=== PATIENT | male | born 1990 | race African-American/Black ===

== ENCOUNTER 2019-12-30 15:47 | Emergency (ER) | payer OTHER, SELFPAY ==
[2019-12-30 16:16] VITALS: BP 150/92; PULSE 98; RESP 19; TEMP 36.2; O2SAT 100
[2019-12-30 16:31] LABS: Basophils Percent Auto 0.2 % (0.2-1.2); Eosinophils Absolute Auto 0.1 K/mm3 (0-0.3); Eosinophils Percent Auto 0.8 % (0-4.4); Hematocrit 49.2 % (42.0-52.0); Immature Granulocyte Absolute 0.03 K/mm3 (0.00-0.031); Immature Granulocyte Percent A 0.3 % (0-0.5); Lymphocytes Percent Auto 13.3 % (18.3-44.2); Mean Corpuscular HGB Conc 32.5 g/dl (32-36); Mean Corpuscular Hemoglobin 30.5 pg (26-34); Mean Corpuscular Volume 93.7 fl (80-100); Mean Platelet Volume 8.7 fl (7.4-10.4); Monocytes Absolute Auto 0.4 K/mm3 (0.1-0.6); Monocytes Percent Auto 3.4 % (2.6-8.5); Neutrophils Absolute Auto 8.6 K/mm3 (1.3-6.7); Platelet Count Result 277 k/mm3 (150-375); Red Blood Count 5.25 M/mm3 (4.6-6.20); White Blood Count 10.5 K/mm3 (4.5-10.0)
[2019-12-30 16:42] LABS: Alanine Aminotransferase 71 U/L (4-50); Albumin Level 4.5 g/dL (3.5-5.1); Alkaline Phosphatase 68 U/L (38-126); Aspartate Amino Transferase 37 U/L (17-59); Bilirubin,Total 0.4 mg/dL (0.2-1.3); Blood Urea Nitrogen 14 mg/dL (9-20); Calcium 9.4 mg/dL (8.4-10.2); Carbon Dioxide 29 mmol/L (22-30); Chloride 102 mmol/L (98-107); Estimated Glomerular Filt Rate > 60; Glucose 117 mg/dL (75-110); Lipase 124 U/L (23-300); Potassium 3.9 mmol/L (3.4-5.0); Sodium 141 mmol/L (137-145)
[2019-12-30 17:51] VITALS: BP 122/76; PULSE 88; RESP 19; TEMP 36.4; O2SAT 100
[2019-12-30 18:14] VITALS: BP 135/92; PULSE 87
[2019-12-30 18:15] VITALS: BP 119/86; BP 137/92; PULSE 85; PULSE 92
--- NOTE | 2019-12-30 18:55 | ED.GENADULT ---
HPI - General Adult General Chief complaint: Nausea/Vomiting/Diarrhea <Ian Kwon PA-C - Last Filed: 12/30/19 20:40> Stated complaint: vomiting <Ian Kwon PA-C - Last Filed: 12/30/19 20:40> Time Seen by Provider: 12/30/19 18:19 <Ian Kwon PA-C - Last Filed: 12/30/19 20:40> Source: patient and family <ESTER Goodwin Last Filed: 12/30/19 20:40> Mode of arrival: ambulatory <Ian Kwon PA-C - Last Filed: 12/30/19 20:40> Limitations: clinical condition <ESTER Goodwin Last Filed: 12/30/19 20:40> History of Present Illness HPI narrative: Patient is a 29-year-old male who presents to emergency department for evaluation of nausea and vomiting noting that he shot up meth today and had resultant nausea and vomiting which she has had before requiring nausea medication has not taken anything for his symptoms patient denies any other illness or complaints and on arrival denies any pain and notes just nausea <Ian Kwon PA-C - Last Filed: 12/30/19 20:40> Related Data Allergies/adverse reactions: Allergies Allergy/AdvReac Type Severity Reaction Status Date / Time No Known Allergies Allergy Unknown Verified 12/03/19 16:01 <Ian Kwon PA-C - Last Filed: 12/30/19 20:40> Review of Systems Review of Systems: All systems reviewed & are unremarkable except as noted in HPI and below <Ian Kwon PA-C - Last Filed: 12/30/19 20:40> [facility] Surgical History Surgical History: Surgical History (Updated 12/30/19 @ 18:57 by Ian Kwon PA-C) History of orthopedic surgery <ESTER Goodwin Last Filed: 12/30/19 20:40> Social History Social History: Social History Smoking status: Current some day smoker Alcohol intake: current Substance use: current Substance use type: marijuana and methamphetamine Last use: 12/03/19 Gender identity (if verbalized by the patient): Male <ESTER Goodwin Last Filed: 12/30/19 20:40> Exam Narrative: Exam Narrative: GENERAL: Well-appearing, well-nourished, and in no acute distress. HEAD: Normocephalic, atraumatic. EYES: PERRLA and EOMI. ENT: Nares clear, no rhinorrhea or epistaxis. Mucous membranes moist. Oropharynx without tonsillar hypertrophy exudate or other lesions. CHEST: Clear to auscultation. No respiratory distress. No wheezes rales or rhonchi HEART: Regular rate and rhythm. No murmur heard. Normal peripheral pulses. ABDOMEN: Soft, nontender, nondistended EXTREMITIES: Normal range of motion. No edema. SKIN: Warm, dry, no rash. NEURO: No focal deficits. Alert and oriented x3. PSYCH: Normal mood and affect. <ESTER Goodwin Last Filed: 12/30/19 20:40> Course Course Emergency Course: Patient in the room in no distress aware of case findings treatment plan and diagnosis <ESTER Goodwin Last Filed: 12/30/19 20:40> Vital Signs Vital signs: Vital Signs Temperature 36.2 C L 12/30/19 16:16 Pulse Rate 98 12/30/19 16:16 Respiratory Rate 19 12/30/19 16:16 Blood Pressure 150/92 H 12/30/19 16:16 Pulse Oximetry 100 12/30/19 16:16 Temperature 36.4 C L 12/30/19 17:51 Pulse Rate 92 12/30/19 18:15 Respiratory Rate 19 12/30/19 17:51 Blood Pressure 137/92 H 12/30/19 18:15 Pulse Oximetry 100 12/30/19 17:51 <ESTER Goodwin Last Filed: 12/30/19 20:40> Vital Signs Temperature 36.2 C L 12/30/19 16:16 Pulse Rate 98 12/30/19 16:16 Respiratory Rate 19 12/30/19 16:16 Blood Pressure 150/92 H 12/30/19 16:16 Pulse Oximetry 100 12/30/19 16:16 Temperature 36.4 C L 12/30/19 17:51 Pulse Rate 92 12/30/19 18:15 Respiratory Rate 19 12/30/19 17:51 Blood Pressure 137/92 H 12/30/19 18:15 Pulse Oximetry 100 12/30/19 17:51 <Malathi Savage MD - Last Filed: 12/31/19 00:22> Medical Decision Uzair
[2019-12-30] MEDS: LACTATED RINGERS 1,000 ML 999 ML IV CONT (19:32)
[2019-12-30] MEDS: ONDANSETRON INJ 4 MG/2 ML VIAL IV PUSH (19:33)
[2019-12-30] MEDS: FAMOTIDINE 20 MG/2 ML VIAL IV PUSH (19:33)
== END 2019-12-30 21:14 | disposition home or self-care (01) ==
PROVIDERS: Emergency Provider Emergency Medicine
DX: R11.2 Nausea with vomiting, unspecified (principal); F17.200 Nicotine dependence, unspecified, uncomplicated; F15.90 Other stimulant use, unspecified, uncomplicated
CPT/HCPCS: 36415; 80053; 83690; 85025; 96361; 96374; 96375; 99284; J0131; J2405; J7120

== ENCOUNTER 2020-05-08 15:37 | Emergency (ER) | payer OTHER, SELFPAY ==
--- NOTE | ~2020-05-08 | CT_ITS ---
EXAMINATION: CT abdomen pelvis w con DATE: 05/08/2020 17:28 INDICATION: Abdominal pain and vomiting TECHNIQUE: Computed tomography (CT) of the abdomen and pelvis was performed with 100 cc Omnipaque 350 intravenous contrast. Automated exposure control and iterative reconstruction technique were employe d. Exam dose: 681.96 mGy-cm total exam DLP. COMPARISON: 06/29/2018 CT abdomen pelvis FINDINGS: There is dependent right lower lobe infiltrate and/atelectasis. There is minimal dependent left lower lobe atelectasis. Normal heart size. No pericardial or pleural effusion. The liver, gallbladder, spleen, pancreas and the bile and pancreatic ducts are unremarkable. No adrenal mass lesion. No renal mass lesion. No urinary tract calculus or hydroureteronephrosis. The urinary bladder is unre markable. Prostate gland is unremarkable. Normal appendix. There are numerous fluid containing small bowel segments with air-fluid levels, but no abnormal dilatation of the small or large bowel or evacuation of the distal bowel to suggest obstr uction. No bowel wall thickening, pneumatosis or intraperitoneal free air. Findings may be consistent with enteritis. Normal caliber of the abdominal aorta. No intraperitoneal or retroperitoneal or pelvic mass lesion or adenopathy or ascites. Included skeletal structures are unremarkable. IMPRESSION: Nondilated fluid containing small bowel segments with air-fluid levels, suggesting enter itis Normal appendix Reviewed, dictated and finalized at [facility]. Reviewed, dictated and finalized at [facility]. IMPRESSION: Nondilated fluid containing small bowel segments with air-fluid le vels, suggesting enteritis Normal appendix
[2020-05-08 15:43] VITALS: PULSE 97; RESP 14; TEMP 36.8; O2SAT 100
--- NOTE | 2020-05-08 15:47 | ECG_ITS ---
Measurements Intervals [place] Rate: 97 P: 67 NE: 159 QRS: 0 QRSD: 98 T: 56 QT: 335 QTc: 426 Interpretive Statements SINUS RHYTHM POSSIBLE LEFT ATRIAL ENLARGEMENT INCOMPLETE RIGHT BUNDLE BRANCH BLOCK BASELINE WANDER- V3 BORDERLINE ECG Electronically Signed On 05-08-2020 16:11:29 CDT by Doc Claudio D.O.
[2020-05-08 15:59] LABS: Basophils Percent Auto 0.2 % (0.2-1.2); Eosinophils Percent Auto 0.5 % (0-4.4); Hematocrit 47.7 % (42.0-52.0); Immature Granulocyte Absolute 0.01 K/mm3 (0.00-0.031); Immature Granulocyte Percent A 0.2 % (0-0.5); Lymphocytes Percent Auto 7.6 % (18.3-44.2); Mean Corpuscular HGB Conc 33.5 g/dl (32-36); Mean Corpuscular Hemoglobin 30.9 pg (26-34); Mean Corpuscular Volume 92.1 fl (80-100); Mean Platelet Volume 8.8 fl (7.4-10.4); Monocytes Absolute Auto 0.5 K/mm3 (0.1-0.6); Monocytes Percent Auto 7.9 % (2.6-8.5); Neutrophils Absolute Auto 5.5 K/mm3 (1.3-6.7); Neutrophils Percent Auto 83.6 % (45.5-73.1); Platelet Count Result 170 k/mm3 (150-375); Red Blood Count 5.18 M/mm3 (4.6-6.20); Red Cell Distribution Width 12.7 % (11.5-14.5); White Blood Count 6.6 K/mm3 (4.5-10.0)
[2020-05-08 16:11] LABS: Alanine Aminotransferase 57 U/L (4-50); Albumin Level 4.5 g/dL (3.5-5.1); Alkaline Phosphatase 65 U/L (38-126); Aspartate Amino Transferase 41 U/L (17-59); Bilirubin,Total 0.7 mg/dL (0.2-1.3); Blood Urea Nitrogen 12 mg/dL (9-20); Carbon Dioxide 29 mmol/L (22-30); Chloride 101 mmol/L (98-107); Estimated Glomerular Filt Rate > 60; Glucose 106 mg/dL (75-110); Potassium 4.2 mmol/L (3.4-5.0); Sodium 136 mmol/L (137-145)
[2020-05-08 16:16] LABS: Add Urine Microscopic? YES; Appearance Urine Clear (Clear); Bilirubin Urine Negative (Negative); Blood Urine Negative (Negative); Color Urine Yellow (Yellow); Glucose Urine UA Negative (Negative); Ketones Urine Negative (Negative); Leukocyte Esterase Ur Trace LEU/UL (Negative); Mucus Urine Rare /lpf; Nitrate Urine Negative (Negative); Protein Urine 1+ mg/dL (Negative); Specific Grav Ur 1.028 (1.001-1.035); Urobilinogen Urine Negative mg/dL (<2.0)
[2020-05-08 16:45] VITALS: BP 126/74; PULSE 100; RESP 20; O2SAT 99
--- NOTE | 2020-05-08 16:52 | ED.GENADULT ---
HPI - General Adult General Chief complaint: Unspecified Stated complaint: HORRIBLE ACID REFLUX Time Seen by Provider: 05/08/20 16:48 History of Present Illness HPI narrative: Patient presents with possible overdose of methamphetamines and fentanyl. He is very vague about his history and tends to just not answer questions. He keeps his eyes shut and whispers. He does say he has lower abdominal pain, and still feels nausea. He says the pain is 5 out of 10. He said he needs something for his stomach acid. He said he started throwing up today. Onset (ago): hour(s) Location: abdomen Radiation: non-radiation Severity: moderate Severity scale (1-10): 5 Relieving factors: none Exacerbating factors: none Associated symptoms: denies other symptoms Related Data Allergies Allergy/AdvReac Type Severity Reaction Status Date / Time No Known Allergies Allergy Unknown Verified 12/03/19 16:01 Review of Systems Review of Systems: Narrative: Review of systems is limited by the patient's acute illness, and his reluctance to answer questions. [facility] Surgical History Surgical History History of orthopedic surgery Social History Social History Smoking status: Current some day smoker Alcohol intake: current Substance use: current Substance use type: marijuana and methamphetamine Last use: 12/03/19 Gender identity (if verbalized by the patient): Male Exam Narrative: Exam Narrative: GENERAL: Well-appearing, well-nourished, and in no acute distress. Smells of vomit. HEAD: Normocephalic, atraumatic. EYES: PERRLA and EOMI. ENT: Nares clear, no rhinorrhea or epistaxis. Mucous membranes dry. NECK: Supple. CHEST: Clear to auscultation. No respiratory distress. HEART: Regular rate and rhythm. No murmur heard. Normal peripheral pulses. ABDOMEN: Soft, nontender, nondistended, normal active bowel sounds. EXTREMITIES: Normal range of motion. No edema. SKIN: Warm, dry, no rash. NEURO: No focal deficits. PSYCH: Keeps his eyes closed. Const: General: ill appearing Course Reevaluation(s) Reevaluation #1: Went in to tell the patient about the results of his CAT scan. He had had fecal incontinent accident. He says that he is homeless. He said he just cannot stand the thought of vomiting again. I offered him prescriptions for his reflux and for vomiting. He requests he be on paper so he can go to any pharmacy. I told him we have a homeless [facility] resource sheet. Date: 05/08/20 Time: 18:29 Vital Signs Vital signs: Vital Signs Temperature 98.2 F 05/08/20 15:43 Pulse Rate 97 05/08/20 15:43 Respiratory Rate 14 05/08/20 15:43 Pulse Oximetry 100 05/08/20 15:43 Temperature 98.2 F 05/08/20 15:43 Pulse Rate 100 05/08/20 16:45 Respiratory Rate 20 05/08/20 16:45 Blood Pressure 126/74 05/08/20 16:45 Pulse Oximetry 99 05/08/20 16:45 Medical Decision Making Medical Records Medical records reviewed: Yes I reviewed the patient's medical records. Vital Signs Vital Signs: Vital Signs Temperature 98.2 F 05/08/20 15:43 Pulse Rate 97 05/08/20 15:43 Respiratory Rate 14 05/08/20 15:43 Pulse Oximetry 100 05/08/20 15:43 Temperature 98.2 F 05/08/20 15:43 Pulse Rate 100 05/08/20 16:45 Respiratory Rate 20 05/08/20 16:45 Blood Pressure 126/74 05/08/20 16:45 Pulse Oximetry 99 05/08/20 16:45 Lab Data Lab results reviewed: Yes I reviewed the patient's lab results. Result diagrams: 05/08/20 15:53 05/08/20 15:53 Labs: Lab Results 05/08/20 05/08/20 05/08/20 Range/Units 15:53 15:53 15:53 WBC 6.6 (4.5-10.0) K/mm3 RBC 5.18 (4.6-6.20) M/mm3 Hgb 16.0 (14.0-18.0) g/dL Hct 47.7 (42.0-52.0) % MCV 92.1 (80-100) fl MCH 30.9 (26-34) pg MCHC 33.5 (32-36) g/dl RDW 12.7 (11.5-14.5) % Plt Count 170 (150-375)
[2020-05-08] MEDS: ONDANSETRON INJ 4 MG/2 ML VIAL IV PUSH (16:59)
[2020-05-08] MEDS: SODIUM CHLORIDE 0.9% IV 1,000 ML 999 ML IV CONT (16:59)
[2020-05-08] MEDS: FAMOTIDINE 20 MG/2 ML VIAL IV PUSH (16:59)
[2020-05-08 17:16] LABS: Barbiturate Screen Urine Negative (Negative); Benzodiazepines Screen Urine Negative (Negative)
[2020-05-08 17:18] LABS: Cannabinoid Screen Urine Negative (Negative); Cocaine Screen Urine Negative (Negative); Methadone Screen Urine Negative (Negative); Opiate Screen Urine Negative (Negative); Phencyclidine Screen Urine Negative (Negative)
[2020-05-08 17:28] LABS: Troponin I < 0.012 ng/mL (0.000-0.034)
[2020-05-08 17:52] LABS: Amphetamine Screen Urine Positive (Negative)
[2020-05-08] MEDS: ONDANSETRON INJ 4 MG/2 ML VIAL (18:37)
[2020-05-08 18:42] VITALS: BP 118/80; PULSE 80; RESP 20; TEMP 36.7; O2SAT 99
== END 2020-05-08 18:43 | disposition home or self-care (01) ==
PROVIDERS: Emergency Provider Emergency Medicine
DX: K52.9 Noninfective gastroenteritis and colitis, unspecified (principal); K21.9 Gastro-esophageal reflux disease without esophagitis; Z59.0 Homelessness; F17.200 Nicotine dependence, unspecified, uncomplicated
CPT/HCPCS: 36415; 74177; 80053; 80307; 81001; 84484; 85025; 93005; 96361; 96374; 96375; 96376; 99284; J2405; J7030; Q9967

== ENCOUNTER 2020-08-12 07:09 | Emergency (ER) | payer OTHER, SELFPAY ==
[2020-08-12] VITALS (7 sets, daily range): BP systolic 126–166; BP diastolic 80–106; PULSE 87–102; RESP 20; TEMP 36.9; O2SAT 98–100
--- NOTE | ~2020-08-12 | CT_ITS ---
EXAMINATION: CT soft tissue neck w con DATE: 08/12/2020 08:36 INDICATION: Sore throat and swelling TECHNIQUE: Computed tomography (CT) of the neck was performed with 75 mL Omnipaque-350 intravenous co ntrast. The dose-length product was 681.12 mGy-cm. Automated exposure control and iterative reconstru ction technique were employed. COMPARISON: CT dated 08/11/2019 FINDINGS: There is a left peritonsillar abscess measuring 3.2 x 3 cm with thick wall and central low- attenuation. This causes mass effect with rightward deviation of the oral pharynx. No significant vas cular abnormality is identified. There are mildly prominent cervical lymph nodes at multiple levels, most likely reactive. No intracranial abnormality is identified. IMPRESSION: 1. Left peritonsillar abscess with mass effect on the oropharynx which is deviated to the right. [facility] mmend ENT consultation. Reviewed, dictated and finalized at [facility]. IMPRESSION: 1. Left peritonsillar abscess with mass effect on the oropharynx which is devia marci to the right. Recommend ENT consultation.
--- NOTE | 2020-08-12 07:36 | ED.GENADULT ---
HPI - General Adult General Chief complaint: Nausea/Vomiting/Diarrhea Stated complaint: sore throat, n/v Time Seen by Provider: 08/12/20 07:20 Source: patient Mode of arrival: ambulatory Limitations: no limitations History of Present Illness HPI narrative: Pt c/o a sorethroat and difficulty swallowing accompanied by nausea x 3-4 days. Denies cp, sob, cough, nasal congestion, runny nose, abd pain, or fever. Related Data Home Medications Medication Instructions Recorded Confirmed No Home Medications 08/12/20 08/12/20 Allergies Allergy/AdvReac Type Severity Reaction Status Date / Time No Known Allergies Allergy Unknown Verified 08/12/20 07:24 Review of Systems Review of Systems: All systems reviewed & are unremarkable except as noted in HPI and below Constitutional: Constitutional: Denies body ache(s), Denies chills, Denies excessive sweating, Denies fatigue, Denies fever(s), Denies headache(s), Denies lethargy, Denies malaise, Denies weakness and Denies weight loss Eyes: Eyes: Denies blurry vision, Denies change in vision and Denies loss of vision ENT: Denies dizziness, Denies ear discharge, Denies headache(s), Denies lip swelling, Denies epistaxis, Denies nasal congestion, Denies neck pain and Denies tongue swelling Cardiovascular: Cardiovascular: Denies chest pain, Denies chest pain at rest, Denies chest pain with activity, Denies diaphoresis, Denies rapid heart rate, Denies edema, Denies irregular heart rhythm, Denies lightheadedness, Denies palpitations, Denies dyspnea and Denies dyspnea on exertion Respiratory: Respiratory: Denies chest congestion, Denies cough, Denies hemoptysis, Denies dyspnea and Denies dyspnea on exertion Gastrointestinal: Gastrointestinal: Denies abdominal pain, Denies melena, Denies hematochezia, Denies diarrhea and Denies hematemesis Musculoskeletal: Musculoskeletal: Denies abnormal gait, Denies deformity, Denies joint swelling, Denies limited range of motion, Denies neck pain and Denies numbness Neurologic: Denies Abnormal speech present, Denies abnormal gait, Denies confusion, Denies dizziness, Denies headache(s), Denies focal weakness, Denies loss of vision, Denies numbness, Denies Other visual disturbances, Denies Sensory deficit (Neuro) and Denies weakness Psychiatric: Psychiatric: Denies confusion, Denies depression, Denies auditory hallucinations, Denies homicidal ideation and Denies suicidal ideation Endocrine: Endocrine: Denies cold intolerance, Denies excessive sweating, Denies fatigue, Denies heat intolerance and Denies palpitations Hematologic/Lymphatic: Hematologic/Lymphatic: Denies easy bleeding and Denies easy bruising Allergic/Immunologic: Allergic/Immunologic: Denies lip swelling, Denies throat swelling and Denies tongue swelling [facility] Social History Social History Smoking status: Current some day smoker Alcohol intake: current Substance use: current Substance use type: marijuana and methamphetamine Last use: 12/03/19 Gender identity (if verbalized by the patient): Male Exam Const: General: cooperative, healthy appearing, comfortable, no acute distress, well developed, alert and awake; No confusion Orientation/consciousness: oriented to person, oriented to place, oriented to time, patient oriented x3 and No confusion Limitations: no limitations HENMT: Head: normocephalic and atraumatic Ears: hearing grossly normal bilaterally, TM normal on the right and TM normal on the left General nose exam: Normal external nose present, Normal nares present and No nasal discharge present Face and sinus: normal facial exam Mouth: Yes Normal oral and palatal mucosa present, Yes lip normal and Yes tongue normal Other: Erythematous swollen tonsillar area left greater than the right Uvual erythematous and swollen deviating to right Eyes: General: appearance normal, both eyes and all related structures Pupils: Equal, round
[2020-08-12 07:53] LABS: Basophils Percent Auto 0.3 % (0.2-1.2); Hematocrit 44.4 % (42.0-52.0); Hemoglobin 14.9 g/dL (14.0-18.0); Immature Granulocyte Absolute 0.01 K/mm3 (0.00-0.031); Immature Granulocyte Percent A 0.3 % (0-0.5); Lymphocytes Absolute Auto 1.05 K/mm3 (0.9-3.2); Lymphocytes Percent Auto 32.9 % (18.3-44.2); Mean Corpuscular HGB Conc 33.6 g/dl (32-36); Mean Corpuscular Hemoglobin 30.5 pg (26-34); Mean Corpuscular Volume 90.8 fl (80-100); Mean Platelet Volume 8.3 fl (7.4-10.4); Monocytes Absolute Auto 0.1 K/mm3 (0.1-0.6); Monocytes Percent Auto 1.6 % (2.6-8.5); Neutrophils Absolute Auto 2.1 K/mm3 (1.3-6.7); Neutrophils Percent Auto 64.9 % (45.5-73.1); Platelet Count Result 269 k/mm3 (150-375); Red Blood Count 4.89 M/mm3 (4.6-6.20); Red Cell Distribution Width 12.1 % (11.5-14.5); White Blood Count 3.2 K/mm3 (4.5-10.0)
[2020-08-12] MEDS: SODIUM CHLORIDE 0.9% IV 1,000 ML 999 ML IV CONT (07:57)
[2020-08-12] MEDS: ONDANSETRON INJ 4 MG/2 ML VIAL IV PUSH ×2 (07:59→13:09)
[2020-08-12 08:06] LABS: Alanine Aminotransferase 41 U/L (4-50); Albumin Level 4.2 g/dL (3.5-5.1); Alkaline Phosphatase 76 U/L (38-126); Anion Gap 7 mmol/L (8-16); Aspartate Amino Transferase 31 U/L (17-59); Bilirubin,Total 0.3 mg/dL (0.2-1.3); Blood Urea Nitrogen 16 mg/dL (9-20); Calcium 9.6 mg/dL (8.4-10.2); Carbon Dioxide 28 mmol/L (22-30); Chloride 101 mmol/L (98-107); Estimated Glomerular Filt Rate > 60; Glucose 121 mg/dL (75-110); Potassium 3.7 mmol/L (3.4-5.0); Sodium 136 mmol/L (137-145)
--- NOTE | 2020-08-12 12:39 | PC.NURSE ---
REPORT CALLED TO HAILEY RIDER AT [facility]
[2020-08-12] MEDS: CLINDAMYCIN 900 MG/NS 50 ML 900 MG/50 ML PIGGYBACK 50 MG IVPB (12:48)
--- NOTE | 2020-08-12 12:53 | PC.NURSE ---
PT C/O NAUSEA. DR FRAGOSO NOTIFIED. VRBO ZOFRAN 4 MG IVP X1. WILL CONTINUE TO MONITOR
== END 2020-08-12 14:45 | disposition short-term general hospital (02) ==
PROVIDERS: Emergency Provider Emergency Medicine
DX: J36 Peritonsillar abscess (principal); F17.200 Nicotine dependence, unspecified, uncomplicated
CPT/HCPCS: 36415; 70491; 80053; 85025; 87081; 87147; 87880; 96361; 96365; 96375; 96376; 99285; J1100; J2405; J7030; Q9967

== ENCOUNTER 2021-12-12 06:23 | Emergency (ER) | payer OTHER, SELFPAY ==
[2021-12-12 06:36] VITALS: BP 125/93; PULSE 91; RESP 18; TEMP 36.9; O2SAT 100
[2021-12-12 07:03] LABS: Basophils Percent Auto 0.3 % (0.2-1.2); Eosinophils Percent Auto 0.4 % (0-4.4); Hematocrit 48.8 % (42.0-52.0); Hemoglobin 15.9 g/dL (14.0-18.0); Immature Granulocyte Absolute 0.04 K/mm3 (0.00-0.031); Immature Granulocyte Percent A 0.4 % (0-0.5); Lymphocytes Absolute Auto 1.83 K/mm3 (0.9-3.2); Lymphocytes Percent Auto 16.5 % (18.3-44.2); Mean Corpuscular HGB Conc 32.6 g/dl (32-36); Mean Corpuscular Hemoglobin 30.7 pg (26-34); Mean Corpuscular Volume 94.2 fl (80-100); Mean Platelet Volume 8.8 fl (7.4-10.4); Monocytes Absolute Auto 0.4 K/mm3 (0.1-0.6); Neutrophils Absolute Auto 8.7 K/mm3 (1.3-6.7); Neutrophils Percent Auto 78.4 % (45.5-73.1); Platelet Count Result 263 k/mm3 (150-375); Red Blood Count 5.18 M/mm3 (4.6-6.20); White Blood Count 11.1 K/mm3 (4.5-10.0)
--- NOTE | 2021-12-12 07:34 | ED.ABDPAIN ---
HPI - Abdominal Pain General Chief Complaint: Abdominal Pain Stated Complaint: altered mental status Time Seen by Provider: 12/12/21 07:31 Source: patient Mode of arrival: other Limitations: clinical condition History of Present Illness HPI narrative: 31-year-old male He was apparently he was dropped off by acquaintances due to decreased responsiveness There have been prior ED visits with similar circumstances where he did use meth and fentanyl and had nausea and vomiting and fecal incontinence Indeed when he wakes up the patient says that his acid reflux is bothering him and he has had diarrhea He also says he does not use fentanyl anymore just meth, although he is not really presenting as such Additionally he has a dressing on his right upper arm undergone some skin breakdown Related Data Allergies Allergy/AdvReac Type Severity Reaction Status Date / Time No Known Allergies Allergy Unknown Verified 08/12/20 07:24 Review of Systems Review of Systems: ROS unobtainable: Yes unobtainable due to mental status Gastrointestinal: Gastrointestinal: Reports diarrhea, Reports nausea and Reports vomiting PMFSH Surgical History Surgical History History of orthopedic surgery Social History Social History Smoking status: Current some day smoker Alcohol intake: current Substance use: current Substance use type: marijuana and methamphetamine Last use: 12/03/19 Gender identity (if verbalized by the patient): Male Exam Const: General: cooperative, healthy appearing and no acute distress; No alert Orientation/consciousness: patient oriented x3 HENMT: Head: normal to inspection, normocephalic and atraumatic Ears: external ears normal General nose exam: no epistaxis Eyes: Conjunctivae: conjunctivae normal EOM: EOMs intact bilaterally Neck: Neck: normal visual inspection, supple and no JVD Resp: Effort & Inspection: normal respiratory effort and not labored Auscultation: clear to auscultation bilaterally, no rales, no rhonchi, no wheezes and other (BS =) Cardio: Rate: regular rate Rhythm: regular rhythm Heart sounds: no murmurs GI: GI Palp: Yes Soft to palpation, No Tenderness to palpation present (GI) and No Guarding due to palpation present (GI) Skin: General skin exam: no rashes or lesions noted Other: Looks like some possibly superficially infected street tattoos on his right upper arm Neuro: General: moves all extremities and no focal motor deficits Other: Moves grossly equally x4 Extrem: General: no pedal edema Psych: Appearance: disheveled Course Vital Signs Vital signs: Vital Signs Temperature 36.9 C 12/12/21 06:36 Pulse Rate 91 12/12/21 06:36 Respiratory Rate 18 12/12/21 06:36 Blood Pressure 125/93 H 12/12/21 06:36 Pulse Oximetry 100 12/12/21 06:36 Temperature 36.9 C 12/12/21 06:36 Pulse Rate 91 12/12/21 06:36 Respiratory Rate 18 12/12/21 06:36 Blood Pressure 125/93 H 12/12/21 06:36 Pulse Oximetry 12/12/21 06:36 MDM - Abdominal Pain Lab Data Result diagrams: 12/12/21 06:55 12/12/21 07:20 Labs: Lab Results 12/12/21 12/12/21 12/12/21 Range/Units 06:55 07:20 08:32 WBC 11.1 H (4.5-10.0) K/mm3 RBC 5.18 (4.6-6.20) M/mm3 Hgb 15.9 (14.0-18.0) g/dL Hct 48.8 (42.0-52.0) % MCV 94.2 (80-100) fl MCH 30.7 (26-34) pg MCHC 32.6 (32-36) g/dl RDW 13.0 (11.5-14.5) % Plt Count 263 (150-375) k/mm3 MPV 8.8 (7.4-10.4) fl Immature Gran % (Auto) 0.4 (0-0.5) % Neut % (Auto) 78.4 H (45.5-73.1) % Lymph % (Auto) 16.5 L (18.3-44.2) % Callahan % (Auto) 4.0 (2.6-8.5) % Eos % (Auto) 0.4 (0-4.4) % Baso % (Auto) 0.3 (0.2-1.2) % Lymph # (Auto) 1.83 (0.9-3.2) K/mm3 Callahan # (Auto) 0.4 (0.1-0.6) K/mm3 Eos # (Auto) 0.0 (0-0.3) K/mm3 Baso # (Au
[2021-12-12 07:38] LABS: Alanine Aminotransferase 74 U/L (4-50); Albumin Level 4.6 g/dL (3.5-5.1); Alkaline Phosphatase 68 U/L (38-126); Anion Gap 12 mmol/L (8-16); Aspartate Amino Transferase 38 U/L (17-59); Bilirubin,Total 0.3 mg/dL (0.2-1.3); Blood Urea Nitrogen 17 mg/dL (9-20); Calcium 9.6 mg/dL (8.4-10.2); Carbon Dioxide 26 mmol/L (22-30); Chloride 99 mmol/L (98-107); Estimated CRCL calculation 111 ml/min; Estimated Glomerular Filt Rate > 60; Glucose 118 mg/dL (65-110); Lipase 76 U/L (23-300); Potassium 4.5 mmol/L (3.4-5.0); Sodium 137 mmol/L (137-145)
[2021-12-12] MEDS: ONDANSETRON INJ 4 MG/2 ML VIAL IV PUSH (07:55)
[2021-12-12] MEDS: PANTOPRAZOLE SODIUM IV 40 MG VIAL IV PUSH (07:55)
[2021-12-12] MEDS: BACITRACIN OINTMENT 15 GM TUBE 1 APPLIC TOPICAL (07:55)
[2021-12-12] MEDS: NALOXONE HCL 0.4 MG/ML VIAL IV PUSH (07:55)
[2021-12-12 09:00] LABS: Add Urine Microscopic? NO; Appearance Urine Clear (Clear); Bilirubin Urine Negative (Negative); Blood Urine Negative (Negative); Color Urine Yellow (Yellow); Glucose Urine UA Negative (Negative); Ketones Urine Negative (Negative); Leukocyte Esterase Ur Negative LEU/UL (Negative); Nitrate Urine Negative (Negative); Protein Urine Negative (Negative); Specific Grav Ur 1.024 (1.001-1.035); Urobilinogen Urine Negative mg/dL (<2.0)
[2021-12-12 09:31] VITALS: BP 138/79
== END 2021-12-12 09:33 | disposition home or self-care (01) ==
PROVIDERS: Emergency Medicine; Emergency Provider Emergency Medicine
DX: K21.9 Gastro-esophageal reflux disease without esophagitis (principal); R11.2 Nausea with vomiting, unspecified; F17.200 Nicotine dependence, unspecified, uncomplicated
CPT/HCPCS: 36415; 80053; 81003; 83690; 85025; 96374; 96375; 99284; A9270; C9113; J2310; J2405

== ENCOUNTER 2023-10-29 11:46 | Emergency (ER) | payer OTHER, SELFPAY ==
[2023-10-29 11:47] VITALS: BP 143/100; PULSE 94; RESP 16; TEMP 36.6; O2SAT 97
[2023-10-29 12:47] LABS: Amphetamine Screen Urine Negative (Negative); Barbiturate Screen Urine Negative (Negative); Benzodiazepines Screen Urine Negative (Negative); Cannabinoid Screen Urine Positive (Negative); Cocaine Screen Urine Negative (Negative); Methadone Screen Urine Negative (Negative); Opiate Screen Urine Negative (Negative); Phencyclidine Screen Urine Negative (Negative)
--- NOTE | 2023-10-29 13:01 | ED.GENADULT ---
HPI - General Adult General Chief complaint: Unspecified Stated complaint: wanting to make sure not slipped anything Time Seen by Provider: 10/29/23 11:59 History of Present Illness HPI narrative: Patient is a 33-year-old male presenting for drug screening. Patient states that he was hanging out with a friend of a friend last night and he started to feel weird. States that he was having hot flashes. States that he used to use meth and fentanyl and it felt somewhat similar to that. states that he he is trying to set up surgery to have a hernia repaired and he does not want to have this canceled due to drug use. He denies any complaints today. Related Data Allergies Allergy/AdvReac Type Severity Reaction Status Date / Time No Known Allergies Allergy Unknown Verified 08/12/20 07:24 Review of Systems Review of Systems: All systems reviewed & are unremarkable except as noted in HPI and below PMFSH Surgical History Surgical History History of orthopedic surgery Social History Social History Smoking status: Current some day smoker Alcohol intake: current Substance use: current Substance use type: former substance user and marijuana Last use: 12/03/19 Gender identity (if verbalized by the patient): Male Exam Narrative: GENERAL: Well-appearing, In no acute distress, pleasant and cooperative HEAD: Normocephalic, atraumatic. EYES: PERRLA and EOMI. ENT: Mucous membranes moist. NECK: Supple. CHEST: No respiratory distress. HEART: Regular rate and rhythm EXTREMITIES: Normal range of motion. SKIN: Warm, dry, no rash. NEURO: No focal deficits. Alert and oriented x3. PSYCH: Normal mood and affect. Course Vital Signs Vital signs: Vital Signs Temperature 97.8 F 10/29/23 11:47 Pulse Rate 94 10/29/23 11:47 Respiratory Rate 16 10/29/23 11:47 Blood Pressure 143/100 H 10/29/23 11:47 Pulse Oximetry 97 10/29/23 11:47 Oxygen Delivery Room Air 10/29/23 11:47 Temperature 97.8 F 10/29/23 11:47 Pulse Rate 94 10/29/23 11:47 Respiratory Rate 16 10/29/23 11:47 Blood Pressure 143/100 H 10/29/23 11:47 Pulse Oximetry 97 10/29/23 11:47 Oxygen Delivery Room Air 10/29/23 11:47 Medical Decision Making MDM Narrative Medical decision making narrative: 33-year-old male presenting for drug screening. Vitals stable. Exam is unremarkable. Urine drug screen is positive for cannabinoids. Reassured the patient that there is no evidence of opiates or amphetamines. Advised PCP follow-up and to avoid illicit substances. Appropriate return precautions given. Discharged in stable condition. Differential Diagnosis Differential Diagnosis: Substance use, exam for medical evaluation Medical Records Medical records reviewed: Yes I reviewed the external patient's medical records. Vital Signs Vital Signs: Vital Signs Temperature 97.8 F 10/29/23 11:47 Pulse Rate 94 10/29/23 11:47 Respiratory Rate 16 10/29/23 11:47 Blood Pressure 143/100 H 10/29/23 11:47 Pulse Oximetry 97 10/29/23 11:47 Oxygen Delivery Room Air 10/29/23 11:47 Temperature 97.8 F 10/29/23 11:47 Pulse Rate 94 10/29/23 11:47 Respiratory Rate 16 10/29/23 11:47 Blood Pressure 143/100 H 10/29/23 11:47 Pulse Oximetry 97 10/29/23 11:47 Oxygen Delivery Room Air 10/29/23 11:47 Lab Data Lab results reviewed: Yes I reviewed the patient's lab results. Labs: Lab Results 10/29/23 Range/Units 12:21 Urine Opiates Screen Negative (Negative) Urine Methadone Screen Negative (Negative) Ur Barbiturates Screen Negative (Negative) Ur Phencyclidine Scrn Negative (Negative) Ur Amphetamine Screen Negative (Negative) U Benzodiazepines Scrn Negative (Negative) Urine Cocaine Screen Negative (Negative) U Cannabinoids Screen Positive A (N
== END 2023-10-29 13:11 | disposition home or self-care (01) ==
PROVIDERS: Emergency Provider Emergency Medicine
DX: Z03.6 Encounter for observation for suspected toxic effect from ingested substance ruled out (principal); F12.90 Cannabis use, unspecified, uncomplicated; F17.200 Nicotine dependence, unspecified, uncomplicated
CPT/HCPCS: 80307; 99283

== ENCOUNTER 2023-12-25 12:31 | Emergency (ER) | payer OTHER, SELFPAY ==
[2023-12-25 12:33] VITALS: PULSE 92; RESP 16; TEMP 36.5; O2SAT 100
== END 2023-12-25 15:29 | disposition left against medical advice (07) ==
DX: R19.00 Intra-abdominal and pelvic swelling, mass and lump, unspecified site (principal)
CPT/HCPCS: 99199

== ENCOUNTER 2023-12-26 12:44 | Emergency (ER) | payer OTHER, SELFPAY ==
[2023-12-26 13:05] VITALS: BP 165/113; PULSE 90; RESP 18; TEMP 36.8; O2SAT 97
--- NOTE | 2023-12-26 15:36 | PC.NURSE ---
pt comes out of room states, i don't have time to wait all day. i've got things to do. I have to leave pt walked out of department prior to seeing physician.
== END 2023-12-26 17:12 | disposition left against medical advice (07) ==
LOC: ANHED 17:03
DX: R10.30 Lower abdominal pain, unspecified (principal)
CPT/HCPCS: 99199

== ENCOUNTER 2024-01-11 14:47 | Emergency (ER) | payer OTHER, SELFPAY ==
--- NOTE | ~2024-01-11 | CT_ITS ---
EXAMINATION: CT abdomen pelvis w con DATE: 01/11/2024 16:39 INDICATION: inguinal hernia repair, right groin pain TECHNIQUE: Computed tomography (CT) of the abdomen and pelvis was performed with 100 mL Omnipaque-350 intravenous contrast. Automated exposure control and iterative reconstruction technique were employe d. The dose-length product was 1226.38 mGy-cm. COMPARISON: 05/08/2020. FINDINGS: Lower thorax: Unremarkable Liver: Normal. Biliary/Gallbladder: Gallbladder is normal. No bile duct dilation. Pancreas: No mass or duct dilation. Spleen: Normal. Adrenals:No mass. Kidneys: No suspicious mass, obstructing stone, or hydronephrosis. GI tract: No small or large bowel dilation. Normal appendix. Mesentery/Peritoneum: No ascites, mass, or free air. Retroperitoneum: No mass. Pelvis: Pelvic organs are within normal limits. Soft Tissues: Ovoid 5.2 x 7.1 cm thin-walled fluid density collection in the distal aspect of the rig ht inguinal canal, with mild rim enhancement, no significant surrounding stranding. Bones: No acute osseous finding. IMPRESSION: 5.2 x 7.1 cm fluid density right inguinal canal mass, likely hematoma or seroma. Abscess considered l ess likely but infection is not excluded. An edematous or ischemic/necrotic and retracted testicle co uld appear similarly, confirm normal scrotal position of the right testicle. Reviewed, dictated and finalized at location [facility] MANAGER IMPRESSION: 5.2 x 7.1 cm fluid density right inguinal canal mass, likely hematoma or seroma . Abscess considered less likely but infection is not excluded. An edematous or ischemic/necrotic and retracted testicle could appear similarly, confirm megha l scrotal position of the right testicle.
[2024-01-11 14:52] VITALS: BP 150/99; PULSE 74; RESP 16; TEMP 36.5; O2SAT 99
[2024-01-11 15:34] VITALS: BP 152/104; PULSE 82; RESP 15; TEMP 36.8; O2SAT 97
[2024-01-11 15:41] LABS: Amphetamine Screen Urine Negative (Negative); Barbiturate Screen Urine Negative (Negative); Benzodiazepines Screen Urine Negative (Negative); Cannabinoid Screen Urine Positive (Negative); Cocaine Screen Urine Negative (Negative); Methadone Screen Urine Negative (Negative); Opiate Screen Urine Negative (Negative); Phencyclidine Screen Urine Negative (Negative)
--- NOTE | 2024-01-11 16:10 | ED.GENADULT ---
HPI - General Adult General Chief complaint: Unspecified Stated complaint: requesting a drug screen Time Seen by Provider: 01/11/24 15:29 Source: patient Mode of arrival: ambulatory Limitations: no limitations History of Present Illness HPI narrative: This is a 33 year old male that presents to the ER for multiple complaints. Reports he would like a urine drug screen. Also reports he recently underwent inguinal hernia repair and has had some discomfort and bulging in the area. His surgery was in [place] with Dr. Jesus about 2 months ago. He has noticed swelling in the area the last couple of weeks. Denies fever, vomiting or dysuria. Related Data Allergies Allergy/AdvReac Type Severity Reaction Status Date / Time No Known Allergies Allergy Unknown Verified 01/11/24 15:33 Review of Systems Review of Systems: CONSTITUTIONAL: Denies fever GASTROINTESTINAL: Reports abdominal pain. Denies nausea, vomiting GENITOURINARY: Denies dysuria or hematuria. All systems reviewed & are unremarkable except as noted in HPI and below PMFSH Past Medical History Medical History (Updated 01/11/24 @ 18:24 by Brooklyn Lopez PA-C) No active medical problems Surgical History Surgical History History of orthopedic surgery Social History Social History Smoking status: Current some day smoker Alcohol intake: current Substance use: current Substance use type: former substance user and marijuana Last use: 12/03/19 Gender identity (if verbalized by the patient): Male Exam Narrative: GENERAL: Well-appearing, well-nourished, and in no acute distress. HEAD: Normocephalic, atraumatic. EYES: EOMI. CHEST: Clear to auscultation. No respiratory distress. No wheezes rales or rhonchi HEART: Regular rate and rhythm. No murmur heard. Normal peripheral pulses. ABDOMEN: Soft, nondistended, normal active bowel sounds. Right inguinal area with an area of bulging, mild tenderness to palpation without erythema or warmth EXTREMITIES: Normal range of motion. No edema. SKIN: Warm, dry, no rash. NEURO: No focal deficits. Alert and oriented x3. PSYCH: Normal mood and affect MALE GENITAL: Normal testicles and scrotum Course Course Emergency Course: Patient updated on his workup and agrees with plan of care Consultations Consultation #1: We spoke with his doctor's exchange and there is no one internal combustion engine assembler for him today or any way to get ahold of him Date: 01/11/24 Vital Signs Vital signs: Vital Signs Temperature 97.7 F 01/11/24 14:52 Pulse Rate 74 01/11/24 14:52 Respiratory Rate 16 01/11/24 14:52 Blood Pressure 150/99 H 01/11/24 14:52 Pulse Oximetry 99 01/11/24 14:52 Temperature 98.2 F 01/11/24 15:34 Pulse Rate 82 01/11/24 15:34 Respiratory Rate 15 01/11/24 15:34 Blood Pressure 152/104 H 01/11/24 15:34 Pulse Oximetry 97 01/11/24 15:34 Oxygen Delivery Room Air 01/11/24 15:34 Medical Decision Making MDM Narrative Medical decision making narrative: Patient presents to the emergency department requesting a urine drug screen. Also reporting pain and swelling in the area of his recent inguinal hernia repair. He is afebrile and nontoxic appearing. His vitals are stable. CBC without leukocytosis. Lactic acid is not elevated. Urine without evidence of infection. CT abdomen and pelvis shows a fluid collection in the right inguinal canal, likely seroma versus hematoma. We spoke with his doctor's exchange and there is no one internal combustion engine assembler for him today or any way to get ahold of him. Patient was updated on his workup. He was instructed to get a hold of his surgeon 1st thing in the morning for further management of his likely seroma. He was given warnings to return to the ER Vital Signs Vital Signs: Vital Signs Temperature 97.7 F 01/11/24 14:52 Pulse Rate 74 01/11/24 14:52 Respir
[2024-01-11 16:35] LABS: Estimated CRCL calculation 114 ml/min; Estimated Glomerular Filt Rate > 60
[2024-01-11 16:41] LABS: Appearance Urine Clear (Clear); Bilirubin Urine Negative (Negative); Blood Urine Negative (Negative); Color Urine Yellow (Yellow); Glucose Urine UA Negative (Negative); Ketones Urine Negative (Negative); Leukocyte Esterase Ur Negative LEU/UL (Negative); Nitrate Urine Negative (Negative); Protein Urine Negative (Negative); Specific Grav Ur 1.021 (1.001-1.035); pH Urine 5.5 (5.0-9.0)
[2024-01-11 16:43] LABS: Eosinophils Absolute Auto 0.2 K/mm3 (0-0.3); Eosinophils Percent Auto 4.5 % (0-4.4); Hematocrit 46.1 % (42.0-52.0); Hemoglobin 15.3 g/dL (14.0-18.0); Immature Granulocyte Absolute 0.01 K/mm3 (0.00-0.031); Immature Granulocyte Percent A 0.2 % (0-0.5); Lymphocytes Absolute Auto 1.76 K/mm3 (0.9-3.2); Lymphocytes Percent Auto 43.6 % (18.3-44.2); Mean Corpuscular HGB Conc 33.2 g/dl (32-36); Mean Corpuscular Hemoglobin 30.3 pg (26-34); Mean Corpuscular Volume 91.3 fl (80-100); Mean Platelet Volume 9.4 fl (7.4-10.4); Monocytes Absolute Auto 0.7 K/mm3 (0.1-0.6); Monocytes Percent Auto 17.6 % (2.6-8.5); Neutrophils Absolute Auto 1.3 K/mm3 (1.3-6.7); Neutrophils Percent Auto 33.1 % (45.5-73.1); Platelet Count Result 262 k/mm3 (150-375); Red Blood Count 5.05 M/mm3 (4.6-6.20); Red Cell Distribution Width 13.2 % (11.5-14.5)
[2024-01-11 16:45] LABS: Add Urine Microscopic? NO
[2024-01-11 16:56] LABS: Lactic Acid Reflex 1.4 mmol/L (0.7-2.0)
[2024-01-11 16:58] LABS: Alanine Aminotransferase 111 U/L (6-50); Albumin Level 4.3 g/dL (3.5-5.1); Alkaline Phosphatase 56 U/L (38-126); Anion Gap 8 mmol/L (8-16); Aspartate Amino Transferase 94 U/L (17-59); Bilirubin,Total 0.8 mg/dL (0.2-1.3); Blood Urea Nitrogen 18 mg/dL (9-20); Calcium 9.5 mg/dL (8.4-10.2); Carbon Dioxide 26 mmol/L (22-30); Chloride 104 mmol/L (98-107); Estimated CRCL calculation 149 ml/min; Estimated Glomerular Filt Rate > 60; Glucose 88 mg/dL (65-110); Potassium 3.9 mmol/L (3.4-5.0); Sodium 138 mmol/L (137-145)
--- NOTE | 2024-01-11 18:15 | PC.NURSE ---
Report given to Rosio RIDER, all questions answered
== END 2024-01-11 18:46 | disposition home or self-care (01) ==
PROVIDERS: Emergency Medicine; Emergency Provider Physician Assistant
DX: Z04.89 Encounter for examination and observation for other specified reasons (principal); L76.34 Postprocedural seroma of skin and subcutaneous tissue following other procedure; F17.200 Nicotine dependence, unspecified, uncomplicated
CPT/HCPCS: 74177; 80053; 80307; 81003; 83605; 85025; 99284; Q9967

== ENCOUNTER 2024-03-08 08:52 | Emergency (ER) | payer OTHER, SELFPAY ==
[2024-03-08 08:56] VITALS: BP 132/87; PULSE 91; RESP 18; TEMP 36.5; O2SAT 98
--- NOTE | 2024-03-08 09:58 | ED.GENADULT ---
HPI - General Adult General Chief complaint: Dental/Oral Stated complaint: pt reports infected tooth Time Seen by Provider: 03/08/24 09:07 History of Present Illness HPI narrative: Deepak Pfeiffer is a 33 y/o male who presents today with complaints of having left lower toothache and left upper dental infection that feels that he is getting worse. He states he has been to the dentist and they referred him to an oral surgeon that won't take his insurance. He states that he feels that the infection is getting worse in his tooth. He also reports of having some tender spots in his armpit that started a few days ago. Denies any fever/chills. He is eating and drinking well. Related Data Allergies Allergy/AdvReac Type Severity Reaction Status Date / Time No Known Allergies Allergy Unknown Verified 03/08/24 08:53 Review of Systems Review of Systems: All systems reviewed & are unremarkable except as noted in HPI and below PMFSH Past Medical History Medical History No active medical problems Surgical History Surgical History History of orthopedic surgery Social History Social History Smoking status: Current some day smoker Alcohol intake: current Substance use: current Substance use type: former substance user and marijuana Last use: 12/03/19 Gender identity (if verbalized by the patient): Male Exam Narrative: GENERAL: Well-appearing, well-nourished, and in no acute distress. HEAD: Normocephalic, atraumatic. EYES: PERRLA and EOMI. ENT: Nares clear, no rhinorrhea or epistaxis. Mucous membranes moist. Oropharynx without tonsillar hypertrophy exudate or other lesions. Bilateral TMs pearly giordano nonbulging NECK: Supple. No adenopathy or masses. No carotid bruits or JVD CHEST: Clear to auscultation. No respiratory distress. No wheezes rales or rhonchi HEART: Regular rate and rhythm. No murmur heard. Normal peripheral pulses. ABDOMEN: Soft, nontender, nondistended, normal active bowel sounds. EXTREMITIES: Normal range of motion. No edema. SKIN: Warm, dry, no rash. NEURO: No focal deficits. Alert and oriented x3. PSYCH: Normal mood and affect. Course Vital Signs Vital signs: Vital Signs Temperature 36.5 C 03/08/24 08:56 Pulse Rate 91 03/08/24 08:56 Respiratory Rate 18 03/08/24 08:56 Blood Pressure 132/87 03/08/24 08:56 Pulse Oximetry 98 03/08/24 08:56 Oxygen Delivery Room Air 03/08/24 08:56 Temperature 36.5 C 03/08/24 08:56 Pulse Rate 91 03/08/24 08:56 Respiratory Rate 18 03/08/24 08:56 Blood Pressure 132/87 03/08/24 08:56 Pulse Oximetry 98 03/08/24 08:56 Oxygen Delivery Room Air 03/08/24 08:56 Medical Decision Making MDM Narrative Medical decision making narrative: 33 y/o male presents with reports of worsening dental pain/ infection over the past few days along with some painful bumps in his armpit Dental decay to the left lower back tooth / no palpable abscess/ wound noted on exam No systemic symptoms Area under arm appears to be folliculitis Will start pt on Clindamycin here and continue at home, will provide with Mupirocin topical to under his armpit. Will also treat his pain while here Plan discussed with pt and all questions answered. Medical Records Medical records reviewed: Yes I reviewed the external patient's medical records. Vital Signs Vital Signs: Vital Signs Temperature 36.5 C 03/08/24 08:56 Pulse Rate 91 03/08/24 08:56 Respiratory Rate 18 03/08/24 08:56 Blood Pressure 132/87 03/08/24 08:56 Pulse Oximetry 98 03/08/24 08:56 Oxygen Delivery Room Air 03/08/24 08:56 Temperature 36.5 C 03/08/24 08:56 Pulse Rate 91 03/08/24 08:56 Respiratory Rate 18 03/08/24 08:56 Blood Pressure 132/87 03/08/24 08:56 Pulse Oximetry 98
[2024-03-08] MEDS: LIDOCAINE HCL 2% VISC SOLN 15 ML UDC PO (10:00)
[2024-03-08] MEDS: HYDROcodone/acetaminophen (*CRX) 5-325 MG TABLET 1 TAB PO (10:00)
[2024-03-08] MEDS: KETOROLAC 30 MG/ML VIAL (*BKC) IM (10:00)
[2024-03-08] MEDS: CLINDAMYCIN HCL 150 MG CAP 450 MG PO (10:00)
== END 2024-03-08 10:22 | disposition home or self-care (01) ==
PROVIDERS: Emergency Provider Nurse Practitioner Family
DX: K02.9 Dental caries, unspecified (principal); L73.9 Follicular disorder, unspecified; F17.200 Nicotine dependence, unspecified, uncomplicated
CPT/HCPCS: 96372; 99283; A9270; J1885

== ENCOUNTER 2024-03-09 22:56 | Emergency (ER) | payer OTHER, SELFPAY ==
[2024-03-09 22:57] VITALS: BP 187/69; PULSE 85; RESP 19; TEMP 36.4; O2SAT 100
[2024-03-10 01:17] VITALS: BP 153/109; PULSE 71; RESP 17; O2SAT 98
--- NOTE | 2024-03-10 03:49 | ED.DENTAL ---
HPI - Dental/Oral General Chief complaint: Dental/Oral Stated complaint: dental pain Time Seen by Provider: 03/10/24 03:30 History of Present Illness HPI Narrative: Patient is a 33-year-old male who presents to the emergency department this evening complaining of dental pain. Patient states that his left upper and lower wisdom teeth have been bothering him for about a month and did see a dentist who told him that he does not perform the procedures he needs an EC needs to see a specialist. Patient called his insurance and was provided with a list of a specialist, however, he tried 3 different ones in a multiple him that they do not do what he does. Patient states that he has been taking Excedrin as needed for the pain with some minimal relief, however, the pain is now preventing him from being able to sleep. No facial swelling noted, patient denies any fevers at home. No additional symptoms or concerns at this time. Related Data Allergies Allergy/AdvReac Type Severity Reaction Status Date / Time No Known Allergies Allergy Unknown Verified 03/10/24 01:20 Review of Systems Review of Systems: All systems are reviewed and are negative unless stated otherwise in the HPI. [facility] Past Medical History Medical History No active medical problems Surgical History Surgical History History of orthopedic surgery Social History Social History Smoking status: Current some day smoker Alcohol intake: current Substance use: current Substance use type: former substance user and marijuana Last use: 12/03/19 Gender identity (if verbalized by the patient): Male Exam Narrative: General: Alert, awake, afebrile, in no acute distress. HEENT: PERRL, no rhinorrhea, no post nasal drip, dental caries, left upper and lower wisdom teeth are both broken with caries, no dental abscess noted. Neck: Trachea midline, no JVD, no lymphadenopathy. Cardiovascular: Regular rate and rhythm, no murmurs, rubs or gallops, no peripheral edema. Respiratory: Clear to auscultation bilaterally, no tachypnea, no wheezing, no rhonchi, no rubs, no respiratory distress. Abdomen: Soft, nontender, nondistended, no rebound, no guarding, no peritoneal signs. Musculoskeletal: No joint swelling or deformity, normal muscle tone. Skin: No rashes or petechia, no signs of infection. Psychiatric: Alert and oriented, normal behavior and judgment for situation. Neurological: Alert and oriented to person, place, and time. Follows all commands. No focal deficits, speech is clear and fluent. Course Vital Signs Vital signs: Vital Signs Temperature 97.6 F 03/09/24 22:57 Pulse Rate 85 03/09/24 22:57 Respiratory Rate 19 03/09/24 22:57 Blood Pressure 187/69 H 03/09/24 22:57 Pulse Oximetry 100 03/09/24 22:57 Oxygen Delivery Room Air 03/09/24 22:57 Temperature 97.6 F 03/09/24 22:57 Pulse Rate 71 03/10/24 01:17 Respiratory Rate 17 03/10/24 01:17 Blood Pressure 153/109 H 03/10/24 01:17 Pulse Oximetry 98 03/10/24 01:17 Oxygen Delivery Room Air 03/09/24 22:57 MDM - Dental/Oral MDM Narrative Medical decision making narrative: The patient was evaluated by myself in the emergency department. History is obtained from patient who is an independent historian and physical exam was performed. External medical records were reviewed at this time. Patient was administered an oral [place] 5-325 mg for pain. Differential diagnosis considerations include dental caries versus dental abscess. Comorbidities impacting this visit include none. I have evaluated and discussed social determinants of health with the patient that could potentially impact subsequent diagnosis and treatment plans. On repeat assessment of the patient, reevaluation revealed that the patient is doi
[2024-03-10] MEDS: HYDROcodone/acetaminophen (*CRX) 5-325 MG TABLET 1 TAB PO (03:56)
== END 2024-03-10 04:00 | disposition home or self-care (01) ==
PROVIDERS: Emergency Provider Emergency Medicine
DX: K02.9 Dental caries, unspecified (principal); F17.210 Nicotine dependence, cigarettes, uncomplicated
CPT/HCPCS: 99283; A9270

== ENCOUNTER 2024-10-22 12:59 | Inpatient (IN) | payer OTHER, SELFPAY ==
[2024-10-22] VITALS (15 sets, daily range): BP systolic 149–206; BP diastolic 112–146; PULSE 63–89; RESP 14–20; TEMP 36.4–36.8; O2SAT 98–100; BMI 28.9; BMI 29.8
--- NOTE | ~2024-10-22 | CT_ITS ---
CTA chest abdomen pelvis Ordering provider: Leonor Figueroa MD History: . hypertensive, chest pain, r/o dissection; . Comparison: None. Technique: CT angiogram chest, abdomen and pelvis was performed following timed intravenous injection of contrast. Thin slice axial images and reformatted coronal images were obtained. Three dimensional reformatted images of the chest were also obtained using a [employer] workstation. Radiation reduction t echnique utilized.The dose-length product was 1084.47 mGy-cm. 100 mL Omnipaque 350 was given IV. FINDINGS: CHEST: --THORACIC AORTA: normal. No aneurysm, dissection or mediastinal hematoma. --GREAT VESSELS: Normal as visualized. --PULMONARY ARTERIES: No pulmonary embolus. --VISUALIZED THORACIC INLET: Normal. --MEDIASTINUM: Coronary arteries: Normal. Heart/other: The heart is not enlarged. Lymph nodes: No mediastinal or hilar adenopathy. --LUNGS: No pulmonary nodules or masses. No infiltrates or effusions. No pneumothorax. --MUSCULOSKELETAL: Superficial soft tissues: The superficial soft tissues are normal. Bones: Normal spine. ABDOMEN/PELVIS: --MUSCULOSKELETAL: Bones: Normal spine. Superficial soft tissues: The superficial soft tissues are normal. --UPPER ABDOMINAL ORGANS: Liver: Normal. Gallbladder: Normal. Spleen: Normal. Stomach/duodenum: Normal. Pancreas: Normal. Adrenals: Normal. Kidneys: Normal. --PELVIC ORGANS: The bladder is slightly thickened. Evaluation for cystitis advised. No bladder stone s. --BOWEL AND MESENTERY: Colon: Normal. Normal appendix. Small Bowel: Normal. No obstruction. Peritoneum/mesentery: No free air or free fluid. No mesenteric lymphadenopathy. --RETROPERITONEUM: No retroperitoneal lymphadenopathy. --ARTERIES: ABDOMINAL AORTA normal No aneurysm or dissection. RENAL ARTERIES: Normal. CELIAC AXIS: Normal. SMA: Normal. ROLO: Normal. ILIAC AND VISUALIZED FEMORAL ARTERIES: Normal. MESENTERIC ARTERIES: Normal. IMPRESSION: CHEST: 1. No acute cardiopulmonary pathology. 2. No evidence of dissection or aneurysm. ABDOMEN/PELVIS: 1. No acute cardiopulmonary pathology. 2. No evidence of dissection seen. Reviewed, dictated and finalized at location A. TENDER
--- NOTE | ~2024-10-22 | NM_ITS ---
EXAMINATION: NM jose stress w perfusion DATE: 10/25/2024 12:57 INDICATION: Chest pain TECHNIQUE: Rest images were obtained following intravenous administration of 8.9 mCi Tc99m tetrofosmi n (Myoview). The patient was infused intravenously with Lexiscan (Regadenoson). Then, 28.0 mCi Tc99m tetrofosmin (Myoview) was administered intravenously, and stress images were obtained initially in th e supine position with additional repeat post stress images obtained in the prone position. Data was reconstructed into short axis and horizontal and vertical long axis SPECT images. Gated SPECT images were also obtained. COMPARISON: None. FINDINGS: There is no definite perfusion abnormality on the post stress images obtained in the prone position to suggest ischemia or infarction. There is normal left ventricular chamber size. There is mild global hypokinesis resulting in mildly decreased left ventricular ejection fraction which measur es 37%. IMPRESSION: 1. Normal myocardial perfusion at rest and during stress. 2. Mild global hypokinesis with mildly decreased left ventricular ejection fraction measuring 37%. Reviewed, dictated and finalized at location A. ON POLISHER IMPRESSION: 1. Normal myocardial perfusion at rest and during stress. 2. Mild global hypokinesis with mildly decreased left ventricular ejection frac tion measuring 37%.
--- NOTE | ~2024-10-22 | XR_ITS ---
EXAMINATION: XR chest 2V 10/22/2024 13:33 INDICATION: Chest pain and shortness of breath PROCEDURE: 2 view chest COMPARISON: No prior studies for comparison. FINDINGS: The lungs are clear. The cardiomediastinal silhouette is within normal limits. There are no pleural effusions. There is no pneumothorax suspected. IMPRESSION: 1: NO ACUTE CARDIOPULMONARY DISEASE. Reviewed, dictated and finalized at location B. ER CLOTH MAKER
--- NOTE | 2024-10-22 13:01 | ECG_ITS ---
Test Date: 2024-10-22 13:09:03 Measurements Intervals [place] Rate: 72 P: 68 [place]: 208 QRS: -51 QRSD: 101 T: 39 QT: 422 QTc: 462 Interpretive Statements SINUS RHYTHM WITH OCCASIONAL SUPRAVENTRICULAR PREMATURE COMPLEXES POSSIBLE LEFT ATRIAL ENLARGEMENT [-0.1mV P WAVE IN V1/V2] POSSIBLE RIGHT VENTRICULAR CONDUCTION DELAY [RSR (QR) IN V1/V2] LEFT ANTERIOR FASCICULAR BLOCK [QRS AXIS <= -45, QR IN I, RS IN II] NONSPECIFIC ST & T-WAVE ABNORMALITY No previous ECG available for comparison Electronically Signed On 10-23-2024 14:18:46 ASH CONVEYOR OPERATOR by Delmar Wallace M.D.
[2024-10-22 13:32] LABS: Basophils Percent Auto 0.4 % (0.2-1.2); Eosinophils Absolute Auto 0.3 K/mm3 (0-0.3); Eosinophils Percent Auto 5.3 % (0-4.4); Hemoglobin 16.2 g/dL (14.0-18.0); Immature Granulocyte Absolute 0.01 K/mm3 (0.00-0.031); Immature Granulocyte Percent A 0.2 % (0-0.5); Lymphocytes Percent Auto 44.5 % (18.3-44.2); Mean Corpuscular HGB Conc 35.2 g/dl (32-36); Mean Corpuscular Hemoglobin 31.3 pg (26-34); Monocytes Absolute Auto 0.6 K/mm3 (0.1-0.6); Monocytes Percent Auto 12.5 % (2.6-8.5); Neutrophils Absolute Auto 1.8 K/mm3 (1.3-6.7); Neutrophils Percent Auto 37.1 % (45.5-73.1); Platelet Count Result 234 k/mm3 (150-375); Red Blood Count 5.17 M/mm3 (4.6-6.20); Red Cell Distribution Width 13.2 % (11.5-14.5); White Blood Count 4.7 K/mm3 (4.5-10.0)
[2024-10-22 13:42] LABS: Alanine Aminotransferase 45 U/L (6-50); Albumin Level 4.2 g/dL (3.5-5.1); Alkaline Phosphatase 60 U/L (38-126); Anion Gap 4 mmol/L (4-12); Aspartate Amino Transferase 34 U/L (17-59); Bilirubin,Total 0.9 mg/dL (0.2-1.3); Blood Urea Nitrogen 13 mg/dL (9-20); Calcium 9.1 mg/dL (8.4-10.2); Carbon Dioxide 29 mmol/L (22-30); Chloride 103 mmol/L (98-107); Estimated CRCL calculation 99 ml/min; Estimated Glomerular Filt Rate > 60; Glucose 106 mg/dL (65-110); Lipase 106 U/L (23-300); Sodium 136 mmol/L (137-145)
[2024-10-22 13:44] LABS: Prothrombin Time 13.3 Seconds (11.1-14.7)
[2024-10-22 13:45] LABS: Partial Thromboplastin Time 28.9 Seconds (22.3-36.8)
[2024-10-22 13:55] LABS: Troponin I 0.459 ng/mL (0.000-0.034)
--- NOTE | 2024-10-22 15:17 | ED.CHESTPAIN ---
HPI - Chest Pain General Chief Complaint: Chest Pain Stated Complaint: cp Time Seen by Provider: 10/22/24 14:00 Source: patient, EMS and RN notes reviewed Mode of arrival: EMS Limitations: no limitations History of Present Illness HPI narrative: Patient presents with midsternal chest pain starting at approximately 12:30 p.m.. This pain has since resolved. He also has some posterior neck pain he describes as a soreness he believes he has a crick in his neck but otherwise denies any chest pain that radiates into his neck or jaw and describes any pain radiating towards his back. He does not have a primary care physician. The pain is 2/10 in severity. The episode was associated with shortness of breath any states that he became sweaty during it although He was in his grandmother's house that time the pain began but does not reside there usually and notes it was warmer than usual in the house. No cardiac history. Patient does use methamphetamine although he is trying this. The your detoxing. He is switched to using marijuana in bed although he states that he last used methamphetamine on 10/19/2024 and has not used any marijuana today. He does note that his blood pressure has been elevated previously but he does not know if he was supposed to be on medication for this. Regardless, he is not on medications currently for this. In terms of other risk factors for cardiac history, he denies any prior CA/TIA/CVA, no history of hyperlipidemia. He does smoke approximately once monthly and 1 has started vaping recently any believe it is nicotine containing. No personal history of diabetes mellitus. His father did possibly have a myocardial infarction before the age of 65 although he is not certain. Related Data Home Medications Medication Instructions Recorded Confirmed No Home Medications 10/22/24 10/22/24 Allergies Allergy/AdvReac Type Severity Reaction Status Date / Time No Known Allergies Allergy Unknown Verified 10/22/24 13:10 PMFSH Past Medical History Medical History No active medical problems Surgical History Surgical History History of orthopedic surgery Family History Family History Father Acute myocardial infarction Social History Social History Smoking status: Current some day smoker Tobacco type: e-cigarettes/vaping Additional smoking assessment comments: Smokes cigarette(s) monthly. Vapes. Alcohol intake: never Substance use: current Substance use type: marijuana and methamphetamine Last use: Last use methamphetamine 10/19/24 Do You Feel Safe in your Home?: Yes Lack of Transportation: YES Lack of Food: Sometimes True Current Housing: I Have Housing Concerned About Future Housing: YES Difficulty Paying Gas/Electric Bills: No Difficulty Paying for Meds: No Currently Unemployed: YES Education: Decline to Answer Difficulty w/ Childcare or Family Care: No Gender identity (if verbalized by the patient): Male Spiritual care concerns: No Exam Narrative: GENERAL: Well-appearing, well-nourished, and in no acute distress. HEAD: Normocephalic, atraumatic. EYES: Non injected, non icteric ENT: Nares clear, no rhinorrhea or epistaxis. NECK: Supple. CHEST: Speaking in full sentences. No respiratory distress. Lungs clear to auscultation bilaterally without wheezes, crackles, or appreciable consolidation. HEART: Regular rate and rhythm. ABDOMEN: Soft, nondistended. EXTREMITIES: Normal range of motion. No lower extremity edema. SKIN: Warm, dry, no rash. NEURO: No focal deficits. Alert and oriented x3. PSYCH: Normal mood and affect. Course Vital Signs Vital signs: Vital Signs Temperature 97.5 F L 10/22/24 13:03 Pulse Rate 75 10/22/24 13:03 Respiratory Rate 19 10/22/24 13:03 Blood Pressure 169/120 H 10/22/24 13:03 Pulse Oximetry 100 10/22/24 13:03 Oxygen Delivery Room Air 10/22/24 13:03 Temperature 98.2 F 10/23/24 03:55 Pulse Rate 73 10/23/24 04:00 Respiratory Rate 16 10/23/24 03:55 Blood Pressure 182/108 H 10/23/24 03:55 Pulse Oximetry 100 10/23/24 03:55 Oxygen Delivery Room Air 10/23/24 04:00 MDM - Chest Pain MDM Narrative Medical decision making narrative: Patient presents with episode of chest pain that began at 12:30 p.m.. It has since resolved. He is attempting to detox from meth his last use of this was 10/19/2024 and he has switched to using marijuana although he denies using this today. In the emergency department he is afebrile with vital signs notable for hypertension. Patient received aspirin from EMS. HEART SCORE History 2 highly suspicious 1 moderately suspicious 0 slightly suspicious History score [address] depression/elevation not due to LBBB, LVH, or digoxin [address] depression but LBBB, LVH, nonspecific repolarization changes 0 normal ECG score 1 Age 2 >/= 65 1 45-64 0 <45 Age score 0 Risk factors (HTN, hypercholesterolemia, DM, obesity with BMI >30, current smoker or cessation </=3mo), positive fam hx with parent or sibling with CVD before age 65, atherosclerotic disease (prior CA, PCI/CABG, CVA/TIA, or peripheral arterial disease) 2 >/= 3 risk factors or history of atherosclerotic dz 1 - 1-2 risk factors 0 no known risk factors Risk factor score 2 (HTN, smoker, possible fam hx) Initial Troponin 2 >3 times normal limit 1 1-3 times normal limit 0 less than or equal to normal limit Troponin score 2 (13.5 x upper limit of normal) Total HEART Score 6. Second troponin continues to be elevated and is actually up trending. He remains without chest pain. CT without evidence of dissection or other acute process. Heparin initiated and discussed patient with on-call non consumer electronic retail specialist Dr Nogueira who concurs with admission and they will continue to follow. Patient discussed with on-call hospitalist Dr Poe who accepts admission to the IMU. UDS with positive cannabinoids and amphetamines. Differential Diagnosis Differential diagnosis: Likely stable angina, unstable angina pectoris, atypical chest pain, st elevation myocardial infarction, chest pain, biliary colic and other ( drug-induced coronary vasospasms; ACS; aortic dissection, hypertensive emergency) Lab Data Attestation: I reviewed the patient's lab results. 10/23/24 06:13 10/22/24 13:26 Labs: Lab Results 10/22/24 10/22/24 10/22/24 Range/Units 13:26 16:11 16:28 WBC 4.7 (4.5-10.0) K/mm3 RBC 5.17 (4.6-6.20) M/mm3 Hgb 16.2 (14.0-18.0) g/dL Hct 46.0 (42.0-52.0) % MCV 89.0 (80-100) fl MCH 31.3 (26-34) pg MCHC 35.2 (32-36) g/dl RDW 13.2 (11.5-14.5) % Plt Count 234 (150-375) k/mm3 MPV 9.0 (7.4-10.4) fl Immature Gran % (Auto) 0.2 (0-0.5) % Neut % (Auto) 37.1 L (45.5-73.1) % Lymph % (Auto) 44.5 H (18.3-44.2) % [place] % (Auto) 12.5 H (2.6-8.5) % Eos % (Auto) 5.3 H (0-4.4) % Baso % (Auto) 0.4 (0.2-1.2) % Lymph # (Auto) 2.10 (0.9-3.2) K/mm3 [place] # (Auto) 0.6 (0.1-0.6) K/mm3 Eos # (Auto) 0.3 (0-0.3) K/mm3 Baso # (Auto) 0.0 (0.0-0.1) K/mm3 Abs Immat Gran (auto) 0.01 (0.00-0.031) K/mm3 Absolute Neuts (auto) 1.8 (1.3-6.7) K/mm3 Absolute Nucleated RBC 0.000 (0.0-0.012) K/mm3 Nucleated RBC % 0.0 (0.0-0.2) % PT 13.3 (11.1-14.7) Seconds INR 1.0 APTT 28.9 (22.3-36.8) Seconds Sodium 136 L (137-145) mmol/L Potassium 4.0 (3.4-5.0) mmol/L Chloride 103 (98-107) mmol/L Carbon Dioxide 29 (22-30) mmol/L Anion Gap 4 (4-12) mmol/L BUN 13 D (9-20) mg/dL Creatinine 1.20 (0.7-1.3) mg/dL Estim Creat Clear Calc 99 ml/min Estimated GFR > 60 (59 - ) Glucose 106 (65-110) mg/dL Calcium 9.1 (8.4-10.2) mg/dL Magnesium 2.2 (1.6-2.3) mg/dL Total Bilirubin 0.9 (0.2-1.3) mg/dL AST 34 (17-59) U/L ALT 45 (6-50) U/L Alkaline Phosphatase 60 (38-126) U/L Troponin I 0.459 H* 0.542 H* (0.000-0.034) ng/mL Total Protein 7.0 (6.3-8.2) g/dL Albumin 4.2 (3.5-5.1) g/dL Lipase 106 (23-300) U/L Urine Opiates Screen Negative (Negative) Urine Methadone Screen Negative (Negative) Ur Barbiturates Screen Negative (Negative) Ur Phencyclidine Scrn Negative (Negative) Ur Amphetamine Screen Positive A (Negative) U Benzodiazepines Scrn Negative (Negative) Urine Cocaine Screen Negative (Negative) U Cannabinoids Screen Positive A (Negative) Imaging Data Radiologist's impression: Impressions Chest X-Ray 10/22/24 13:34 IMPRESSION: 1: NO ACUTE CARDIOPULMONARY DISEASE. Chest/Abdomen/Pelvis CTA 10/22/24 16:01 IMPRESSION: CHEST: 1. No acute cardiopulmonary pathology. 2. No evidence of dissection or aneurysm. ABDOMEN/PELVIS: 1. No acute cardiopulmonary pathology. 2. No evidence of dissection seen. ECG Data EKG #1: Attestation: I personally reviewed and interpreted this ECG as follows: ECG completion date: 10/22/24 ECG completion time: 13:09 Interpretation: Normal sinus rhythm at a rate of 72 beats per minute. LA interval is prolonged at 208 milliseconds consistent with a first-degree AV block. QRS 101. QT/QTC 422/446. Patient appears to have a right ventricular conduction delay given RSR complex in V1 V2 and V3. Left axis deviation with Leads II, III and aVF negative and leads I and aVL positive. T-wave inversions in 3 and AVF as well as in V3. EKG #2: Attestation: I personally reviewed and interpreted this ECG as follows: ECG completion date: 10/22/24 ECG completion time: 16:07 Interpretation: Normal sinus rhythm at a rate of 84 beats per minute. LA 197. QRS 97. QT/QTC 383/424. Patient has RS are morphology of the QRS complexes bus right ventricular conduction delay possible. T-wave inversions in 3 and AVF. Questionable in lead 2. T-wave inversion in V2 and V3 as well. Discharge Plan Discharge Clinical Impression: Non-ST elevation CA (NSTEMI), Amphetamine abuse in remission, Marijuana use Patient Disposition: Still a Patient Condition: Serious
--- NOTE | 2024-10-22 16:03 | ECG_ITS ---
Test Date: 2024-10-22 20:26:10 Measurements Intervals [place] Rate: 82 P: 71 ID: [id number] QRS: -39 QRSD: 97 T: -42 QT: 381 QTc: 447 Interpretive Statements SINUS RHYTHM MARKED LEFT AXIS DEVIATION [QRS AXIS < -30] NONSPECIFIC T-WAVE ABNORMALITY Compared to ECG 10/22/2024 13:09:03 Left-axis deviation now present Left anterior fascicular block no longer present T-wave abnormality still present Electronically Signed On 10-23-2024 14:29:21 POLYGRAPH EXAMINER by Delmar Wallace M.D.
[2024-10-22] MEDS: ACETAMINOPHEN 500 MG TABLET 1000 MG PO (16:18)
[2024-10-22 16:24] LABS: Magnesium 2.2 mg/dL (1.6-2.3)
[2024-10-22 16:39] LABS: Troponin I 0.542 ng/mL (0.000-0.034)
[2024-10-22 16:55] LABS: Amphetamine Screen Urine Positive (Negative); Barbiturate Screen Urine Negative (Negative); Benzodiazepines Screen Urine Negative (Negative); Cannabinoid Screen Urine Positive (Negative); Cocaine Screen Urine Negative (Negative); Methadone Screen Urine Negative (Negative); Opiate Screen Urine Negative (Negative); Phencyclidine Screen Urine Negative (Negative)
[2024-10-22 17:21] LABS: Prothrombin Time 13.8 Seconds (11.1-14.7)
[2024-10-22 17:22] LABS: Partial Thromboplastin Time 29.9 Seconds (22.3-36.8)
[2024-10-22] MEDS: HEPARIN SOD/D5W 100 UNITS/ML 25,000 UNITS/250 ML BAG 10 UNITS IV CONT (17:24)
--- NOTE | 2024-10-22 17:35 | P.HP_ITS ---
H&P: HPI History of Present Illness Date/Time: 10/22/24 17:35 Chief Complaint: Chest pain Narrative: Patient 34-year-old male who came to the hospital complaining of midsternal chest pain. Patient did meth about 3 days ago and was treated a doctor from the abdomen today she started having some midsternal chest pain with shortness of breath. No nausea no vomiting. Patient defines the chest pain as midsternal nonradiating fat crushing like sensation no upper respiratory infections. Patient in the emergency room had positive troponin but normal EKG being admitted for a rule out [place] Review of Systems Review of Systems: No fevers chills nausea vomiting. No double vision no blurry vision. No difficulty hearing or sinus complaints. No chest pain shortness of breath fever palpitation dizziness ankle swelling. No coughing wheezing chills. No nausea constipation diarrhea abdominal pain reflux. No urgency frequency of urination. No hematuria. No skin rash eczema. No anxiety depression difficulty sleeping. No bleeding gums enlarged glands. No muscle ache back pain joint stiffness. No loss of strength numbness headache tremor or loss of memory. PMFSH Past Medical History Medical History No active medical problems Surgical History Surgical History History of orthopedic surgery Social History Social History Smoking status: Current some day smoker Alcohol intake: current Substance use: current Substance use type: former substance user and marijuana Last use: 12/03/19 Gender identity (if verbalized by the patient): Male Meds Home Medications and Allergies Home Medications Medication Instructions Recorded Confirmed Type ondansetron 4 mg disintegrating 4 mg PO Q6H PRN nausea and 12/12/21 Rx tablet vomiting #10 tabs pantoprazole 40 mg tablet,delayed 40 mg PO HS 4 weeks #28 tabs 12/12/21 Rx release (Protonix) clindamycin HCl 150 mg capsule 450 mg PO TID #126 caps 03/08/24 Rx mupirocin 2 % topical ointment 1 applic topical TID #50 grams 03/08/24 Rx naproxen 500 mg tablet 500 mg PO BID PRN pain #28 tabs 03/08/24 Rx hydrocodone 5 mg-acetaminophen 325 1 tablet PO Q8H PRN pain #7 tabs 03/10/24 Rx mg tablet penicillin V potassium 500 mg 500 mg PO Q6H 7 days #28 tabs 03/10/24 Rx tablet Allergies Allergy/AdvReac Type Severity Reaction Status Date / Time No Known Allergies Allergy Unknown Verified 10/22/24 13:10 Vital Signs Vital Signs - 24 hr 10/22/24 13:03 10/22/24 13:48 10/22/24 14:09 Temperature 36.4 C L 36.6 C Pulse Rate 75 63 68 Respiratory Rate 19 14 16 Blood Pressure 169/120 H 206/141 H 197/146 H Pulse Oximetry 100 100 Oxygen Delivery Room Air 10/22/24 15:50 10/22/24 16:01 10/22/24 16:02 Temperature 36.6 C 36.6 C 36.6 C Pulse Rate 80 82 81 Respiratory Rate 14 16 18 Blood Pressure 171/132 H 158/119 H 158/119 H Pulse Oximetry 99 99 98 Oxygen Delivery 10/22/24 17:08 Temperature 36.5 C Pulse Rate 86 Respiratory Rate 20 Blood Pressure 156/112 H Pulse Oximetry 100 Oxygen Delivery Exam Narrative: GENERAL: Well appearing, no acute distress. HEAD: Normocephalic, atraumatic. NECK: Supple. No adenopathy, no masses. RESPIRATORY: respirations nonlabored. , no rales, wheezing. CARDIOVASCULAR: Regular rate and rhythm without murmurs, . Peripheral pulses 2+ and equal bilater ally. ABDOMINAL: Soft, nontender, nondistended, no hepatosplenomegaly. Normoactive BS. MUSCULOSKELETAL: no Epigastric and no hypochondrial tenderness SKIN: Warm, dry, NEURO: A&O X3. Moves all extremities H&P: Results Labs Labs: Short CBC 10/22/24 Range/Units 13:26 WBC 4.7 (4.5-10.0) K/mm3 Hgb 16.2 (14.0-18.0) g/dL Hct 46.0 (42.0-52.0) % Plt Count 234 (150-375) k/mm3 [facility] 10/22/24 13:26 Sodium 136 L Potassium 4.0 Chloride 103 Carbon Dioxide 29 BUN 13 D Creatinine 1.20 Glucose 106 Calcium 9.1 Cardiac Enzymes 10/22/24 10/22/24 Range/Units 13:26 16:11 Troponin I 0.459 H* 0.542 H* (0.000-0.034) ng/mL Liver Function 10/22/24 Range/Units 13:26 Total Bilirubin 0.9 (0.2-1.3) mg/dL AST 34 (17-59) U/L ALT 45 (6-50) U/L Alkaline Phosphatase 60 (38-126) U/L Albumin 4.2 (3.5-5.1) g/dL Assessment and Plan Assessment and plan (1) Non-ST elevation [place] (NSTEMI): Code(s): I21.4 - Non-ST elevation (NSTEMI) myocardial infarction Status: Acute (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(s): 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 - Other stimulant abuse, in remission Status: Acute (3) Marijuana use: Code(s): F12.90 - Cannabis use, unspecified, uncomplicated Status: Acute (4) Nausea and vomiting: Code(s): R11.2 - Nausea with vomiting, unspecified Status: Acute Plan non STEMI Positive troponins due to demand ischemia patient's symptoms are typical chest pain with worse on exertion, concerning for ACS -elevated troponins , will continue trending troponins -continue telemetry, EKG showed may be early repolarization -prn Nitroglycerin, oxygen, morphine, aspirin -checking lipid panel and hemoglobin A1c -counseled on smoking cessation and drug use Cardiology consulted -IV fluids: Continue maintainence normal saline for now 2 D Echo : As advised by Cardiology DVT prophylaxis. Heparin IV GI prophylaxis. Protonix All records reviewed Discussed plan of care with the nursing staff and with the patient in detail. Answered all questions and concerns from the patient. All labs have been reviewed. Code status updated dictation may have been done utilizing a voice recognition system. Attempts have been made to correct errors. However, there may be uncorrected grammatical, spelling, and recognition errors present. Hospitalist MIPS Advance Care Plan I have confirmed that the patient's Advanced Care Plan is present, code status is documented, or surrogate decision maker is listed in patient medical record.: Yes Medication Reconciliation I have utilized all available resources to obtain, update and review the patients current medications (includes all prescriptions, OTC, herbals, cannabis, and nutritional supplements).: Yes
--- NOTE | 2024-10-22 17:37 | PC.NURSE ---
This RN received report from MANAGER [employer]EL
--- NOTE | 2024-10-22 17:58 | ADMGEN ---
This patient, Deepak Pfeiffer III, was admitted to IMU room 211 @ 1758 -. Patient/family oriented to hospital policies and general routines including ID bracelet, bed and alarms, visiting hours, pain management, procedures, bathroom and other care routines, personal items, smoking policy, room service/diet, and visiting hours. Information on how to activate the Rapid Response Team has been discussed. Patient/Family are encouraged to report perceived risks to care and to ask questions if they do not understand what they are told or what they should do.
[2024-10-22] MEDS: METOPROLOL TARTRATE 50 MG TAB PO (21:59)
[2024-10-22] MEDS: METOPROLOL TARTRATE INJ 5 MG/5 ML VIAL IV PUSH (23:27)
[2024-10-22 23:46] LABS: Partial Thromboplastin Time 37.9 Seconds (22.3-36.8)
[2024-10-23] VITALS (24 sets, daily range): BP systolic 139–182; BP diastolic 102–130; PULSE 68–78; RESP 16–20; TEMP 36.4–36.8; O2SAT 95–100
--- NOTE | 2024-10-23 | ECHO_ITS ---
Patient Info Name: Deepak Pfeiffer Age: 34 years : 1990 Gender: Male Ht: 78 in Wt: 258 lbs BSA: 2.56 m2 HR: 70 bpm BP: 120 / 72 mmHg Technical Quality: Good Exam Date: 10/23/2024 3:15 PM Exam Location: Echo Lab Patient Status: Inpatient Admit Date: 10/23/2024 Staff Ordering Physician: Edvin Lacy MD Sap Pp Consultant: Lakshmi Carter RDCS Attending Provider: Will Poe MD Exam Type: CA echo doppler color flow Study Info Complete two-dimensional, color flow and Doppler transthoracic echocardiogram is performed. Summary 1. Complete two-dimensional, color flow and Doppler transthoracic echocardiogram is performed. 2. Left ventricle is severely reduced systolic function. 3. Right ventricle is mildly dilated with reduced systolic function. 4. Right-sided filling pressure overload. 5. No significant valvular disease. Left Ventricle The left ventricle is normal in size with severely reduced. There is concentric left ventricular remodeling. Left ventricular ejection fraction is visually estimated to be 20-25%. Right Ventricle The right ventricle is mildly dilated with reduced systolic function. Left Atria The left atrium is mildly dilated. Right Atria The right atrium dilated. Atrial Septum The atrial septum is visually intact with bowing of the septum suggestive of right atrial pressure overload. Aortic Valve The aortic valve is trileaflet and opens well. There is no aortic regurgitation. Pulmonic Valve The pulmonic valve is normal. There is trace pulmonic valve regurgitation. Mitral Valve The mitral valve is thin and pliable. There is mild mitral regurgitation. Tricuspid Valve The tricuspid valve is normal. There is trace tricuspid regurgitation. Pericardium/Pleural Pericardium is normal in appearance with no evidence for significant pericardial effusion. Inferior Vena Cava Dilated inferior vena cava with >50% collapse upon inspiration consistent with significantly elevated right atrial pressure, 15 mmHg. Aorta The aortic root at the level of the sinus of Valsalva is dilated measuring 4.1 cm in diameter. Left Ventricular Outflow Tract Name Value Normal LVOT 2D LVOT Diameter 2.8 cm LVOT Doppler LVOT Peak Gradient 2 mmHg Pulmonic Valve Name Value Normal PV Doppler PV Peak Gradient 1 mmHg Mitral Valve Name Value Normal MV Doppler MV Decel Giles 421 cm/s2 MV PHT 27 ms MV Area (PHT) 8.2 cm2 4.0-5.0 MV Diastolic Function MV E Peak Velocity 39 cm/s MV A Peak Velocity 74 cm/s MV E/A 0.5 MV Decel Time 92 ms MV Annular TDI MV E/e' (Septal) 12.6 <=8.0 MV E/e' (Lateral) 9.1 <=8.0 MV E/e' (Average) 10.8 Tricuspid Valve Name Value Normal TV Regurgitation Doppler TR Peak Velocity 335 cm/s TR Peak Gradient 45 mmHg Estimated PAP/RSVP RA Pressure 15 mmHg <=5 PA Systolic Pressure 60 mmHg <36 RV Systolic Pressure 60 mmHg <36 Aorta Name Value Normal Ascending Aorta Ao Root Diameter (2D) 4.0 cm Ao Root Diam Index (2D) 1.6 cm/m2 Aortic Valve Name Value Normal AV Doppler AV Peak Velocity 81 cm/s AV Peak Gradient 3 mmHg AV Area (Cont Eq Gene) 4.6 cm2 AV Regurgitation 2D LVOT Area 5.9 cm2 Ventricles Name Value Normal LV Dimensions 2D/MM IVS Diastolic Thickness (2D) 1.3 cm 0.6-1.0 LVID Diastole (2D) 5.1 cm 4.2-5.8 LVIW Diastolic Thickness (2D) 1.3 cm 0.6-1.0 LVOT Diameter 2.8 cm LV Mass (2D Cubed) 256.00 g 88.00-224.00 LV Mass Index (2D Cubed) 100 g/m2 49-115 Relative Wall Thickness (2D) 0.50 LV Fractional Shortening/Ejection Fraction 2D/MM LV Diastolic Volume (4C MOD) 184 ml LV EF (4C MOD) 29 % LV Diastolic Volume (2C MOD) 197 ml LV EF (2C MOD) 22 % LV Diastolic Volume (BP MOD) 192 ml 62-150 LV Diastolic Volume Index (BP MOD) 75 ml/m2 34-74 LV Systolic Volume (BP MOD) 147 ml 21-61 LV Systolic Volume Index (BP MOD) 58 ml/m2 11-31 LV EF (BP MOD) 23 % 52-72 LV Diastolic Length (4C) 9.1 cm LV Systolic Length (4C) 8.7 cm LV Stroke Volume (4C MOD) 53 ml Atria Name Value Normal LA Dimensions LA Dimension (2D) 4.4 cm 3.0-4.1 LA Dimen Index (2D) 1.7 cm/m2 LA Volume (4C A-L) 93 ml LA Volume (BP A-L) 80 ml RA Dimensions RA Area (4C) 29.3 cm2 <=18.0 Report Signatures
[2024-10-23] MEDS: HEPARIN SODIUM 5,000 UNITS/ML VIAL 4000 UNITS IV PUSH ×2 (00:27→07:19)
[2024-10-23] MEDS: METOPROLOL TARTRATE INJ 5 MG/5 ML VIAL IV PUSH ×2 (03:49→16:31)
[2024-10-23] MEDS: ALPRAZolam (*CRX) 0.5 MG TABLET PO (05:52)
[2024-10-23 06:23] LABS: Basophils Percent Auto 0.5 % (0.2-1.2); Eosinophils Absolute Auto 0.2 K/mm3 (0-0.3); Eosinophils Percent Auto 5.7 % (0-4.4); Hematocrit 45.1 % (42.0-52.0); Hemoglobin 15.5 g/dL (14.0-18.0); Immature Granulocyte Absolute 0.01 K/mm3 (0.00-0.031); Immature Granulocyte Percent A 0.2 % (0-0.5); Lymphocytes Percent Auto 42.2 % (18.3-44.2); Mean Corpuscular HGB Conc 34.4 g/dl (32-36); Mean Corpuscular Hemoglobin 30.8 pg (26-34); Mean Corpuscular Volume 89.7 fl (80-100); Mean Platelet Volume 9.2 fl (7.4-10.4); Monocytes Absolute Auto 0.5 K/mm3 (0.1-0.6); Monocytes Percent Auto 12.7 % (2.6-8.5); Neutrophils Absolute Auto 1.6 K/mm3 (1.3-6.7); Neutrophils Percent Auto 38.7 % (45.5-73.1); Platelet Count Result 236 k/mm3 (150-375); Red Blood Count 5.03 M/mm3 (4.6-6.20); Red Cell Distribution Width 13.4 % (11.5-14.5)
[2024-10-23 06:32] LABS: Partial Thromboplastin Time 67.6 Seconds (22.3-36.8)
[2024-10-23] MEDS: METOPROLOL TARTRATE 50 MG TAB PO ×2 (09:08→20:07)
[2024-10-23] MEDS: LOSARTAN POTASSIUM 25 MG TABLET PO (09:09)
[2024-10-23] MEDS: ASPIRIN 81 MG CHEWABLE TABLET PO (09:10)
[2024-10-23] MEDS: HEPARIN SOD/D5W 100 UNITS/ML 25,000 UNITS/250 ML BAG 16 UNITS IV CONT (12:48)
--- NOTE | 2024-10-23 12:57 | P.CONCA_ITS ---
Assessment and Plan Assessment and plan (1) Non-ST elevation [place] (NSTEMI): Code(s): I21.4 - Non-ST elevation (NSTEMI) myocardial infarction Status: Acute Plan Hypertensive emergency Acute chest pain likely related to uncontrolled hypertension Elevated troponin likely demand ischemia type 2 in the setting of uncontrolled hypertension History of drug abuse Plan Continue heparin for 48 hours Added Blood pressure control using beta derrek, calcium channel derrek, RHONDA- inhibitor and diuretic Counseled to stop smoking and avoid drug abuse Will need a stress test and echocardiogram before discharge History of Present Illness History of Present Illness Consult date/time: 10/23/24 12:57 Reason For Visit: STEMI Narrative: 34-year-old male patient presents to the hospital with acute episode of chest pain. Chest pain yesterday yesterday at 1 time when the patient was in agreement. Chest pain was midsternal 3/10 pressure-like. It lasted for few hours. There was no radiation for the chest pain and there was no nausea vomiting or sweating. On arrival the patient was noted to have severe hypertension with systolic blood pressure above 200 and diastolic pressure above 140. Patient has history of drug abuse last time used was methamphetamine 4 days ago. Review of Systems Review of Systems: All systems reviewed & are unremarkable except as noted in HPI and below PMFSH Past Medical History Medical History No active medical problems Surgical History Surgical History History of orthopedic surgery Family History Family History Father Acute myocardial infarction Social History Social History Smoking status: Current some day smoker Tobacco type: e-cigarettes/vaping Additional smoking assessment comments: Smokes cigarette(s) monthly. Vapes. Alcohol intake: never Substance use: current Substance use type: marijuana and methamphetamine Last use: Last use methamphetamine 10/19/24 Do You Feel Safe in your Home?: Yes Lack of Transportation: YES Lack of Food: Sometimes True Current Housing: I Have Housing Concerned About Future Housing: YES Difficulty Paying Gas/Electric Bills: No Difficulty Paying for Meds: No Currently Unemployed: YES Education: Decline to Answer Difficulty w/ Childcare or Family Care: No Gender identity (if verbalized by the patient): Male Spiritual care concerns: No Meds Home Medications and Allergies Home Medications Medication Instructions Recorded Confirmed Type No Home Medications 10/22/24 10/22/24 History Allergies Allergy/AdvReac Type Severity Reaction Status Date / Time No Known Allergies Allergy Unknown Verified 10/22/24 13:10 Vital Signs Vital Signs - 24 hr 10/22/24 13:03 10/22/24 13:48 10/22/24 14:09 Temperature 36.4 C L 36.6 C Pulse Rate 75 63 68 Respiratory Rate 19 14 16 Blood Pressure 169/120 H 206/141 H 197/146 H Pulse Oximetry 100 100 Oxygen Delivery Room Air Oxygen Flow Rate 10/22/24 15:50 10/22/24 16:01 10/22/24 16:02 Temperature 36.6 C 36.6 C 36.6 C Pulse Rate 80 82 81 Respiratory Rate 14 16 18 Blood Pressure 171/132 H 158/119 H 158/119 H Pulse Oximetry 99 99 98 Oxygen Delivery Oxygen Flow Rate 10/22/24 17:08 10/22/24 17:15 10/22/24 18:28 Temperature 36.5 C 36.6 C Pulse Rate 86 80 Respiratory Rate 20 17 Blood Pressure 156/112 H 158/116 H Pulse Oximetry 100 98 Oxygen Delivery Room Air Oxygen Flow Rate 10/22/24 18:13 10/22/24 20:00 10/22/24 21:57 Temperature 36.4 C L 36.8 C Pulse Rate 83 77 82 Respiratory Rate 20 20 Blood Pressure 149/118 H 163/114 H 161/121 H Pulse Oximetry 100 98 Oxygen Delivery Oxygen Flow Rate 10/22/24 21:59 10/22/24 20:00 10/22/24 22:00 Temperature Pulse Rate 82 89 82 Respiratory Rate Blood Pressure Pulse Oximetry Oxygen Delivery Oxygen Flow Rate 10/22/24 23:19 10/22/24 23:27 10/23/24 00:00 Temperature 36.7 C Pulse Rate 77 83 73 Respiratory Rate 18 Blood Pressure 172/119 H Pulse Oximetry 98 Oxygen Delivery Oxygen Flow Rate 10/23/24 00:30 10/23/24 02:00 10/23/24 03:49 Temperature Pulse Rate 68 74 Respiratory Rate Blood Pressure 155/123 H Pulse Oximetry Oxygen Delivery Oxygen Flow Rate 10/23/24 03:55 10/23/24 04:00 10/23/24 04:00 Temperature 36.8 C Pulse Rate 76 73 Respiratory Rate 16 Blood Pressure 182/108 H Pulse Oximetry 100 Oxygen Delivery Room Air Oxygen Flow Rate 10/23/24 06:00 10/23/24 05:00 10/23/24 08:20 Temperature 36.6 C Pulse Rate 70 71 Respiratory Rate 20 Blood Pressure 158/114 H 159/123 H Pulse Oximetry 98 Oxygen Delivery Oxygen Flow Rate 10/23/24 08:20 10/23/24 09:08 10/23/24 08:00 Temperature Pulse Rate 71 72 Respiratory Rate Blood Pressure 160/130 H Pulse Oximetry Oxygen Delivery Oxygen Flow Rate 10/23/24 10:00 10/23/24 11:07 10/23/24 11:43 Temperature 36.6 C Pulse Rate 69 74 Respiratory Rate 16 Blood Pressure 159/113 H Pulse Oximetry 100 95 Oxygen Delivery Nasal Cannula Oxygen Flow Rate 1 Exam Const: General: comfortable and no acute distress Other: Able to lie flat HENMT: Face/Nose/Sinus: Normal nares present and no epistaxis Mouth: Yes moist mucous membranes Eyes: Sclera: sclerae normal Pupils: Equal, round and reactive pupils present Neck: Neck: supple and no JVD Carotids: no bruits Resp: Auscultation: clear to auscultation bilaterally and lung sounds not diminished Other: No chest wall tenderness Cardio: Rate: regular rate Rhythm: regular rhythm Heart sounds: no gallops, no murmurs and no rubs GI: GI Palp: Yes Soft to palpation and No Tenderness to palpation present (GI) Auscultation: normal bowel sounds Skin: General skin exam: normal color, rashes and/or lesions noted and no erythema Other: Warm Neuro: Cranial nerves: Yes Equal, round and reactive pupils present Speech: normal speech Other: No obvious focal deficit or facial asymmetry Extrem: General: no edema Other: Normal capillary refills Intact distal pulses. Results Labs and Meds 10/23/24 06:13 10/22/24 13:26 Lab results: Cardiac Enzymes 10/22/24 10/22/24 10/22/24 Range/Units 13:26 16:11 20:16 AST 34 (17-59) U/L Troponin I 0.459 H* 0.542 H* 1.920 H* D (0.000-0.034) ng/mL Coagulation 10/22/24 10/22/24 10/22/24 Range/Units 13:26 17:05 23:23 PT 13.3 13.8 (11.1-14.7) Seconds APTT 28.9 29.9 37.9 H (22.3-36.8) Seconds 10/23/24 Range/Units 06:13 PT (11.1-14.7) Seconds APTT 67.6 H (22.3-36.8) Seconds CBC 10/22/24 10/23/24 Range/Units 13:26 06:13 WBC 4.7 4.0 L (4.5-10.0) K/mm3 RBC 5.17 5.03 (4.6-6.20) M/mm3 Hgb 16.2 15.5 (14.0-18.0) g/dL Hct 46.0 45.1 (42.0-52.0) % Plt Count 234 236 (150-375) k/mm3 Lymph # (Auto) 2.10 1.70 (0.9-3.2) K/mm3 [place] # (Auto) 0.6 0.5 (0.1-0.6) K/mm3 Eos # (Auto) 0.3 0.2 (0-0.3) K/mm3 Baso # (Auto) 0.0 0.0 (0.0-0.1) K/mm3 Comprehensive Metabolic Panel 10/22/24 Range/Units 13:26 Sodium 136 L (137-145) mmol/L Potassium 4.0 (3.4-5.0) mmol/L Chloride 103 (98-107) mmol/L Carbon Dioxide 29 (22-30) mmol/L BUN 13 D (9-20) mg/dL Creatinine 1.20 (0.7-1.3) mg/dL Glucose 106 (65-110) mg/dL Calcium 9.1 (8.4-10.2) mg/dL AST 34 (17-59) U/L ALT 45 (6-50) U/L Alkaline Phosphatase 60 (38-126) U/L Total Protein 7.0 (6.3-8.2) g/dL Albumin 4.2 (3.5-5.1) g/dL Intake and Output 10/22/24 10/23/24 10/23/24 23:59 07:59 15:59 Intake Total 716.8 323.2 Output Total 2480 Balance -1763.2 323.2 Intake: IV 166.8 83.2 Heparin Sod/D5w 100 Units/ml 25 166.8 83.2 ,000 units In 250 ml @ 1,400 UNITS/HR 14 mls/hr IV CONT . [id number] [facility] Rx#:[id number] Oral 550 240 Output: Urine 2480 Patient Weight 10/23/24 23:59 Weight 117.2 kg
[2024-10-23 13:50] LABS: Partial Thromboplastin Time 100.3 Seconds (22.3-36.8)
[2024-10-23 14:24] LABS: HIV 1/2 Ab P24 Ag Result Negative (Negative)
--- NOTE | 2024-10-23 15:20 | P.PNIM_ITS ---
Progress Note: A&P Assessment and Plan (1) Non-ST elevation LA (NSTEMI): Code(s): I21.4 - Non-ST elevation (NSTEMI) myocardial infarction Status: Acute Assessment and Plan: Patient presents with chest pain and found to have elevated Troponin to 1.92. EKG showing normal sinus with PACs, LAE, LAFB, nonspecific ST and T wave changes. Repeat EKG showing LAE and T wave changes but LAFB resolved. CXR was clear. CTA Ch/A/P showing normal coronary arteries, normal heart size and clear lungs. No acute process. BP was up to 206/141 on admission. Patient given ASA, metoprolol and started on Heparin drip. Oral antiHtN medications started. Chest pain could be related to stress from the argument, related to elevated BP or both. Cardiology consulted. Plan to monitor over the weekend with stress test on ay Check Echo (2) Hypertension: Code(s): I10 - Essential (primary) hypertension Status: Acute Assessment and Plan: As above. Patient's BP has been elevated frequently in the past. No coarct noted. Related to drug use? Check UA. Check TSH and cortisol level. 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 He was educated about the benefits of abstaining from drug use. Have Ativan available as needed for agitation. He was okay with HIV testing which was negative. He is HepC positive but has yet to be treated Plan Leukopenia - HIV negative. Check B12 level. Hepatits C - known to be positive and has yet to be treated. Encouraged him to establish with provider to have this treated. DVT prophylaxis. Heparin IV Code status - full Subjective Date/time seen: 10/23/24 15:20 Interval history: 34yo male with drug use here for chest pain. Patient with chest 'pressure' after arguing with his grandmother. Lasted about 1hour. Pain improved after treatment by EMS. He has been told in the past that his BP has been elevated but has not sought treatment. He last used IV amphetamines about 2-3 days ago. No alcohol. Hx of untreated HepC. Exam Narrative: AF 98.0 159/113 74 16 95% ra Gen - NARD Chest - CTA bilaterally, nml RR CV - RRR S1/S2 no murmurs. Tele showing no significant dysrhythmias. Abd - Soft, NT/ND, Positive BS Ext - No pedal edema Neuro - Alert and oriented. Nonfocal exam. Psych - Nml mood and affect Skin - Warm and dry Objective Data Vital Signs Vital Signs: Vital Signs - 24 hr 10/22/24 15:50 10/22/24 16:01 10/22/24 16:02 Temperature 97.8 F 97.9 F 97.9 F Pulse Rate 80 82 81 Respiratory Rate 14 16 18 Blood Pressure 171/132 H 158/119 H 158/119 H Pulse Oximetry 99 99 98 Oxygen Delivery Oxygen Flow Rate 10/22/24 17:08 10/22/24 17:15 10/22/24 18:28 Temperature 97.7 F 97.8 F Pulse Rate 86 80 Respiratory Rate 20 17 Blood Pressure 156/112 H 158/116 H Pulse Oximetry 100 98 Oxygen Delivery Room Air Oxygen Flow Rate 10/22/24 18:13 10/22/24 20:00 10/22/24 21:57 Temperature 97.5 F L 98.2 F Pulse Rate 83 77 82 Respiratory Rate 20 20 Blood Pressure 149/118 H 163/114 H 161/121 H Pulse Oximetry 100 98 Oxygen Delivery Oxygen Flow Rate 10/22/24 21:59 10/22/24 20:00 10/22/24 22:00 Temperature Pulse Rate 82 89 82 Respiratory Rate Blood Pressure Pulse Oximetry Oxygen Delivery Oxygen Flow Rate 10/22/24 23:19 10/22/24 23:27 10/23/24 00:00 Temperature 98.1 F Pulse Rate 77 83 73 Respiratory Rate 18 Blood Pressure 172/119 H Pulse Oximetry 98 Oxygen Delivery Oxygen Flow Rate 10/23/24 00:30 10/23/24 02:00 10/23/24 03:49 Temperature Pulse Rate 68 74 Respiratory Rate Blood Pressure 155/123 H Pulse Oximetry Oxygen Delivery Oxygen Flow Rate 10/23/24 03:55 10/23/24 04:00 10/23/24 04:00 Temperature 98.2 F Pulse Rate 76 73 Respiratory Rate 16 Blood Pressure 182/108 H Pulse Oximetry 100 Oxygen Delivery Room Air Oxygen Flow Rate 10/23/24 06:00 10/23/24 05:00 10/23/24 08:20 Temperature 97.9 F Pulse Rate 70 71 Respiratory Rate 20 Blood Pressure 158/114 H 159/123 H Pulse Oximetry 98 Oxygen Delivery Oxygen Flow Rate 10/23/24 08:20 10/23/24 09:08 10/23/24 08:00 Temperature Pulse Rate 71 72 Respiratory Rate Blood Pressure 160/130 H Pulse Oximetry Oxygen Delivery Oxygen Flow Rate 10/23/24 10:00 10/23/24 11:07 10/23/24 11:43 Temperature 98 F Pulse Rate 69 74 Respiratory Rate 16 Blood Pressure 159/113 H Pulse Oximetry 100 95 Oxygen Delivery Nasal Cannula Oxygen Flow Rate 1 10/23/24 12:00 Temperature Pulse Rate 74 Respiratory Rate Blood Pressure Pulse Oximetry Oxygen Delivery Oxygen Flow Rate Intake/Output Intake/Output: Intake & Output 10/20/24 10/21/24 10/22/24 10/23/24 23:59 23:59 23:59 23:59 Intake Total 1040.0 Output Total 2480 Balance -1440.0 Meds/Results Medications: Active Medications Generic Name Dose Route Start Last Admin Trade Name Freq PRN Reason Stop Dose Admin Acetaminophen 650 mg 10/22/24 17:00 Acetaminophen 325 Mg Tablet PO Q4H PRN Mild Pain (1-3) or Fever Amlodipine Besylate 5 mg 10/24/24 09:00 Amlodipine Besylate 5 Mg Tablet PO DAILY [facility] Aspirin 81 mg 10/23/24 08:40 10/23/24 09:10 Aspirin 81 Mg Chewable Tablet PO 81 mg DAILY@0800 [facility] Administration Heparin Sodium (Porcine) 4,000 units 10/22/24 16:52 10/23/24 00:27 Heparin Sodium 5,000 Units/Ml Vial IV PUSH 4,000 units PRN PRN Administration aPTT less than 55 seconds Heparin Sodium (Porcine) 4,000 units 10/22/24 16:52 10/23/24 07:19 Heparin Sodium 5,000 Units/Ml Vial IV PUSH 4,000 units PRN PRN Administration aPTT 55 - 70 seconds Heparin Sodium/Dextrose 25,000 units in 250 mls @ 16 mls/hr 10/22/24 16:55 10/23/24 12:48 Heparin Sodium/D5w 100 Units/Ml IV CONT 1,600 units/hr .[id number] [facility] 16 mls/hr Administration Protocol 1,600 UNITS/HR Losartan Potassium 50 mg 10/24/24 09:00 Losartan Potassium 50 Mg Tablet PO DAILY [facility] Metoprolol Tartrate 5 mg 10/22/24 21:42 10/23/24 03:49 Metoprolol Tartrate Inj 5 Mg/5 Ml Vial IV PUSH 5 mg Q4HR PRN Administration Blood Pressure - High Metoprolol Tartrate 50 mg 10/23/24 09:00 10/23/24 09:08 Metoprolol Tartrate 50 Mg Tab PO 50 mg Q12HR [facility]ONNA Administration Morphine Sulfate 2 mg 10/22/24 17:33 Morphine Sulfate (*Crx) 2 Mg/Ml Inj IV PUSH Q4H PRN Pain Rated 7-10 Nitroglycerin 0.4 mg 10/22/24 17:00 Nitroglycerin Sl 0.4 Mg Tablet SUBLINGUAL Q5MIN PRN Chest Pain Ondansetron HCl 4 mg 10/22/24 17:00 Ondansetron Inj 4 Mg/2 Ml Vial IV PUSH Q4H PRN Nausea Perflutren Lipid Microsphere 0 ml 10/23/24 11:23 Perflutren Lipid Microspheres 1.5 Ml Vial Diluted To 10 Ml Total Volume IV PUSH 10/26/24 11:23 ONCE PRN adequate visualization Protocol Radiology Results: ITS Impressions Chest X-Ray 10/22/24 13:34 IMPRESSION: 1: NO ACUTE CARDIOPULMONARY DISEASE. Chest/Abdomen/Pelvis CTA 10/22/24 16:01 IMPRESSION: CHEST: 1. No acute cardiopulmonary pathology. 2. No evidence of dissection or aneurysm. ABDOMEN/PELVIS: 1. No acute cardiopulmonary pathology. 2. No evidence of dissection seen. Labs Labs: Laboratory Results - last 24 hr 10/22/24 10/22/24 10/22/24 16:11 16:28 17:05 WBC RBC Hgb Hct MCV MCH MCHC RDW Plt Count MPV Immature Gran % (Auto) Neut % (Auto) Lymph % (Auto) [place] % (Auto) Eos % (Auto) Baso % (Auto) Lymph # (Auto) [place] # (Auto) Eos # (Auto) Baso # (Auto) Abs Immat Gran (auto) Absolute Neuts (auto) Absolute Nucleated RBC Nucleated RBC % PT 13.8 INR 1.0 APTT 29.9 Magnesium 2.2 Troponin I 0.542 H* Urine Opiates Screen Negative Urine Methadone Screen Negative Ur Barbiturates Screen Negative Ur Phencyclidine Scrn Negative Ur Amphetamine Screen Positive A U Benzodiazepines Scrn Negative Urine Cocaine Screen Negative U Cannabinoids Screen Positive A HIV 1&2 Ab/P24 Ag 4thGn 10/22/24 10/22/24 10/23/24 20:16 23:23 06:11 WBC RBC Hgb Hct MCV MCH MCHC RDW Plt Count MPV Immature Gran % (Auto) Neut % (Auto) Lymph % (Auto) [place] % (Auto) Eos % (Auto) Baso % (Auto) Lymph # (Auto) [place] # (Auto) Eos # (Auto) Baso # (Auto) Abs Immat Gran (auto) Absolute Neuts (auto) Absolute Nucleated RBC Nucleated RBC % PT INR APTT 37.9 H Magnesium Troponin I 1.920 H* D Urine Opiates Screen Urine Methadone Screen Ur Barbiturates Screen Ur Phencyclidine Scrn Ur Amphetamine Screen U Benzodiazepines Scrn Urine Cocaine Screen U Cannabinoids Screen HIV 1&2 Ab/P24 Ag 4thGn Negative 10/23/24 10/23/24 06:13 13:29 WBC 4.0 L RBC 5.03 Hgb 15.5 Hct 45.1 MCV 89.7 MCH 30.8 MCHC 34.4 RDW 13.4 Plt Count 236 MPV 9.2 Immature Gran % (Auto) 0.2 Neut % (Auto) 38.7 L Lymph % (Auto) 42.2 [place] % (Auto) 12.7 H Eos % (Auto) 5.7 H Baso % (Auto) 0.5 Lymph # (Auto) 1.70 [place] # (Auto) 0.5 Eos # (Auto) 0.2 Baso # (Auto) 0.0 Abs Immat Gran (auto) 0.01 Absolute Neuts (auto) 1.6 Absolute Nucleated RBC 0.000 Nucleated RBC % 0.0 PT INR APTT 67.6 H 100.3 H Magnesium Troponin I Urine Opiates Screen Urine Methadone Screen Ur Barbiturates Screen Ur Phencyclidine Scrn Ur Amphetamine Screen U Benzodiazepines Scrn Urine Cocaine Screen U Cannabinoids Screen HIV 1&2 Ab/P24 Ag 4thGn
[2024-10-23] MEDS: LORazepam INJ (*CRX) 2 MG/ML VIAL 0.5 MG IV PUSH (16:30)
[2024-10-23 18:03] LABS: Add Urine Microscopic? YES; Appearance Urine Clear (Clear); Bacteria Urine None Seen /hpf; Bilirubin Urine Negative (Negative); Blood Urine Negative (Negative); Color Urine Yellow (Yellow); Glucose Urine UA Negative (Negative); Ketones Urine Negative (Negative); Leukocyte Esterase Ur Negative LEU/UL (Negative); Nitrate Urine Negative (Negative); Non Pathogenic Casts 0-2; Protein Urine Trace mg/dL (Negative); RBC Urine 0-2 /hpf (0-2); Specific Grav Ur 1.014 (1.001-1.035); Squamous Epithelial Cell Urine None Seen /hpf (Few); WBC Urine 0-5 /hpf (0-3)
[2024-10-23 19:49] LABS: Partial Thromboplastin Time 75.2 Seconds (22.3-36.8)
[2024-10-23] MEDS: ACETAMINOPHEN 325 MG TABLET 650 MG PO (23:30)
[2024-10-24] VITALS (20 sets, daily range): BP systolic 132–168; BP diastolic 89–129; PULSE 69–79; RESP 18–78; TEMP 36.4–37.1; O2SAT 92–100
[2024-10-24] MEDS: LORazepam INJ (*CRX) 2 MG/ML VIAL 0.5 MG IV PUSH ×2 (00:05→15:38)
[2024-10-24] MEDS: HEPARIN SOD/D5W 100 UNITS/ML 25,000 UNITS/250 ML BAG 16 UNITS IV CONT (03:37)
[2024-10-24 05:14] LABS: Basophils Percent Auto 0.8 % (0.2-1.2); Eosinophils Absolute Auto 0.3 K/mm3 (0-0.3); Eosinophils Percent Auto 6.8 % (0-4.4); Hematocrit 46.2 % (42.0-52.0); Immature Granulocyte Absolute 0.01 K/mm3 (0.00-0.031); Immature Granulocyte Percent A 0.3 % (0-0.5); Lymphocytes Absolute Auto 1.89 K/mm3 (0.9-3.2); Lymphocytes Percent Auto 51.6 % (18.3-44.2); Mean Corpuscular HGB Conc 34.6 g/dl (32-36); Mean Corpuscular Hemoglobin 31.1 pg (26-34); Mean Corpuscular Volume 89.7 fl (80-100); Mean Platelet Volume 9.2 fl (7.4-10.4); Monocytes Absolute Auto 0.4 K/mm3 (0.1-0.6); Neutrophils Percent Auto 28.5 % (45.5-73.1); Platelet Count Result 224 k/mm3 (150-375); Red Blood Count 5.15 M/mm3 (4.6-6.20); Red Cell Distribution Width 13.7 % (11.5-14.5); White Blood Count 3.7 K/mm3 (4.5-10.0)
[2024-10-24 05:26] LABS: Alanine Aminotransferase 45 U/L (6-50); Albumin Level 3.7 g/dL (3.5-5.1); Alkaline Phosphatase 55 U/L (38-126); Anion Gap 5 mmol/L (4-12); Aspartate Amino Transferase 38 U/L (17-59); Bilirubin,Total 0.7 mg/dL (0.2-1.3); Blood Urea Nitrogen 12 mg/dL (9-20); Calcium 8.8 mg/dL (8.4-10.2); Carbon Dioxide 24 mmol/L (22-30); Chloride 106 mmol/L (98-107); Estimated CRCL calculation 108 ml/min; Estimated Glomerular Filt Rate > 60; Glucose 109 mg/dL (65-110); Magnesium 2.2 mg/dL (1.6-2.3); Phosphorus 3.9 mg/dL (2.5-4.5); Sodium 135 mmol/L (137-145)
[2024-10-24 05:33] LABS: Partial Thromboplastin Time 67.5 Seconds (22.3-36.8)
[2024-10-24] MEDS: HEPARIN SODIUM 5,000 UNITS/ML VIAL 4000 UNITS IV PUSH (05:46)
[2024-10-24] MEDS: ASPIRIN 81 MG CHEWABLE TABLET PO (08:39)
[2024-10-24] MEDS: amLODIPine BESYLATE 5 MG TABLET PO ×2 (08:39→19:47)
[2024-10-24] MEDS: LOSARTAN POTASSIUM 50 MG TABLET PO (08:39)
[2024-10-24] MEDS: METOPROLOL TARTRATE 50 MG TAB PO ×2 (08:39→19:47)
[2024-10-24 11:34] LABS: Folic Acid 12.7 ng/mL (2.76->20)
--- NOTE | 2024-10-24 11:35 | PM.IMPN ---
Progress Note: A&P Assessment and Plan (1) Non-ST elevation [place] (NSTEMI): Code(s): I21.4 - Non-ST elevation (NSTEMI) myocardial infarction Status: Acute Assessment and Plan: Patient presents with chest pain and found to have elevated Troponin to 1.92. EKG showing normal sinus with PACs, LAE, LAFB, nonspecific ST and T wave changes. Repeat EKG showing LAE and T wave changes but LAFB resolved. CXR was clear. CTA Ch/A/P showing normal coronary arteries, normal heart size and clear lungs. No acute process. BP was up to 206/141 on admission. Patient given ASA, metoprolol and started on Heparin drip. Oral antiHtN medications started. Chest pain could be related to stress from the argument, related to elevated BP or both. Cardiology consulted. Plan to monitor over the weekend with stress test tomorrow Echo pending. (2) Hypertension: Code(s): I10 - Essential (primary) hypertension Status: Acute Assessment and Plan: As above. Patient's BP has been elevated frequently in the past. No coarct noted. Related to drug use? UA clear. TSH and cortisol levels normal. 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 He was okay with HIV testing which was negative. He is HepC positive but has yet to be treated Ativan available as needed for agitation. He was educated about the benefits of abstaining from drug use. Plan Leukopenia - HIV negative. B12 level normal. Hepatitis C - known to be positive and has yet to be treated. Encouraged him to establish with provider to have this treated. DVT prophylaxis. Heparin IV Code status - full Subjective Date/time seen: 10/24/24 11:35 Interval history: 34yo male with drug use here for chest pain. Slept okay. No CP or SOB. No n/v. Exam Narrative: AF 97.8 157/116 72 19 98% ra Gen - NARD Chest - right base carckles o/w clear CV - RRR S1/S2 no murmurs. Tele showing rare PVCs Abd - Soft, NT/ND, Positive BS Ext - No pedal edema Psych - Nml mood and affect Skin - Warm and dry Objective Data Vital Signs Vital Signs: Vital Signs - 24 hr 10/23/24 11:43 10/23/24 12:00 10/23/24 16:31 Temperature 98 F Pulse Rate 74 74 68 Respiratory Rate 16 Blood Pressure 159/113 H Pulse Oximetry 95 Oxygen Delivery 10/23/24 14:00 10/23/24 16:00 10/23/24 16:30 Temperature 98 F Pulse Rate 74 73 74 Respiratory Rate 18 Blood Pressure 166/124 H Pulse Oximetry 98 Oxygen Delivery 10/23/24 18:51 10/23/24 20:07 10/23/24 20:00 Temperature 97.6 F Pulse Rate 77 78 Respiratory Rate 18 Blood Pressure 161/114 H Pulse Oximetry 96 Oxygen Delivery Room Air 10/23/24 21:00 10/23/24 20:00 10/23/24 22:00 Temperature Pulse Rate 75 74 Respiratory Rate Blood Pressure 139/102 H Pulse Oximetry Oxygen Delivery 10/24/24 00:00 10/24/24 00:00 10/24/24 00:00 Temperature 97.8 F Pulse Rate 73 72 Respiratory Rate 19 Blood Pressure 159/96 H Pulse Oximetry 100 Oxygen Delivery Room Air 10/24/24 02:00 10/24/24 03:48 10/24/24 04:00 Temperature Pulse Rate 73 72 Respiratory Rate Blood Pressure Pulse Oximetry Oxygen Delivery Room Air 10/24/24 05:51 10/24/24 06:00 10/24/24 08:00 Temperature 97.5 F L 97.8 F Pulse Rate 70 70 76 Respiratory Rate 19 78 H Blood Pressure 132/89 157/116 H Pulse Oximetry 100 98 Oxygen Delivery 10/24/24 08:00 10/24/24 09:56 Temperature Pulse Rate 75 72 Respiratory Rate Blood Pressure Pulse Oximetry Oxygen Delivery Intake/Output Intake/Output: Intake & Output 10/21/24 10/22/24 10/23/24 10/24/24 23:59 23:59 23:59 23:59 Intake Total 1946.5 1085.1 Output Total 3405 1000 Balance -1458.5 85.1 Meds/Results Medications: Active Medications Generic Name Dose Route Start Last Admin Trade Name Freq PRN Reason Stop Dose Admin Acetaminophen 650 mg 10/23/24 15:45 10/23/24 23:30 Acetaminophen 325 Mg Tablet PO 650 mg Q6H PRN Administration Mild Pain (1-3) or Fever Hydrocodone Bitart/Acetaminophen 1 tab 10/23/24 15:45 Hydrocodone/Acetaminophen (*Crx) 5-325 Mg Tablet PO Q6H PRN Pain Rated 4-6 Amlodipine Besylate 5 mg 10/24/24 09:00 10/24/24 08:39 Amlodipine Besylate 5 Mg Tablet PO 5 mg DAILY [facility] Administration Aspirin 81 mg 10/23/24 08:40 10/24/24 08:39 Aspirin 81 Mg Chewable Tablet PO 81 mg DAILY@0800 [facility] Administration Heparin Sodium (Porcine) 4,000 units 10/22/24 16:52 10/24/24 05:46 Heparin Sodium 5,000 Units/Ml Vial IV PUSH 4,000 units PRN PRN Administration aPTT less than 55 seconds Heparin Sodium (Porcine) 4,000 units 10/22/24 16:52 10/23/24 07:19 Heparin Sodium 5,000 Units/Ml Vial IV PUSH 4,000 units PRN PRN Administration aPTT 55 - 70 seconds Heparin Sodium/Dextrose 25,000 units in 250 mls @ 18 mls/hr 10/22/24 16:55 10/24/24 08:00 Heparin Sodium/D5w 100 Units/Ml IV CONT 1,800 units/hr .[id number] [facility] 18 mls/hr Titration Protocol 1,800 UNITS/HR Lorazepam 0.5 mg 10/23/24 15:45 10/24/24 00:05 Lorazepam Inj (*Crx) 2 Mg/Ml Vial IV PUSH 0.5 mg Q6H PRN Administration Anxiety Losartan Potassium 50 mg 10/24/24 09:00 10/24/24 08:39 Losartan Potassium 50 Mg Tablet PO 50 mg DAILY [facility] Administration Metoprolol Tartrate 5 mg 10/22/24 21:42 10/23/24 16:31 Metoprolol Tartrate Inj 5 Mg/5 Ml Vial IV PUSH 5 mg Q4HR PRN Administration Blood Pressure - High Metoprolol Tartrate 50 mg 10/23/24 09:00 10/24/24 08:39 Metoprolol Tartrate 50 Mg Tab PO 50 mg Q12HR [facility] Administration Morphine Sulfate 2 mg 10/22/24 17:33 Morphine Sulfate (*Crx) 2 Mg/Ml Inj IV PUSH Q4H PRN Pain Rated 7-10 Nitroglycerin 0.4 mg 10/22/24 17:00 Nitroglycerin Sl 0.4 Mg Tablet SUBLINGUAL Q5MIN PRN Chest Pain Ondansetron HCl 4 mg 10/22/24 17:00 Ondansetron Inj 4 Mg/2 Ml Vial IV PUSH Q4H PRN Nausea Perflutren Lipid Microsphere 0 ml 10/23/24 11:23 Perflutren Lipid Microspheres 1.5 Ml Vial Diluted To 10 Ml Total Volume IV PUSH 10/26/24 11:23 ONCE PRN adequate visualization Protocol Radiology Results: ITS Impressions Chest X-Ray 10/22/24 13:34 IMPRESSION: 1: NO ACUTE CARDIOPULMONARY DISEASE. Chest/Abdomen/Pelvis CTA 10/22/24 16:01 IMPRESSION: CHEST: 1. No acute cardiopulmonary pathology. 2. No evidence of dissection or aneurysm. ABDOMEN/PELVIS: 1. No acute cardiopulmonary pathology. 2. No evidence of dissection seen. Labs Labs: Laboratory Results - last 24 hr 10/23/24 10/23/24 10/23/24 06:11 13:29 17:52 WBC RBC Hgb Hct MCV MCH MCHC RDW Plt Count MPV Immature Gran % (Auto) Neut % (Auto) Lymph % (Auto) [place] % (Auto) Eos % (Auto) Baso % (Auto) Lymph # (Auto) [place] # (Auto) Eos # (Auto) Baso # (Auto) Abs Immat Gran (auto) Absolute Neuts (auto) Absolute Nucleated RBC Nucleated RBC % APTT 100.3 H Sodium Potassium Chloride Carbon Dioxide Anion Gap BUN Creatinine Estim Creat Clear Calc Estimated GFR Glucose Calcium Phosphorus Magnesium Total Bilirubin AST ALT Alkaline Phosphatase Total Protein Albumin Vitamin B12 Folate TSH (Reflex) Random Cortisol Urine Color Yellow Urine Appearance Clear Urine pH 7.0 Ur Specific [place] 1.014 Urine Protein Trace Urine Glucose (UA) Negative Urine Ketones Negative Ur Blood (Man) Negative Urine Nitrate Negative Urine Bilirubin Negative Urine Urobilinogen 1.0 Leukocyte Esterase Rfl Negative Urine RBC 0-2 Urine WBC 0-5 Ur Squamous Epith Cells None seen Urine Bacteria None seen Urine Casts 0-2 HIV 1&2 Ab/P24 Ag 4thGn Negative 10/23/24 10/24/24 19:30 05:09 WBC 3.7 L RBC 5.15 Hgb 16.0 Hct 46.2 MCV 89.7 MCH 31.1 MCHC 34.6 RDW 13.7 Plt Count 224 MPV 9.2 Immature Gran % (Auto) 0.3 Neut % (Auto) 28.5 L Lymph % (Auto) 51.6 H [place] % (Auto) 12.0 H Eos % (Auto) 6.8 H Baso % (Auto) 0.8 Lymph # (Auto) 1.89 [place] # (Auto) 0.4 Eos # (Auto) 0.3 Baso # (Auto) 0.0 Abs Immat Gran (auto) 0.01 Absolute Neuts (auto) 1.0 L Absolute Nucleated RBC 0.000 Nucleated RBC % 0.0 APTT 75.2 H 67.5 H Sodium 135 L Potassium 4.0 Chloride 106 Carbon Dioxide 24 Anion Gap 5 BUN 12 Creatinine 1.10 Estim Creat Clear Calc 108 Estimated GFR > 60 Glucose 109 Calcium 8.8 Phosphorus 3.9 Magnesium 2.2 Total Bilirubin 0.7 AST 38 ALT 45 Alkaline Phosphatase 55 Total Protein 7.0 Albumin 3.7 Vitamin B12 479.0 Folate 12.7 TSH (Reflex) 3.300 Random Cortisol 11.20 Urine Color Urine Appearance Urine pH Ur Specific [place] Urine Protein Urine Glucose (UA) Urine Ketones Ur Blood (Man) Urine Nitrate Urine Bilirubin Urine Urobilinogen Leukocyte Esterase Rfl Urine RBC Urine WBC Ur Squamous Epith Cells Urine Bacteria Urine Casts HIV 1&2 Ab/P24 Ag 4thGn
[2024-10-24 12:29] LABS: Partial Thromboplastin Time 92.3 Seconds (22.3-36.8)
--- NOTE | 2024-10-24 13:41 | PM.PNCARD ---
Progress Note: A&P Assessment and Plan (1) Non-ST elevation MT (NSTEMI): Code(s): I21.4 - Non-ST elevation (NSTEMI) myocardial infarction Status: Acute Plan Hypertensive emergency Acute chest pain likely related to uncontrolled hypertension Elevated troponin likely demand ischemia type 2 in the setting of uncontrolled hypertension History of drug abuse Plan Continue heparin for 48 hours Blood pressure control is beta derrek, calcium channel derrek, RHONDA-inhibitor and diuretic Counseled to stop smoking and avoid drug abuse Stress test and echocardiogram before discharge Subjective Date/time seen: 10/24/24 13:41 Interval history: No acute events Telemetry sinus rhythm Review of Systems Review of Systems: All systems reviewed & are unremarkable except as noted in HPI and below Exam Const: General: comfortable and no acute distress Other: Able to lie flat HENMT: Face/Nose/Sinus: Normal nares present and no epistaxis Mouth: Yes moist mucous membranes Eyes: Sclera: sclerae normal Pupils: Equal, round and reactive pupils present Neck: Neck: supple and no JVD Carotids: no bruits Resp: Auscultation: clear to auscultation bilaterally and lung sounds not diminished Other: No chest wall tenderness Cardio: Rate: regular rate Rhythm: regular rhythm Heart sounds: no gallops, no murmurs and no rubs GI: GI Palp: Yes Soft to palpation and No Tenderness to palpation present (GI) Auscultation: normal bowel sounds Skin: General skin exam: normal color, rashes and/or lesions noted and no erythema Other: Warm Neuro: Cranial nerves: Yes Equal, round and reactive pupils present Speech: normal speech Other: No obvious focal deficit or facial asymmetry Extrem: General: no edema Other: Normal capillary refills Intact distal pulses. Objective Data Vital Signs Vital Signs: Vital Signs - 24 hr 10/23/24 16:31 10/23/24 14:00 10/23/24 16:00 Temperature 36.6 C Pulse Rate 68 74 73 Respiratory Rate 18 Blood Pressure 166/124 H Pulse Oximetry 98 Oxygen Delivery 10/23/24 16:30 10/23/24 18:51 10/23/24 20:07 Temperature 36.4 C Pulse Rate 74 77 78 Respiratory Rate 18 Blood Pressure 161/114 H Pulse Oximetry 96 Oxygen Delivery 10/23/24 20:00 10/23/24 21:00 10/23/24 20:00 Temperature Pulse Rate 75 Respiratory Rate Blood Pressure 139/102 H Pulse Oximetry Oxygen Delivery Room Air 10/23/24 22:00 10/24/24 00:00 10/24/24 00:00 Temperature Pulse Rate 74 73 Respiratory Rate Blood Pressure Pulse Oximetry Oxygen Delivery Room Air 10/24/24 00:00 10/24/24 02:00 10/24/24 03:48 Temperature 36.6 C Pulse Rate 72 73 Respiratory Rate 19 Blood Pressure 159/96 H Pulse Oximetry 100 Oxygen Delivery Room Air 10/24/24 04:00 10/24/24 05:51 10/24/24 06:00 Temperature 36.4 C L Pulse Rate 72 70 70 Respiratory Rate 19 Blood Pressure 132/89 Pulse Oximetry 100 Oxygen Delivery 10/24/24 08:00 10/24/24 08:00 10/24/24 09:56 Temperature 36.6 C Pulse Rate 76 75 72 Respiratory Rate 78 H Blood Pressure 157/116 H Pulse Oximetry 98 Oxygen Delivery 10/24/24 12:00 Temperature 36.6 C Pulse Rate 72 Respiratory Rate 18 Blood Pressure 168/118 H Pulse Oximetry 100 Oxygen Delivery Intake/Output Intake/Output: Intake & Output 10/21/24 10/22/24 10/23/24 10/24/24 23:59 23:59 23:59 23:59 Intake Total 1946.5 1175.1 Output Total 3405 1950 Balance -1458.5 -774.9 Meds/Results Medications: Active Medications Generic Name Dose Route Start Last Admin Trade Name Freq PRN Reason Stop Dose Admin Acetaminophen 650 mg 10/23/24 15:45 10/23/24 23:30 Acetaminophen 325 Mg Tablet PO 650 mg Q6H PRN Administration Mild Pain (1-3) or Fever Hydrocodone Bitart/Acetaminophen 1 tab 10/23/24 15:45 Hydrocodone/Acetaminophen (*Crx) 5-325 Mg Tablet PO Q6H PRN Pain Rated 4-6 Amlodipine Besylate 5 mg 10/24/24 09:00 10/24/24 08:39 Amlodipine Besylate 5 Mg Tablet PO 5 mg DAILY DEONNA Administration Aspirin 81 mg 10/23/24 08:40 10/24/24 08:39 Aspirin 81 Mg Chewable Tablet PO 81 mg DAILY@0800 [facility] Administration Heparin Sodium (Porcine) 4,000 units 10/22/24 16:52 10/24/24 05:46 Heparin Sodium 5,000 Units/Ml Vial IV PUSH 4,000 units PRN PRN Administration aPTT less than 55 seconds Heparin Sodium (Porcine) 4,000 units 10/22/24 16:52 10/23/24 07:19 Heparin Sodium 5,000 Units/Ml Vial IV PUSH 4,000 units PRN PRN Administration aPTT 55 - 70 seconds Heparin Sodium/Dextrose 25,000 units in 250 mls @ 18 mls/hr 10/22/24 16:55 10/24/24 13:00 Heparin Sodium/D5w 100 Units/Ml IV CONT 1,800 units/hr .[id number] DEONNA 18 mls/hr Titration Protocol 1,800 UNITS/HR Lorazepam 0.5 mg 10/23/24 15:45 10/24/24 00:05 Lorazepam Inj (*Crx) 2 Mg/Ml Vial IV PUSH 0.5 mg Q6H PRN Administration Anxiety Losartan Potassium 50 mg 10/24/24 09:00 10/24/24 08:39 Losartan Potassium 50 Mg Tablet PO 50 mg DAILY DEONNA Administration Metoprolol Tartrate 5 mg 10/22/24 21:42 10/23/24 16:31 Metoprolol Tartrate Inj 5 Mg/5 Ml Vial IV PUSH 5 mg Q4HR PRN Administration Blood Pressure - High Metoprolol Tartrate 50 mg 10/23/24 09:00 10/24/24 08:39 Metoprolol Tartrate 50 Mg Tab PO 50 mg Q12HR DEONNA Administration Morphine Sulfate 2 mg 10/22/24 17:33 Morphine Sulfate (*Crx) 2 Mg/Ml Inj IV PUSH Q4H PRN Pain Rated 7-10 Nitroglycerin 0.4 mg 10/22/24 17:00 Nitroglycerin Sl 0.4 Mg Tablet SUBLINGUAL Q5MIN PRN Chest Pain Ondansetron HCl 4 mg 10/22/24 17:00 Ondansetron Inj 4 Mg/2 Ml Vial IV PUSH Q4H PRN Nausea Perflutren Lipid Microsphere 0 ml 10/23/24 11:23 Perflutren Lipid Microspheres 1.5 Ml Vial Diluted To 10 Ml Total Volume IV PUSH 10/26/24 11:23 ONCE PRN adequate visualization Protocol Radiology Results: ITS Impressions Chest X-Ray 10/22/24 13:34 IMPRESSION: 1: NO ACUTE CARDIOPULMONARY DISEASE. Chest/Abdomen/Pelvis CTA 10/22/24 16:01 IMPRESSION: CHEST: 1. No acute cardiopulmonary pathology. 2. No evidence of dissection or aneurysm. ABDOMEN/PELVIS: 1. No acute cardiopulmonary pathology. 2. No evidence of dissection seen. Labs Labs: Laboratory Results - last 24 hr 10/23/24 10/23/24 10/23/24 06:11 13:29 17:52 WBC RBC Hgb Hct MCV MCH MCHC RDW Plt Count MPV Immature Gran % (Auto) Neut % (Auto) Lymph % (Auto) [place] % (Auto) Eos % (Auto) Baso % (Auto) Lymph # (Auto) [place] # (Auto) Eos # (Auto) Baso # (Auto) Abs Immat Gran (auto) Absolute Neuts (auto) Absolute Nucleated RBC Nucleated RBC % APTT 100.3 H Sodium Potassium Chloride Carbon Dioxide Anion Gap BUN Creatinine Estim Creat Clear Calc Estimated GFR Glucose Calcium Phosphorus Magnesium Total Bilirubin AST ALT Alkaline Phosphatase Total Protein Albumin Vitamin B12 Folate TSH (Reflex) Random Cortisol Urine Color Yellow Urine Appearance Clear Urine pH 7.0 Ur Specific [place] 1.014 Urine Protein Trace Urine Glucose (UA) Negative Urine Ketones Negative Ur Blood (Man) Negative Urine Nitrate Negative Urine Bilirubin Negative Urine Urobilinogen 1.0 Leukocyte Esterase Rfl Negative Urine RBC 0-2 Urine WBC 0-5 Ur Squamous Epith Cells None seen Urine Bacteria None seen Urine Casts 0-2 HIV 1&2 Ab/P24 Ag 4thGn Negative 10/23/24 10/24/24 10/24/24 19:30 05:09 11:55 WBC 3.7 L RBC 5.15 Hgb 16.0 Hct 46.2 MCV 89.7 MCH 31.1 MCHC 34.6 RDW 13.7 Plt Count 224 MPV 9.2 Immature Gran % (Auto) 0.3 Neut % (Auto) 28.5 L Lymph % (Auto) 51.6 H [place] % (Auto) 12.0 H Eos % (Auto) 6.8 H Baso % (Auto) 0.8 Lymph # (Auto) 1.89 [place] # (Auto) 0.4 Eos # (Auto) 0.3 Baso # (Auto) 0.0 Abs Immat Gran (auto) 0.01 Absolute Neuts (auto) 1.0 L Absolute Nucleated RBC 0.000 Nucleated RBC % 0.0 APTT 75.2 H 67.5 H 92.3 H Sodium 135 L Potassium 4.0 Chloride 106 Carbon Dioxide 24 Anion Gap 5 BUN 12 Creatinine 1.10 Estim Creat Clear Calc 108 Estimated GFR > 60 Glucose 109 Calcium 8.8 Phosphorus 3.9 Magnesium 2.2 Total Bilirubin 0.7 AST 38 ALT 45 Alkaline Phosphatase 55 Total Protein 7.0 Albumin 3.7 Vitamin B12 479.0 Folate 12.7 TSH (Reflex) 3.300 Random Cortisol 11.20 Urine Color Urine Appearance Urine pH Ur Specific [place] Urine Protein Urine Glucose (UA) Urine Ketones Ur Blood (Man) Urine Nitrate Urine Bilirubin Urine Urobilinogen Leukocyte Esterase Rfl Urine RBC Urine WBC Ur Squamous Epith Cells Urine Bacteria Urine Casts HIV 1&2 Ab/P24 Ag 4thGn
[2024-10-24] MEDS: METOPROLOL TARTRATE INJ 5 MG/5 ML VIAL IV PUSH ×2 (14:15→23:22)
[2024-10-24] MEDS: ACETAMINOPHEN 325 MG TABLET 650 MG PO (15:40)
[2024-10-24] MEDS: HEPARIN SOD/D5W 100 UNITS/ML 25,000 UNITS/250 ML BAG 18 UNITS IV CONT (16:26)
[2024-10-24 19:34] LABS: Partial Thromboplastin Time 83.5 Seconds (22.3-36.8)
[2024-10-25] VITALS (20 sets, daily range): BP systolic 141–161; BP diastolic 96–116; PULSE 63–79; RESP 18–20; TEMP 36.4–36.7; O2SAT 95–100
--- NOTE | 2024-10-25 | EST_ITS ---
Patient Info Name: Deepak Pfeiffer Age: 34 years : 1990 Gender: Male Ht: 78 in Wt: 257 lbs BSA: 2.55 m2 HR: 67 bpm BP: 162 / 114 mmHg Exam Date: 10/25/2024 11:45 AM Exam Location: Echo Lab Patient Status: Inpatient Admit Date: 10/23/2024 Staff Ordering Physician: Minoo Quinn Attending Provider: Will Poe MD Exercise Technologist: Driss [employer] Nurse: Minoo Quinn APN Exam Type: CA stress jose w NM Study Info A regadenoson stress test was performed. Summary 1. Equivocal ST T wave changes in this lexiscan protocol. Protocol: Lexiscan Stress ECG Details Stage: REST Duration (min): 1 min : 59 sec HR (bpm): 67 SBP (mmHg): 162 DBP (mmHg): 114 Stage: REST Duration (min): 8 min : 44 sec HR (bpm): 66 SBP (mmHg): 162 DBP (mmHg): 114 Stage: STAGE 1 Duration (min): 0 min : 59 sec HR (bpm): 64 SBP (mmHg): 162 DBP (mmHg): 114 Stage: RECOVERY Duration (min): 1 min : 0 sec HR (bpm): 74 SBP (mmHg): 162 DBP (mmHg): 119 Stage: RECOVERY Duration (min): 2 min : 0 sec HR (bpm): 74 SBP (mmHg): 162 DBP (mmHg): 119 Stage: RECOVERY Duration (min): 3 min : 0 sec HR (bpm): 74 SBP (mmHg): 160 DBP (mmHg): 116 Stage: RECOVERY Duration (min): 4 min : 0 sec HR (bpm): 73 SBP (mmHg): 160 DBP (mmHg): 116 Stage: RECOVERY Duration (min): 5 min : 0 sec HR (bpm): 73 SBP (mmHg): 160 DBP (mmHg): 115 Stage: RECOVERY Duration (min): 5 min : 8 sec HR (bpm): 72 SBP (mmHg): 160 DBP (mmHg): 115 Rest HR: 66 bpm Peak HR: 75 bpm Rest Sys BP: 162 mmHg Peak Sys BP: 162 mmHg Max Pred HR: 185 bpm % Max Pred HR: 41 % Target HR: 157 bpm Max RPP: 12,150 bpm*mmHg Total Time: 1 min : 0 sec Rest Soto BP: 114 mmHg Peak Soto BP: 119 mmHg Total Dose: 0.4 mg Resting ECG Sinus rhythm with a ventricular rate of 66 beats per minute. Incomplete right bundle-branch block. No ischemic ST T wave changes. Stress ECG No ischemic ST T wave changes during Lexiscan; however there were T-wave inversions in leads II, III, aVF 1 minute into recovery that resolved 5 minutes into recovery. Arrhythmias No arrhythmias. Report Signatures
[2024-10-25] MEDS: LORazepam INJ (*CRX) 2 MG/ML VIAL 0.5 MG IV PUSH (04:16)
[2024-10-25 04:45] LABS: Basophils Percent Auto 0.8 % (0.2-1.2); Eosinophils Absolute Auto 0.3 K/mm3 (0-0.3); Eosinophils Percent Auto 7.5 % (0-4.4); Hematocrit 52.1 % (42.0-52.0); Hemoglobin 17.7 g/dL (14.0-18.0); Immature Granulocyte Absolute 0.01 K/mm3 (0.00-0.031); Immature Granulocyte Percent A 0.3 % (0-0.5); Lymphocytes Absolute Auto 1.84 K/mm3 (0.9-3.2); Mean Corpuscular Hemoglobin 30.4 pg (26-34); Mean Corpuscular Volume 89.5 fl (80-100); Mean Platelet Volume 9.3 fl (7.4-10.4); Monocytes Absolute Auto 0.5 K/mm3 (0.1-0.6); Monocytes Percent Auto 12.7 % (2.6-8.5); Neutrophils Percent Auto 27.7 % (45.5-73.1); Platelet Count Result 245 k/mm3 (150-375); Red Blood Count 5.82 M/mm3 (4.6-6.20); Red Cell Distribution Width 13.5 % (11.5-14.5); White Blood Count 3.6 K/mm3 (4.5-10.0)
[2024-10-25 04:58] LABS: Partial Thromboplastin Time 80.5 Seconds (22.3-36.8)
[2024-10-25 05:04] LABS: Anion Gap 6 mmol/L (4-12); Blood Urea Nitrogen 10 mg/dL (9-20); CRP < 0.5 mg/dL (<1.0); Calcium 9.4 mg/dL (8.4-10.2); Carbon Dioxide 26 mmol/L (22-30); Chloride 104 mmol/L (98-107); Estimated CRCL calculation 108 ml/min; Estimated Glomerular Filt Rate > 60; Glucose 108 mg/dL (65-110); Sodium 136 mmol/L (137-145)
[2024-10-25] MEDS: HEPARIN SOD/D5W 100 UNITS/ML 25,000 UNITS/250 ML BAG 18 UNITS IV CONT (06:10)
[2024-10-25 09:05] LABS: Erythrocyte Sedimentation Rate 3 mm/hr (0-20)
[2024-10-25] MEDS: LOSARTAN POTASSIUM 50 MG TABLET PO (09:25)
[2024-10-25] MEDS: ASPIRIN 81 MG CHEWABLE TABLET PO (09:25)
[2024-10-25] MEDS: METOPROLOL TARTRATE 50 MG TAB PO ×2 (09:25→21:25)
[2024-10-25] MEDS: amLODIPine BESYLATE 10 MG TABLET PO (09:25)
--- NOTE | 2024-10-25 10:13 | PM.PNCARD ---
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 daily Hypertension -continue amlodipine 10 mg p.o. daily and losartan 50 mg p.o. daily with goal systolic blood pressure less than 120mmHg Methamphetamine abuse -counseled on cessation Can be discharged perspective stress test returns normal Subjective Date/time seen: 10/25/24 10:13 Interval history: Denies any chest pain or shortness of breath today. Review of Systems Cardiovascular: Cardiovascular: Reports as per HPI Respiratory: Respiratory: Reports as per HPI Exam Const: General: comfortable HENMT: Mouth: Yes moist mucous membranes Eyes: EOM: EOMs intact bilaterally Neck: Neck: no JVD Resp: Effort & Inspection: normal respiratory effort Auscultation: clear to auscultation bilaterally Cardio: Rate: regular rate Rhythm: regular rhythm GI: GI Palp: Yes Soft to palpation Neuro: Speech: normal speech Extrem: General: no edema Psych: Affect: normal affect Objective Data Vital Signs Vital Signs: Vital Signs - 24 hr 10/24/24 12:00 10/24/24 12:00 10/24/24 14:14 Temperature 36.6 C Pulse Rate 72 69 Respiratory Rate 18 Blood Pressure 168/118 H 165/122 H Pulse Oximetry 100 Oxygen Delivery 10/24/24 14:15 10/24/24 15:32 10/24/24 16:00 Temperature 37.1 C Pulse Rate 73 72 Respiratory Rate 18 Blood Pressure 158/110 H 161/129 H Pulse Oximetry 100 Oxygen Delivery 10/24/24 14:00 10/24/24 16:00 10/24/24 18:00 Temperature Pulse Rate 73 72 76 Respiratory Rate Blood Pressure Pulse Oximetry Oxygen Delivery 10/24/24 19:47 10/24/24 19:46 10/24/24 20:00 Temperature 37.1 C Pulse Rate 73 73 Respiratory Rate 18 Blood Pressure 165/120 H Pulse Oximetry 96 Oxygen Delivery Room Air 10/24/24 20:00 10/24/24 21:56 10/24/24 23:03 Temperature Pulse Rate 79 72 Respiratory Rate Blood Pressure Pulse Oximetry Oxygen Delivery Room Air 10/24/24 23:22 10/24/24 23:48 10/25/24 00:00 Temperature 36.5 C Pulse Rate 71 70 70 Respiratory Rate 18 Blood Pressure 164/112 H Pulse Oximetry 92 Oxygen Delivery 10/25/24 01:11 10/25/24 02:00 10/25/24 03:53 Temperature 36.4 C Pulse Rate 70 66 Respiratory Rate 18 Blood Pressure 141/98 H 152/97 H Pulse Oximetry 95 Oxygen Delivery 10/25/24 04:00 10/25/24 04:00 10/25/24 06:00 Temperature Pulse Rate 63 69 Respiratory Rate Blood Pressure Pulse Oximetry Oxygen Delivery Room Air 10/25/24 08:06 Temperature 36.7 C Pulse Rate 68 Respiratory Rate 18 Blood Pressure 155/116 H Pulse Oximetry 96 Oxygen Delivery Intake/Output Intake/Output: Intake & Output 10/22/24 10/23/24 10/24/24 10/25/24 23:59 23:59 23:59 23:59 Intake Total 1946.5 1783.9 241.2 Output Total 3405 4300 1100 Balance -1458.5 -2516.1 -858.8 Meds/Results Medications: Active Medications Generic Name Dose Route Start Last Admin Trade Name Freq PRN Reason Stop Dose Admin Acetaminophen 650 mg 10/23/24 15:45 10/24/24 15:40 Acetaminophen 325 Mg Tablet PO 650 mg Q6H PRN Administration Mild Pain (1-3) or Fever Hydrocodone Bitart/Acetaminophen 1 tab 10/23/24 15:45 Hydrocodone/Acetaminophen (*Crx) 5-325 Mg Tablet PO Q6H PRN Pain Rated 4-6 Amlodipine Besylate 10 mg 10/25/24 09:00 10/25/24 09:25 Amlodipine Besylate 10 Mg Tablet PO 10 mg DAILY DEONNA Administration Aspirin 81 mg 10/23/24 08:40 10/25/24 09:25 Aspirin 81 Mg Chewable Tablet PO 81 mg DAILY@0800 DEONNA Administration Heparin Sodium (Porcine) 4,000 units 10/22/24 16:52 10/24/24 05:46 Heparin Sodium 5,000 Units/Ml Vial IV PUSH 4,000 units PRN PRN Administration aPTT less than 55 seconds Heparin Sodium (Porcine) 4,000 units 10/22/24 16:52 10/23/24 07:19 Heparin Sodium 5,000 Units/Ml Vial IV PUSH 4,000 units PRN PRN Administration aPTT 55 - 70 seconds Heparin Sodium/Dextrose 25,000 units in 250 mls @ 18 mls/hr 10/22/24 16:55 10/25/24 09:00 Heparin Sodium/D5w 100 Units/Ml IV CONT 1,800 units/hr .[id number] [facility] 18 mls/hr Titration Protocol 1,800 UNITS/HR Lorazepam 0.5 mg 10/23/24 15:45 10/25/24 04:16 Lorazepam Inj (*Crx) 2 Mg/Ml Vial IV PUSH 0.5 mg Q6H PRN Administration Anxiety Losartan Potassium 50 mg 10/24/24 09:00 10/25/24 09:25 Losartan Potassium 50 Mg Tablet PO 50 mg DAILY [facility] Administration Metoprolol Tartrate 5 mg 10/22/24 21:42 10/24/24 23:22 Metoprolol Tartrate Inj 5 Mg/5 Ml Vial IV PUSH 5 mg Q4HR PRN Administration Blood Pressure - High Metoprolol Tartrate 50 mg 10/23/24 09:00 10/25/24 09:25 Metoprolol Tartrate 50 Mg Tab PO 50 mg Q12HR DEONNA Administration Morphine Sulfate 2 mg 10/22/24 17:33 Morphine Sulfate (*Crx) 2 Mg/Ml Inj IV PUSH Q4H PRN Pain Rated 7-10 Nitroglycerin 0.4 mg 10/22/24 17:00 Nitroglycerin Sl 0.4 Mg Tablet SUBLINGUAL Q5MIN PRN Chest Pain Ondansetron HCl 4 mg 10/22/24 17:00 Ondansetron Inj 4 Mg/2 Ml Vial IV PUSH Q4H PRN Nausea Perflutren Lipid Microsphere 0 ml 10/23/24 11:23 Perflutren Lipid Microspheres 1.5 Ml Vial Diluted To 10 Ml Total Volume IV PUSH 10/26/24 11:23 ONCE PRN adequate visualization Protocol Perflutren Lipid Microsphere 0 ml 10/24/24 13:42 Perflutren Lipid Microspheres 1.5 Ml Vial Diluted To 10 Ml Total Volume IV PUSH 10/27/24 13:42 ONCE PRN adequate visualization Protocol Radiology Results: ITS Impressions Chest X-Ray 10/22/24 13:34 IMPRESSION: 1: NO ACUTE CARDIOPULMONARY DISEASE. Chest/Abdomen/Pelvis CTA 10/22/24 16:01 IMPRESSION: CHEST: 1. No acute cardiopulmonary pathology. 2. No evidence of dissection or aneurysm. ABDOMEN/PELVIS: 1. No acute cardiopulmonary pathology. 2. No evidence of dissection seen. Labs Labs: Laboratory Results - last 24 hr 10/24/24 10/24/24 10/24/24 05:09 11:55 19:11 WBC RBC Hgb Hct MCV MCH MCHC RDW Plt Count MPV Immature Gran % (Auto) Neut % (Auto) Lymph % (Auto) [place] % (Auto) Eos % (Auto) Baso % (Auto) Lymph # (Auto) [place] # (Auto) Eos # (Auto) Baso # (Auto) Abs Immat Gran (auto) Absolute Neuts (auto) Absolute Nucleated RBC Nucleated RBC % ESR APTT 92.3 H 83.5 H Sodium Potassium Chloride Carbon Dioxide Anion Gap BUN Creatinine Estim Creat Clear Calc Estimated GFR Glucose Calcium C-Reactive Protein Vitamin B12 479.0 Folate 12.7 Rheumatoid Factor 10/25/24 04:29 WBC 3.6 L RBC 5.82 Hgb 17.7 Hct 52.1 H MCV 89.5 MCH 30.4 MCHC 34.0 RDW 13.5 Plt Count 245 MPV 9.3 Immature Gran % (Auto) 0.3 Neut % (Auto) 27.7 L Lymph % (Auto) 51.0 H [place] % (Auto) 12.7 H Eos % (Auto) 7.5 H Baso % (Auto) 0.8 Lymph # (Auto) 1.84 [place] # (Auto) 0.5 Eos # (Auto) 0.3 Baso # (Auto) 0.0 Abs Immat Gran (auto) 0.01 Absolute Neuts (auto) 1.0 L Absolute Nucleated RBC 0.000 Nucleated RBC % 0.0 ESR 3 APTT 80.5 H Sodium 136 L Potassium 4.0 Chloride 104 Carbon Dioxide 26 Anion Gap 6 BUN 10 Creatinine 1.10 Estim Creat Clear Calc 108 Estimated GFR > 60 Glucose 108 Calcium 9.4 C-Reactive Protein < 0.5 Vitamin B12 Folate Rheumatoid Factor 30.0
--- NOTE | 2024-10-25 16:08 | PM.IMPN ---
Progress Note: A&P Assessment and Plan (1) Non-ST elevation MO (NSTEMI): Code(s): I21.4 - Non-ST elevation (NSTEMI) myocardial infarction Status: Acute Assessment and Plan: Patient presents with chest pain and found to have elevated Troponin to 1.92. EKG showing normal sinus with PACs, LAE, LAFB, nonspecific ST and T wave changes. Repeat EKG showing LAE and T wave changes but LAFB resolved. CXR was clear. CTA Ch/A/P showing normal coronary arteries, normal heart size and clear lungs. No acute process. BP was up to 206/141 on admission. Patient given ASA, metoprolol and started on Heparin drip. Oral antiHtN medications started. Chest pain could be related to stress from the argument, related to elevated BP or both. Lexiscan stress test showing equivocal ST-T wave changes. Nuclear images pending. Cardiology consulted and apprecaite their input. Echo as mentioned below. (2) Cardiomyopathy: Code(s): I42.9 - Cardiomyopathy, unspecified Status: Acute Assessment and Plan: Echo available showing normal LV size with severely reduced fxn with EF 20-25% and concentric LV remolding. The RV is mildly dilated with reduced systolic fxn. Bi-atrial enlargement. Evidence of RAP overload (15mmHg). Aortic root is dilated. Mild valvular disease. CMP related to severe and prolonged HTN? Consider ischemia; still waiting on stress test imaging. Consider stress induced CMP but felt less likely. Continue metoprolol. Entresto started. Lasix IV started. Change to Toprol XL. Add Spironolactone and empagliflozin. Add hydralazine/imdur and try to stop Norvasc if BP allows Care coordination to assist in helping with medications and probably with Lifevest (3) Hypertension: Code(s): I10 - Essential (primary) hypertension Status: Acute Assessment and Plan: As above. Patient's BP has been elevated frequently in the past. No coarct noted. Related to drug use? UA clear. TSH and cortisol levels normal. Medical management as above. 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 HIV testing was negative. He is HepC positive but has yet to be treated Ativan available as needed for agitation. He was educated about the benefits of abstaining from drug use. Plan Leukopenia - HIV negative. B12 level normal. CRP/ESR negative. RF 30. LEONELA pending. Hepatitis C - known to be positive and has yet to be treated. Encouraged him to establish with provider to have this treated. DVT prophylaxis - lovenox Code status - full Subjective Date/time seen: 10/25/24 16:08 Interval history: 34yo male with drug use here for chest pain. No CP or SOB. Feels well. No n/v. Exam Narrative: AF 97.7 161/108 77 18 98% ra Gen - NARD Chest - CTA bilaterally, nml RR CV - RRR S1/S2 no murmurs. Tele showing rare PVCs Abd - Soft, NT/ND, Positive BS Ext - No pedal edema Psych - Nml mood and affect Skin - Warm and dry Objective Data Vital Signs Vital Signs: Vital Signs - 24 hr 10/24/24 18:00 10/24/24 19:47 10/24/24 19:46 Temperature 98.7 F Pulse Rate 76 73 73 Respiratory Rate 18 Blood Pressure 165/120 H Pulse Oximetry 96 Oxygen Delivery 10/24/24 20:00 10/24/24 20:00 10/24/24 21:56 Temperature Pulse Rate 79 72 Respiratory Rate Blood Pressure Pulse Oximetry Oxygen Delivery Room Air 10/24/24 23:03 10/24/24 23:22 10/24/24 23:48 Temperature 97.7 F Pulse Rate 71 70 Respiratory Rate 18 Blood Pressure 164/112 H Pulse Oximetry 92 Oxygen Delivery Room Air 10/25/24 00:00 10/25/24 01:11 10/25/24 02:00 Temperature Pulse Rate 70 70 Respiratory Rate Blood Pressure 141/98 H Pulse Oximetry Oxygen Delivery 10/25/24 03:53 10/25/24 04:00 10/25/24 04:00 Temperature 97.6 F Pulse Rate 66 63 Respiratory Rate 18 Blood Pressure 152/97 H Pulse Oximetry 95 Oxygen Delivery Room Air 10/25/24 06:00 10/25/24 08:06 10/25/24 13:18 Temperature 98.0 F 97.6 F Pulse Rate 69 68 69 Respiratory Rate 18 20 Blood Pressure 155/116 H 154/113 H Pulse Oximetry 96 100 Oxygen Delivery 10/25/24 08:00 10/25/24 10:00 10/25/24 12:00 Temperature Pulse Rate 75 70 74 Respiratory Rate Blood Pressure Pulse Oximetry Oxygen Delivery 10/25/24 14:00 10/25/24 16:00 Temperature 97.7 F Pulse Rate 71 74 Respiratory Rate 18 Blood Pressure 161/108 H Pulse Oximetry 98 Oxygen Delivery Intake/Output Intake/Output: Intake & Output 10/22/24 10/23/24 10/24/24 10/25/24 23:59 23:59 23:59 23:59 Intake Total 1946.5 1783.9 241.2 Output Total 3405 4300 1800 Balance -1458.5 -2516.1 -1558.8 Meds/Results Medications: Active Medications Generic Name Dose Route Start Last Admin Trade Name Freq PRN Reason Stop Dose Admin Acetaminophen 650 mg 10/23/24 15:45 10/24/24 15:40 Acetaminophen 325 Mg Tablet PO 650 mg Q6H PRN Administration Mild Pain (1-3) or Fever Hydrocodone Bitart/Acetaminophen 1 tab 10/23/24 15:45 Hydrocodone/Acetaminophen (*Crx) 5-325 Mg Tablet PO Q6H PRN Pain Rated 4-6 Amlodipine Besylate 10 mg 10/25/24 09:00 10/25/24 09:25 Amlodipine Besylate 10 Mg Tablet PO 10 mg DAILY DEONNA Administration Aspirin 81 mg 10/23/24 08:40 10/25/24 09:25 Aspirin 81 Mg Chewable Tablet PO 81 mg DAILY@0800 DEONNA Administration Furosemide 40 mg 10/26/24 09:00 Furosemide Inj 40 Mg/4 Ml Vial IV PUSH 10/27/24 11:00 DAILY DEONNA Lorazepam 0.5 mg 10/23/24 15:45 10/25/24 04:16 Lorazepam Inj (*Crx) 2 Mg/Ml Vial IV PUSH 0.5 mg Q6H PRN Administration Anxiety Metoprolol Tartrate 5 mg 10/22/24 21:42 10/24/24 23:22 Metoprolol Tartrate Inj 5 Mg/5 Ml Vial IV PUSH 5 mg Q4HR PRN Administration Blood Pressure - High Metoprolol Tartrate 50 mg 10/23/24 09:00 10/25/24 09:25 Metoprolol Tartrate 50 Mg Tab PO 50 mg Q12HR DEONNA Administration Morphine Sulfate 2 mg 10/22/24 17:33 Morphine Sulfate (*Crx) 2 Mg/Ml Inj IV PUSH Q4H PRN Pain Rated 7-10 Nitroglycerin 0.4 mg 10/22/24 17:00 Nitroglycerin Sl 0.4 Mg Tablet SUBLINGUAL Q5MIN PRN Chest Pain Ondansetron HCl 4 mg 10/22/24 17:00 Ondansetron Inj 4 Mg/2 Ml Vial IV PUSH Q4H PRN Nausea Perflutren Lipid Microsphere 0 ml 10/23/24 11:23 Perflutren Lipid Microspheres 1.5 Ml Vial Diluted To 10 Ml Total Volume IV PUSH 10/26/24 11:23 ONCE PRN adequate visualization Protocol Perflutren Lipid Microsphere 0 ml 10/24/24 13:42 Perflutren Lipid Microspheres 1.5 Ml Vial Diluted To 10 Ml Total Volume IV PUSH 10/27/24 13:42 ONCE PRN adequate visualization Protocol Sacubitril/Valsartan 1 tablet 10/25/24 21:00 Sacubitril/Valsartan 49-51 Mg Tablet PO Q12HR DEONNA Radiology Results: ITS Impressions Chest X-Ray 10/22/24 13:34 IMPRESSION: 1: NO ACUTE CARDIOPULMONARY DISEASE. Chest/Abdomen/Pelvis CTA 10/22/24 16:01 IMPRESSION: CHEST: 1. No acute cardiopulmonary pathology. 2. No evidence of dissection or aneurysm. ABDOMEN/PELVIS: 1. No acute cardiopulmonary pathology. 2. No evidence of dissection seen. Labs Labs: Laboratory Results - last 24 hr 10/24/24 10/25/24 19:11 04:29 WBC 3.6 L RBC 5.82 Hgb 17.7 Hct 52.1 H MCV 89.5 MCH 30.4 MCHC 34.0 RDW 13.5 Plt Count 245 MPV 9.3 Immature Gran % (Auto) 0.3 Neut % (Auto) 27.7 L Lymph % (Auto) 51.0 H [place] % (Auto) 12.7 H Eos % (Auto) 7.5 H Baso % (Auto) 0.8 Lymph # (Auto) 1.84 [place] # (Auto) 0.5 Eos # (Auto) 0.3 Baso # (Auto) 0.0 Abs Immat Gran (auto) 0.01 Absolute Neuts (auto) 1.0 L Absolute Nucleated RBC 0.000 Nucleated RBC % 0.0 ESR 3 APTT 83.5 H 80.5 H Sodium 136 L Potassium 4.0 Chloride 104 Carbon Dioxide 26 Anion Gap 6 BUN 10 Creatinine 1.10 Estim Creat Clear Calc 108 Estimated GFR > 60 Glucose 108 Calcium 9.4 C-Reactive Protein < 0.5 Rheumatoid Factor 30.0
[2024-10-25] MEDS: ACETAMINOPHEN 325 MG TABLET 650 MG PO (18:50)
[2024-10-25] MEDS: hydrALAZINE HCL 25 MG TABLET PO (20:12)
[2024-10-25] MEDS: SACUBITRIL/VALSARTAN 49-51 MG TABLET 1 TABLET PO (21:25)
[2024-10-26] VITALS (8 sets, daily range): BP systolic 142–150; BP diastolic 88–92; PULSE 61–82; RESP 12–18; TEMP 36.4–36.6; O2SAT 96–100
[2024-10-26] MEDS: HYDROcodone/acetaminophen (*CRX) 5-325 MG TABLET 1 TAB PO (02:30)
[2024-10-26 07:56] LABS: Anion Gap 9 mmol/L (4-12); Blood Urea Nitrogen 11 mg/dL (9-20); Calcium 9.2 mg/dL (8.4-10.2); Carbon Dioxide 21 mmol/L (22-30); Chloride 104 mmol/L (98-107); Estimated CRCL calculation 130 ml/min; Estimated Glomerular Filt Rate > 60; Glucose 130 mg/dL (65-110); Potassium 4.2 mmol/L (3.4-5.0); Sodium 134 mmol/L (137-145)
[2024-10-26 08:51] LABS: Partial Thromboplastin Time 29.9 Seconds (22.3-36.8)
[2024-10-26] MEDS: ENOXAPARIN 40 MG/0.4 ML SYRINGE SUB-Q (09:14)
[2024-10-26] MEDS: SPIRONOLACTONE 25 MG TABLET PO (09:14)
[2024-10-26] MEDS: SACUBITRIL/VALSARTAN 49-51 MG TABLET 1 TABLET PO (09:14)
[2024-10-26] MEDS: FUROSEMIDE INJ 40 MG/4 ML VIAL IV PUSH (09:14)
[2024-10-26] MEDS: EMPAGLIFLOZIN 10 MG TABLET PO (09:14)
[2024-10-26] MEDS: METOPROLOL SUCCINATE EXT REL 100 MG TABCR PO (09:15)
[2024-10-26] MEDS: ISOSORBIDE MONONITRATE 15 MG TAB.ER.24H PO (09:15)
[2024-10-26] MEDS: ASPIRIN 81 MG CHEWABLE TABLET PO (09:15)
--- NOTE | 2024-10-26 09:58 | PC.NURSE ---
Addendum entered by Jazmin Mayo RN 10/26/24 10:27: This RN did in fact leave the room at this time. Patient did refuse to allow me to do a physical assessment at this time. This RN went down the matthews and let the charge nurse know what was going on. The patient was reassigned to another nurse. At this time, the patient came walking down the matthews complaining to the charge nurse and other nurses about the IV medication that was given (Lasix). No issues were identified at this time, patient allowed the medication to be given and there were no issues when the medication was given. Original Note: This RN went into the room to assess and pass patient medication. This RN reviewed all medications with and explained to patient what medication was new for him this morning. The patient asked How many pills am I taking ? This RN, counted the number of medications, including IV medications and medications given by injections. Patient verbalized understanding and asked what are the medications used for ? This RN reviewed the medications with patient and stated their use. Patient asked Will I go home on all of those medications ? This RN explained to the patient the medications I believe he will go home on, however until discharge orders are put in, I can't be 100% certain. The patient asked What are the medications I am taking used for ? This RN reviewed again each medication with patient and the use of the medication. The patient verbalized understanding. This RN, opened all of the medications and placed them in the medication cup at this time, and handed them to the patient. The patient then stated Can you tell me what the medications in the cup are used for ? This RN explained to the patient that they were the medications that we had previously discussed. The patient became upset and stated I want you tell me what each of these pills are . This RN explained that once I take them out of the package they look similar and that I can't tell him which pill is exactly which, but that is why I review the medications with patient's before I open the packages, so that I can identify questions, comments or concerns, in the event the medication would be refused I can return it to the pharmacy. The patient maintained that In the future I want to be shown the pill, and told what the medication is used for before you put it in the cup, because that is how I learn . This RN verbalized understanding, and reiterated that no other medications other than the ones we had discussed were placed in the cup. This RN stated that moving forward we can show you the medication as requested. The patient stated I don't know why you have an attitude, its not my problem that you came to work in a bad mood . This RN stated, sir, I don't have an attitude. I reviewed all of your medications prior to opening each of them and you did verbalize understanding related to the medications, I then reviewed them another time when you asked. I will make sure that your request to be shown the medications prior to them being opened in the future. The patient took the oral medications at this time, and this RN still had a IV medication to give to the patient. This RN asked Can I give you this medication in your IV ? It is the Lasix that we previously discussed ? The patient again asked what the medication is used for and this RN explained the medication use. The patient agreed that I could give the medication. While infusing the medication the patient stated I don't want have to see you again, I don't want you as my nurse . This RN stated That is not a problem at all I will let my charge nurse know . The patient used his call light at this time, and told the medical secretary receptionist that I don't want that nurse back in my room she is unprofessional . This RN did infact leave the
--- NOTE | 2024-10-26 12:08 | PM.PNCARD ---
Progress Note: A&P Assessment and Plan (1) Heart failure with reduced ejection fraction: Code(s): I50.20 - Unspecified systolic (congestive) heart failure Status: Acute Assessment and Plan: New diagnosis of HFrEF. Echocardiogram this admission shows LVEF 20-25%. Suspect cardiomyopathy is due to uncontrolled hypertension, methamphetamine use. Results of nuclear stress test are pending. I am going to stop his IV Lasix as he appears euvolemic. Does not need maintenance dose of Lasix. Continue Entresto 49/51mg BID. Continue Jardiance 10mg once daily. Continue Spironolactone 25mg once daily. Continue Toprol 100mg daily. Started on Hydralazine + Imdur. Will switch the Imdur to Isordil. If nuclear stress test without significant abnormality, he can be discharged home. Will arrange close outpatient follow up with us. (2) Elevated troponin: Code(s): R79.89 - Other specified abnormal findings of blood chemistry Status: Acute Assessment and Plan: Likely demand ischemia type 2 in the setting of uncontrolled hypertension, methamphetamine use, reduced LVEF. (3) Hypertension: Code(s): I10 - Essential (primary) hypertension Status: Acute Assessment and Plan: Blood pressures in the 200s systolics upon presentation. Improved now. Continue Entresto, Spironolactone, Toprol. Will do Hydralazine + Isordil for further blood pressure control. 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 Encourage abstinence. Plan Recommendations and plan discussed with Hospitalist. Subjective Date/time seen: 10/26/24 12:08 Interval history: Reason for visit: CHF HPI: 34-year-old male patient presents to the hospital with acute episode of chest pain. Chest pain yesterday yesterday at 1 time when the patient was in agreement. Chest pain was midsternal 3/10 pressure-like. It lasted for few hours. There was no radiation for the chest pain and there was no nausea vomiting or sweating. On arrival the patient was noted to have severe hypertension with systolic blood pressure above 200 and diastolic pressure above 140. Patient has history of drug abuse last time used was methamphetamine 4 days ago. Date of service 10/24: No acute events. Telemetry sinus rhythm. Date of service 10/25: Denies any chest pain or shortness of breath today. Date of service 10/26: Feeling well today. Tele without any arrhythmias. Review of Systems Review of Systems: All systems reviewed & are unremarkable except as noted in HPI and below (HPI) Exam Const: General: comfortable and no acute distress HENMT: Mouth: Yes moist mucous membranes Eyes: General: appearance normal, both eyes and all related structures Sclera: sclerae normal Resp: Effort & Inspection: normal respiratory effort Cardio: Rate: regular rate Rhythm: regular rhythm Skin: General skin exam: normal color Neuro: Speech: normal speech Psych: Mental Status: mental status grossly normal Affect: normal affect Objective Data Vital Signs Vital Signs: Vital Signs - 24 hr 10/25/24 13:18 10/25/24 14:00 10/25/24 16:00 Temperature 36.4 C 36.5 C Pulse Rate 69 71 74 Respiratory Rate 20 18 Blood Pressure 154/113 H 161/108 H Pulse Oximetry 100 98 Oxygen Delivery 10/25/24 16:00 10/25/24 16:00 10/25/24 18:00 Temperature Pulse Rate 74 77 Respiratory Rate Blood Pressure Pulse Oximetry Oxygen Delivery Room Air 10/25/24 20:00 10/25/24 20:00 10/25/24 20:48 Temperature 36.6 C Pulse Rate 74 75 Respiratory Rate 18 Blood Pressure 155/104 H Pulse Oximetry 97 Oxygen Delivery Room Air 10/25/24 21:24 10/25/24 21:25 10/25/24 22:00 Temperature Pulse Rate 79 79 72 Respiratory Rate Blood Pressure 156/96 H Pulse Oximetry Oxygen Delivery 10/25/24 23:32 10/26/24 00:00 10/26/24 00:00 Temperature 36.6 C Pulse Rate 74 71 Respiratory Rate 18 Blood Pressure 156/112 H Pulse Oximetry 100 Oxygen Delivery Room Air 10/26/24 02:00 10/26/24 08:05 10/26/24 09:15 Temperature 36.6 C Pulse Rate 61 69 78 Respiratory Rate 18 Blood Pressure 142/88 H Pulse Oximetry 100 Oxygen Delivery 10/26/24 10:00 10/26/24 11:56 Temperature 36.4 C L Pulse Rate 80 82 Respiratory Rate 12 Blood Pressure 150/92 H Pulse Oximetry 96 Oxygen Delivery Intake/Output Intake/Output: Intake & Output 10/23/24 10/24/24 10/25/24 10/26/24 23:59 23:59 23:59 23:59 Intake Total 1946.5 1783.9 781.2 480 Output Total 3405 4300 3100 825 Balance -1458.5 -2516.1 -2318.8 -345 Meds/Results Medications: Active Medications Generic Name Dose Route Start Last Admin Trade Name Freq PRN Reason Stop Dose Admin Acetaminophen 650 mg 10/23/24 15:45 10/25/24 18:50 Acetaminophen 325 Mg Tablet PO 650 mg Q6H PRN Administration Mild Pain (1-3) or Fever Hydrocodone Bitart/Acetaminophen 1 tab 10/23/24 15:45 10/26/24 02:30 Hydrocodone/Acetaminophen (*Crx) 5-325 Mg Tablet PO 1 tab Q6H PRN Administration Pain Rated 4-6 Aspirin 81 mg 10/23/24 08:40 10/26/24 09:15 Aspirin 81 Mg Chewable Tablet PO 81 mg DAILY@0800 DEONNA Administration Empagliflozin 10 mg 10/26/24 09:00 10/26/24 09:14 Empagliflozin 10 Mg Tablet PO 10 mg DAILY DEONNA Administration Enoxaparin Sodium 40 mg 10/26/24 09:00 10/26/24 09:14 Enoxaparin 40 Mg/0.4 Ml Syringe SUB-Q 40 mg DAILY DEONNA Administration Hydralazine HCl 25 mg 10/25/24 19:25 10/26/24 09:57 Hydralazine Hcl 25 Mg Tablet PO Not Given Q8HR DEONNA Isosorbide Dinitrate 20 mg 10/26/24 14:00 Isosorbide Dinitrate 20 Mg Tablet PO Q8H DEONNA Lorazepam 0.5 mg 10/23/24 15:45 10/25/24 04:16 Lorazepam Inj (*Crx) 2 Mg/Ml Vial IV PUSH 0.5 mg Q6H PRN Administration Anxiety Metoprolol Succinate 100 mg 10/26/24 09:00 10/26/24 09:15 Metoprolol Succinate Ext Rel 100 Mg Tabcr PO 100 mg QAM DEONNA Administration Metoprolol Tartrate 5 mg 10/22/24 21:42 10/24/24 23:22 Metoprolol Tartrate Inj 5 Mg/5 Ml Vial IV PUSH 5 mg Q4HR PRN Administration Blood Pressure - High Nitroglycerin 0.4 mg 10/22/24 17:00 Nitroglycerin Sl 0.4 Mg Tablet SUBLINGUAL Q5MIN PRN Chest Pain Ondansetron HCl 4 mg 10/22/24 17:00 Ondansetron Inj 4 Mg/2 Ml Vial IV PUSH Q4H PRN Nausea Perflutren Lipid Microsphere 0 ml 10/24/24 13:42 Perflutren Lipid Microspheres 1.5 Ml Vial Diluted To 10 Ml Total Volume IV PUSH 10/27/24 13:42 ONCE PRN adequate visualization Protocol Sacubitril/Valsartan 1 tablet 10/25/24 21:00 10/26/24 09:14 Sacubitril/Valsartan 49-51 Mg Tablet PO 1 tablet Q12HR DEONNA Administration Spironolactone 25 mg 10/26/24 09:00 10/26/24 09:14 Spironolactone 25 Mg Tablet PO 25 mg QAM DEONNA Administration Radiology Results: ITS Impressions Chest X-Ray 10/22/24 13:34 IMPRESSION: 1: NO ACUTE CARDIOPULMONARY DISEASE. Chest/Abdomen/Pelvis CTA 10/22/24 16:01 IMPRESSION: CHEST: 1. No acute cardiopulmonary pathology. 2. No evidence of dissection or aneurysm. ABDOMEN/PELVIS: 1. No acute cardiopulmonary pathology. 2. No evidence of dissection seen. Labs Labs: Laboratory Results - last 24 hr 10/26/24 05:00 APTT 29.9 Sodium 134 L Potassium 4.2 Chloride 104 Carbon Dioxide 21 L Anion Gap 9 BUN 11 Creatinine 0.90 Estim Creat Clear Calc 130 Estimated GFR > 60 Glucose 130 H Calcium 9.2
[2024-10-26] MEDS: hydrALAZINE HCL 25 MG TABLET PO (13:36)
[2024-10-26] MEDS: ACETAMINOPHEN/ASPIRIN/CAFFEINE 250-250-65 MG TABLET 1 TABLET PO (14:07)
--- NOTE | 2024-10-26 14:36 | PM.DS ---
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 Please see H&P for detials. Hospital Course: Patient presented with chest pain and found to have elevated Troponin to 1.92. EKG showing normal sinus with PACs, LAE, LAFB, nonspecific ST and T wave changes. Repeat EKG showing LAE and T wave changes but LAFB resolved. CXR was clear. CTA Ch/A/P showing normal coronary arteries, normal heart size and clear lungs. No acute process. BP was up to 206/141 on admission. Patient given ASA, metoprolol and started on Heparin drip. Oral antiHtN medications started. Chest pain related to stress from the argument, elevated BP, drug use or multifactorial. Lexiscan stress test showing equivocal ST-T wave changes. Nuclear images showing normal myocardial perfusion at rest and during stress with EF 37%. Cardiology consulted and appreciate their input. Echo showing normal LV size with severely reduced fxn with EF 20-25% and concentric LV remolding. The RV is mildly dilated with reduced systolic fxn. Bi-atrial enlargement. Evidence of RAP overload (15mmHg). Aortic root is dilated. Mild valvular disease. Not felt that he needed a LifeVest. Treated with Toprol XL, Entresto, Spironolactone and empagliflozin. Added hydralazine/isordil for CMP and HTN. Care coordination consulted to assist in helping with medications. Patient's BP has been elevated frequently in the past. Related to drug use? UA clear. TSH and cortisol levels normal. BP became better controlled. Patient has hx of drug use. HIV testing was negative. He is HepC positive but has yet to be treated. Ativan was available as needed for agitation. He was educated about the benefits of abstaining from drug use. Leukopenia noted. HIV negative. B12 level normal. CRP/ESR negative. RF 30. LEONELA pending. Patient is known to be Hepatitis C positive and has yet to be treated. Encouraged him to establish with provider to have this treated. Patient overall did well and was able to be discharged home on 10/26/24. Status at Discharge Cognitive/behavioral status at discharge: stable Time Spent with Patient Time attestation: Total time spent providing and/or coordinating discharge services: 35 minutes Time spent: Greater than 30 minutes Exam Narrative: AF 97.5 150/92 70 12 96% ra Gen - NARD Chest - CTA bilaterally, nml RR CV - RRR S1/S2 no murmurs. Tele showing rare PVCs Abd - Soft, NT/ND, Positive BS Ext - No pedal edema Psych - Nml mood and affect Skin - Warm and dry DS: Data Data Completed and Pending Labs on day of discharge: Labs from last 24 hours 10/26/24 05:00 APTT 29.9 Sodium 134 L Potassium 4.2 Chloride 104 Carbon Dioxide 21 L Anion Gap 9 BUN 11 Creatinine 0.90 Estim Creat Clear Calc 130 Estimated GFR > 60 Glucose 130 H Calcium 9.2 Discharge Plan Discharge Attending physician on discharge: Edvin Lacy Consulting providers: Delmar Wallace Discharging Clinician: Edvin Lacy Anticipated Discharge Date/Time: 10/26/24 14:46 Patient Disposition: Home, Self-Care Activity: as tolerated Diet: heart healthy Discharge Instructions: Check blood pressure 1 to 2 times a day. Record and bring into your doctor for review. Call your doctor if your blood pressure is greater than 180/110. Check daily morning weights after voiding. Call your doctor if you gain more than 3 lb in 2 days or 5 lb in 1 week. Contact your doctor or call 911 and come to the Emergency Room if you have chest pain, lightheadedness with standing or other worrisome symptoms. Avoid NSAIDs (ibuprofen, naproxen, Aleve). Tylenol is safe to take. Follow-up with your primary care provider in 1-2 weeks. Please call for appointment. Follow-up with Dock Attendant in 2-3 weeks. Please call for an appointment. Thank you for using [facility] for your health care needs. Patient Instructions: Antibiotic Form Patient Language: Gabonese Stand Alone Forms: General Discharge Information Follow-up/Referrals: Greg Newby MD [Physician] - Call for Appointment Discharge Medications: New spironolactone 25 mg Tablet 25 mg PO QAM Qty: 30 1RF hydralazine 25 mg Tablet 25 mg PO Q8HR Qty: 90 1RF isosorbide dinitrate 20 mg Tablet 20 mg PO Q8H Qty: 30 1RF Entresto 49-51 mg Tablet 1 tablet PO Q12HR Qty: 30 1RF Jardiance 10 mg Tablet 10 mg PO DAILY Qty: 30 1RF metoprolol succinate [Toprol XL] 100 mg Tablet Extended Release 24 Hr 100 mg PO QAM Qty: 30 1RF Continued No Home Medications Date of admission: 10/23/24 14:10 Primary Care Provider: UNKNOWN,DOCTOR Admitting Provider: Will Poe Attending physician on admission: Will Poe Condition: Stable Hospitalist MIPS Heart Failure (Exclusion) Patient has history of Heart Transplant or Left Ventricular Assistive Device?: No IF YES, STOP HERE Heart Failure (Qualifier) Patient has current or prior documentation of LVEF less than or equal to 40%, or mod/servere depressed LVSF?: Yes IF NO, STOP HERE If Yes, Heart Failure (Qualifier) Patient was prescribed or already taking an Angiotensin-Converting Enzyme (RHONDA) Inhibitor, or Antiotensin Receptor [place]y (ARB): Yes Patient was prescribed or already taking bisoprolol, carvedilol, or sustained release metoprolol succinate: Yes
--- NOTE | 2024-10-28 09:15 | PC.NURSE ---
LEONELA is negative. Dr. Bambi jones.
== END 2024-10-26 15:45 | disposition home or self-care (01) | DRG 194 ==
LOC: ANHED 14:21 → ANHIMU 18:10
PROVIDERS: Internal Medicine; Internal Medicine Interventional Cardiology; Physician Assistant; Admitting Provider Internal Medicine; Emergency Provider Student in an Organized Health Care Education/Training Program; Visit Provider Internal Medicine
DX: I11.0 Hypertensive heart disease with heart failure (principal); I21.A1 Myocardial infarction type 2; I50.21 Acute systolic (congestive) heart failure; I43 Cardiomyopathy in diseases classified elsewhere; F15.11 Other stimulant abuse, in remission; F12.90 Cannabis use, unspecified, uncomplicated; I16.1 Hypertensive emergency; B19.20 Unspecified viral hepatitis C without hepatic coma; F17.290 Nicotine dependence, other tobacco product, uncomplicated; D72.819 Decreased white blood cell count, unspecified
CPT/HCPCS: 36415; 71046; 71275; 74174; 78452; 80048; 80053; 80307; 81001; 82533; 82607; 82746; 83690; 83735; 84100; 84443; 84484; 85025; 85610; 85652; 85730; 86038; 86039; 86140; 86430; 86703; 93005; 93017; 93306; 96365; 99285; A9270; A9502; G0378; G0432; J1644; J1650; J1940; J2060; J2785; Q9967

== ENCOUNTER 2024-10-29 11:27 | Emergency (ER) | payer OTHER, SELFPAY ==
[2024-10-29 12:08] VITALS: BP 137/69; PULSE 85; RESP 18; TEMP 36.1; O2SAT 100
--- OUTSIDE RECORDS SUMMARY | 2024-10-29 12:41 | XMS_ITS | Continuity of Care Document ---
Author Organization [facility] Address [address] [address] [place] [address] Phone Care Team Providers Care Cork Insulation Setter Name Role Phone Robert Wilson MD Unavailable Unavailable Allergies, Adverse Reactions, Alerts Substance Reaction Status Criticality No Known Allergies Active No Inform ation Medications Medication Instructions Dosage Effective Dates (start - stop) Status Comments ibuprofen 800 mg tablet take 1 tablet (800MG) by oral route every 6 - 8 hours with food 800 MG - Active Flexeril 10 mg tablet take 1 tablet (10MG) by oral route 2 times every day 10 MG - Active avoid driving or operate machines Ultram 50 mg tablet take 1 tablet (50MG) by oral route every 6 hours as needed - Active PRN for pain, avoid driving or operate machines trazodone 50 mg tablet take 1 tablet (50MG) by oral route every bedtime after meals 50 MG - Active Procedures Procedure Date PREV VISIT, NEW, AGE 18-39 Advance Directives Directive Yes / No Effective Date File Name No Information Encounters Encounter Description Practice Location Reason(s) For Visit Diagnoses Date Provider Providers Copied on Encounter PREV VISIT, NEW, AGE 18-39 [facility], [address], [address], tel:[phone] [facility] PHysical (chief complaint) Dietary surveillance and counselingRoutine Medical ExamRoutine Medical Exam [address] Steve Jones. [address], [place], [address]. tel:[phone] Family History Family Member Type Diagnosis Age At Onset Mother Problem (finding) Unknown Disease Father Problem (finding) Diabetes mellitus Father Problem (finding) Coronary artery disease Payers Payer name Insurance type Covered alliance party ID Sussy gabriel(s) No Information Social History Type Description Quantity Date Captured Comments Alcohol Use Details No Caffeine Use Details Unknown Tobacco Use Status No Information Smoking Status Current every day smoker Smoking Tobacco Use Details Cigarette: No Details Available Cigarette: 0 Packs per day Sex Male Vital Signs Date / Time: Height Weight BMI Pulse Rate Blood Pressure Temperature Respiratory Rate Body Surface Area Head Circumference BMI percentile Pulse Ox Inhaled Ox 11:27 AM 77.00 in 233.00 lbs 27.6 3 kg/m eter (2) 93 /min 130/82 mm[Hg] 99.0 F 16 /min Chief Complaint And Reason For Visit From encounter dated '01/20/2014 11:01'. PHysical (chief complaint) Plan Of Treatment Date Type Action Status Goal Tobacco cessation counseling completed Referral Ordered: Physical Therapy ordered Referral Referred To: Physical Therapy Ordered: Referral: Physical Therapy. ordered Referral Ordered: LUMBAR XRAY AP AND LAT ONLY ordered History Of Present Illness Encounter Date Complaint History Of Prese nt Illness No Information Instructions Date Instruction Additional Infor niurkaion Dietary counseling Related to Di etary surveillance counseling Decrease caloric intake Related to Dietary surveillance counseling Assessments Type Assessment Date No Information Mental Status Date Cognitive Assessment Orientation - [place] ed to time, place, person, situation.
--- OUTSIDE RECORDS SUMMARY | 2024-10-29 12:41 | XMS_ITS | CONTINUITY OF CARE DOCUMENT ---
Author Name doreen logan Address Unknown Organization [facility] Address [address] [place] [address] [address] [place] [address] Phone [phone] Care Team Providers Care Data Support Analyst Name Role Phone Woo CHAVEZ, Iglesia Unavailable [phone] Iglesia Berkowitz MD Unavailable [phone] INSURANCE PROVIDERS Payer name Policy type / Coverage type [place] red democrat [place] [id number] MEDICAID (2) Medicaid [id number]
--- OUTSIDE RECORDS SUMMARY | 2024-11-02 00:26 | XMS_ITS | CONTINUITY OF CARE DOCUMENT ---
Author Name doreen logan Address Unknown Organization [facility] Address [address] [place] [address] [address] [place] [address] Phone [phone] Care Team Providers Care Service Clerk Name Role Phone Woo CHAVEZ, Iglesia Unavailable [phone] Iglesia Berkowitz MD Unavailable [phone] INSURANCE PROVIDERS Payer name Policy type / Coverage type [place] red libertarian ID [id number] MEDICAID (2) Medicaid [id number]
--- OUTSIDE RECORDS SUMMARY | 2024-11-02 00:26 | XMS_ITS | Encounter Summary ---
Author Organization [facility] Address [address] [place] [address]. [place], [place] [id number] [place] [address] Care Team Providers Care Last Remodeler Repairer Name Role Phone None, Provider Primary Care Provider Unavaila ble Encounter Details Date Type Department Care Team (Latest Contact Info) Description 08/05/2020 Travel Social History Tobacco Use Types Packs/Day Years Used Date Smoking Tobacco: Every Day Cigarettes Smokeless Tobacco: Never Alcohol Use Standard Drinks/Week Comments Never 0 (1 standard drink = 0.6 oz pur e alcohol) AUDIT-C Answer Date Recorded Q1: How often do you have a drink containing alc ohol? Never 08/05/2020 Average Number of Drinks Not on file 020 Frequency of Binge Drinking Not on file 07/18 Sex and Gender Information Value Date Recorded Sex Assigned at Not on file Legal Sex Male 10:42 AM CDT Gender Identity Not on file Sexual Orientation Not on file COVID-19 Exposure Response Date Recorded In the last month, have you been in contact with someone who was confirmed or suspected to have Coronavirus / COVID-19? No / Unsure 08/05/2020 10:43 AM CDT documented as of this encounter Plan of Treatment Not on file documented as of this encounter Visit Diagnoses Not on filedocumented in this encounter Care Teams Last Remodeler Repairer Relationship Specialty Start Date End Date None, Provider, PCP - General 08/05/20 documented as of this encounter
--- OUTSIDE RECORDS SUMMARY | 2024-11-02 00:26 | XMS_ITS | Continuity of Care Document ---
Author Organization [facility] Address [address] [place] [address] [place] [address] Phone Care Team Providers Care Take Out Waiter/Waitress Name Role Phone Robert Wilson MD Unavailable Unavailable Allergies, Adverse Reactions, Alerts Substance Reaction Status Criticality No Known Allergies Active No Inform ation Medications Medication Instructions Dosage Effective Dates (start - stop) Status Comments trazodone 50 mg tablet take 1 tablet (50MG) by oral route every bedtime after meals 50 MG - Active Ultram 50 mg tablet take 1 tablet (50MG) by oral route every 6 hours as needed - Active PRN for pain, avoid driving or operate machines Flexeril 10 mg tablet take 1 tablet (10MG) by oral route 2 times every day 10 MG - Active avoid driving or operate machines ibuprofen 800 mg tablet take 1 tablet (800MG) by oral route every 6 - 8 hours with food 800 MG - Active Procedures Procedure Date PREV VISIT, NEW, AGE 18-39 Advance Directives Directive Yes / No Effective Date File Name No Information Encounters Encounter Description Practice Location Reason(s) For Visit Diagnoses Date Provider Providers Copied on Encounter PREV VISIT, NEW, AGE 18-39 [facility], [place], [address] [place], [address], tel:[phone] [facility], [place] PHysical (chief complaint) Dietary surveillance and counselingRoutine Medical ExamRoutine Medical Exam [address] Steve Jones. [address], [place], [address]. tel:[phone] Family History Family Member Type Diagnosis Age At Onset Mother Problem (finding) Unknown Disease Father Problem (finding) Diabetes mellitus Father Problem (finding) Coronary artery disease Payers Payer name Insurance type Covered democrat ID Sussy gabriel(s) No Information Social History [...] Mental Status Date Cognitive Assessment Orientation - [place] ed to time, place, person, situation.
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
--- OUTSIDE RECORDS SUMMARY | 2024-11-02 00:26 | XMS_ITS | Encounter Summary ---
Author Organization [facility] Address [address] [place] [address]. [place], [place] [id number] [place] [id number] Care Team Providers Care Economic Analysis Director Name Role Phone None, Provider MD Primary Care Provider Unavaila ble Reason for Visit * Reason Comments Sore Throat Encounter Details Date Type Department Care Team (Late st Contact Info) Description 08/05/2020 10:53 AM CDT - 08/05/2020 11:44 AM CDT Emergency [facility] [place] [address] Khalif Whitley NP Sore Throat Discharge Disposition: Home or Self Care (Routine Discharge) Social History Tobacco Use Types Packs/Day Years [...] AM CDT documented as of this encounter Last Filed Vital Signs Vital Sign Reading Time Taken Comments Blood Pressure 175/91 08/05/2020 10:46 AM CDT Pulse 100 08/05/2020 10:46 AM CDT Temperature 36.3 ??C (97.3 ??F) 08/05/2020 10:46 AM C DT Respiratory Rate 20 08/05/2020 10:46 AM CDT Oxygen Saturation 100% 08/05/2020 10:46 AM CDT Inhaled Oxygen Concentration - - Weight 113.4 kg (250 lb) 08/05/2020 10:46 AM CDT Height 198.1 cm (6' 6 ) 08/05/2020 10:46 AM CDT Body Mass Index 28.89 08/05/2020 10:46 AM CDT documented in this encounter Discharge Instructions * Discharge Instructions* Khalif Whitley NP - 08/05/2020 11:37 AM CDT Your blood pressure was high today. Follow up with a primary care physician. * Attachments The following attachments cannot be sent through Care Everywhere. * Sore Throat Discharge Instructions, Adult ([place]) * High Blood Pressure Discharge Instructions ([place]) documented in this encounter Medications at Time of Discharge INESSA Elliott, 4 MG tablet Take as directed on package. 1 each 08/05/2020 amoxicillin 875 MG tablet Take 1 tablet (875 mg total) by mouth 2 (two) times daily for 10 days. 20 tablet 08/05/2020 08/15/2020 ibuprofen 800 MG tablet Take 1 tablet (800 mg total) by mouth every 8 (eight) hours as needed. 30 tablet 08/05/2020 08/15/2020 documented as of this encounter ED Notes * Khalif Whitley NP - 08/05/2020 11:07 AM CDT ED NOTE Chief Complaint Chief Complaint Patient presents with ??? Sore Throat History of Present Illness 30 yo M presents with c/o sore throat, throat swelling for 2 days. When swallowing has L ear pain. No fever/chills. Hx of strep. Pt c/o pain when talking but is able to talk. Swallowing oral secretions without difficulty. All systems reviewed and negative except as noted above. Medical History ALLERGIES: No Known Allergies MEDICATIONS: Prior to Admission medications Medication Sig Start Date End Date Taking? Authorizing Provider amoxicillin 875 MG tablet Take 1 tablet (875 mg total) by mouth 2 (two) times daily for 10 days. 08/05/20 08/15/20 Yes Khalif Whitley NP ibuprofen 800 MG tablet Take 1 tablet (800 mg total) by mouth every 8 (eight) hours as needed. 08/05/20 08/15/20 Yes Khalif Whitley NP methylPREDNISolone, INESSA, 4 MG tablet Take as directed on package. 08/05/20 Yes Khalif Whitley NP PAST MEDICAL HISTORY: Past Medical History: Diagnosis Date ??? Strep throat PAST SURGICAL HISTORY: History reviewed. No pertinent surgical history. FAMILY HISTORY: No family history on file. SOCIAL HISTORY: Social History Tobacco Use ??? Smoking status: Current Every Day Smoker Packs/day: 0.25 Types: Cigarettes ??? Smokeless tobacco: Never Used Substance Use Topics ??? Alcohol use: Never Frequency: Never ??? Drug use: Not Currently Review of Systems Review of Systems Constitutional: Negative. HENT: Positive for ear pain and sore throat. Respiratory: Negative. Cardiovascular: Negative. Gastrointestinal: Negative. Genitourinary: Negative. Musculoskeletal: Negative. Skin: Negative. Neurological: Negative. All other systems reviewed and are negative. Physical Exam Filed Vitals: 08/05/20 1046 BP: (!) 175/91 Pulse: 100 Resp: 20 Temp: 97.3 ??F (36.3 ??C) SpO2: 100% Weight: 113.4 kg (250 lb) Height: 6' 6 (1.981 m) Physical Exam Constitutional: He is oriented to person, place, and time. He appears well- developed and well-nourished. He is active. Non-toxic appearance. He does not have a sickly appearance. He does not appear ill. No distress. HENT: Head: Normocephalic. Right Ear: Tympanic membrane, external ear and ear canal normal. Left Ear: Tympanic membrane, external ear and ear canal normal. Nose: Nose normal. No mucosal edema or rhinorrhea. Mouth/Throat: Uvula is midline. Posterior oropharyngeal edema and posterior oropharyngeal erythema present. Tonsils are 1+ on the right. Tonsils are 1+ on the left. Tonsillar exudate. Eyes: Conjunctivae are normal. Neck: Normal range of motion. Cardiovascular: Normal rate, regular rhythm and normal heart sounds. Pulmonary/Chest: Effort normal and breath sounds normal. Musculoskeletal: Normal range of motion. Lymphadenopathy: He has cervical adenopathy. Neurological: He is alert and oriented to person, place, and time. Skin: Skin is warm and dry. Psychiatric: He has a normal mood and affect. His behavior is normal. Judgment and thought content normal. Nursing note and vitals reviewed. Diagnostic Studies / Procedures ELECTROCARDIOGRAMS: No results found for this visit on 08/05/20. LABORATORY STUDIES: Results for orders placed or performed during the hospital encounter of 08/05/20 RAPID STREP A Result Value Ref Range Specimen Type THROAT RAPID STREP TEST NEGATIVE NEGATIVE IMAGING STUDIES No orders to display ED Course / Medical Decision Making MDM Number of Diagnoses or Management Options Acute tonsillitis: Elevated blood pressure reading: Diagnosis management comments: Treating pt with abx today due to symptoms and exam findings for strep throat. Amount and/or Complexity of Data Reviewed Clinical lab tests: ordered and reviewed Medications ibuprofen (MOTRIN) tablet 600 mg (600 mg Oral Given 08/05/20 1111) Clinical Impression Acute tonsillitis (Primary) Elevated blood pressure reading Current Discharge Medication List START taking these medications Details amoxicillin 875 MG tablet Take 1 tablet (875 mg total) by mouth 2 (two) times daily for 10 days. Qty: 20 tablet, Refills: 0 Class: Print ibuprofen 800 MG tablet Take 1 tablet (800 mg total) by mouth every 8 (eight) hours as needed. Qty: 30 tablet, Refills: 0 Class: Print methylPREDNISolone, INESSA, 4 MG tablet Take as directed on package. Qty: 1 each, Refills: 0 Class: Print Disposition: Discharge Follow-Up: Mk Callejas MD [address] [place] [phone] establish a primary care physician if you do not already have one; recheck blood pressure in 1 week KHALIF WHITLEY NP 08/05/2020 Khalif Whitley NP 08/05/20 1138 Cosigned by Moisés Che MD at 08/05/2020 1:01 PM CDT * Kika Hsu RN - 08/05/2020 10:49 AM CDT Pt reports sore throat/left neck tenderness x 2 days. Very painful to swallow and difficulty to talk. Still has tonsils, hx of strep throat. documented in this encounter Plan of Treatment Not on file documented as of this encounter Procedures Procedure Name Priority Date/Time Associated Diagnosis Comments RAPID STREP A STAT 08/05/2020 11:13 AM CDT documented in this encounter Results * RAPID STREP A (08/05/2020 11:13 AM CDT) SPECIMEN TYPE THROAT 08/05/2020 11:11 AM CDT [facility] RAPID STREP TEST NEGATIVE NEGATIVE 08/05/2020 11:31 AM CDT [facility] STRUCTURE OF ANTERIOR PORTION OF NECK / Unknown 08/05/2020 11:13 AM CDT us Khalif Whitley NP MICROBIOLOGY - GENERAL ORD ERABLES Final Result [facility] [address] [place] [address], [place] [phone] documented in this encounter Visit Diagnoses Diagnosis Acute tonsillitis- Primary Elevated blood pressure reading Elevated blood pressure reading without diagnosis of hypertension documented in this encounter Administered Medications Inactive Administered Medications - up to 3 most recent administrations Medication Order MAR Action Action Date Dose Rate Site ibuprofen (MOTRIN) tablet 600 mg 600 mg, Oral, Once, 1 dose, On 08/05/20 at 1115 Given 08/05/2020 11:11 AM CDT 600 mg documented in this encounter Active and Recently Administered Medications Times are shown in CDT. Scheduled Medication Order 08/03/2020 08/04/2020 08/05/2020 ibuprofen (MOTRIN) tablet 600 mg (COMPLETED) 600 mg, Oral, Once, 1 dose, On 08/05/20 at 1115 1111 (Given - Provid er: Kika Hsu RN) documented in this encounter Care Teams Economic Analysis Director Relationship Specialty Start Date End Date None, Provider, PCP - General 08/05/20 documented as of this encounter
--- OUTSIDE RECORDS SUMMARY | 2024-11-02 00:26 | XMS_ITS | Encounter Summary ---
Author Organization [facility] Address [facility] [place] [address] Care Team Providers Care Customer Acquisition Specialist Name Role Phone Unavailable Primary Care Provider Unavailabl e Reason for Visit * Reason Comments Sore Throat pt transferred from [facility] for evaluation of geovanni-tonsillar abscess. Encounter Details Date Type Department Care Team (Late st Contact Info) Description 08/12/2020 3:23 PM CDT - 08/12/2020 8:39 PM CDT Emergency [facility] EM[facility] [address] [place] [phone] Ratna Gresham MD [address] [facility] [place] [phone] Brooklyn Jernigan MD [address] [place] [address] Acute pharyngitis, unspecified etiology Discharge Disposition: Home or Self Care Social History Tobacco Use Types Packs/Day Years Used Date Smoking Tobacco: Never Assessed Sex and Gender Information Value Date Recorded Sex Assigned at Not on file Gender Identity Not on file Sexual Orientation Not on file documented as of this encounter Last Filed Vital Signs Vital Sign Reading Time Taken Comments Blood Pressure 142/81 08/12/2020 7:00 PM CDT Pulse 87 08/12/2020 4:00 PM CDT Temperature 37 ??C (98.6 ??F) 08/12/2020 3:24 PM CDT Respiratory Rate 17 08/12/2020 4:00 PM CDT Oxygen Saturation 100% 08/12/2020 7:00 PM CDT Inhaled Oxygen Concentration - - Weight 104.3 kg (230 lb) 08/12/2020 3:24 PM CDT Height 198.1 cm (6' 6 ) 08/12/2020 3:24 PM CDT Body Mass Index 26.58 08/12/2020 3:24 PM CDT documented in this encounter Discharge Instructions * Discharge Instructions* Tanvir Shaw MD - 08/12/2020 6:26 PM CDT Follow up with ENT as needed. Take the antibiotics for the full 10 days, twice a day, and take tylenol or ibuprofen as needed for pain * Attachments The following attachments cannot be sent through Care Everywhere. * Pharyngitis (AfterCare(R) Instructions(ER/ED)) (Croatian) documented in this encounter Medications at Time of Discharge Medication Sig Dispensed Refills Start Date End Date ondansetron (ZOFRAN) 4 MG tablet Take 1 tablet by mouth every 6 hours as needed for Nausea/Vomiting 10 tablet 08/12/2020 amoxicillin-clavulanate (AUGMENTIN) 875-125 MG tablet Take 1 tablet by mouth 2 times daily with morning and evening meal for 10 days 20 tablet 08/12/2020 08/22/2020 documented as of this encounter Consult Notes * Amadou Miles MD - 08/12/2020 4:56 PM CDT Otolaryngology Consult Patient name: Deepak Pfeiffer Date of : 1990 Today's Date: 08/12/2020 Reason for Consult: concern for peritonsillar abscess Consult requested by: Dr. Gresham, team ED Chief Complaint Patient presents with ??? Sore Throat pt transferred from [facility] for evaluation of geovanni-tonsillar abscess. HISTORY OF PRESENT ILLNESS: Deepak Pfeiffer is a 30 year old male H s/f meth use who presents as transfer from OSH due to concern for [employer]. Patient has had throat pain for the last one week. Was seen in outside ED on 08/05/20 forsore throat and placed on Augmentin. Patient reports that he took 2 pills before he lost the bottle. Now has had worsening of his throat pain especially over the last 2-3 days along with nausea, vomiting and diarrhea this beginning this morning. He notes worsening voice changes and difficulty/pain with swallowing. No shortness of breath, fevers. He feels that his symptoms are improving after receiving IV antibiotics today. Of note, patient mentioned to ED physician that he can have n/v/d with withdrawal from meth use. Last use was 2 days ago. Denies recurrent strep infections or sore throats. No prior ENT history. ALLERGIES: No Known Allergies IMMUNIZATIONS: There is no immunization history on file for this patient. MEDICATIONS FOR CURRENT ENCOUNTER: No current facility-administered medications on file prior to encounter. No current outpatient medications on file prior to encounter. SCHEDULED MEDICATIONS: clindamycin (CLEOCIN) 900 mg in 50 mL D5W IVPB, Intravenous, q8h ?? lactated ringers IV bolus, Intravenous, Now ?? CONTINUOUS MEDICATIONS: ?? PRN MEDICATIONS: SURGICAL HISTORY: No past surgical history on file. MEDICAL HISTORY: No past medical history on file. FAMILY HISTORY: family history is not on file. SOCIAL HISTORY: Pediatric History Patient Parents ??? Not on file Other Topics Concern ??? Not on file Social History Narrative ??? Not on file REVIEW OF SYSTEMS: 11 point review of systems performed which was negative except for above in HPI. EXAMINATION: Blood pressure (!) 136/106, pulse 87, temperature 98.6 ??F (37 ??C), temperature source Oral, resp.rate 17, height 6' 6 (1.981 m), weight 230 lb (104.3 kg), SpO2 97 %. General Appearance: NAD but appears mildly uncomfortable holding stomach Eyes: normal conjunctiva and lids; no discharge, erythema or swelling Respiratory: Unlabored breathing on room air, no stridor Cardiovascular: Warm and well perfused, Regular rate and rhythm Skin: no rashes or abnormal pigmentation EARS, NOSE, MOUTH AND THROAT EXAM: External inspection of ears & nose: Normal landmarks, atraumatic Otoscopy: TMs intact bilaterally with normal landmarks Nasal mucosa, septum & turbinates: Moist mucosa, septum at midline, no nasal polyps, masses or lesions Lips, teeth and gums: Good oral hygiene, no lesions, abscesses, or masses noted Oropharynx: left tonsil 3+ and erythematous with some exudate, minimal fullness of the left soft palate, elongated midline uvula, right tonsil 1+ without exudate, MMM Examination of neck: soft, nontender, no palpable cervical LAD Examination of thyroid (e.g. Enlargement, tenderness, masses): Normal size, no tenderness appreciated Neurological and Cranial Nerves: CN V and VII intact bilaterally, II-XII grossly normal Head and face inspection: Atraumatic, no lesions or lacerations noted Voice: soft DATA REVIEW / OTHER INFORMATION: 08/12/20 OSH WBC: 3.2 IMAGING: OSH CT neck personally reviewed - left tonsil enlarged, hypodensity within the left tonsil vs in the peritonsillar space without clear rim enhancement--intratonsillar infection vs phlegmon vs early peritonsillar abscess ASSESSMENT 30 year oldmale with left tonsillar infection vs peritonsillar phlegmon vs early peritonsillar abscess. Stable airway. Symptoms improving with antibiotics today. No fevers or leukocytosis. N/V/D likely due to substance use. PLAN - discussed options with patient including drainage attempt or antibiotic treatment - patient does not want I&D at this time, no ENT intervention at this time - okay for discharge from ENT perspective - plan for Augmentin BID for 10 days - patient instructed to return seek care for increasing fevers, pain, dyspnea, dysphagia, voice changes - management of abdominal complaints per ED - patient may follow up with ENT as needed, clinic phone number [phone] Amadou Miles MD Otolaryngology - Head & Neck Surgery 08/12/2020 6:38 PM documented in this encounter ED Notes * Tyesha Cortez RN - 08/12/2020 8:39 PM CDT Called pt to provide results. HIV Ag/Ab screen negative. Left message requesting patient return call. Tyesha Cortez, HONGN, RN Lead Nurse Navigator Emergency Department [address] [address] * Geri Calderon RN - 08/12/2020 7:39 PM CDT pt tolerating po * Geri Calderon RN - 08/12/2020 7:12 PM CDT medication requested from pharmacy, pharmacy states med was sent at 1654, med not found. requested again. * Tanvir Shaw MD - 08/12/2020 4:00 PM CDT [facility] EMERGENCY DEPARTMENT Chief Complaint: throat pain History of Present Illness: Deepak Pfeiffer is a 30 year old male presenting to ED as transfer from OSH for L peritonsillar abscess, with complaint of throat pain x 5-6d, now with N/V/D starting this AM (emesis x4, diarrhea x5). Took no meds. No sick contacts. +voice change and trouble swalloing but no trouble breathing. Denies dental issues. Last did meth 2 days ago and has had trouble with diarrhea after drug use in the past, but the throat is new. At OSH, pt had L [employer] on CT soft tissue neck w/, given decadron and clindamycin and transferred. History provided by: patient, OSH records Review of Symptoms: Review of Systems Constitutional: Negative for chills and fever. HENT: Positive for ear pain, sore throat, trouble swallowing and voice change. Respiratory: Negative for cough and shortness of breath. Cardiovascular: Negative for chest pain. Gastrointestinal: Positive for abdominal pain, diarrhea, nausea and vomiting. Skin: Negative for rash. Neurological: Negative for headaches. Allergies: No Known Allergies Past Medical History: denies No past medical history on file. Past Surgical History: knees No past surgical history on file. Home Medications: No current facility-administered medications on file prior to encounter. No current outpatient medications on file prior to encounter. Family History: No family history on file. Social History: Tobacco: occasional Alcohol: denies Marijuana: denies Other drugs: meth, last 2 days ago Social History Tobacco Use ??? Smoking status: Not on file Substance Use Topics ??? Alcohol use: Not on file Physical Exam: BP 142/81 Pulse 87 Temp 98.6 ??F (37 ??C) (Oral) Resp 17 Ht 1.981 m (6' 6 ) Wt 104.3 kg (230 lb) SpO2 100% BMI 26.58 kg/m2 Physical Exam Constitutional: Appearance: He is ill-appearing. HENT: Right Ear: Tympanic membrane and ear canal normal. Left Ear: Tympanic membrane and ear canal normal. Mouth/Throat: Mouth: Mucous membranes are dry. Pharynx: Pharyngeal swelling and posterior oropharyngeal erythema present. Tonsils: No tonsillar exudate. 2+ on the left. Comments: Left tonsillar swelling into soft palate. Erythema, guarded voice Eyes: Extraocular Movements: Right eye: Normal extraocular motion. Left eye: Normal extraocular motion. Neck: Musculoskeletal: Neck supple. Comments: Visible swelling left neck/submandibular Cardiovascular: Rate and Rhythm: Normal rate and regular rhythm. Pulmonary: Effort: Pulmonary effort is normal. Breath sounds: Normal breath sounds. No wheezing. Abdominal: Palpations: Abdomen is soft. Tenderness: There is abdominal tenderness. Comments: Mild generalized ttp Lymphadenopathy: Cervical: No cervical adenopathy. Skin: General: Skin is warm. Neurological: General: No focal deficit present. Mental Status: He is alert. Psychiatric: Mood and Affect: Mood normal. Imaging: No orders to display Labs: Labs Reviewed CBC W AUTO DIFFERENTIAL - Abnormal; Notable for the following components: Result Value WBC 13.3 (*) MPV 8.6 (*) Neutrophils % 86.0 (*) Lymphocytes % 3.6 (*) Neutrophils Absolute 11.4 (*) Lymphocyte Absolute 0.5 (*) Monocytes Absolute 1.31 (*) All other components within normal limits COMPREHENSIVE METABOLIC PANEL - Abnormal; Notable for the following components: Albumin/Globulin Ratio 0.8 (*) All other components within normal limits HIV-1 HIV-2 ANTIGEN/ANTIBODY MEDICAL DECISION MAKING AND ED COURSE: Clinical Diagnosis: throat pain, vomiting and diarrhea DDX: [employer], retropharyngeal abscess, pharyngitis, drug withdrawal, viral illness Plan: IV, Labs, IVF, pain control, clindamycin, ENT consult Interval Course: -pt seen and examined -d/w ENT and reviewed OSH imaging -per ENT, no drainge [employer]. Will treat with augmentin bid x 10d and f/u if worsening -continued abd pain and nause. Will treat with compazine and PO fluids. Also discussed HIV testing in setting of IV drug use and low WBC of about 3 at OSH. Pt agrees. I have reviewed the following: -labs -radiology -medical tests -old records I have discussed with my attending, ENT ED FINAL DIAGNOSIS: 1. Acute pharyngitis, unspecified etiology DISPOSITION: [facility] Tanvir Pérezbashirdariela, Emergency Medicine, PGY2 * Ratna Gresham MD - 08/12/2020 3:57 PM CDT ED Resident Attestation I have personally seen, examined and been fully involved in the management of this patient with theresident. I confirm history, exam, assessment and plan Discussed with the resident. In addition I note: Interval History: Deepak Pfeiffer is a 30 year old male presenting to the ED c/o a sore throat that onset 5 days ago. Pt transferred from OSH for evaluation of L peritonsillar abscess by ENT. He states his sore throat has been worsening since onset. He also notes associated nausea, vomiting (4 episodes), diarrhea (5 episodes), and generalized abdominal pain that onset this morning. Pt states he has had similar n/v/dafter using illicit drugs, and endorses using methamphetamine 2 days ago. Pt denies any recent sickcontact. Pt states he was evaluated for this sore throat previously and was prescribed abx, took 2 abx and stopped because he felt better, but the pain returned and worsened 2 days later. Pt was given Clindamycin at OSH prior to transfer. No other complaints or modifying factors at this time. No past medical history on file. No past surgical history on file. Social History Socioeconomic History ??? Marital status: Spouse name: Not on file ??? Number of children: Not on file ??? Years of education: Not on file ??? Highest education level: Not on file Occupational History ??? Not on file Social Needs ??? Financial resource strain: Not on file ??? Food insecurity Worry: Not on file Inability: Not on file ??? Transportation needs Medical: Not on file Non-medical: Not on file Tobacco Use ??? Smoking status: Not on file Substance and Sexual Activity ??? Alcohol use: Not on file ??? Drug use: Not on file ??? Sexual activity: Not on file Lifestyle ??? Physical activity Days per week: Not on file Minutes per session: Not on file ??? Stress: Not on file Relationships ??? Social connections Talks on phone: Not on file Gets together: Not on file Attends nondenominational service: Not on file Active member of club or organization: Not on file Attends meetings of clubs or organizations: Not on file Relationship status: Not on file ??? Intimate partner violence Fear of current or ex partner: Not on file Emotionally abused: Not on file Physically abused: Not on file Forced sexual activity: Not on file Other Topics Concern ??? Not on file Social History Narrative ??? Not on file Review of Systems: (+) positive All systems negative except as marked. Constitutional: Negative for fever HENT: + sore throat Eyes: Negative for visual changes Respiratory: Negative for SOB, cough Cardiovascular: Negative for chest pain, palpitations Gastrointestinal: + abdominal pain, + n/v/d Genitourinary: Negative for difficulty urinating, hematuria, dysuria Musculoskeletal: Negative for neck pain, back pain, myalgia Skin: Negative for rash, itching Neurological: Negative for ALLEN, dizziness, weakness, numbness, tingling Psychiatric: Negative for SI, hallucinations, anxiety Vitals: 08/12/20 1524 08/12/20 1600 BP: 134/96 (!) 136/106 Pulse: 86 87 Resp: 16 17 Temp: 98.6 ??F (37 ??C) SpO2: 94% 97% Weight: 104.3 kg (230 lb) Height: 1.981 m (6' 6 ) Exam: Constitutional: well developed, well nourished, no acute distress HENT: normocephalic, atraumatic, moist oral mucosa, conjunctiva normal, voice slightly hoarse, no drooling, no trismus. Posterior pharynx: erythema, exudate visualized, some fullness but no bulging of palate, no uvula deviation. Lymphadenopathy and TTP. Eyes: PERRL, EOMi Neck: supple, normal ROM Cardiovascular: regular rate and rhythm, Respiratory: clear to auscultation bilaterally, no wheezes, no respiratory distress Abdomen: soft, non-tender, non-distended Musculoskeletal: no edema or deformities Skin: warm, dry, no lesions Neurological: awake, alert&Ox4, moving all extremities, no focal motor/sensation deficits. Psychiatric: mood and affect normal Medical Decision Makin. 30 year old male presents with a sore throat and possible [employer]. Plan: ENT consulted. Results: Labs Reviewed CBC W AUTO DIFFERENTIAL - Abnormal; Notable for the following components: Result Value WBC 13.3 (*) MPV 8.6 (*) Neutrophils % 86.0 (*) Lymphocytes % 3.6 (*) Neutrophils Absolute 11.4 (*) Lymphocyte Absolute 0.5 (*) Monocytes Absolute 1.31 (*) All other components within normal limits COMPREHENSIVE METABOLIC PANEL - Abnormal; Notable for the following components: Albumin/Globulin Ratio 0.8 (*) All other components within normal limits HIV-1 HIV-2 ANTIGEN/ANTIBODY No orders to display ED course: The patient's Oxygen Saturation Monitor was interpreted by me. The reading was 97%. The patient wason room air at the time of the reading. This is interpreted as normal. 6:15 PM: Per ENT, they do not recommend intervention at this time. They are comfortable with discharging the pt home with Augmentin BID for 10 days. They state the pt can follow up with ENT in clinicas needed. 6:41 PM: I have reviewed his diagnostic findings and he has had an opportunity to ask me any questions he has about care, diagnosis and discharge plan. Patient is comfortable with the discharge plan.He will follow up as directed and will return to the ER if his condition worsens or he develops other urgent concerns. Consult Yes Procedure done at this time No Ultrasound done at this time No CRITICAL CARE IN THE ED No Orders and Medicine administered during this encounter: Orders Placed This Encounter ??? CBC W AUTO DIFFERENTIAL ??? COMPREHENSIVE METABOLIC PANEL ??? HIV-1 HIV-2 ANTIGEN/ANTIBODY ??? lactated ringers IV bolus ??? clindamycin (CLEOCIN) 900 mg in 50 mL D5W IVPB ??? amoxicillin-clavulanate (AUGMENTIN) 875-125 MG tablet ??? prochlorperazine (COMPAZINE) injection 10 mg Medications lactated ringers IV bolus (has no administration in time range) clindamycin (CLEOCIN) 900 mg in 50 mL D5W IVPB (has no administration in time range) prochlorperazine (COMPAZINE) injection 10 mg (has no administration in time range) Clinical Impression: 1. Acute pharyngitis, unspecified etiology Disposition: Discharged Follow-up: Follow-up Information Schedule an appointment as soon as possible for a visit with [facility] Otolaryngology. Specialty: ENT-Otolaryngology Why: As needed [phone] Contact information: [address] [facility], [facility] [address] [facility] EMERGENCY DEPART[facility]. Specialty: Emergency Room Why: As needed, If symptoms worsen Contact information: [address] [facility] [phone] Please see resident note for further details By signing my name below, I, Miroslava Fernández, attest that this documentation has been prepared under the direction and in the presence of Dr. Gresham. Signed: Jannette Mcduffie. I, Dr. Gresham, personally performed the services described in this documentation. All medical recordentries made by the scribe were at my direction and in my presence. I have reviewed the chart and agree that the record reflects my personal performance and is accurate and complete. Electronically signed: Dr. Gresham Date: 08/13/20 Time: 9:12 PM * Geri Calderon RN - 08/12/2020 3:24 PM CDT pt transferred from [facility] for evaluation of geovanni-tonsillar abscess. * Yolanda Dawn RN - 08/12/2020 3:23 PM CDT Bed: [facility] Expected date: Expected time: Means of arrival: Comments: Cristopher Transfer - Peritonsillar abscess documented in this encounter Plan of Treatment Not on file documented as of this encounter Procedures Procedure Name Priority Date/Time Associated Diagnosis Comments HIV-1 HIV-2 ANTIGEN/ANTIBODY STAT 08/12/2020 8:15 PM CDT CBC W AUTO DIFFERENTIAL STAT 08/12/2020 6:17 PM CDT COMPREHENSIVE METABOLIC PANEL STAT 08/12/2020 6:17 PM CDT documented in this encounter Results * HIV-1 HIV-2 ANTIGEN/ANTIBODY (08/12/2020 8:15 PM CDT) [facility] HIV Antigen/Antibod y 1 & 2 Non-reacti ve Non-react jerri 08/12/2020 10:05 PM CDT [facility] Comment:Neither HIV-1 p24 An tigen nor HIV-1/HIV-2 Antibodies are detected. Blood BLOOD SPECIMEN / Unknown Venipuncture / Unknown 08/12/2020 8:15 PM CDT 08/12/2020 6:14 PM CDT Tanvir Shaw MD LAB - HEMATOLOGY O RDERABLES [facility] [address] [place] [phone], [facility] [phone] * (ABNORMAL) COMPREHENSIVE METABOLIC PANEL (08/12/2020 6:17 PM CDT) [facility] BUN 14 7 - 26 mg/dL 08/12/2020 6:54 PM CDT [facility] Creatinine 0.8 0.6 - 1.2 mg/dL 08/12/2020 6:54 PM CDT [facility] Sodium 139 136 - 145 mmol/L 08/12/2020 6:54 PM CDT [facility] Potassium 4.2 3.5 - 4.5 mmol/L 08/12/2020 6:54 PM CDT [facility] Chloride 103 98 - 107 mmol/L 08/12/2020 6:54 PM CDT [facility] CO2 26 22 - 29 mmol/L 08/12/2020 6:54 PM [facility] Glucose 106 70 - 115 mg/dL 08/12/2020 6:54 PM [facility] Calcium 9.4 8.4 - 10.2 mg/dL 08/12/2020 6:54 PM [facility] Protein Total 7.6 6.0 - 8.3 g/dL 08/12/2020 6:54 PM [facility] Albumin 3.4 3.4 - 5.0 g/dL 08/12/2020 6:54 PM [facility] Bilirubin Total 0.7 0.2 - 1.2 mg/dL 08/12/2020 6:54 PM [facility] Alkaline Phosphatase 61 40 - 150 Units/L 08/12/2020 6:54 PM [facility] ALT 31 0 - 55 Units/L 08/12/2020 6:54 PM [facility] AST 23 5 - 34 Units/L 08/12/2020 6:54 PM [facility] Anion Gap 14 8 - 18 08/12/2020 6:54 PM [facility] BUN/Creatinine Ratio 18 7 - 23 08/12/2020 6:54 PM [facility] Osmolality Calculated 289 270 - 300 mOsm/kg 08/12/2020 6:54 PM [facility] Albumin/Globulin Ratio 0.8(L) 1.1 - 2.3 08/12/2020 6:54 PM [facility] eGFR >60 >60 mL/min/1.7 3 m2 08/12/2020 6:54 PM [facility] Blood BLOOD SPECIMEN / Unknown Venipuncture / Unknown 08/12/2020 6:17 PM CDT 08/12/2020 6:14 PM CDT Tanvir Shaw MD LAB - CHEMISTRY OR DERABLES [facility] [address] [place] [phone], [facility] [phone] * (ABNORMAL) CBC W AUTO DIFFERENTIAL (08/12/2020 6:17 PM CDT) WBC 13.3(H) 3.5 - 10.5 10? 3 /uL 08/12/2020 6:36 PM [facility] RBC 4.66 4.30 - 5.70 10? 6 /uL 08/12/2020 6:36 PM [facility] Hemoglobin 14.3 13.5 - 17.5 g/dL 08/12/2020 6:36 PM [facility] Hematocrit 42.5 39.0 - 50.0 % 08/12/2020 6:36 PM [facility] MCV 91.2 81.0 - 97.0 fL 08/12/2020 6:36 PM [facility] MCH 30.7 28.0 - 34.0 pg 08/12/2020 6:36 PM [facility] MCHC 33.6 32.0 - 36.0 g/dL 08/12/2020 6:36 PM [facility] Platelet Count 280 150 - 400 10? 3 /uL 08/12/2020 6:36 PM [facility] RDW-SD 41.2 36.0 - 50.0 fL 08/12/2020 6:36 PM [facility] RDW-CV 12.3 11.2 - 14.8 % 08/12/2020 6:36 PM [facility] MPV 8.6(L) 9.3 - 12.8 fL 08/12/2020 6:36 PM [facility] nRBC Absolute 0.00 0 10? 3 /uL 08/12/2020 6:36 PM [facility] nRBC Auto 0.0 0 /100 WBC 08/12/2020 6:36 PM [facility] Neutrophils % 86.0(H) 35.0 - 70.0 % 08/12/2020 6:36 PM [facility] Lymphocytes % 3.6(L) 19.7 - 55.1 % 08/12/2020 6:36 PM [facility] Monocytes % 9.9 3.0 - 15.0 % 08/12/2020 6:36 PM [facility] Eosinophils % 0.0 0.0 - 6.0 % 08/12/2020 6:36 PM [facility] Basophil % 0.2 0.0 - 1.5 % 08/12/2020 6:36 PM CDT [facility] Neutrophils Absolute 11.4(H) 1.6 - 7.0 10? 3 /uL 08/12/2020 6:36 PM CDT [facility] Lymphocyte Absolute 0.5(L) 0.8 - 2.9 10? 3 /uL 08/12/2020 6:36 PM CDT [facility] Monocytes Absolute 1.31(H) 0.14 - 0.66 10? 3 /uL 08/12/2020 6:36 PM CDT [facility] Eosinophils Absolute 0.00 0.00 - 0.45 10? 3 /uL 08/12/2020 6:36 PM T [facility] Basophils Absolute 0.02 0.00 - 0.06 10? 3 /uL 08/12/2020 6:36 PM T [facility] Immature Granulocytes % 0.3 0.0 - 1.0 % 08/12/2020 6:36 PM T [facility] Blood BLOOD SPECIMEN / Unknown Venipuncture / Unknown 08/12/2020 6:17 PM CDT 08/12/2020 6:14 PM CDT Tanvir Shaw MD LAB - HEMATOLOGY O RDERABLES Performing Organization Address City/State/[facility] Co de Phone Number [facility] [address] [place] [phone], [facility] [phone] documented in this encounter Visit Diagnoses Diagnosis Acute pharyngitis, unspecified etiology documented in this encounter Administered Medications Inactive Administered Medications - up to 3 most recent administrations Medication Order MAR Action Action Date Dose Rate Site clindamycin (CLEOCIN) 900 mg in 50 mL D5W IVPB 900 mg, at 100 mL/hr, Intravenous, EVERY 8 HOURS, First dose on 08/12/20 at 1730, Until Discontinued, Indication for anti-infective therapy: Suspected infection, Site of anti-infective therapy: Upper Respiratory $ Bolus New Bag 08/12/2020 7:34 PM CDT 900 mg 100 mL/hr lactated ringers IV bolus 1,000 mL, at 1,935.48 mL/hr, Administer over 31 Minutes, NOW, 1 dose, On 08/12/20 at 1700 $ Bolus New Bag 08/12/2020 7:34 PM CDT 1,000 mL 1935.48 mL/hr prochlorperazine (COMPAZINE) injection 10 mg 10 mg, Intravenous, EVERY 6 HOURS PRN, Nausea/Vomiting, Starting on 08/12/20 at 1839, Until 08/12/20 at 2138, Max intravenous rate = 5 mg/min documented in this encounter Active and Recently Administered Medications Times are shown in CDT. Scheduled Medication Order 08/10/2020 08/11/2020 08/12/2020 clindamycin (CLEOCIN) 900 mg in 50 mL D5W IVPB 900 mg, at 100 mL/hr, Intravenous, EVERY 8 HOURS, First dose on 08/12/20 at 1730, Until Discontinued, Indication for anti-infective therapy: Suspected infection, Site of anti-infective therapy: Upper Respiratory 1933 ($ Bolus [place] ely - Provider: Geri Calderon RN) lactated ringers IV bolus (COMPLETED) 1,000 mL, at 1,935.48 mL/hr, Administer over 31 Minutes, NOW, 1 dose, On 08/12/20 at 1700 1933 ($ Bolus [place] ely - Provider: Geri Calderon, TERESO) PRN Medication Order 08/10/2020 08/11/2020 08/12/2020 prochlorperazine (COMPAZINE) injection 10 mg 10 mg, Intravenous, EVERY 6 HOURS PRN, Nausea/Vomiting, Starting on 08/12/20 at 1839, Until 08/12/20 at 2138, Max intravenous rate = 5 mg/min documented in this encounter
--- OUTSIDE RECORDS SUMMARY | 2024-11-02 00:26 | XMS_ITS | Encounter Summary ---
Author Organization [facility] Address [address] [facility] [place] [address] Care Team Providers Care Oil Gauger Name Role Phone Unavailable Primary Care Provider Unavailabl e Reason for Visit * Reason Comments POSSIBLE HERNIA Pt BIBEMS to ED with c/o inguinal hernia. Pt states the hernia has been present for 2 months. Pt states it may have happened while constipated and straining to have a bowel movement. Pt says the pain is so intense that it is difficult to walk. Pt arrives A&Ox4, hypertensive, other VSS. Encounter Details Date Type Department Care Team (Late st Contact Info) Description 08/06/2023 9:15 AM CDT - 08/06/2023 11:38 AM CDT Emergency [facility] [address] [place] [address] Luis Angel Paez MD [address] [place] [address] Non-recurrent unilateral inguinal hernia without obstruction or gangrene; Essential hypertension Discharge Disposition: Home or Self Care Social [...] Sign Reading Time Taken Comments Blood Pressure 181/88 08/06/2023 5:39 AM CDT Pulse 87 08/06/2023 5:33 AM CDT Temperature 36.8 ??C (98.2 ??F) 08/06/2023 5:33 AM CD T Respiratory Rate 20 08/06/2023 5:33 AM CDT Oxygen Saturation 97% 08/06/2023 5:33 AM CDT Inhaled Oxygen Concentration - - Weight 108.9 kg (240 lb) 08/06/2023 5:33 AM CDT Height 198.1 cm (6' 6 ) 08/06/2023 5:33 AM CDT Body Mass Index 27.73 08/06/2023 5:33 AM CDT documented in this encounter Discharge Instructions * Discharge Instructions* Luis Angel Paez MD - 08/06/2023 9:17 AM CDT Follow up in clinic. N referral for Primary Care and Surgery. documented in this encounter Medications at Time of Discharge Medication Sig Dispensed Refills Start Date End Date ondansetron (ZOFRAN) 4 MG tablet Take 1 tablet by mouth every 6 hours as needed for Nausea/Vomiting 10 tablet 08/12/2020 documented as of this encounter Consult Notes * Clovis Belcher - 08/06/2023 9:54 AM CDTAssociated Order(s): IP CONSULT TO N COORDINATOR Patient referred for PCP assistance, this coordinator will attempt to contact the patient and obtain a follow-up appointment. This coordinator will update the patient and the chart as applicable documented in this encounter ED Notes * Gatito Jules RN - 08/06/2023 9:50 AM CDT Called x1. No answer * Luis Angel Paez MD - 08/06/2023 9:21 AM CDT ED Attending Note Patient seen as a team with CRISTINA Koenig who has also contributed to this note. History: Deepak Pfeiffer is a 33 year old male is presenting to the ED BIBEMS c/o right inguinal hernia. He states that his hernia has been present for the past 2 months. He believes that his hernia may have been caused secondary to constipation and straining while trying to produce a bowel movement. He mentions that his pain is so intense that he sometimes cannot walk. He does not have a primary care physician. Patient denies a fever, chills, shortness of breath, and chest pain. Patient has no other complaints or modifying factors. Patient information was obtained primarily from the patient History/Exam limitations: none Interpretor services: no No past medical history on file. Past Surgical History: Procedure Laterality Date ??? KNEE ARTHROPLASTY Social History Socioeconomic History ??? Marital status: Spouse name: Not on file ??? Number of children: Not on file ??? Years of education: Not on file ??? Highest education level: Not on file Occupational History ??? Not on file Tobacco Use ??? Smoking status: Former Types: Cigarettes ??? Smokeless tobacco: Never Vaping Use ??? Vaping Use: Never used Substance and Sexual Activity ??? Alcohol use: Yes Comment: occ ??? Drug use: Yes Types: Methamphetamines Comment: hours ago ??? Sexual activity: Not on file Other Topics Concern ??? Not on file Social History Narrative ??? Not on file Social Determinants of Health Financial Resource Strain: Not on file Food Insecurity: Not on file Transportation Needs: Not on file Stress: Not on file Housing Stability: Not on file Review of Systems: Review of Systems Constitutional: Negative for chills, fever and malaise/fatigue. HENT: Negative for congestion, ear pain and sore throat. Eyes: Negative for blurred vision, pain and discharge. Respiratory: Negative for cough, shortness of breath and wheezing. Cardiovascular: Negative for chest pain and palpitations. Gastrointestinal: Negative for abdominal pain, diarrhea, nausea and vomiting. Genitourinary: Negative for dysuria, frequency and hematuria. Musculoskeletal: Negative for back pain, myalgias and neck pain. Skin: Negative for itching and rash. Neurological: Negative for dizziness, tingling, weakness and headaches. Psychiatric/Behavioral: Negative for depression and suicidal ideas. Patient Vitals for the past 6 hrs: Temp Pulse Resp BP BP Method 08/06/23 0539 -- -- -- (!) 181/88 -- 08/06/23 0533 98.2 ??F (36.8 ??C) 87 20 (!) 171/101 Automatic Exam: Physical Exam Vitals and nursing note reviewed. Constitutional: General: He is not in acute distress. HENT: Head: Normocephalic and atraumatic. Mouth/Throat: Lips: [place]. Mouth: Mucous membranes are moist. Eyes: Extraocular Movements: Extraocular movements intact. Conjunctiva/sclera: Conjunctivae normal. Pupils: Pupils are equal, round, and reactive to light. Cardiovascular: Rate and Rhythm: Normal rate and regular rhythm. Pulses: Radial pulses are 2+ on the right side and 2+ on the left side. Dorsalis pedis pulses are 2+ on the right side and 2+ on the left side. Heart sounds: No murmur heard. No friction rub. No gallop. Pulmonary: Effort: Pulmonary effort is normal. No respiratory distress. Breath sounds: Normal breath sounds. No wheezing. Abdominal: General: Abdomen is flat. Bowel sounds are normal. There is no distension. Palpations: Abdomen is soft. Tenderness: There is no abdominal tenderness. Hernia: A hernia is present. Hernia is present in the right inguinal area. Comments: Right inguinal hernia is soft and easily reducible. No surrounding erythema or skin changes Musculoskeletal: General: No deformity. Normal range of motion. Cervical back: Normal range of motion and neck supple. Skin: General: Skin is warm and dry. Findings: No bruising. Neurological: Mental Status: He is alert and oriented to person, place, and time. Comments: YOON spontaneously and equally. Psychiatric: Mood and Affect: Mood normal. Behavior: Behavior normal. Medical Decision Makin. 33 year old male with above history brought for evaluation of right inguinal hernia. His exam isreassuring. I have no concern for strangulation or incarceration at this time so no imaging is indicated. Will provide a referral to General surgery for further management. Will treat symptomatically. See below for further orders/plan Data Review: Amount and/or Complexity of Data Reviewed: Patient information was obtained primarily from the patient Social determinants of health: Yes - There are social determinants of health thought to limit diagnosis and treatment efficacy: limited health literacy. Amount and/or Complexity of Data Reviewed: - medical complexity: medical complexity, Triage notes and available nursing notes reviewed and Clinical lab tests: ordered and reviewed - Monitoring: The patient's [employer]ing Rhythm was interpreted by me. The qm nurse showed NSR. This is interpreted as normal. The patient's Oxygen Saturation Monitor was interpreted by me. The reading was 100%. The patient was on room air at the time of the reading. This is interpreted as normal. All Labs/Imaging/ECG, other diagnostics independently interpreted by me. - ECG: None obtained - LABS: Labs Reviewed CBC W AUTO DIFFERENTIAL - Abnormal; Notable for the following components: Result Value MPV 8.9 (*) Neutrophils % 34.1 (*) Lymphocytes % 43.8 (*) Monocytes % 16.1 (*) Neutrophils Absolute 1.31 (*) All other components within normal limits COMPREHENSIVE METABOLIC PANEL - Abnormal; Notable for the following components: ALT 63 (*) AST 43 (*) Anion Gap 5 (*) eGFR by CKD-EPI 85 (*) All other components within normal limits URINALYSIS NO MICROSCOPIC NO CULTURE - IMAGING: No orders to display No results found. - MEDS: Medications 0.9% NaCl injection 3 mL (has no administration in time range) ketorolac (Toradol) injection 15 mg (15 mg Intravenous $ Given 08/06/23 0806) ED COURSE: All Labs/Imaging/ECG, other diagnostics independently interpreted by me. 9:20 AM Reassured the patient that his inguinal hernia is soft and easily reducible. No surroundingerythema or skin changes. No indication for labs or imaging at this time as there were no concern for obstruction, incarceration, or strangulated hernia. Will provide an [facility] referral for primary careand surgery for further management. Given return precautions. Instructed patient to follow up with his PCP once established. Patient is comfortable with the discharge plan. Plan for discharge. 9:21 AM: I have reviewed his diagnostic findings and he has had an opportunity to ask me any questions he has about care, diagnosis, and discharge plan. Patient is comfortable with the discharge plan. he will follow up as directed and will return to the ER if his condition worsens or if he developsother urgent concerns. Consult No Procedure done at this time No Ultrasound done at this time No Medications given in ED: Yes - see MAR Conclusion and Disposition: Acute problems: Inguinal hernia Exacerbations of chronic problems: None Systemic issues: None Consultations in the ED: None Medication changes: None Follow up: PCP, General surgery Orders Placed This Encounter ??? URINALYSIS NO MICROSCOPIC NO CULTURE ??? CBC W AUTO DIFFERENTIAL ??? COMPREHENSIVE METABOLIC PANEL ??? IP CONSULT TO [facility] COORDINATOR ??? 0.9% NaCl injection 3 mL ??? ketorolac (Toradol) injection 15 mg Medications 0.9% NaCl injection 3 mL (has no administration in time range) ketorolac (Toradol) injection 15 mg (15 mg Intravenous $ Given 08/06/23 0806) Clinical Impression: 1. Non-recurrent unilateral inguinal hernia without obstruction or gangrene 2. Essential hypertension Disposition: Discharge By signing my name below, I, Karen Horton, attest that this documentation has been prepared under the direction and in the presence of Dr. Paez. Signed: Jannette Zamora. I, Dr. Paez, personally performed the services described in this documentation. All medical record entries made by the scribe were at my direction and in my presence. I have reviewed the chart and agree that the record reflects my personal performance and is accurate and complete. * Mark Issa RN - 08/06/2023 6:27 AM CDT Pt BIBEMS to ED with c/o inguinal hernia. Pt states the hernia has been present for 2 months. Pt states it may have happened while constipated and straining to have a bowel movement. Pt says the painis so intense that it is difficult to walk. Pt arrives A&Ox4, hypertensive, other VSS. documented in this encounter Miscellaneous Notes * Clinical References AVS - Luis Angel Paez MD - 08/06/2023 9:16 AM CDT Images from the original note were not included. [id number] Hernia (Adult) A hernia can happen when there is a weakness or defect in the wall of the abdomen or groin. Intestines or nearby tissues may move from their usual location and push through the weakness in the wall. This can cause a bulge (hernia) you may see or feel. Causes and risk factors A hernia may be present at . Or it may be caused by the wear and tear of daily living. Certainthings can make a hernia more likely. These can include: ?? Heavy lifting ?? Straining, whether from lifting, movement, or constipation ?? Chronic cough ?? Injury to the abdominal wall ?? Excess weight ? Past surgery ?? Older age ?? Family history of hernia Symptoms Symptoms of a hernia may come on suddenly. Or they may appear slowly over time. Some common symptoms include: ?? Bulge in the groin area, around the navel, or in the scrotum. The bulge may get bigger when you stand and go away when you lie down. ?? Pain or pressure around the bulge ?? Pain during activities such as lifting, coughing, or sneezing ?? A feeling of weakness or pressure in the groin ?? Pain or swelling in the scrotum Types of hernias There are different types of hernia. The type you have depends on where it is: ?? Inguinal. This type is in the groin or scrotum. It's more common in men. But women can also get this hernia. ?? Femoral. This type is in the groin, upper thigh, or labia. It's more common in women. ?? Ventral. This type is in the abdominal wall. ?? Umbilical. This type occurs around the bellybutton (navel). ?? Incisional. This type occurs at the site of a past surgery. The condition of the hernia can help determine how quickly it needs to be treated. ?? Reducible. It goes back in by itself, or it can be pushed back in. ?? Irreducible. It can?t be pushed back in. ?? Incarcerated or strangulated. The intestine is trapped (incarcerated). If this happens, you won?t be able to push the bulge back in. If the incarcerated hernia isn?t treated, it may become strangulated. This means the area loses blood supply and the tissue may . This requires emergency surgery. You need treatment right away. In most cases, a hernia will not heal on its own. You may need surgery to repair the defect in the abdominal wall or groin. You?ll be told more about surgery, if needed. If your symptoms are not severe, treatment may sometimes be delayed. In such cases, you will need regular follow-up visits with the provider. You?ll be asked to keep track of your symptoms and to watch for signs of more serious problems. You may also be given guidelines similar to the home care instructions below. Home care To help keep a hernia from getting worse, you may be advised to: ?? Not do any heavy lifting or straining as directed. ?? Take steps to prevent constipation. This includes eating more fiber and drinking more water. This may help reduce straining that can occur when having a bowel movement. Reducing straining may helpkeep your symptoms from getting worse. ?? Stay at a healthy weight or lose extra weight. This can help reduce strain on abdominal muscles and tissues. ?? Stop smoking. This can help prevent coughing that may also strain abdominal muscles and tissues. Follow-up care Follow up with your healthcare provider, or as directed. If you had imaging tests, they will be reviewed a doctor. You will be told the results and any new findings that may affect your care. When to seek medical advice Call your healthcare provider right away if any of these occur: ?? Hernia hardens, swells, or grows larger ?? Hernia can no longer be pushed back in ?? Pain moves to the lower right abdomen (just below the waistline), or spreads to the back ?? You have new symptoms Call 911 Call 911 if any of these occur: ?? Severe pain, redness, or tenderness in the area near the hernia ?? Pain gets worse quickly and doesn?t get better ?? Inability to have a bowel movement or pass gas ?? Fever of 100.4??F (38??C) or higher, or as directed by your healthcare provider Last Reviewed Date: 2021 ?? [id number] [employer]. All rights reserved. This information is not intended as a substitute for professional medical care. Always follow your healthcare professional's instructions. * Clinical References AVS - Luis Angel Paez MD - 08/06/2023 9:16 AM CDT Images from the original note were not included. [id number] What Is a Hernia? A hernia is when an organ or tissue pushes through a weak spot in the belly (abdominal) wall. This weak spot may be there at . Or it may be caused by abdominal strain over time. If not treated, a hernia can get worse with time and physical stress. When a bulge forms When there is a weak spot in the abdominal wall, an organ or tissue can push outward. This often causes a bulge that you can see under your skin. The bulge may get bigger when you stand up. It may goaway when you lie down. You may also feel some pressure or mild pain when lifting, coughing, urinating, or moving. Types of hernias The type of hernia you have depends on where it is. Most hernias form in the groin at or near the internal ring. This is the entrance to a canal between the abdomen and groin. Hernias can also occur in the abdomen, thigh, or genitals. ?? Incisional hernia. This occurs at the site of a previous surgical cut (incision). ?? Umbilical hernia. This occurs at the bellybutton (navel). ?? Indirect inguinal hernia. This occurs in the groin at the internal ring. ?? Direct inguinal hernia. This occurs in the groin near the internal ring. ?? Femoral hernia. This occurs just below the groin. ?? Epigastric hernia. This occurs in the upper abdomen at the midline. Other types of hernias can occur. But they are rare. Diagnosis In most cases, your healthcare provider can diagnose a hernia with a physical exam. In some cases, it might not be clear why you have swelling in the belly wall. You may need an imaging test such as an ultrasound or CT scan. This can help with the diagnosis. Surgery In children, an umbilical hernia can often heal on its own. In adults, a hernia will not heal on its own. Surgery is needed to repair the weak spot in the belly wall. If not treated, a hernia can getlarger. It can cause serious health problems. Some hernias can be watched and repaired if they growbigger or start to cause symptoms. Most hernias are fixed with laparoscopic surgery. This type of surgery is done through several verysmall cuts. Some types of hernias may need surgery where a larger cut is made in the belly. In somecases, you can go home the same day as your surgery. When to call your provider Call or see your healthcare provider right away if the swelling around your hernia becomes larger, firmer, or more painful. These may be signs that your intestines are stuck in the belly wall and their blood supply is in trouble. This is an emergency. The hernia must be repaired right away to prevent severe problems. Last Reviewed Date: 2022 ?? [id number] [employer]. All rights reserved. This information is not intended as a substitute for professional medical care. Always follow your healthcare professional's instructions. documented in this encounter Plan of Treatment Not on file documented as of this encounter Procedures Procedure Name Priority Date/Time Associated Diagnosis Comments CBC W AUTO DIFFERENTIAL STAT 08/06/2023 8:25 AM CDT COMPREHENSIVE METABOLIC PANEL STAT 08/06/2023 8:25 AM CDT documented in this encounter Results * (ABNORMAL) COMPREHENSIVE METABOLIC PANEL (08/06/2023 8:25 AM CDT) BUN 12 7 - 26 mg/dL 08/06/2023 8:56 AM CDT [facility] Creatinine 1.16 0.71 - 1.16 mg/dL 08/06/2023 8:56 AM CDT [facility] Sodium 137 136 - 145 mmol/L 08/06/2023 8:56 AM CDT [facility] Potassium 4.2 3.5 - 4.5 mmol/L 08/06/2023 8:56 AM CDT [facility] Chloride 103 98 - 107 mmol/L 08/06/2023 8:56 AM CDT [facility] CO2 29 22 - 29 mmol/L 08/06/2023 8:56 AM [facility] Glucose 98 70 - 115 mg/dL 08/06/2023 8:56 AM [facility] Calcium 9.6 8.4 - 10.2 mg/dL 08/06/2023 8:56 AM [facility] Protein Total 7.8 6.0 - 8.3 g/dL 08/06/2023 8:56 AM [facility] Albumin 4.1 3.4 - 5.0 g/dL 08/06/2023 8:56 AM [facility] Bilirubin Total 1.2 0.2 - 1.2 mg/dL 08/06/2023 8:56 AM [facility] Alkaline Phosphatase 55 40 - 150 U/L 08/06/2023 8:56 AM [facility] ALT 63(H) 5 - 55 U/L 08/06/2023 8:56 AM [facility] AST 43(H) 5 - 34 U/L 08/06/2023 8:56 AM [facility] Anion Gap 5(L) 6 - 16 08/06/2023 8:56 AM [facility] BUN/Creatinine Ratio 10 7 - 23 08/06/2023 8:56 AM [facility] Osmolality Calculated 284 270 - 300 mOsm/kg 08/06/2023 8:56 AM [facility] Albumin/Globulin Ratio 1.1 1.1 - 2.3 08/06/2023 8:56 AM [facility] eGFR by CKD-EPI 85(L) >=90 mL/min/1.7 3 m2 08/06/2023 8:56 AM [facility] Blood BLOOD SPECIMEN / Unknown Venipuncture / Unknown 08/06/2023 8:25 AM [facility] 08/06/2023 8:29 AM [facility] Luis Angel Paez MD LAB - CHEMISTRY RAJIV SOL[facility] Organization Address City/State/ZIP Co de Phone Number [facility] [address] [place] [address], [facility] [phone] * (ABNORMAL) CBC W AUTO DIFFERENTIAL (08/06/2023 8:25 AM [facility]) WBC 3.8 3.5 - 10.5 10? 3 /uL 08/06/2023 8:40 AM [facility] RBC 4.89 4.30 - 5.70 10? 6 /uL 08/06/2023 8:40 AM [facility] Hemoglobin 15.0 12.0 - 17.6 g/dL 08/06/2023 8:40 AM [facility] Hematocrit 44.5 35.2 - 51.7 % 08/06/2023 8:40 AM [facility] MCV 91.0 80.7 - 98.3 fL 08/06/2023 8:40 AM [facility] MCH 30.7 26.7 - 34.0 pg 08/06/2023 8:40 AM [facility] MCHC 33.7 30.8 - 35.9 g/dL 08/06/2023 8:40 AM [facility] RDW-SD 43.6 36.0 - 50.0 fL 08/06/2023 8:40 AM [facility] RDW-CV 13.2 11.2 - 14.8 % 08/06/2023 8:40 AM [facility] Platelet Count 202 150 - 400 10? 3 /uL 08/06/2023 8:40 AM [facility] MPV 8.9(L) 9.4 - 12.9 fL 08/06/2023 8:40 AM [facility] nRBC Absolute 0.00 0 10? 3 /uL 08/06/2023 8:40 AM [facility] nRBC Auto 0.0 0 /100 WBC 08/06/2023 8:40 AM [facility] Neutrophils % 34.1(L) 35.0 - 70.0 % 08/06/2023 8:40 AM [facility] Lymphocytes % 43.8(H) 20.0 - 43.0 % 08/06/2023 8:40 AM [facility] Monocytes % 16.1(H) 5.0 - 13.0 % 08/06/2023 8:40 AM [facility] Eosinophils % 5.2 0.0 - 6.0 % 08/06/2023 8:40 AM [facility] Basophil % 0.8 0.0 - 2.0 % 08/06/2023 8:40 AM [facility] Neutrophils Absolute 1.31(L) 1.60 - 7.00 10? 3 /uL 08/06/2023 8:40 AM [facility] Lymphocyte Absolute 1.68 1.10 - 3.90 10? 3 /uL 08/06/2023 8:40 AM [facility] Monocytes Absolute 0.62 0.26 - 1.07 10? 3 /uL 08/06/2023 8:40 AM [facility] Eosinophils Absolute 0.20 0.00 - 0.47 10? 3 /uL 08/06/2023 8:40 AM [facility] Basophils Absolute 0.03 0.00 - 0.08 10? 3 /uL 08/06/2023 8:40 AM [facility] Immature Granulocytes % 0.0 0.0 - 1.0 % 08/06/2023 8:40 AM [facility] Immature Granulocytes Absolute 0.00 08/06/2023 8:40 AM [facility] Blood BLOOD SPECIMEN / Unknown Venipuncture / Unknown 08/06/2023 8:25 AM CDT 08/06/2023 8:30 AM CDT Luis Angel Paez MD LAB - HEMATOLOGY ORD ERABLES Performing Organization Address City/State/[facility] Co de Phone Number [facility] [address] [place] [phone], [facility] [phone] documented in this encounter Visit Diagnoses Diagnosis Non-recurrent unilateral inguinal hernia without obstruction or gangrene Essential hypertension documented in this encounter Administered Medications Inactive Administered Medications - up to 3 most recent administrations Medication Order MAR Action Action Date Dose Rate Site 0.9% NaCl injection 3 mL 3 mL, Intracatheter, EVERY 8 HOURS, First dose on Fri08/06/23 at 0715, Until Discontinued ketorolac (Toradol) injection 15 mg 15 mg, Intravenous, ONCE, 1 dose, On Fri08/06/23 at 0700 $ Given 08/06/2023 8:06 AM CDT 15 mg documented in this encounter Active and Recently Administered Medications Times are shown in CDT. Scheduled Medication Order 08/04/2023 08/05/2023 08/06/2023 0.9% NaCl injection 3 mL 3 mL, Intracatheter, EVERY 8 HOURS, First dose on Fri08/06/23 at 0715, Until Discontinued 1008 (Not Administer ed - Provider: Gatito Jules RN - Reason: IV Currently Infusing) ketorolac (Toradol) injection 15 mg (COMPLETED) 15 mg, Intravenous, ONCE, 1 dose, On Fri08/06/23 at 0700 0806 ($ Given - Prov ider: Nicolasa Kwon RN) documented in this encounter
--- OUTSIDE RECORDS SUMMARY | 2024-11-02 00:26 | XMS_ITS | Encounter Summary ---
Author Organization [facility] Address [address] [place] [address]. [place], [place] [address] [place] [address] Care Team Providers Care Teachers Aide Name Role Phone None, Provider Primary Care Provider Unavaila ble Encounter Details Date Type Department Care Team (Latest Contact Info) Description 01/14/2024 Travel Social History Tobacco Use Types Packs/Day [...] on file documented as of this encounter Plan of Treatment Not on file documented as of this encounter Visit Diagnoses Not on filedocumented in this encounter Care Teams Teachers Aide Relationship Specialty Start Date End Date None, Provider, PCP - General 08/05/20 documented as of this encounter
--- OUTSIDE RECORDS SUMMARY | 2024-11-02 00:26 | XMS_ITS | Clinical Summary ---
Author Organization [facility] Address [address] [place] [address]. [place], [place] [address] [place] [address] Care Team Providers Care Hardboard Panel Printer Name Role Phone None, Provider MD Primary Care Provider Unavaila ble Allergies No known active allergies Medications methylPREDNISol one, INESSA, 4 MG tablet Take as directed on package. 1 each 08/05/2020 Active Social History Tobacco Use Types Packs/Day Years [...] Sign Reading Time Taken Comments Blood Pressure 168/109 01/14/2024 8:53 PM ORGANIC GARDENING TEACHER Pulse 92 01/14/2024 8:03 PM ORGANIC GARDENING TEACHER Temperature 36.6 ??C (97.8 ??F) 01/14/2024 8:03 PM CS T Respiratory Rate 20 01/14/2024 8:03 PM ORGANIC GARDENING TEACHER Oxygen Saturation 97% 01/14/2024 8:03 PM ORGANIC GARDENING TEACHER Inhaled Oxygen Concentration - - Weight 104.3 kg (230 lb) 01/14/2024 8:03 PM ORGANIC GARDENING TEACHER Height 198.1 cm (6' 6 ) 01/14/2024 8:03 PM ORGANIC GARDENING TEACHER Body Mass Index 26.58 01/14/2024 8:03 PM ORGANIC GARDENING TEACHER Plan of Treatment Health Maintenance Due Date Last Done Comments Annual Physical 1992 Pneumococcal Vaccine: Pediatrics (0 to 5 Years) and At-Risk Patients (6 to 64 Years) (1 of 2 - PCV) 1995 Hepatitis C 2007 Hepatitis B Vaccines (1 of 3 - 19+ 3-dose series) 2008 COVID-19 Vaccine (3 - 2023-2 5 season) 2024 06/01/2021, 05/10/2021 Influenza Adult (#1) 2024 DTaP, Tdap and Td Vaccines ( 3 - Td or Tdap) 04/21/2031 04/21/2021, 09/18/2015 HPV Vaccines Aged Out No longer eligi ble based on patient's age to complete this topic Meningococcal Vaccine Aged Out No benson bee eligible based on patient's age to complete this topic RSV Immunizations Under 20 Months Aged Out No longer eligible b ased on patient's age to complete this topic Insurance Care Teams Hardboard Panel Printer Relationship Specialty Start Date End Date None, Provider, PCP - General 08/05/20
--- OUTSIDE RECORDS SUMMARY | 2024-11-02 00:26 | XMS_ITS | Clinical Summary ---
Author Organization [facility] [employer] [facility] Address [address] [place] [address] Care Team Providers Care Sales Agent Marine Insurance Name Role Phone Unavailable Primary Care Provider Unavailabl e Source Comments [facility] [employer] ([employer]),non-owned Affiliates and Associated Physician Practices is amultiple site organization consisting of ambulatory clinics and hospital sitesin [place], [place], [place] and [place]. This disclosure is being madepursuant to the Care Everywhere program and may not contain all information available regarding this patient. Last updated 18.[facility] [employer] [facility]) Allergies No known active allergies Medications * [...] Comments Blood Pressure 154/111 09/30/2023 3:55 PM MAJOR ACCOUNT REPRESENTATIVE Pulse 108 09/30/2023 3:55 PM MAJOR ACCOUNT REPRESENTATIVE Temperature 36.6 ??C (97.9 ??F) 09/30/2023 3:55 PM CS T Respiratory Rate 19 09/30/2023 3:55 PM MAJOR ACCOUNT REPRESENTATIVE Oxygen Saturation 100% 09/30/2023 3:55 PM MAJOR ACCOUNT REPRESENTATIVE Inhaled Oxygen Concentration - - Weight 104.3 kg (230 lb) 09/30/2023 3:55 PM MAJOR ACCOUNT REPRESENTATIVE Height 198.1 cm (6' 6 ) 09/30/2023 3:55 PM MAJOR ACCOUNT REPRESENTATIVE Body Mass Index 26.58 09/30/2023 3:55 PM MAJOR ACCOUNT REPRESENTATIVE Plan of Treatment Health Maintenance Due Date Last Done Comments HEPATITIS C SCREENING 07/26/2007 HEPATITIS B VACCINE (1 of 3 - 19+ 3-dose series) 2008 DEPRESSION SCREENING 11/17/2023 COVID-19 VACCINE (2023-2 5 season) 2024 06/01/2021, 05/10/2021 INFLUENZA VACCINE (#1) 2024 DTAP/TDAP/TD VACCINES (2 - T d or Tdap) 04/21/2031 04/21/2021 ZOSTER VACCINE (1 of 2) 2039 HIV SCREENING Completed 08/12/2020 HIB VACCINE Aged Out No longer eligi ble based on patient's age to complete this topic HPV VACCINE Aged Out No longer eligi ble based on patient's age to complete this topic MENINGOCOCCAL VACCINE Aged Out No benson bee eligible based on patient's age to complete this topic PNEUMOCOCCAL VACCINE Aged Out No long er eligible based on patient's age to complete this topic Procedures Procedure Name Priority Date/Time Associated Diagnosis Comments HIV-1 HIV-2 ANTIGEN/ANTIBODY STAT 08/12/2020 8:15 PM CDT from Last 3 Months or Most Recently Relevant to Health Maintenance Results * HIV-1 HIV-2 ANTIGEN/ANTIBODY (08/12/2020 8:15 PM CDT) HIV Antigen/Antibod y 1 & 2 Non-reacti ve Non-react jerri 08/12/2020 10:05 PM CDT [facility] Comment:Neither HIV-1 p24 An tigen nor HIV-1/HIV-2 Antibodies are detected. Blood BLOOD SPECIMEN / Unknown Venipuncture / Unknown 08/12/2020 8:15 PM CDT 08/12/2020 6:14 PM CDT Giulia Shaw MD LAB - HEMATOLOGY O RDERABLES [facility] [address] [place] [address], [facility] [phone] from Last 3 Months or Most Recently Relevant to Health Maintenance Advance Directives * Full Code (Latest Code Status on File) Date Activated Date Inactivated Comments 04/21/2021 8:18 PM 04/22/2021 12:59 AM
--- OUTSIDE RECORDS SUMMARY | 2024-11-02 00:26 | XMS_ITS | Encounter Summary ---
Author Organization [facility] Address [address] [place] [address]. [place], [place] [id number] [place] [address] Care Team Providers Care Hand Sander Name Role Phone None, Provider MD Primary Care Provider Unavaila ble Reason for Visit * Reason Comments Neck Pain Encounter Details Date Type Department Care Team (Late st Contact Info) Description 01/14/2024 8:17 PM PICKING CREW SUPERVISOR - 01/14/2024 8:55 PM PICKING CREW SUPERVISOR Emergency [facility] [place] [address] Bob Fay PA [address] [place], [place] [id number] Neck Pain Discharge Disposition: Home or Self Care (Routine [...] Comments Blood Pressure 168/109 01/14/2024 8:53 PM PICKING CREW SUPERVISOR Pulse 92 01/14/2024 8:03 PM PICKING CREW SUPERVISOR Temperature 36.6 ??C (97.8 ??F) 01/14/2024 8:03 PM CS T Respiratory Rate 20 01/14/2024 8:03 PM PICKING CREW SUPERVISOR Oxygen Saturation 97% 01/14/2024 8:03 PM PICKING CREW SUPERVISOR Inhaled Oxygen Concentration - - Weight 104.3 kg (230 lb) 01/14/2024 8:03 PM PICKING CREW SUPERVISOR Height 198.1 cm (6' 6 ) 01/14/2024 8:03 PM PICKING CREW SUPERVISOR Body Mass Index 26.58 01/14/2024 8:03 PM PICKING CREW SUPERVISOR documented in this encounter Discharge Instructions * Discharge Instructions* CRISTINA Torres - 01/14/2024 8:49 PM PICKING CREW SUPERVISOR Take medication as prescribed. Follow-up with your primary care provider in 5 to 7 days. Return emergency department symptoms worsen or new concerns. ING CREW SUPERVISOR * Attachments The following attachments cannot be sent through Care Everywhere. * Bacterial Upper Respiratory Infection Discharge Instructions, Adult ([place]an) documented in this encounter Medications at Time of Discharge methylPREDNISolo gunner INESSA, 4 MG tablet Take as directed on package. 1 each 08/05/2020 amoxicillin-clav ulanate (AUGMENTIN) 875-125 MG tablet Take 1 tablet (875 mg total) by mouth 2 (two) times daily for 10 days. 20 tablet 01/14/2024 01/24/2024 documented as of this encounter ED Notes * CRISTINA Trores - 01/14/2024 8:10 PM CST ED NOTE Chief Complaint Chief Complaint Patient presents with Neck Pain History of Present Illness 33-year-old male presenting to emergency department for evaluation of sore throat and left-sided neck pain increasing over the past several weeks. Reports feeling a small nodule to left side of his neck. Has increasing sore throat over the past several days. Denies any fever, chills, difficulty breathing or difficulty swallowing. Medical History ALLERGIES: Review of patient's allergies indicates: No Known Allergies MEDICATIONS: Prior to Admission medications Medication Sig Start Date End Date Taking? Authorizing Provider amoxicillin-clavulanate (AUGMENTIN) 875-125 MG tablet Take 1 tablet (875 mg total) by mouth 2 (two)times daily for 10 days. 01/14/24 01/24/24 Yes CRISTINA Torres methylPREDNISolone, INESSA, 4 MG tablet Take as directed on package. 08/05/20 Alicia Jeffers NP PAST MEDICAL HISTORY: Past Medical History: Diagnosis Date Strep throat PAST SURGICAL HISTORY: No past surgical history on file. FAMILY HISTORY: No family history on file. SOCIAL HISTORY: Social History Tobacco Use Smoking status: Every Day Packs/day: .25 Types: Cigarettes Smokeless tobacco: Never Substance Use Topics Alcohol use: Never Drug use: Not Currently Review of Systems As stated in HPI Physical Exam Filed Vitals: 01/14/24200201/14/242052 BP: (!) 187/112 (!) 168/109 Pulse: 92 Resp: 20 Temp: 97.8 ??F (36.6 ??C) TempSrc: Temporal SpO2: 97% Weight: 104.3 kg (230 lb) Height: 1.981 m (6' 6 ) Physical Exam Vitals and nursing note reviewed. Constitutional: General: He is not in acute distress. Appearance: He is well-developed. HENT: Head: Normocephalic. Nose: Nose normal. Mouth/Throat: Pharynx: Uvula midline. Oropharyngeal exudate present. Tonsils: No tonsillar abscesses. Eyes: Conjunctiva/sclera: Conjunctivae normal. Pulmonary: Effort: Pulmonary effort is normal. No respiratory distress. Musculoskeletal: Cervical back: Normal range of motion and neck supple. Lymphadenopathy: Cervical: Cervical adenopathy present. Left cervical: Superficial cervical adenopathy present. Skin: General: Skin is warm and dry. Neurological: Mental Status: He is alert and oriented to person, place, and time. Psychiatric: Behavior: Behavior normal. Thought Content: Thought content normal. Judgment: Judgment normal. Diagnostic Studies / Procedures ELECTROCARDIOGRAMS: No results found for this visit on 01/14/24. LABORATORY STUDIES: No results found for this visit on 01/14/24. IMAGING STUDIES No orders to display ED Course / Medical Decision Making MDM Symptoms consistent with tonsillitis with lymphadenopathy present no evidence of abscess will startpatient on antibiotics and patient stable for outpatient follow-up as needed. Medications ketorolac (TORADOL) injection 30 mg (30 mg Intramuscular Given 01/14/242022) Clinical Impression Tonsillitis (Primary) Discharge Medication List as of 01/14/2024 8:49 PM START taking these medications Details amoxicillin-clavulanate (AUGMENTIN) 875-125 MG tablet Take 1 tablet (875 mg total) by mouth 2 (two)times daily for 10 days., Starting Fri01/14/2024, Until 01/24/2024, Eprescribe Class: Eprescribe Pharmacy: [address] (Ph #: [phone]) Disposition: Discharge Follow-Up: Your primary care provider Schedule an appointment as soon as possible for a visit in 1 week As needed CRISTINA Torres 01/14/2024 CRISTINA Torres 01/14/242119 Cosigned by Timoteo Casillas MD at 01/16/2024 4:01 AM PICKING CREW SUPERVISOR ING CREW SUPERVISOR ING CREW SUPERVISOR * Nina Bran RN - 01/14/2024 8:07 PM CST Pt comes in with pain in his left neck. He has a small swollen knot on the left side of his neck that started a couple of weeks ago. ING CREW SUPERVISOR documented in this encounter Plan of Treatment Not on file documented as of this encounter Visit Diagnoses Diagnosis Tonsillitis- Primary Acute tonsillitis documented in this encounter Administered Medications Inactive Administered Medications - up to 3 most recent administrations Medication Order MAR Action Action Date Dose Rate Site ketorolac (TORADOL) injection 30 mg 30 mg, Intramuscular, Once, 1 dose, On Fri01/14/24 at 2014, For IV administration, give over 15 seconds. Given 01/14/2024 8:23 PM PICKING CREW SUPERVISOR 30 mg Right Deltoid documented in this encounter Active and Recently Administered Medications Times are shown in PICKING CREW SUPERVISOR. Scheduled Medication Order 01/12/2024 01/13/2024 01/14/2024 ketorolac (TORADOL) injection 30 mg (COMPLETED) 30 mg, Intramuscular, Once, 1 dose, On Fri01/14/24 at 2014, For IV administration, give over 15 seconds. 2022 (Given - Provid er: Yas Treviño RN) documented in this encounter Care Teams Hand Sander Relationship Specialty Start Date End Date None, Provider, PCP - General 08/05/20 documented as of this encounter
--- OUTSIDE RECORDS SUMMARY | 2024-11-02 00:26 | XMS_ITS | Encounter Summary ---
Author Organization [facility] Address [address] [facility] [place] [address] Care Team Providers Care Trial Management Associate Name Role Phone Unavailable Primary Care Provider Unavailabl e Reason for Visit * Reason Comments Hernia Patient reports comi ng to ED today for issues with his hernias. Patient states he has an appointment for surgery of these hernias but that he is concerned for some complications. Patient reports pain and occasionally needing to push his hernias around to have a bowel movement. Patient reports no other medical problems. Encounter Details Date Type Department Care Team (Late st Contact Info) Description 09/30/2023 9:35 PM [facility] - 09/30/2023 10:14 PM [facility] Emergency [facility] EMERGENCY DEPARTMENT [address] [place] [address] Brooklyn Jernigan MD [address] [place] [address] Abdominal pain, generalized; Unilateral recurrent inguinal hernia without obstruction or gangrene Discharge Disposition: Home or Self Care Social History Tobacco Use Types Packs/Day Years Used Date Smoking Tobacco: Former Cigarettes Smokeless Tobacco: Never Alcohol Use Standard [...] Comments Blood Pressure 154/111 09/30/2023 3:55 PM OIL AND GAS SUPERINTENDENT Pulse 108 09/30/2023 3:55 PM [employer] GAS SUPERINTENDENT Temperature 36.6 ??C (97.9 ??F) 09/30/2023 3:55 PM CS T Respiratory Rate 19 09/30/2023 3:55 PM [employer] G[employer] SUPERINTENDENT Oxygen Saturation 100% 09/30/2023 3:55 PM [employer] AND GAS SUPERINTENDENT Inhaled Oxygen Concentration - - Weight 104.3 kg (230 lb) 09/30/2023 3:55 PM [employer] AND GAS SUPERINTENDENT Height 198.1 cm (6' 6 ) 09/30/2023 3:55 PM [employer] GAS SUPERINTENDENT Body Mass Index 26.58 09/30/2023 3:55 PM [employer] GAS SUPERINTENDENT documented in this encounter Discharge Instructions * Discharge Instructions* Brooklyn Jernigan MD - 09/30/2023 9:47 PM [employer] GAS SUPERINTENDENT Call your surgeons office to inquire about cancellations. AND GAS SUPERINTENDENT documented in this encounter Medications at Time of Discharge Medication Sig Dispensed Refills Start Date End Date ondansetron (ZOFRAN) 4 MG tablet Take 1 tablet by mouth every 6 hours as needed for Nausea/Vomiting 10 tablet 08/12/2020 documented as of this encounter ED Notes * Roberta Diana RN - 09/30/2023 10:10 PM CST Pt is awake and alert GCS 15. Breathing is regular and nonlabored. Skin is warm and dry. Gait is steady with no assistance. Proper discharge clothing. Discharge teaching successful as evidence by no further questions/concerns/needs. Pt ready for discharge. AND GAS SUPERINTENDENT * Brooklyn Jernigan MD - 09/30/2023 9:35 PM CST ED Attending Note Interval History: Deepak Pfeiffer is a 33 year old male presenting to the ED c/o issues with his hernias. He states he has a surgery scheduled for October 21 for his R sided inguinal hernia. He says the hernia continues to worsen, and makes it difficult to walk distances. He presents today due to increased pain fromthe hernia, and says he would like the surgery to be performed sooner. He denies issues with urination or bowel movements, and has no other complaints at this time. No past medical history on file. Past [...] Stability: Not on file Review of Systems: (+) positive All systems negative except as marked. Constitutional: Negative for fever HENT: Negative for sore throat. Eyes: Negative for visual changes Respiratory: Negative for SOB, cough Cardiovascular: Negative for chest pain, palpitations Gastrointestinal: Negative abdominal pain, nausea, vomiting, diarrhea Genitourinary: Negative for difficulty urinating, hematuria, dysuria, +Groin pain Musculoskeletal: Negative for neck pain, back pain, myalgia Skin: Negative for rash, itching Neurological: Negative for ALLEN, dizziness, weakness, numbness, tingling Psychiatric: Negative for SI, hallucinations, anxiety Vitals: 09/30/23 1555 BP: (!) 154/111 Pulse: 108 Resp: 19 Temp: 97.9 ??F (36.6 ??C) SpO2: 100% Weight: 104.3 kg (230 lb) Height: 1.981 m (6' 6 ) Exam: Constitutional: well developed, well nourished, no acute distress, appears uncomfortable but able to stand without difficulty. HENT: normocephalic, atraumatic, moist oral mucosa, conjunctiva normal Eyes: PERRL, no drainage Neck: supple, normal ROM Cardiovascular: regular rate and rhythm, no murmur Respiratory: clear to auscultation bilaterally, no wheezes, no respiratory distress Abdomen: soft, non-tender, non-distended Genitourinary: Reducible R inguinal hernia Musculoskeletal: no edema or deformities Skin: warm, dry, no lesions Neurological: awake, alert&Ox4, moving all extremities, no focal motor/sensation deficits. Psychiatric: mood and affect normal MDM: Problem List: 1) Groin pain due to inguinal hernia Differential diagnosis to evaluate in the emergent setting: Reducible R inguinal hernia Workup: See lab testing and radiography ordered Treatment plan: Reducible R inguinal hernia needs operative repair, will give referral to [facility] surgeons and have himcall his surgeon's office to see if there are any cancellations. Results: Labs Reviewed CBC W AUTO DIFFERENTIAL - Abnormal; Notable for the following components: Result Value MPV 9.1 (*) All other components within normal limits COMPREHENSIVE METABOLIC PANEL - Abnormal; Notable for the following components: eGFR by CKD-EPI 87 (*) All other components within normal limits URINALYSIS W/MICROSCOPIC NO CULTURE - Abnormal; Notable for the following components: Protein UA 1+ (*) All other components within normal limits Narrative: DIFFERENTIAL MANUAL - Abnormal; Notable for the following components: Atypical Lymphocyte % Manual 7 (*) All other components within normal limits LACTIC ACID BLOOD - Normal XR ABDOMEN KUB (Results Pending) ED course: The patient's Oxygen Saturation Monitor was interpreted by me. The reading was 100%. The patient was on RA at the time of the reading. This is interpreted as normal. 9:45 PM: Labs reviewed and interpreted by me: H&H is stable. Creatinine at baseline. No marked electrolyte abnormality. UA is unremarkable. 9:49 PM: I have reviewed his diagnostic findings and he has had an opportunity to ask me any questions he has about care, diagnosis and discharge plan. Patient is comfortable with the discharge plan.He will follow up as directed and will return to the ER if his condition worsens or he develops other urgent concerns. Consult No Procedure done at this time No Ultrasound done at this time No CRITICAL CARE IN THE ED No Orders and Medicine administered during this encounter: Orders Placed This Encounter ??? XR ABDOMEN KUB ??? CBC W AUTO DIFFERENTIAL ??? COMPREHENSIVE METABOLIC PANEL ??? LACTIC ACID BLOOD ??? URINALYSIS W/MICROSCOPIC NO CULTURE ??? DIFFERENTIAL MANUAL ??? ketorolac (Toradol) injection 15 mg ??? lactated ringers IV bolus Medications ketorolac (Toradol) injection 15 mg (15 mg Intravenous $ Given 09/30/23 173) lactated ringers IV bolus (1,000 mL Intravenous $ New Bag/Syringe 09/30/231738) Clinical Impression: 1. Abdominal pain, generalized 2. Unilateral recurrent inguinal hernia without obstruction or gangrene Scripts: Disposition: Discharge Follow-up: Follow-up Information [facility] Contact information: [address] [place] [address] [address] [place] [phone] By signing my name below, I, Alon Montoya, attest that this documentation has been prepared under the direction and in the presence of Dr. Jernigan. Signed: Jannette Prieto. I, Dr. Jernigan, personally performed the services described in this documentation. All medical record entries made by the scribe were at my direction and in my presence. I have reviewed the chart and agree that the record reflects my personal performance and is accurate and complete. Signed: Dr. Jernigan. 10/01/2023. 3:24 AM. AND GAS SUPERINTENDENT * Michelle Canada - 09/30/2023 7:07 PM CST Pt in waiting room, NAD noted, no request at this time. AND GAS SUPERINTENDENT * Emmy Granados - 09/30/2023 6:54 PM CST Patient provided with specimen cup for urine sample att. AND GAS SUPERINTENDENT * Maribel Koenig PA-C - 09/30/2023 5:59 PM CST Medical Screening Exam 09/30/2023 5:59 PM Provider contact with the patient Deepak Pfeiffer CC: Hernia (Patient reports coming to ED today for issues with his hernias. Patient states he has an appointment for surgery of these hernias but that he is concerned for some complications. Patient reports pain and occasionally needing to push his hernias around to have a bowel movement. Patient reports no other medical problems. ) Chief complaint narrative was entered by triage nurse, not by provider Provider in Triage HPI: Deepak Pfeiffer is a 33 year old male PMH as noted below who presents with requesting to schedule surgery for hernia repair. Scheduled for Oct 2023 but pt states he can't wait that long d/t pain. Daily BMs and normal urine. No fever or chills. No n/v. Nothing for pain. Limited Chart History: No past medical history on file. Past Surgical History: Procedure Laterality Date ??? KNEE ARTHROPLASTY Current Facility-Administered Medications Medication Dose Route Frequency Provider Last Rate Last Admin ??? lactated ringers IV bolus 1,000 mL Intravenous Once Maribel Koenig PA-C 1,935.48 mL/hr at 09/30/23 1739 1,000 mL at 09/30/23 1739 Current Outpatient Medications Medication Sig Dispense Refill ??? ondansetron (ZOFRAN) 4 MG tablet Take 1 tablet by mouth every 6 hours as needed for Nausea/Vomiting 10 tablet 0 No Known Allergies PCP: No primary care provider on file. (Above may be pending completion) Vital Signs reviewed in Triage BP (!) 154/111 Pulse 108 Temp 97.9 ??F (36.6 ??C) (Oral) Resp 19 Ht 1.981 m (6' 6 ) Wt 104.3 kg (230 lb) SpO2 100% Pertinent Physical Findings: Constitutional: vitals as above, WDWN Head: Head normocephalic, atraumatic Eyes: conjunctiva clear ENT: no rhinorrhea Neck: neck supple, no nuchal rigidity Resp: respirations even and unlabored, lungs clear bilaterally CV: Heart RRR, no m/c/r/g Abd: nondistended Skin: warm, dry,color normal for ethnicity MSK: ambulatory, moves all extremities Neuro: A&O x 3, CN 2-12 grossly intact bilat Psych: Normal affect Complete physical exam is limited due to patient sitting in up right position in chair MDM: I have reviewed all lab and imaging resulted ordered during this visit and available at the time ofthis note. Triage notes and available nursing notes reviewed. Previous medical record reviewed whenavailable. Management options include but not limited to: physical exam, laboratory testing, discussion with other providers. PLAN Diagnostic tests ordered: Orders Placed This Encounter Procedures ??? XR ABDOMEN KUB ??? CBC W AUTO DIFFERENTIAL ??? COMPREHENSIVE METABOLIC PANEL ??? LACTIC ACID BLOOD ??? URINALYSIS W/MICROSCOPIC NO CULTURE ??? DIFFERENTIAL MANUAL MEDICATIONS FOR CURRENT ENCOUNTER: ?? SCHEDULED MEDICATIONS: ?? lactated ringers IV bolus, Intravenous, Once ?? [COMPLETED] ketorolac (Toradol) injection 15 mg, Intravenous, Once ?? CONTINUOUS MEDICATIONS: ?? PRN MEDICATIONS: Based on the Medical Screening Exam performed and diagnostic tests at this time, further evaluationis indicated and will be performed. Patient will be transferred to a main ED room when one is available and care will be transferred to ER provider. Maribel Koenig PA-C AND GAS SUPERINTENDENT * Timmy Rain RN - 09/30/2023 4:23 PM CST Patient reports coming to ED today for issues with his hernias. Patient states he has an appointment for surgery of these hernias but that he is concerned for some complications. Patient reports painand occasionally needing to push his hernias around to have a bowel movement. Patient reports no other medical problems. AND GAS SUPERINTENDENT documented in this encounter Miscellaneous Notes * Clinical References MARCO ANTONIO - Brooklyn Jernigan MD - 09/30/2023 9:46 PM CST Images from the original note were not included. [id number] What Is a Hernia? A hernia is [...] severe problems. Last Reviewed Date: 2022 ?? [id number] [employer]. All rights reserved. This information is not intended as a substitute for professional medical care. Always follow your healthcare professional's instructions. AND GAS SUPERINTENDENT * Clinical References AVS - Brooklyn Jernigan MD - 09/30/2023 9:46 PM CST 56437 Hernia Repair Surgery A hernia is a weakness or defect in the wall of the belly (abdomen). This causes an internal organ to stick out (protrude) through the wall of muscle or tissue that normally holds it in place. A hernia won't heal on its own. Surgery is needed to fix the defect in the abdominal wall. If not treated,a hernia can get larger. In rare cases, it can also lead to serious health complications. Fortunately hernia surgery can be done quickly and safely. Below is an overview of hernia repair surgery. Getting ready for surgery Your healthcare provider will talk with you about getting ready for surgery. Follow all the instructions you?re given and be sure to: ?? Tell your healthcare provider about any medicines, supplements, vitamins, or herbs you take. This includes both prescription and [id number] medicines. Ask if you should stop taking any of them. ?? Stop taking aspirin, ibuprofen, naproxen, and other NSAIDs 7 days before surgery. But if you take aspirin for a a heart condition or a past stroke, talk with your provider before stopping. ?? Arrange for an adult family member or friend to give you a ride home after surgery. ?? Stop smoking. Smoking affects blood flow and can slow healing. Smoking can make you more likely to have complications from anesthesia and the surgery. ?? Gently wash the surgical area the night before surgery. You may be given a special scrub to use. ?? Follow any directions you're given for not eating or drinking before surgery. The day of surgery Arrive at the hospital or surgical center at your scheduled time. You?ll be asked to change into a patient gown. You?ll then be given an IV (intravenous) line to provide fluids and medicine. Shortly before surgery, an anesthesiologist or nurse flight test supervisor will talk with you. They'll explain the types of anesthesia used to prevent pain during surgery. You'll have 1 or more of the following: ?? Monitored sedation to make you relaxed and sleepy. ?? Local anesthesia to numb the surgical site. ?? Regional anesthesia to numb certain areas of your body. ?? General anesthesia to let you sleep during surgery. Fixing the weakness Surgery treats a hernia by repairing the weakness in the abdominal wall. Most hernias are treated using tension-free repairs. This is surgery that uses special mesh materials to repair the weak area.The mesh covers the weak area like a patch. The mesh is made of strong, flexible plastic that staysin the body. Over time, nearby tissues grow into the mesh to strengthen the repair. After surgery When the procedure is over, you?ll be taken to the PACU (post anesthesia care unit)to be watched. Your blood pressure, breathing, and heart rate will be monitored. You?ll also have some type of bandage over the surgical site. To help reduce discomfort, you?ll be given pain medicines as needed. You may also be given breathing exercises to keep your lungs clear. Later you?ll be asked to get up and walk. This helps prevent blood clots in the legs. You can go home when your healthcare provider saysyou?re ready. Risks and possible complications of hernia surgery ?? Bleeding ?? Infection ?? Numbness or pain in the groin or leg ?? Risk the hernia will recur ?? Damage to the testicles or testicular function ?? Anesthesia risks ?? Mesh complications ?? Inability to pee ?? Bowel or bladder injury Last Reviewed Date: 2021 ?? [id number] [employer]. All rights reserved. This information is not intended as a substitute for professional medical care. Always follow your healthcare professional's instructions. AND GAS SUPERINTENDENT documented in this encounter Plan of Treatment Not on file documented as of this encounter Procedures Procedure Name Priority Date/Time Associated Diagnosis Comments URINALYSIS W/MICROSCOPIC NO CULTURE STAT 09/30/2023 7:04 PM OIL AND GAS SUPERINTENDENT DIFFERENTIAL MANUAL STAT 09/30/2023 5 :38 PM OIL AND GAS SUPERINTENDENT CBC W AUTO DIFFERENTIAL STAT 09/30/2023 5:38 PM OIL AND G[employer] SUPERINTENDENT COMPREHENSIVE METABOLIC PANEL STAT 09/30/2023 5:38 PM [employer] AND GAS SUPERINTENDENT LACTIC ACID BLOOD STAT 09/30/2023 5:3 8 PM OIL AND GAS SUPERINTENDENT XR ABDOMEN KUB STAT 09/30/2023 5:01 PM [employer] AND GAS SUPERINTENDENT Abdominal pain, generalized documented in this encounter Results * (ABNORMAL) URINALYSIS W/MICROSCOPIC NO CULTURE (09/30/2023 7:04 PM OIL AND GAS SUPERINTENDENT) Color UA Yellow Straw, Yellow 09/30/2023 7:20 PM [employer]IL AND GAS SUPERINTENDENT [facility] Clarity UA Clear Clear 09/30/2023 7:20 PM [facility] Specific Canvas UA 1.020 1.005 - 1.030 09/30/2023 7:20 PM [facility] pH UA 6.0 5.0 - 8.0 pH 09/30/2023 7:20 PM [facility] Protein UA 1+(A) Negative 09/30/2023 7:20 PM [facility] Glucose UA Negative Negative 09/30/2023 7:20 PM [facility] Ketone UA Negative Negative 09/30/2023 7:20 PM [facility] Bilirubin UA Negative Negative 09/30/2023 7:20 PM [facility] Blood UA Negative Negative 09/30/2023 7:20 PM [facility] Nitrite UA Negative Negative 09/30/2023 7:20 PM [facility] Leukocyte Esterase Negative Negative 09/30/2023 7:20 PM [facility] Urobilinogen UA Negative Negative mg/dL 09/30/2023 7:20 PM [facility] RBC UA 0-2 None Seen, 0-2, 3-5 /HPF 09/30/2023 7:20 PM [facility] WBC UA 0-5 None Seen, 0-5 /HPF 09/30/2023 7:20 PM [facility] Squamous Epithelial Cells UA 0-2 None Seen, 0-2, 3-5 /HPF 09/30/2023 7:20 PM [facility] Mucus UA 1+ /LPF 09/30/2023 7:20 PM [facility] Urine URINE SPECIMEN OBTAINED BY CLEAN CATCH PROCEDURE / Unknown Collection / Unknown 09/30/2023 7:04 PM [employer]IL [employer] GAS SUPERINTENDENT 09/30/2023 7:07 PM [employer]IL [employer] GAS SUPERINTENDENT [facility] - 09/30/2023 7:20 PM OIL AND GAS SUPERINTENDENT Maribel Koenig PA-C LAB - URINALYSIS O RDERABLES [facility] [address] [place] [address], [facility] [phone] * (ABNORMAL) DIFFERENTIAL MANUAL (09/30/2023 5:38 PM OIL AND GAS SUPERINTENDENT) WBC (corrected for NRBC) 4.4 10? 3 /uL 09/30/2023 7:42 PM [facility] Total Cell Count 100 09/30/2023 7:42 PM [facility] Neutrophils Absolute Manual 1.76 1.60 - 7.00 10? 3 /uL 09/30/2023 7:42 PM [facility] Comment:(BANDS+SEGS) x WBC = NEUT # (ANC) Lymphocyte Absolute Manual 1.63 1.10 - 3.90 10? 3 /uL 09/30/2023 7:42 PM [facility] Monocytes Absolute Manual 0.44 0.26 - 1.07 10? 3 /uL 09/30/2023 7:42 PM [facility] Eosinophils Absolute Manual 0.22 0.00 - 0.47 10? 3 /uL 09/30/2023 7:42 PM [facility] Basophil Absolute Manual 0.04 0.00 - 0.08 10? 3 /uL 09/30/2023 7:42 PM [facility] Neutrophil % Manual 40 35 - 70 % 09/30/2023 7:42 PM [facility] Lymphocyte % Manual 37 20 - 43 % 09/30/2023 7:42 PM [facility] Monocytes % Manual 10 5 - 13 % 09/30/2023 7:42 PM [facility] Eosinophils % Manual 5 0 - 6 % 09/30/2023 7:42 PM [facility] Basophils % Manual 1 0 - 2 % 09/30/2023 7:42 PM [facility] Atypical Lymphocyte % Manual 7(H) 0 % 09/30/2023 7:42 PM [facility] Platelet Estimate Adequate Adequate 09/30/2023 7:42 PM [facility] RBC Morphology Normal 09/30/2023 7:42 PM [facility] Blood BLOOD SPECIMEN / Unknown Venipuncture / Unknown 09/30/2023 5:38 PM [employer] G[employer] SUPERINTENDENT 09/30/2023 5:49 PM [employer] GAS SUPERINTENDENT Maribel Koenig PA-C LAB - HEMATOLOGY O RDERABLES [address] [address], [facility] [phone] * LACTIC ACID BLOOD (09/30/2023 5:38 PM OIL AND GAS SUPERINTENDENT) Lactic Acid-Stat 1.5 <=2.0 mmol/L 09/30/2023 6:15 PM [facility] Blood BLOOD SPECIMEN / Unknown Venipuncture / Unknown 09/30/2023 5:38 PM O[employer] AND GAS SUPERINTENDENT 09/30/2023 5:49 PM [employer] G[employer] SUPERINTENDENT Maribel Koenig PA-C LAB - CHEMISTRY OR DERABLES Performing Organization Address City/[facility] Hospital/ZIP Co de Phone Number [address] [address], [facility] [phone] * (ABNORMAL) COMPREHENSIVE METABOLIC PANEL (09/30/2023 5:38 PM OIL AND GAS SUPERINTENDENT) BUN 9 7 - 26 mg/dL 09/30/2023 6:19 PM [facility] Creatinine 1.13 0.71 - 1.16 mg/dL 09/30/2023 6:19 PM [facility] Sodium 139 136 - 145 mmol/L 09/30/2023 6:19 PM [facility] Potassium 3.8 3.5 - 4.5 mmol/L 09/30/2023 6:19 PM [facility] Chloride 103 98 - 107 mmol/L 09/30/2023 6:19 PM [facility] CO2 29 22 - 29 mmol/L 09/30/2023 6:19 PM [facility] Glucose 73 70 - 115 mg/dL 09/30/2023 6:19 PM [facility] Calcium 9.7 8.4 - 10.2 mg/dL 09/30/2023 6:19 PM [facility] Protein Total 7.8 6.0 - 8.3 g/dL 09/30/2023 6:19 PM [facility] Albumin 4.0 3.4 - 5.0 g/dL 09/30/2023 6:19 PM [facility] Bilirubin Total 0.6 0.2 - 1.2 mg/dL 09/30/2023 6:19 PM [facility] Alkaline Phosphatase 67 40 - 150 U/L 09/30/2023 6:19 PM [facility] ALT 49 5 - 55 U/L 09/30/2023 6:19 PM [facility] AST 27 5 - 34 U/L 09/30/2023 6:19 PM [facility] Anion Gap 7 6 - 16 09/30/2023 6:19 PM [facility] BUN/Creatinine Ratio 8 7 - 23 09/30/2023 6:19 PM [facility] Osmolality Calculated 285 275 - 295 mOsm/kg 09/30/2023 6:19 PM [facility] Albumin/Globulin Ratio 1.1 1.1 - 2.3 09/30/2023 6:19 PM [facility] eGFR by CKD-EPI 87(L) >=90 mL/min/1.7 3 m2 09/30/2023 6:19 PM [facility] Blood BLOOD SPECIMEN / Unknown Venipuncture / Unknown 09/30/2023 5:38 PM [employer] G[employer] SUPERINTENDENT 09/30/2023 5:49 PM O[employer] AND GAS SUPERINTENDENT Maribel Koenig PA-C LAB - CHEMISTRY OR DERABLES [facility] [address] [place] [address], [facility] [phone] * (ABNORMAL) CBC W AUTO DIFFERENTIAL (09/30/2023 5:38 PM OIL AND GAS SUPERINTENDENT) WBC 4.4 3.5 - 10.5 10? 3 /uL 09/30/2023 5:59 PM [facility] RBC 5.11 4.30 - 5.70 10? 6 /uL 09/30/2023 5:59 PM [facility] Hemoglobin 15.7 12.0 - 17.6 g/dL 09/30/2023 5:59 PM [facility] Hematocrit 45.6 35.2 - 51.7 % 09/30/2023 5:59 PM [facility] MCV 89.2 80.7 - 98.3 fL 09/30/2023 5:59 PM [facility] MCH 30.7 26.7 - 34.0 pg 09/30/2023 5:59 PM [facility] MCHC 34.4 30.8 - 35.9 g/dL 09/30/2023 5:59 PM [facility] RDW-SD 41.2 36.0 - 50.0 fL 09/30/2023 5:59 PM [facility] RDW-CV 12.5 11.2 - 14.8 % 09/30/2023 5:59 PM [facility] Platelet Count 215 150 - 400 10? 3 /uL 09/30/2023 5:59 PM [facility] MPV 9.1(L) 9.4 - 12.9 fL 09/30/2023 5:59 PM [facility] nRBC Absolute 0.00 0 10? 3 /uL 09/30/2023 5:59 PM [facility] nRBC Auto 0.0 0 /100 WBC 09/30/2023 5:59 PM [facility] Blood BLOOD SPECIMEN / Unknown Venipuncture / Unknown 09/30/2023 5:38 PM [employer] AND GAS SUPERINTENDENT 09/30/2023 5:49 PM [employer] AND GAS SUPERINTENDENT Maribel Koenig PA-C LAB - HEMATOLOGY O RDERABLES [address] [address], [facility] [phone] * XR ABDOMEN KUB (09/30/2023 5:01 PM OIL AND GAS SUPERINTENDENT) Anatomical Region Laterality Modality Abdomen Radiographic Griselda ging 09/30/2023 5:08 PM OIL AND GAS SUPERINTENDENT Impressions 10/01/2023 2:00 PM OIL AND GAS SUPERINTENDENT Impression: 1. Nonobstructive bowel gas pattern. This study was dictated by residential therapist Derick Blackmon MD and reviewed and edited by the attending. Shasta Ellis MD have personally reviewed and interpreted this examination/study. > Interpreting Provider: Shasta Brand MD on 10/01/2023 2:00 PM Narrative 10/01/2023 2:00 PM [employer] AND GAS SUPERINTENDENT PROCEDURE: ??XR ABDOMEN KUB, DATE/TIME OF EXAM: ??09/30/2023 5:01 PM, LOCATION ??[facility] INDICATION: R10.84: Abdominal pain, generalized Ordering Provider Reason For Exam: ??r/o obstructive bowel gas pattern COMPARISON: None. Findings: 2 upright images are received. The upper abdominal image does not fully include the right diaphragm. Within this limitation, no free air is seen. The bowel gas pattern is normal. There is no pneumatosis or portal venous gas. There is no pathologic calcification. Visible osseous structures are intact Procedure Note Shasta Brand MD - 10/01/2023 PROCEDURE: XR ABDOMEN KUB, DATE/TIME OF EXAM: 09/30/2023 5:01 PM, LOCATION [facility] INDICATION: R10.84: Abdominal pain, generalized Ordering Provider Reason For Exam: r/o obstructive bowel gas pattern COMPARISON: None. Findings: 2 upright images are received. The upper abdominal image does not fully include the right diaphragm. Within this limitation, no free air isseen. The bowel gas pattern is normal. There is no pneumatosis or portalvenous gas. There is no pathologic calcification. Visible osseous structuresare intact Impression: 1. Nonobstructive bowel gas pattern. This study was dictated by residential therapist Derick Blackmon MD and reviewed and edited by the attending. Shasta Ellis MD have personally reviewed and interpreted this examination/study. > Interpreting Provider: Shasta Brand MD on 10/01/2023 2:00 PM Quenten E Arya PA-C DIAGNOSTIC IMAGING ORDERABLES documented in this encounter Visit Diagnoses Diagnosis Abdominal pain, generalized Unilateral recurrent inguinal hernia without obstruction or gangrene Inguinal hernia without mention of obstruction or gangrene, recurrent unilateral or unspecified documented in this encounter Administered Medications Inactive Administered Medications - up to 3 most recent administrations Medication Order MAR Action Action Date Dose Rate Site ketorolac (Toradol) injection 15 mg 15 mg, Intravenous, ONCE, 1 dose, On Fri09/30/23 at 1645 $ Given 09/30/2023 5:39 PM [employer]ENDENT 15 mg lactated ringers IV bolus 1,000 mL, at 1,935.48 mL/hr, Administer over 31 Minutes, ONCE, 1 dose, On Fri09/30/23 at 1645 $ New Bag/Syringe 09/30/2023 5:39 PM [employer] SUPERINTENDENT 1,000 mL 1935.48 mL/hr documented in this encounter Active and Recently Administered Medications Times are shown in [employer]. Scheduled Medication Order 09/28/2023 09/29/2023 09/30/2023 ketorolac (Toradol) injection 15 mg (COMPLETED) 15 mg, Intravenous, ONCE, 1 dose, On Fri09/30/23 at 1645 1739 ($ Given - Prov ider: Marisabel Caputo RN) lactated ringers IV bolus (COMPLETED) 1,000 mL, at 1,935.48 mL/hr, Administer over 31 Minutes, ONCE, 1 dose, On Fri09/30/23 at 1645 1739 ($ New Bag/Syri nge - Provider: Marisabel Caputo RN)[id number] (Due: Stopped - Provider: Marisabel Caputo RN) documented in this encounter
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
--- OUTSIDE RECORDS SUMMARY | 2024-11-02 00:26 | XMS_ITS | Encounter Summary ---
Author Organization [facility] Health Address [address] [place] [address] Care Team Providers Care Manager Nursing Home Name Role Phone Unavailable Primary Care Provider Unavailabl e Encounter Details Date Type Department Care Team (Latest Contact Info) Description 09/30/2023 Travel Social History Tobacco Use Types Packs/Day [...]
== END 2024-10-29 15:25 | disposition left against medical advice (07) ==
LOC: ANHED 15:01
DX: F41.9 Anxiety disorder, unspecified (principal)
CPT/HCPCS: 99199

== ENCOUNTER 2025-01-05 13:51 | Emergency (ER) | payer OTHER, SELFPAY ==
[2025-01-05] VITALS (13 sets, daily range): BP systolic 135–182; BP diastolic 84–118; PULSE 76–87; RESP 11–25; TEMP 36.4–37.2; O2SAT 95–100
--- NOTE | ~2025-01-05 | CT_ITS ---
EXAMINATION: CT abdomen pelvis w con DATE: 01/05/2025 19:09 INDICATION: Abdominal pain. TECHNIQUE: Computed tomography (CT) of the abdomen and pelvis was performed with 100 mL Omnipaque 350 intravenous contrast. Automated exposure control and iterative reconstruction technique were employe d. The dose-length product was 834.48 mGy-cm. COMPARISON: CT abdomen and pelvis 10/22/2024 FINDINGS: The visualized portions of the lung bases demonstrate mild atelectasis. No pleural effusion . The heart size is normal. No pericardial effusion. The liver, gallbladder, pancreas, spleen, adrena l glands, and kidneys are normal. There are no dilated loops of bowel. The appendix is normal. There is liquid stool in the colon suggesting diarrhea. There are no pathologically enlarged lymph nodes. T here is no free intraperitoneal fluid. There is mild lumbar spondylosis. IMPRESSION: 1. No specific etiology for the patient's symptoms. Reviewed, dictated and finalized at location A. ENDER MANAGER
--- OUTSIDE RECORDS SUMMARY | 2025-01-05 13:53 | XMS_ITS | Referral Summary ---
Author Organization [facility] Address [address] [place] [address] Care Team Providers Care Forest Worker Name Role Phone Unavailable Primary Care Provider Unavailabl e Source Comments [facility],non-owned Affiliates and Associated Physician Practices is amultiple site organization consisting of ambulatory clinics and hospital sitesin [place], [place], [place] and [place]. This disclosure is being madepursuant to the Care Everywhere program and may not contain all information available regarding this patient. Last updated 18.[facility] Allergies No known active allergies Medications * [...] you are drinking? Patient does not drink 3 Q3: How often do you have si x or more drinks on one occasion? Never 08/06/2023 Sex and Gender Information Value Date Recorded Sex Assigned at Not on file Gender Identity Not on file Sexual Orientation Not on file Last Filed Vital Signs Vital Sign Reading Time Taken Comments Blood Pressure 154/111 09/30/2023 3:55 PM ASPHALT STILL OPERATOR Pulse 108 09/30/2023 3:55 PM ASPHALT STILL OPERATOR Temperature 36.6 C (97.9 F) 09/30/2023 3:55 PM ASPHALT STILL OPERATOR Respiratory Rate 19 09/30/2023 3:55 PM ASPHALT STILL OPERATOR Oxygen Saturation 100% 09/30/2023 3:55 PM ASPHALT STILL OPERATOR Inhaled Oxygen Concentration - - Weight 104.3 kg (230 lb) 09/30/2023 3:55 PM ASPHALT STILL OPERATOR Height 198.1 cm (6' 6 ) 09/30/2023 3:55 PM ASPHALT STILL OPERATOR Body Mass Index 26.58 09/30/2023 3:55 PM 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 Blood BLOOD SPECIMEN / Unknown Venipuncture / Unknown 08/12/2020 8:15 PM CDT 08/12/2020 6:14 PM CDT Giulia Shaw MD LAB - HEMATOLOGY O RDERABLES [facility] [address] [place] [id number], [place] [phone] from Last 3 Months or Most Recently Relevant to Health Maintenance Advance Directives * Full Code (Latest Code Status on File) Date Activated Date Inactivated Comments 04/21/2021 8:18 PM 04/22/2021 12:59 AM
--- OUTSIDE RECORDS SUMMARY | 2025-01-05 13:53 | XMS_ITS | Clinical Summary ---
Author Organization [facility] Address [address] [place] [address] Care Team Providers Care Animal Husbandman Name Role Phone Miscellaneous, Not In File Primary Care Provider Unavailable Allergies No known active allergies Medications acetaminophen-a spirin-caffeine (Excedrin Migraine) 250-250-65 mg per tablet Take 1 tablet by mouth every 6 (six) hours as needed for headaches Active Active Problems Problem Noted Date Diagnosed Date S/P bilateral inguinal hernia repair, follow-up exam 03/02/2024 Resolved Problems Problem Noted Date Diagnosed Date Resolved Date Non-recurrent bilateral ingu inal hernia without obstruction or gangrene 09/04/2023 03/02/20 24 Assessment & Plan (09/04/2023 12:06 PM CDT): We will set the patient up for robotic assisted bilateral inguinal hernia repair. We discussed the need for mesh implantation. We have discussed postoperative restrictions. We will send him in some pain medicine prior given the amount of discomfort that he is having. We have discussed the risk of chronic pain after surgery especially given the amount of discomfort he is having already. Encounters Date Type Department Care Team Description 11/08/2024 Orders Only [facility] Cardiology [address] [place] [address] Greg Newby MD 10/26/2024 Orders Only [facility] Cardiology [address] [place] [address] Delmar Wallace MD from Last 3 Months 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 Patient does not drink Frequency of Binge Drinking Not on file 10/18 Personal Safety Answer Date Recorded Have you ever been in or are you currently in a harmful physical or emotional relationship or is someone making you feel afraid or unsafe? Denies 11/07/2023 Sex and Gender Information Value Date Recorded Sex Assigned at Not on file Legal Sex Male 6:24 PM COLOR STRAINING BAG WASHER Gender Identity Not on file Sexual Orientation Not on file Obstetrics History Last Filed Vital Signs Vital Sign Reading Time Taken Comments Blood Pressure 162/109 03/02/2024 11:43 AM CDT Pulse 77 03/02/2024 11:43 AM CDT Temperature 36.4 C (97.5 F) 03/02/2024 11:43 AM CDT Respiratory Rate 18 11/07/2023 3:46 PM COLOR STRAINING BAG WASHER Oxygen Saturation 94% 03/02/2024 11: 43 AM CDT Inhaled Oxygen Concentration - - Weight 121.9 kg (268 lb 11.2 oz) 2023 11:43 AM CDT Height 198.1 cm (6' 6 ) 03/02/2024 11:4 3 AM CDT Body Mass Index 31.05 03/02/2024 11:43 AM CDT Plan of Treatment Health Maintenance Due Date Last Done Comments Depression Screening 1989 Hepatitis C Screening 1989 Varicella Vaccines (1 of 2 - 13+ 2-dose series) 2002 Hepatitis B Screening 2007 Regular Well Visit/Exam 18-64 2007 Covid-19 Vaccine (3 2023-2 5 season) 2024 06/01/2021, 05/10/2021 Influenza Vaccine (#1) 2024 DTaP/Tdap/Td Vaccine (3 - Td or Tdap) 04/21/2031 04/21/2021, 09/18/2015 HPV Vaccines Aged Out No longer eligi ble based on patient's age to complete this topic Pneumococcal vaccine <65 Aged Out No longer eligible based on patient's age to complete this topic Medical Devices Implanted Type Area Machine Assembler Supervisor Device Identifier Shelf Expiration Date Model / Serial / Lot [employer]/C R Bard Mesh Surgical Mid Anatomical Synthetic Patch 3dmax 4x6in [id number] - [id number] Implanted:Qty: 1 on 11/07/2023 by Lexx Jesus MD at [facility] Right: Abdomen [employer]/C R Bard 04/13/2028 [id number] / / [id number] [employer] R Bard Mesh Surgical Inguinal Hernia Synthetic Patch 3dmax 4x6in [id number] - [id number] Implanted:Qty: 1 on 11/07/2023 by Lexx Jesus MD at [facility] Left: Abdomen [employer]/C R Bard 03/14/2028 [id number] / / [id number] Procedures Procedure Name Priority Date/Time Associated Diagnosis Comments CARDIOLOGY DOCUMENT SCAN Routine 024 11:22 AM COLOR STRAINING BAG WASHER CARDIOLOGY DOCUMENT SCAN Routine 10/25/2024 5:23 PM COLOR STRAINING BAG WASHER CARDIOLOGY DOCUMENT SCAN Routine 10/24/2024 5:21 PM COLOR STRAINING BAG WASHER CARDIOLOGY DOCUMENT SCAN Routine 10/23/2024 5:17 PM COLOR STRAINING BAG WASHER from Last 3 Months Results * Cardiology Document Scan (10/26/2024 11:22 AM COLOR STRAINING BAG WASHER) Anatomical Region Laterality Modality Other us Ripa Dread Newby MD [facility] PRO CEDURES Final Result * Cardiology Document Scan (10/25/2024 5:23 PM COLOR STRAINING BAG WASHER) Anatomical Region Laterality Modality Other us Brando Nazario MD [facility] C[facility] PROCEDURES F inal Result * Cardiology Document Scan (10/24/2024 5:21 PM COLOR STRAINING BAG WASHER) Anatomical Region Laterality Modality Other us Delmar Wallace MD [facility] PROCEDU RES Final Result * Cardiology Document Scan (10/23/2024 5:17 PM COLOR STRAINING BAG WASHER) Anatomical Region Laterality Modality Other Delmar Wallace MD [facility] C[facility] PROCEDU RES Final Result from Last 3 Months Insurance [facility] Care Teams Animal Husbandman Relationship Specialty Start Date End Date Miscellaneous, Not In File PCP - General 08/16/23
--- OUTSIDE RECORDS SUMMARY | 2025-01-05 13:53 | XMS_ITS | Referral Summary ---
Author Organization [facility] Address [address] [place] [address] Care Team Providers Care Jewelry Designer Name Role Phone Miscellaneous, Not In File Primary Care Provider Unavailable Encounters Date Type Department Care Team Description 11/08/2024 Orders Only [facility] Medical [facility] Cardiology [address] [place] [phone] Greg Newby MD 10/26/2024 Orders Only [facility] Medical [facility] Cardiology [address] [place] [phone] Delmar Wallace MD from Last 3 Months Allergies No known active allergies Medications acetaminophen-a [...] amount of discomfort he is having already. 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 Gender Identity Not on file Sexual Orientation Not on file Last Filed Vital Signs Vital Sign Reading Time Taken Comments Blood Pressure 162/109 03/02/2024 11:43 AM CDT Pulse 77 03/02/2024 11:43 AM CDT Temperature 36.4 C (97.5 F) 03/02/2024 11:43 AM CDT Respiratory Rate 18 11/07/2023 3:46 PM HYDRAULIC DREDGE OPERATOR Oxygen Saturation 94% 03/02/2024 11: 43 AM CDT Inhaled Oxygen Concentration - - Weight 121.9 kg (268 lb 11.2 oz) 2023 11:43 AM CDT Height 198.1 cm (6' 6 ) 03/02/2024 11:4 3 AM CDT Body Mass Index 31.05 03/02/2024 11:43 AM CDT Plan of Treatment Not on file Medical Devices Implanted Type Area Pt Skilled Device Identifier Shelf Expiration Date Model / Serial / Lot [employer]/C R Bard Mesh Surgical Mid Anatomical Synthetic Patch 3dmax 4x6in [id number] - [id number] Implanted:Qty: 1 on 11/07/2023 by Lexx Jesus MD at [facility] Right: Abdomen [employer]/C R Bard 04/13/2028 [id number] / / [id number] [employer]/C R Bard Mesh Surgical Inguinal Hernia Synthetic Patch 3dmax 4x6in [id number] - [id number] Implanted:Qty: 1 on 11/07/2023 by Lexx Jesus MD at [facility] Left: Abdomen [employer]/C R Bard 03/14/2028 [id number] / / [id number] Procedures Procedure Name Priority Date/Time Associated Diagnosis Comments CARDIOLOGY DOCUMENT SCAN Routine 11:22 AM HYDRAULIC DREDGE OPERATOR CARDIOLOGY DOCUMENT SCAN Routine 10/25/2024 5:23 PM HYDRAULIC DREDGE OPERATOR CARDIOLOGY DOCUMENT SCAN Routine 10/24/2024 5:21 PM HYDRAULIC DREDGE OPERATOR CARDIOLOGY DOCUMENT SCAN Routine 10/23/2024 5:17 PM HYDRAULIC DREDGE OPERATOR from Last 3 Months Results * Cardiology Document Scan (10/26/2024 11:22 AM HYDRAULIC DREDGE OPERATOR) Anatomical Region Laterality Modality Other us Greg Newby MD [facility] PRO CEDURES Final Result * Cardiology Document Scan (10/25/2024 5:23 PM HYDRAULIC DREDGE OPERATOR) Anatomical Region Laterality Modality Other us Brando Nazario MD [facility] CARDIAC SERVICES PROCEDURES F inal Result * Cardiology Document Scan (10/24/2024 5:21 PM HYDRAULIC DREDGE OPERATOR) Anatomical Region Laterality Modality Other us Delmar Wallace MD [facility] CARDIAC SERVICES PROCEDU RES Final Result * Cardiology Document Scan (10/23/2024 5:17 PM HYDRAULIC DREDGE OPERATOR) Anatomical Region Laterality Modality Other us Delmar Wallace MD [facility] C[facility] PROCEDU RES Final Result from Last 3 Months Insurance [facility] Care Teams Jewelry Designer Relationship Specialty Start Date End Date Miscellaneous, Not In File PCP - General 08/16/23
--- OUTSIDE RECORDS SUMMARY | 2025-01-05 13:53 | XMS_ITS | Clinical Summary ---
Author Organization [facility] Address [address] [facility] [place] [address] Care Team Providers Care Crushed Stone Grader Name Role Phone None, Provider MD Primary [...] Comments Blood Pressure 168/109 01/14/2024 8:53 PM DEPARTMENTAL SHIPPING CLERK Pulse 92 01/14/2024 8:03 PM DEPARTMENTAL SHIPPING CLERK Temperature 36.6 C (97.8 F) 01/14/2024 8:03 PM DEPARTMENTAL SHIPPING CLERK Respiratory Rate 20 01/14/2024 8:03 PM DEPARTMENTAL SHIPPING CLERK Oxygen Saturation 97% 01/14/2024 8:03 PM DEPARTMENTAL SHIPPING CLERK Inhaled Oxygen Concentration - - Weight 104.3 kg (230 lb) 01/14/2024 8:03 PM DEPARTMENTAL SHIPPING CLERK Height 198.1 cm (6' 6 ) 01/14/2024 8:03 PM DEPARTMENTAL SHIPPING CLERK Body Mass Index 26.58 01/14/2024 8:03 PM DEPARTMENTAL SHIPPING CLERK Plan of Treatment Health Maintenance Due Date [...] patient's age to complete this topic Meningococcal B Vaccine Aged Out No l onger eligible based on patient's age to complete this topic Meningococcal Vaccine Aged Out No benson bee eligible based on patient's age to complete this topic RSV Immunizations Under 20 Months Aged Out No longer eligible b ased on patient's age to complete this topic Insurance Care Teams Crushed Stone Grader Relationship Specialty Start Date End Date None, Provider, PCP - General 08/05/20
--- OUTSIDE RECORDS SUMMARY | 2025-01-05 13:53 | XMS_ITS | Clinical Summary ---
Author Organization [facility] Address [address] [place] [place] [address] Care Team Providers Care Thread Reeler Name Role Phone Unavailable Primary Care Provider Unavailabl e Source Comments [facility],non-owned Affiliates and Associated Physician Practices is amultiple site organization consisting of ambulatory clinics and hospital sitesin [place], [place], [place] and [place]. This disclosure is being madepursuant to the Care Everywhere program and may not contain all information available regarding this patient. Last updated 18.[facility] Allergies No known active allergies Medications * [...] Comments Blood Pressure 154/111 09/30/2023 3:55 PM WELLNESS RN Pulse 108 09/30/2023 3:55 PM WELLNESS RN Temperature 36.6 C (97.9 F) 09/30/2023 3:55 PM WELLNESS RN Respiratory Rate 19 09/30/2023 3:55 PM WELLNESS RN Oxygen Saturation 100% 09/30/2023 3:55 PM WELLNESS RN Inhaled Oxygen Concentration - - Weight 104.3 kg (230 lb) 09/30/2023 3:55 PM WELLNESS RN Height 198.1 cm (6' 6 ) 09/30/2023 3:55 PM WELLNESS RN Body Mass Index 26.58 09/30/2023 3:55 PM WELLNESS RN Plan of Treatment Health Maintenance Due Date Last Done Comments HEPATITIS C SCREENING 07/26/2007 HEPATITIS B VACCINE (1 of 3 - 19+ 3-dose series) 2008 COVID-19 VACCINE (2023-2 5 season) 2024 06/01/2021, 05/10/2021 INFLUENZA VACCINE (#1) 2024 DEPRESSION SCREENING 11/17/2024 DTAP/TDAP/TD VACCINES (2 - T d or Tdap) 04/21/2031 04/21/2021 ZOSTER VACCINE (1 of 2) 2039 HIV SCREENING Completed 08/12/2020 HIB VACCINE Aged Out No longer eligi ble based on patient's age to complete this topic HPV VACCINE Aged Out No longer eligi ble based on patient's age to complete this topic MENINGOCOCCAL (Group B) VACCINE Aged Out No longer eligible b ased [...] ve Non-react jerri 08/12/2020 10:05 PM CDT [facility] Comment:Neither HIV-1 p24 An tigen nor HIV-1/HIV-2 Antibodies are detected. Blood BLOOD SPECIMEN / Unknown Venipuncture / Unknown 08/12/2020 8:15 PM CDT 08/12/2020 6:14 PM CDT Giulia Shaw MD LAB - HEMATOLOGY O RDERABLES [facility] [address] [place] [address], [facility] [phone] from Last 3 Months or Most Recently Relevant to Health Maintenance Advance Directives * Full Code (Latest Code Status on File) Date Activated Date Inactivated Comments 04/21/2021 8:18 PM 04/22/2021 12:59 AM
--- OUTSIDE RECORDS SUMMARY | 2025-01-05 13:53 | XMS_ITS | Continuity of Care Document ---
Author Organization [facility] Address [address] [place] [address] Phone Care Team Providers Care Sander Setter Name Role Phone Robert Wilson MD [...] on Encounter PREV VISIT, NEW, AGE 18-39 [facility], [address] [place], [id number], [place] tel:[phone] [facility] Medicine PHysical (chief complaint) Dietary surveillance and counselingRoutine Medical ExamRoutine Medical Exam [address] [place], [id number] , [place]. tel:[phone] Family History Family Member Type Diagnosis Age At Onset Mother Problem (finding) Unknown Disease Father Problem (finding) Diabetes mellitus Father Problem (finding) Coronary artery disease Payers Payer name Insurance type Covered democrat ID Authormaurilioa tijudit(s) No Information Social History Type Description Quantity [...] No Information Instructions Date Instruction Additional Infor mation Dietary counseling Related to Di etary surveillance counseling Decrease caloric intake Related to Dietary surveillance counseling Assessments Type Assessment Date No Information Mental Status Date Cognitive Assessment Orientation - [place] ed to time, place, person, situation.
--- OUTSIDE RECORDS SUMMARY | 2025-01-05 13:53 | XMS_ITS | Patient Health Summary ---
Author Organization [facility] Address [address] [place] [address] Care Team Providers Care Security Operations Center Operator Name Role Phone Unavailable Primary Care Provider Unavailabl e Note from [facility] [place],non-owned Affiliates and Associated Physician Practices is amultiple site organization consisting of ambulatory clinics and hospital sitesin [place], [place], [place] and [place]. This disclosure is being madepursuant to the Care Everywhere program and may not contain all information available regarding this patient. Last updated 18.[facility] Allergies No known active allergies Medications * [...] Comments Blood Pressure 154/111 09/30/2023 3:55 PM INFORMATION SYSTEMS AUDITOR Pulse 108 09/30/2023 3:55 PM INFORMATION SYSTEMS AUDITOR Temperature 36.6 C (97.9 F) 09/30/2023 3:55 PM INFORMATION SYSTEMS AUDITOR Respiratory Rate 19 09/30/2023 3:55 PM INFORMATION SYSTEMS AUDITOR Oxygen Saturation 100% 09/30/2023 3:55 PM INFORMATION SYSTEMS AUDITOR Inhaled Oxygen Concentration - - Weight 104.3 kg (230 lb) 09/30/2023 3:55 PM INFORMATION SYSTEMS AUDITOR Height 198.1 cm (6' 6 ) 09/30/2023 3:55 PM INFORMATION SYSTEMS AUDITOR Body Mass Index 26.58 09/30/2023 3:55 PM INFORMATION SYSTEMS AUDITOR Procedures * URINALYSIS W/MICROSCOPIC NO CULTURE(Performed 09/30/2023) [...] URINALYSIS W/MICROSCOPIC NO CULTURE (09/30/2023 7:04 PM INFORMATION SYSTEMS AUDITOR) Color UA Yellow Straw, Yellow 09/30/2023 7:20 PM [facility] Clarity UA Clear Clear 09/30/2023 7:20 PM [facility] Specific [place] UA 1.020 1.005 - 1.030 09/30/2023 7:20 PM [facility] pH UA 6.0 5.0 - 8.0 pH 09/30/2023 7:20 PM [facility] Protein UA 1+(A) Negative 09/30/2023 7:20 PM [facility] Glucose UA Negative Negative 09/30/2023 7:20 PM [facility] Ketone UA Negative Negative 09/30/2023 7:20 PM [facility] Bilirubin UA Negative Negative 09/30/2023 7:20 PM [facility] Blood UA Negative Negative 09/30/2023 7:20 PM [facility] Nitrite UA Negative Negative 09/30/2023 7:20 PM [facility] Leukocyte Esterase Negative Negative 09/30/2023 7:20 PM [facility] Urobilinogen UA Negative Negative mg/dL 09/30/2023 7:20 PM [facility] RBC UA 0-2 None Seen, 0-2, 3-5 /HPF 09/30/2023 7:20 PM [facility] WBC UA 0-5 None Seen, 0-5 /HPF 09/30/2023 7:20 PM [facility] Squamous Epithelial Cells UA 0-2 None Seen, 0-2, 3-5 /HPF 09/30/2023 7:20 PM [facility] Mucus UA 1+ /LPF 09/30/2023 7:20 PM [facility] Urine URINE SPECIMEN OBTAINED BY CLEAN CATCH PROCEDURE / Unknown Collection / Unknown 09/30/2023 7:04 PM INFORMATION SYSTEMS AUDITOR 09/30/2023 7:07 PM [facility] - 09/30/2023 7:20 PM INFORMATION SYSTEMS AUDITOR Maribel Koenig PA-C LAB - URINALYSIS O RDERABLES Performing Organization Address [facility]/State/ZIP Co de Phone Number [facility] [address] [place] [address], [facility] [phone] * (ABNORMAL) DIFFERENTIAL MANUAL (09/30/2023 5:38 PM INFORMATION SYSTEMS AUDITOR) WBC (corrected for NRBC) 4.4 10 3/uL 09/30/2023 7:42 PM [facility] Total Cell Count 100 09/30/2023 7:42 PM [facility] Neutrophils Absolute Manual 1.76 1.60 - 7.00 10 3/uL 09/30/2023 7:42 PM [facility] Comment:(BANDS+SEGS) x WBC = NEUT # (ANC) Lymphocyte Absolute Manual 1.63 1.10 - 3.90 10 3/uL 09/30/2023 7:42 PM [facility] Monocytes Absolute Manual 0.44 0.26 - 1.07 10 3/uL 09/30/2023 7:42 PM [facility] Eosinophils Absolute Manual 0.22 0.00 - 0.47 10 3/uL 09/30/2023 7:42 PM [facility] Basophil Absolute Manual 0.04 0.00 - 0.08 10 3/uL 09/30/2023 7:42 PM [facility] Neutrophil % Manual 40 35 - 70 % 09/30/2023 7:42 PM [facility] Lymphocyte % Manual 37 20 - 43 % 09/30/2023 7:42 PM [facility] Monocytes % Manual 10 5 - 13 % 09/30/2023 7:42 PM [facility] Eosinophils % Manual 5 0 - 6 % 09/30/2023 7:42 PM [facility] Basophils % Manual 1 0 - 2 % 09/30/2023 7:42 PM [facility] Atypical Lymphocyte % Manual 7(H) 0 % 09/30/2023 7:42 PM [facility] Platelet Estimate Adequate Adequate 09/30/2023 7:42 PM [facility] RBC Morphology Normal 09/30/2023 7:42 PM [facility] Blood BLOOD SPECIMEN / Unknown Venipuncture / Unknown 09/30/2023 5:38 PM INFORMATION SYSTEMS AUDITOR 09/30/2023 5:49 PM INFORMATION SYSTEMS AUDITOR Maribel Koenig PA-C LAB - HEMATOLOGY O RDERABLES [facility] [address] [place] [address], [facility] [phone] * (ABNORMAL) CBC W AUTO DIFFERENTIAL (09/30/2023 5:38 PM INFORMATION SYSTEMS AUDITOR) Only the most recent of4 resultswithin the time period is included. WBC 4.4 3.5 - 10.5 10 3/uL 09/30/2023 5:59 PM [facility] RBC 5.11 4.30 - 5.70 10 6/uL 09/30/2023 5:59 PM [facility] Hemoglobin 15.7 12.0 - 17.6 g/dL 09/30/2023 5:59 PM [facility] Hematocrit 45.6 35.2 - 51.7 % 09/30/2023 5:59 PM [facility] MCV 89.2 80.7 - 98.3 fL 09/30/2023 5:59 PM [facility] MCH 30.7 26.7 - 34.0 pg 09/30/2023 5:59 PM [facility] MCHC 34.4 30.8 - 35.9 g/dL 09/30/2023 5:59 PM [facility] RDW-SD 41.2 36.0 - 50.0 fL 09/30/2023 5:59 PM [facility] RDW-CV 12.5 11.2 - 14.8 % 09/30/2023 5:59 PM [facility] Platelet Count 215 150 - 400 10 3/uL 09/30/2023 5:59 PM [facility] MPV 9.1(L) 9.4 - 12.9 fL 09/30/2023 5:59 PM [facility] nRBC Absolute 0.00 0 10 3/uL 09/30/2023 5:59 PM [facility] nRBC Auto 0.0 0 /100 WBC 09/30/2023 5:59 PM [facility] Blood BLOOD SPECIMEN / Unknown Venipuncture / Unknown 09/30/2023 5:38 PM INFORMATION SYSTEMS AUDITOR 09/30/2023 5:49 PM INFORMATION SYSTEMS AUDITOR Maribel Koenig PA-C LAB - HEMATOLOGY O RDERABLES [facility] [address] [place] [address], [facility] [phone] * (ABNORMAL) COMPREHENSIVE METABOLIC PANEL (09/30/2023 5:38 PM INFORMATION SYSTEMS AUDITOR) Only the most recent of3 resultswithin the time period is included. BUN 9 7 - 26 mg/dL 09/30/2023 6:19 PM [facility] Creatinine 1.13 0.71 - 1.16 mg/dL 09/30/2023 6:19 PM [facility] Sodium 139 136 - 145 mmol/L 09/30/2023 6:19 PM [facility] Potassium 3.8 3.5 - 4.5 mmol/L 09/30/2023 6:19 PM [facility] Chloride 103 98 - 107 mmol/L 09/30/2023 6:19 PM [facility] CO2 29 22 - 29 mmol/L 09/30/2023 6:19 PM [facility] Glucose 73 70 - 115 mg/dL 09/30/2023 6:19 PM [facility] Calcium 9.7 8.4 - 10.2 mg/dL 09/30/2023 6:19 PM [facility] Protein Total 7.8 6.0 - 8.3 g/dL 09/30/2023 6:19 PM [facility] Albumin 4.0 3.4 - 5.0 g/dL 09/30/2023 6:19 PM [facility] Bilirubin Total 0.6 0.2 - 1.2 mg/dL 09/30/2023 6:19 PM [facility] Alkaline Phosphatase 67 40 - 150 U/L 09/30/2023 6:19 PM [facility] ALT 49 5 - 55 U/L 09/30/2023 6:19 PM [facility] AST 27 5 - 34 U/L 09/30/2023 6:19 PM [facility] Anion Gap 7 6 - 16 09/30/2023 6:19 PM [facility] BUN/Creatinine Ratio 8 7 - 23 09/30/2023 6:19 PM [facility] Osmolality Calculated 285 275 - 295 mOsm/kg 09/30/2023 6:19 PM [facility] Albumin/Globulin Ratio 1.1 1.1 - 2.3 09/30/2023 6:19 PM [facility] eGFR by CKD-EPI 87(L) >=90 mL/min/1.7 3 m2 09/30/2023 6:19 PM [facility] Blood BLOOD SPECIMEN / Unknown Venipuncture / Unknown 09/30/2023 5:38 PM INFORMATION SYSTEMS AUDITOR 09/30/2023 5:49 PM INFORMATION SYSTEMS AUDITOR Maribel EVANS-C LAB - CHEMISTRY OR DERABLES Performing Organization Address City/[facility]/ZIP Co de Phone Number [address] [address], [facility] [phone] * LACTIC ACID BLOOD (09/30/2023 5:38 PM INFORMATION SYSTEMS AUDITOR) Lactic Acid-Stat 1.5 <=2.0 mmol/L 09/30/2023 6:15 PM [facility] Blood BLOOD SPECIMEN / Unknown Venipuncture / Unknown 09/30/2023 5:38 PM INFORMATION SYSTEMS AUDITOR 09/30/2023 5:49 PM INFORMATION SYSTEMS AUDITOR Maribel EVANS-C LAB - CHEMISTRY OR DERABLES Performing Organization Address City/[facility]/ZIP Co de Phone Number [address] [address], [place] [phone] * XR ABDOMEN KUB (09/30/2023 5:01 PM INFORMATION SYSTEMS AUDITOR) Anatomical Region Laterality Modality Abdomen Radiographic Griselda ging 09/30/2023 5:08 PM INFORMATION SYSTEMS AUDITOR Impressions 10/01/2023 2:00 PM INFORMATION SYSTEMS AUDITOR Impression: 1. Nonobstructive bowel gas pattern. This study was dictated by vice president sales and marketing Derick Blackmon MD and reviewed and edited by the attending. Shasta Ellis MD have personally reviewed and interpreted this examination/study. > Interpreting Provider: Shasta Brand MD on 10/01/2023 2:00 PM Narrative 10/01/2023 2:00 PM INFORMATION SYSTEMS AUDITOR PROCEDURE: XR ABDOMEN KUB, DATE/TIME OF EXAM: 09/30/2023 5:01 PM, LOCATION [facility] INDICATION: R10.84: Abdominal pain, generalized Ordering Provider [...] DATE/TIME OF EXAM: 09/30/2023 5:01 PM, LOCATION [facility] INDICATION: R10.84: Abdominal pain, generalized Ordering Provider [...] gas pattern. This study was dictated by vice president sales and marketing Derick Blackmon MD and reviewed and edited [...] swelling. Report dictated by Dirk Rainey MD (vice president sales and marketing). Dr. KATLYN Ellis have personally reviewed and interpreted this examination/study. This report was electronically signed by KATLYN MACHADO on 04/22/2021 2:40 PM . Narrative 04/22/2021 2:40 [...] swelling. Report dictated by Dirk Rainey MD (vice president sales and marketing). Dr. KATLYN Ellis have personally reviewed and interpreted this examination/study. This report was electronically signed by KATLYN MACHADO on 04/22/2021 2:40 PM . Victor M North MD DIAGNOSTIC IMAGING O RDERABLES * 4 Units (04/21/2021 7:55 PM CDT) Unit Description LR Whole BLood [facility]OD [facility] LAB Unit ABO O [facility] Unit Rh POS [facility] Product Number E0033 [facility] Unit Donor # [id number] [facility] Unit Status released [facility] BLOO D BANK LAB Product Code [id number] [facility] Blood Type Barcode 5100 [facility] Expiration Date [facility] Unit Description LR Whole BLood [facility] Unit ABO O [facility] Unit POS [facility] Product Number E0033 [facility] Unit Donor # [id number] [facility] Unit Status released [facility] BLOO D [facility] Product Code [id number] [facility] OD [facility] Blood Type Barcode 5100 [facility] Expiration Date [facility] Unit Description LR Whole BLood [facility] Unit ABO O [facility] Unit POS [facility] Product Number E0033 [facility] B LOOD [facility] Unit Donor # [id number] [facility] Unit Status released [facility] BLOO D BANK LAB Product Code [id number] [facility] OD [facility] Blood Type Barcode 5100 [facility] Expiration Date [facility] Unit Description LR Whole BLood [facility] Unit ABO O [facility] Unit POS [facility] Product Number E0033 [facility] B LOOD [facility] Unit Donor # [id number] [facility] Unit Status released [facility] BLOO D BANK LAB Product Code [id number] [facility] BLO OD [facility] LAB Blood Type Barcode 5100 [facility] Expiration Date [facility] B[facility]OD [facility] Blood Bank BLOOD SPECIMEN / Unknown 04/21/2021 6:11 PM CDT Victor M North MD LAB - BLOOD BANK ORD ERABLES [facility] [address] [place] [address], [facility] [phone] * BLOOD TYPE VERIFICATION (04/21/2021 6:29 PM CDT) ABO Rh O POS 04/21/2021 7:5 4 PM CDT [facility] Blood Bank BLOOD SPECIMEN / Unknown Lab Venipuncture / Unknown 04/21/2021 6:29 PM CDT 04/21/2021 6:49 PM CDT Victor M North MD LAB - BLOOD BANK ORD ERABLES [facility] [address] [place] [address], [facility] [phone] * CT CHEST ABDOMEN PELVIS W CONT [...] BEBE CARRANZA on 04/22/2021 10:38 AM . Narrative 04/22/2021 10:38 [...] M North MD CT ORDERABLES * PT-INR [facility] (04/21/2021 5:56 PM CDT) [facility] PT 12.4 12.1 - 14.8 Seconds 04/21/2021 6:14 PM CDT [facility] INR 1.0 See Comment 04/21/2021 6:14 PM CDT [facility] Comment:The suggested therap eutic range for standard coumadin (warfarin) therapy is an INR of 2.0-3.0. For high-risk patients (Mechanical Mitral Valve Prosthesis, etc.), the suggested prophylactic therapeutic range is an INR of 2.5-3.5. Blood BLOOD SPECIMEN / Unknown Venipuncture / Unknown 04/21/2021 5:56 PM CDT 04/21/2021 6:05 PM CDT Victor M North MD LAB - COAGULATION OR DERABLES Performing Organization Address City/[facility]/ZIP Co de Phone Number [address] [address], [place] [phone] * TYPE + SCREEN PANEL (04/21/2021 5:56 PM CDT) [facility] Antibody Screen NEG 6:56 PM CDT [facility] ABO Rh O POS 04/21/2021 6:56 PM CDT [facility] Blood Bank BLOOD SPECIMEN / Unknown Venipuncture / Unknown 04/21/2021 5:56 PM CDT 04/21/2021 6:11 PM CDT Victor M North MD LAB - BLOOD BANK ORD ERABLES Performing Organization Address City/[facility]/ZIP Co de Phone Number [facility] [address] [place] [address], [place] [phone] * (ABNORMAL) BASIC METABOLIC PANEL (CALCIUM TOTAL) (04/21/2021 5:56 PM CDT) [facility] BUN 11 7 - 26 mg/dL 04/21/2021 6:30 PM [facility] Creatinine 1.20(H) 0.71 - 1.16 mg/dL 04/21/2021 6:30 PM [facility] Sodium 139 136 - 145 mmol/L 04/21/2021 6:30 PM [facility] Potassium 3.9 3.5 - 4.5 mmol/L 04/21/2021 6:30 PM [facility] Chloride 101 98 - 107 mmol/L 04/21/2021 6:30 PM [facility] CO2 28 22 - 29 mmol/L 04/21/2021 6:30 PM [facility] Glucose 94 70 - 115 mg/dL 04/21/2021 6:30 PM [facility] Calcium 9.1 8.4 - 10.2 mg/dL 04/21/2021 6:30 PM [facility] Anion Gap 14 8 - 18 04/21/2021 6:30 PM [facility] BUN/Creatinine Ratio 9 7 - 23 04/21/2021 6:30 PM [facility] Osmolality Calculated 287 270 - 300 mOsm/kg 04/21/2021 6:30 PM [facility] eGFR by CKD-EPI 43(L) >=90 mL/min/1.7 3 m2 04/21/2021 6:30 PM [facility] Blood BLOOD SPECIMEN / Unknown Venipuncture / Unknown 04/21/2021 5:56 PM CDT 04/21/2021 6:02 PM T Victor M North MD LAB - CHEMISTRY RAJIV SOLIZ [facility] [address] [place] [address], [facility] [phone] * ALCOHOL ETHYL BLOOD (04/21/2021 5:56 PM CDT) Ethanol (mg/dL) <10 <10 mg/dL 6:30 PM [facility] Ethanol Calculated (g/dL) <0.010 <0.010 g/dL 04/21/2021 6:30 PM [facility] Blood BLOOD SPECIMEN / Unknown Venipuncture / Unknown 04/21/2021 5:56 PM CDT 04/21/2021 6:02 PM CDT Narrative [facility] - 04/21/2021 6:30 PM CDT Ethanol Interp <10: None Detected. Depression of PLASTIC PRESS MOLDER: >100 mg/dl Potentially Critical: >250 mg/dl Potentially [...] North MD LAB - CHEMISTRY RAJIV SOLIZ [facility] Organization Address City/State/ZIP Co de Phone Number [facility] [address] [place] [address], [facility] [phone] * XR CHEST 1VW PORTABLE (04/21/2021 5:55 [...] abnormality. Report dictated by Dirk Rainey MD (vice president sales and marketing). I, Dr. KATLYN MACHADO have personally reviewed and interpreted this examination/study. This report was electronically signed by KATLYN MACHADO on 04/22/2021 2:39 PM . Narrative 04/22/2021 2:39 [...] abnormality. Report dictated by Dirk Rainey MD (vice president sales and marketing). I, Dr. KATLYN MACHADO have personally reviewed and interpreted this examination/study. This report was electronically signed by KATLYN MACHADO on 04/22/2021 2:39 PM . Victor M North MD DIAGNOSTIC IMAGING O RDERABLES * HIV-1 HIV-2 ANTIGEN/ANTIBODY (08/12/2020 8:15 PM CDT) HIV Antigen/Antibod y 1 & 2 Non-reacti ve Non-react jerri 08/12/2020 10:05 PM CDT [facility] Comment:Neither HIV-1 p24 An tigen nor HIV-1/HIV-2 Antibodies are detected. Blood BLOOD SPECIMEN / Unknown Venipuncture / Unknown 08/12/2020 8:15 PM CDT 08/12/2020 6:14 PM CDT Giulia Shaw MD LAB - HEMATOLOGY O RDERABLES [facility] [address] [place] [address], [facility] [phone]
--- NOTE | 2025-01-05 14:23 | ECG_ITS ---
Test Date: 2025-01-05 14:30:41 Measurements Intervals [place] Rate: 76 P: 71 AL: 196 QRS: -28 QRSD: 101 T: 2 QT: 430 QTc: 486 Interpretive Statements SINUS RHYTHM POSSIBLE LEFT ATRIAL ENLARGEMENT INCOMPLETE RIGHT BUNDLE BRANCH BLOCK BORDERLINE ST-T WAVE ABNORMALITY- INFERIOR LEADS PROLONGED QT INTERVAL ABNORMAL ECG Compared to ECG 10/22/2024 20:26:10 PROLONGED QT INTERVAL NOW PRESENT Electronically Signed On 01-05-2025 15:41:17 DEFLECTOR OPERATOR by Doc Claudio D.O.
--- OUTSIDE RECORDS SUMMARY | 2025-01-05 14:23 | XMS_ITS | Clinical Summary ---
Author Organization [facility] Address [address] [place] [address] Care Team Providers Care Tobacco Cloth Reclaimer Name Role Phone Miscellaneous, Not In File [...] Department Care Team Description 11/08/2024 Orders Only [facility] Cardiology [address] [place] [address] Greg Newby MD 10/26/2024 Orders Only [facility] Cardiology [address] [place] [address] Delmar Wallace MD from Last [...] on file Legal Sex Male 6:24 PM PHYSICIST [employer] Gender Identity Not on file Sexual Orientation Not on file Obstetrics History Last Filed Vital Signs Vital Sign Reading Time Taken Comments Blood Pressure 162/109 03/02/2024 11:43 AM CDT Pulse 77 03/02/2024 11:43 AM CDT Temperature 36.4 C (97.5 F) 03/02/2024 11:43 AM CDT Respiratory Rate 18 11/07/2023 3:46 PM PHYSICIST [employer] Oxygen Saturation 94% 03/02/2024 11: 43 AM [...] this topic Medical Devices Implanted Type Area Wig Comber Device Identifier Shelf Expiration Date Model / Serial / Lot [employer]/C R Bard Mesh Surgical Mid Anatomical Synthetic Patch 3dmax 4x6in [id number] - [id number] Implanted:Qty: 1 on 11/07/2023 by Lexx Jesus MD at [facility] Right: Abdomen [employer]/C R Bard 04/13/2028 [id number] / / [id number] [employer] Bard Mesh Surgical Inguinal Hernia Synthetic Patch 3dmax 4x6in [id number] - [id number] Implanted:Qty: 1 on 11/07/2023 by Lexx Jesus MD at [facility] Left: Abdomen [employer]/C R Bard 03/14/2028 [id number] / / [id number] Procedures Procedure Name Priority Date/Time Associated Diagnosis Comments CARDIOLOGY DOCUMENT SCAN Routine 024 11:22 AM PHYSICIST [employer] CARDIOLOGY DOCUMENT SCAN Routine 10/25/2024 5:23 PM PHYSICIST [employer] CARDIOLOGY DOCUMENT SCAN Routine 10/24/2024 5:21 PM PHYSICIST [employer] CARDIOLOGY DOCUMENT SCAN Routine 10/23/2024 5:17 PM PHYSICIST [employer] from Last 3 Months Results * Cardiology Document Scan (10/26/2024 11:22 AM PHYSICIST [employer]) Anatomical Region Laterality Modality Other us Ripa Dread Newby MD [facility] PRO CEDURES Final Result * Cardiology Document Scan (10/25/2024 5:23 PM PHYSICIST [employer]) Anatomical Region Laterality Modality Other us Brando Nazario MD [facility] C[facility]IAC [facility] PROCEDURES F inal Result * Cardiology Document Scan (10/24/2024 5:21 PM PHYSICIST [employer]) Anatomical Region Laterality Modality Other us Delmar Wallace MD [facility] CARDIAC [facility] PROCEDU RES Final Result * Cardiology Document Scan (10/23/2024 5:17 PM PHYSICIST [employer]) Anatomical Region Laterality Modality Other Delmar Wallace MD [facility] CARDIAC SERVICES PROCEDU RES Final Result from Last 3 Months Insurance [facility] Care Teams Tobacco Cloth Reclaimer Relationship Specialty Start Date End Date Miscellaneous, Not In File PCP - General 08/16/23
--- OUTSIDE RECORDS SUMMARY | 2025-01-05 14:24 | XMS_ITS | Continuity of Care Document ---
Author Organization [facility] Address [address] [place] [address] [place] [address] Phone Care Team Providers Care Billing Supervisor Name Role Phone Robert Wilson MD Unavailable [...] on Encounter PREV VISIT, NEW, AGE 18-39 [facility], [address] [place], [place], [id number], [place] tel:[phone] [facility] PHysical (chief complaint) Dietary surveillance and counselingRoutine Medical ExamRoutine Medical Exam [address] Steve Jones. [address] [place], [id number] , [place]. tel:[phone] Family History Family Member Type Diagnosis Age At Onset Mother Problem (finding) Unknown Disease Father Problem (finding) Diabetes mellitus Father Problem (finding) Coronary artery disease Payers Payer name Insurance type Covered alliance party ID Authormaurilioa tijudit(s) No Information Social History [...] Mental Status Date Cognitive Assessment Orientation - [place] ed to time, place, person, situation.
--- OUTSIDE RECORDS SUMMARY | 2025-01-05 14:24 | XMS_ITS | Referral Summary ---
Author Organization [facility] Address [address] [place] [address] Care Team Providers Care Penology Teacher Name Role Phone Unavailable Primary Care Provider Unavailabl e Source Comments [facility],non-owned Affiliates and Associated Physician Practices is amultiple site organization consisting of ambulatory clinics and hospital sitesin [place], [place], [place] and [place]. This disclosure is being madepursuant to the Care Everywhere program and may not contain all information available regarding this patient. Last updated 18.[facility] Allergies No known active allergies Medications * [...] Comments Blood Pressure 154/111 09/30/2023 3:55 PM JAILOR Pulse 108 09/30/2023 3:55 PM JAILOR Temperature 36.6 C (97.9 F) 09/30/2023 3:55 PM JAILOR Respiratory Rate 19 09/30/2023 3:55 PM JAILOR Oxygen Saturation 100% 09/30/2023 3:55 PM JAILOR Inhaled Oxygen Concentration - - Weight 104.3 kg (230 lb) 09/30/2023 3:55 PM JAILOR Height 198.1 cm (6' 6 ) 09/30/2023 3:55 PM JAILOR Body Mass Index 26.58 09/30/2023 3:55 PM JAILOR Plan of Treatment Not on file Procedures Procedure Name Priority Date/Time Associated Diagnosis Comments HIV-1 HIV-2 ANTIGEN/ANTIBODY STAT 08/12/2020 8:15 PM CDT from Last 3 Months or Most Recently Relevant to Health Maintenance Results * HIV-1 HIV-2 ANTIGEN/ANTIBODY (08/12/2020 8:15 PM CDT) HIV Antigen/Antibod y 1 & 2 Non-reacti ve Non-react jerri 08/12/2020 10:05 PM CDT [facility] Comment:Neither HIV-1 p24 An tigen nor HIV-1/HIV-2 Antibodies are detected. Blood BLOOD SPECIMEN / Unknown Venipuncture / Unknown 08/12/2020 8:15 PM CDT 08/12/2020 6:14 PM CDT Giulia Shaw MD LAB - HEMATOLOGY O RDERABLES [facility] [address] [place] [id number], [place] [phone] from Last 3 Months or Most Recently Relevant to Health Maintenance Advance Directives * Full Code (Latest Code Status on File) Date Activated Date Inactivated Comments 04/21/2021 8:18 PM 04/22/2021 12:59 AM
--- OUTSIDE RECORDS SUMMARY | 2025-01-05 14:24 | XMS_ITS | Referral Summary ---
Author Organization [facility] Address [address] [place] [address] Care Team Providers Care Zumba Instructor Name Role Phone Miscellaneous, Not In File Primary Care Provider Unavailable Encounters Date Type Department Care Team Description 11/08/2024 Orders Only [facility] Cardiology [address] [place] [phone] Greg Newby MD 10/26/2024 Orders Only [facility] Medical [facility] Cardiology [address] [place] [phone] Delmar Wallace MD from Last 3 Months [...] on file Legal Sex Male 6:24 PM [employer] Gender Identity Not on file Sexual Orientation Not on file Last Filed Vital Signs Vital Sign Reading Time Taken Comments Blood Pressure 162/109 03/02/2024 11:43 AM CDT Pulse 77 03/02/2024 11:43 AM CDT Temperature 36.4 C (97.5 F) 03/02/2024 11:43 AM CDT Respiratory Rate 18 11/07/2023 3:46 PM [employer] Oxygen Saturation 94% 03/02/2024 11: 43 AM CDT Inhaled Oxygen Concentration - - Weight 121.9 kg (268 lb 11.2 oz) 2023 11:43 AM CDT Height 198.1 cm (6' 6 ) 03/02/2024 11:4 3 AM CDT Body Mass Index 31.05 03/02/2024 11:43 AM CDT Plan of Treatment Not on file Medical Devices Implanted Type Area Car Stereo Installer Device Identifier Shelf Expiration Date Model / Serial / Lot [employer] R Bard Mesh Surgical Mid Anatomical Synthetic Patch 3dmax 4x6in [id number] - [id number] Implanted:Qty: 1 on 11/07/2023 by Lexx Jesus MD at [facility] Right: Abdomen [employer] Bard 04/13/2028 [id number] / / [id number] [employer] Mesh Surgical Inguinal Hernia Synthetic Patch 3dmax 4x6in [id number] - [id number] Implanted:Qty: 1 on 11/07/2023 by Lexx Jesus MD at [facility] Left: Abdomen [employer]/C R Bard 03/14/2028 [id number] / / [id number] Procedures Procedure Name Priority Date/Time Associated Diagnosis Comments CARDIOLOGY DOCUMENT SCAN Routine 11:22 AM [employer] CARDIOLOGY DOCUMENT SCAN Routine 10/25/2024 5:23 PM [employer] CARDIOLOGY DOCUMENT SCAN Routine 10/24/2024 5:21 PM [employer] CARDIOLOGY DOCUMENT SCAN Routine 10/23/2024 5:17 PM [employer] from Last 3 Months Results * Cardiology Document Scan (10/26/2024 11:22 AM [employer]) Anatomical Region Laterality Modality Other us Greg Newby MD [facility] PRO CEDURES Final Result * Cardiology Document Scan (10/25/2024 5:23 PM [employer]) Anatomical Region Laterality Modality Other us Brando Nazario MD [facility] PROCEDURES F inal Result * Cardiology Document Scan (10/24/2024 5:21 PM [employer]) Anatomical Region Laterality Modality Other us Delmar Wallace MD [facility] PROCEDU RES Final Result * Cardiology Document Scan (10/23/2024 5:17 PM [employer]) Anatomical Region Laterality Modality Other us Delmar Wallace MD [facility] PROCEDU RES Final Result from Last 3 Months Insurance [facility] Care Teams Zumba Instructor Relationship Specialty Start Date End Date Miscellaneous, Not In File PCP - General 08/16/23
--- OUTSIDE RECORDS SUMMARY | 2025-01-05 14:24 | XMS_ITS | Clinical Summary ---
Author Organization [facility] Address [address] [place] [address] Care Team Providers Care Bar Manager Name Role Phone Unavailable Primary Care Provider Unavailabl e Source Comments [facility] [employer],non-owned Affiliates and Associated Physician Practices is amultiple site organization consisting of ambulatory clinics and hospital sitesin [place], [place], [place] and [place]. This disclosure is being madepursuant to the Care Everywhere program and may not contain all information available regarding this patient. Last updated 18.[facility] Allergies No known active allergies Medications * [...] Comments Blood Pressure 154/111 09/30/2023 3:55 PM PLATINUMSMITH Pulse 108 09/30/2023 3:55 PM PLATINUMSMITH Temperature 36.6 C (97.9 F) 09/30/2023 3:55 PM PLATINUMSMITH Respiratory Rate 19 09/30/2023 3:55 PM PLATINUMSMITH Oxygen Saturation 100% 09/30/2023 3:55 PM PLATINUMSMITH Inhaled Oxygen Concentration - - Weight 104.3 kg (230 lb) 09/30/2023 3:55 PM PLATINUMSMITH Height 198.1 cm (6' 6 ) 09/30/2023 3:55 PM PLATINUMSMITH Body Mass Index 26.58 09/30/2023 3:55 PM PLATINUMSMITH Plan of Treatment Health Maintenance Due Date [...] Non-react jerri 08/12/2020 10:05 PM CDT [facility] Comment:Neither HIV-1 p24 An tigen nor HIV-1/HIV-2 Antibodies are detected. Blood BLOOD SPECIMEN / Unknown Venipuncture / Unknown 08/12/2020 8:15 PM CDT 08/12/2020 6:14 PM CDT Giulia Shaw MD LAB - HEMATOLOGY O RDERABLES [facility] [address] [place] [address], [facility] [phone] from Last 3 Months or Most Recently Relevant to Health Maintenance Advance Directives * Full Code (Latest Code Status on File) Date Activated Date Inactivated Comments 04/21/2021 8:18 PM 04/22/2021 12:59 AM
--- OUTSIDE RECORDS SUMMARY | 2025-01-05 14:24 | XMS_ITS | Clinical Summary ---
Author Organization [facility] Address [address] [place] [address] Care Team Providers Care Manufacturer'S Service Representative Name Role Phone None, Provider MD Primary [...] Comments Blood Pressure 168/109 01/14/2024 8:53 PM DIAL PAINTER Pulse 92 01/14/2024 8:03 PM DIAL PAINTER Temperature 36.6 C (97.8 F) 01/14/2024 8:03 PM DIAL PAINTER Respiratory Rate 20 01/14/2024 8:03 PM DIAL PAINTER Oxygen Saturation 97% 01/14/2024 8:03 PM DIAL PAINTER Inhaled Oxygen Concentration - - Weight 104.3 kg (230 lb) 01/14/2024 8:03 PM DIAL PAINTER Height 198.1 cm (6' 6 ) 01/14/2024 8:03 PM DIAL PAINTER Body Mass Index 26.58 01/14/2024 8:03 PM DIAL PAINTER Plan of Treatment Health Maintenance Due Date [...] to complete this topic Insurance Care Teams Manufacturer'S Service Representative Relationship Specialty Start Date End Date None, Provider, PCP - General 08/05/20
--- OUTSIDE RECORDS SUMMARY | 2025-01-05 14:24 | XMS_ITS | Patient Health Summary ---
Author Organization [facility] [employer] Address [address] [place] [address] Care Team Providers Care Pancake Professional Name Role Phone Unavailable Primary Care Provider Unavailabl e Note from [facility],non-owned Affiliates and Associated Physician Practices is amultiple site organization consisting of ambulatory clinics and hospital sitesin [place], [place], [place] and [place]. This disclosure is being madepursuant to the Care Everywhere program and may not contain all information available regarding this patient. Last updated 18.[facility] [employer] Allergies No known active allergies Medications * [...] Comments Blood Pressure 154/111 09/30/2023 3:55 PM [facility] Pulse 108 09/30/2023 3:55 PM [facility] Temperature 36.6 C (97.9 F) 09/30/2023 3:55 PM [facility] Respiratory Rate 19 09/30/2023 3:55 PM [facility] Oxygen Saturation 100% 09/30/2023 3:55 PM [facility] Inhaled Oxygen Concentration - - Weight 104.3 kg (230 lb) 09/30/2023 3:55 PM [facility] Height 198.1 cm (6' 6 ) 09/30/2023 3:55 PM [facility] Body Mass Index 26.58 09/30/2023 3:55 PM [facility] Procedures * URINALYSIS W/MICROSCOPIC NO CULTURE(Performed 09/30/2023) [...] URINALYSIS W/MICROSCOPIC NO CULTURE (09/30/2023 7:04 PM [facility]) Color UA Yellow Straw, Yellow 09/30/2023 7:20 PM [facility] Clarity UA Clear Clear 09/30/2023 7:20 PM [facility] Specific Raysal UA 1.020 1.005 - 1.030 09/30/2023 7:20 PM [facility] pH UA 6.0 5.0 - 8.0 pH 09/30/2023 7:20 PM [facility] Protein UA 1+(A) Negative 09/30/2023 7:20 PM [facility] Glucose UA Negative Negative 09/30/2023 7:20 PM [facility] Ketone UA Negative Negative 09/30/2023 7:20 PM [facility] Bilirubin UA Negative Negative 09/30/2023 7:20 PM [facility] Blood UA Negative Negative 09/30/2023 7:20 PM [facility] Nitrite UA Negative Negative 09/30/2023 7:20 PM [facility] Leukocyte Esterase Negative Negative 09/30/2023 7:20 PM [facility] Urobilinogen UA Negative Negative mg/dL 09/30/2023 7:20 PM [facility] RBC UA 0-2 None Seen, 0-2, 3-5 /HPF 09/30/2023 7:20 PM [facility] WBC UA 0-5 None Seen, 0-5 /HPF 09/30/2023 7:20 PM [facility] Squamous Epithelial Cells UA 0-2 None Seen, 0-2, 3-5 /HPF 09/30/2023 7:20 PM [facility] Mucus UA 1+ /LPF 09/30/2023 7:20 PM [facility] Urine URINE SPECIMEN OBTAINED BY CLEAN CATCH PROCEDURE / Unknown Collection / Unknown 09/30/2023 7:04 PM [facility] 09/30/2023 7:07 PM [facility] - 09/30/2023 7:20 PM [facility] Maribel Koenig PA-C LAB - URINALYSIS O RDERABLES Performing Organization Address [facility]/State/ZIP Co de Phone Number [facility] [address] [place] [address], [facility] [phone] * (ABNORMAL) DIFFERENTIAL MANUAL (09/30/2023 5:38 PM [facility]) WBC (corrected for NRBC) 4.4 10 3/uL 09/30/2023 7:42 PM [facility] Total Cell Count 100 09/30/2023 7:42 PM [facility] Neutrophils Absolute Manual 1.76 1.60 - 7.00 10 3/uL 09/30/2023 7:42 PM [facility] Comment:(BANDS+SEGS) x WBC = NEUT # (ANC) Lymphocyte Absolute Manual 1.63 1.10 - 3.90 10 3/uL 09/30/2023 7:42 PM [facility] Monocytes Absolute Manual 0.44 0.26 - 1.07 10 3/uL 09/30/2023 7:42 PM [facility] Eosinophils Absolute Manual 0.22 0.00 - 0.47 10 3/uL 09/30/2023 7:42 PM [facility] Basophil Absolute Manual 0.04 0.00 - 0.08 10 3/uL 09/30/2023 7:42 PM [facility] Neutrophil % Manual 40 35 - 70 % 09/30/2023 7:42 PM [facility] Lymphocyte % Manual 37 20 - 43 % 09/30/2023 7:42 PM [facility] Monocytes % Manual 10 5 - 13 % 09/30/2023 7:42 PM [facility] Eosinophils % Manual 5 0 - 6 % 09/30/2023 7:42 PM [facility] Basophils % Manual 1 0 - 2 % 09/30/2023 7:42 PM [facility] Atypical Lymphocyte % Manual 7(H) 0 % 09/30/2023 7:42 PM [facility] Platelet Estimate Adequate Adequate 09/30/2023 7:42 PM [facility] RBC Morphology Normal 09/30/2023 7:42 PM [facility] Blood BLOOD SPECIMEN / Unknown Venipuncture / Unknown 09/30/2023 5:38 PM [facility] 09/30/2023 5:49 PM [facility] Maribel Koenig PA-C LAB - HEMATOLOGY O RDERABLES [facility] [address] [place] [address], [facility] [phone] * (ABNORMAL) CBC W AUTO DIFFERENTIAL (09/30/2023 5:38 PM [facility]) Only the most recent of4 resultswithin the time period is included. WBC 4.4 3.5 - 10.5 10 3/uL 09/30/2023 5:59 PM [facility] RBC 5.11 4.30 - 5.70 10 6/uL 09/30/2023 5:59 PM [facility] Hemoglobin 15.7 12.0 - 17.6 g/dL 09/30/2023 5:59 PM [facility] Hematocrit 45.6 35.2 - 51.7 % 09/30/2023 5:59 PM [facility] MCV 89.2 80.7 - 98.3 fL 09/30/2023 5:59 PM [facility] MCH 30.7 26.7 - 34.0 pg 09/30/2023 5:59 PM [facility] MCHC 34.4 30.8 - 35.9 g/dL 09/30/2023 5:59 PM [facility] RDW-SD 41.2 36.0 - 50.0 fL 09/30/2023 5:59 PM [facility] RDW-CV 12.5 11.2 - 14.8 % 09/30/2023 5:59 PM [facility] Platelet Count 215 150 - 400 10 3/uL 09/30/2023 5:59 PM [facility] MPV 9.1(L) 9.4 - 12.9 fL 09/30/2023 5:59 PM [facility] nRBC Absolute 0.00 0 10 3/uL 09/30/2023 5:59 PM [facility] nRBC Auto 0.0 0 /100 WBC 09/30/2023 5:59 PM [facility] Blood BLOOD SPECIMEN / Unknown Venipuncture / Unknown 09/30/2023 5:38 PM [facility] 09/30/2023 5:49 PM [facility] Maribel Koenig PA-C LAB - HEMATOLOGY O RDERABLES [facility] [address] [place] [id number], [facility] [phone] * (ABNORMAL) COMPREHENSIVE METABOLIC PANEL (09/30/2023 5:38 PM [facility]) Only the most recent of3 resultswithin the time period is included. BUN 9 7 - 26 mg/dL 09/30/2023 6:19 PM [facility] Creatinine 1.13 0.71 - 1.16 mg/dL 09/30/2023 6:19 PM [facility] Sodium 139 136 - 145 mmol/L 09/30/2023 6:19 PM [facility] Potassium 3.8 3.5 - 4.5 mmol/L 09/30/2023 6:19 PM [facility] Chloride 103 98 - 107 mmol/L 09/30/2023 6:19 PM [facility] CO2 29 22 - 29 mmol/L 09/30/2023 6:19 PM [facility] Glucose 73 70 - 115 mg/dL 09/30/2023 6:19 PM [facility] Calcium 9.7 8.4 - 10.2 mg/dL 09/30/2023 6:19 PM [facility] Protein Total 7.8 6.0 - 8.3 g/dL 09/30/2023 6:19 PM [facility] Albumin 4.0 3.4 - 5.0 g/dL 09/30/2023 6:19 PM [facility] Bilirubin Total 0.6 0.2 - 1.2 mg/dL 09/30/2023 6:19 PM [facility] Alkaline Phosphatase 67 40 - 150 U/L 09/30/2023 6:19 PM [facility] ALT 49 5 - 55 U/L 09/30/2023 6:19 PM [facility] AST 27 5 - 34 U/L 09/30/2023 6:19 PM [facility] Anion Gap 7 6 - 16 09/30/2023 6:19 PM [facility] BUN/Creatinine Ratio 8 7 - 23 09/30/2023 6:19 PM [facility] Osmolality Calculated 285 275 - 295 mOsm/kg 09/30/2023 6:19 PM [facility] Albumin/Globulin Ratio 1.1 1.1 - 2.3 09/30/2023 6:19 PM [facility] eGFR by CKD-EPI 87(L) >=90 mL/min/1.7 3 m2 09/30/2023 6:19 PM [facility] Blood BLOOD SPECIMEN / Unknown Venipuncture / Unknown 09/30/2023 5:38 PM [facility] 09/30/2023 5:49 PM [facility] Maribel EVANS-C LAB - CHEMISTRY OR DERABLES Performing Organization Address City/[facility]/ZIP Co de Phone Number [address] [address], [facility] [phone] * LACTIC ACID BLOOD (09/30/2023 5:38 PM [facility]) Lactic Acid-Stat 1.5 <=2.0 mmol/L 09/30/2023 6:15 PM [facility] Blood BLOOD SPECIMEN / Unknown Venipuncture / Unknown 09/30/2023 5:38 PM [facility] 09/30/2023 5:49 PM [facility] Maribel EVANS-C LAB - CHEMISTRY OR DERABLES Performing Organization Address City/[facility]/ZIP Co de Phone Number [address] [address], [place] [phone] * XR ABDOMEN KUB (09/30/2023 5:01 PM [facility]) Anatomical Region Laterality Modality Abdomen Radiographic Grisedla ging 09/30/2023 5:08 PM [facility] Impressions 10/01/2023 2:00 PM [facility] Impression: 1. Nonobstructive bowel gas pattern. This study was dictated by finance vice president Derick Blackmon MD and reviewed and edited by the attending. Shasta Ellis MD have personally reviewed and interpreted this examination/study. > Interpreting Provider: Shasta Brand MD on 10/01/2023 2:00 PM Narrative 10/01/2023 2:00 PM [facility] PROCEDURE: XR ABDOMEN KUB, DATE/TIME OF EXAM: 09/30/2023 5:01 PM, LOCATION [facility] INDICATION: R10.84: Abdominal pain, generalized Ordering [...] DATE/TIME OF EXAM: 09/30/2023 5:01 PM, LOCATION [facility] INDICATION: R10.84: Abdominal pain, generalized Ordering [...] gas pattern. This study was dictated by finance vice president Derick Blackmon MD and reviewed and edited [...] swelling. Report dictated by Dirk Rainey MD (finance vice president). Dr. KATLYN Ellis have personally reviewed and [...] swelling. Report dictated by Dirk Rainey MD (finance vice president). Dr. KATLYN Ellis have personally reviewed and interpreted this examination/study. This report was electronically signed by KATLYN MACHADO on 04/22/2021 2:40 PM . Victor M North MD DIAGNOSTIC IMAGING O RDERABLES * 4 Units (04/21/2021 7:55 PM CDT) Unit Description LR Whole BLood [facility] BLOOD [facility] LAB Unit ABO O [facility]OD [facility] Unit Rh POS [facility] Product [facility] [id number] [facility] B LOOD [facility] LAB Unit Donor # [id number] [facility] Unit Status released [facility] BLOO D BANK LAB Product [facility] [id number] [facility] BLO OD BANK LAB Blood Type Barcode 5100 [facility]OD [facility] LAB Expiration Date [facility] BLOOD [facility] LAB Unit Description LR Whole BLood [facility] BLOOD [facility] LAB Unit ABO O [facility] Unit POS [facility] Product Number E0033 [facility] B LOOD [facility] LAB Unit Donor # [id number] [facility] Unit Status released [facility] BLOO D BANK LAB Product Code [id number] [facility] BLO OD BANK LAB Blood Type Barcode 5100 [facility] Expiration Date [facility] BLOOD [facility] Unit Description LR Whole BLood [facility] B[facility]OD [facility] Unit ABO O [facility] B[facility]OD [facility] Unit POS [facility] Product Number E0033 [facility] B LOOD [facility] LAB Unit Donor # [id number] [facility] B[facility]OD [facility] Unit Status released [facility] BLOO D BANK LAB Product Code [id number] [facility] BLO OD [facility] LAB Blood Type Barcode 5100 [facility] B[facility]OD [facility] Expiration Date [facility]LO[facility] Unit Description LR Whole BLood [facility]OD [facility] Unit ABO O [facility] B[facility]OD [facility] Unit POS [facility]OD [facility] Product Number E0033 [facility] B LOOD [facility]ANK LAB Unit Donor # [id number] [facility] BLOOD [facility] Unit Status released [facility] BLOO D BANK LAB Product Code [id number] [facility] BLO OD BANK LAB Blood Type Barcode 5100 [facility] BLOOD [facility] LAB Expiration Date [facility] BLOOD BANK LAB Blood Bank BLOOD SPECIMEN / Unknown 04/21/2021 6:11 PM CDT Victor M North MD LAB - BLOOD BANK ORD ERABLES [facility] BLOOD [facility] LAB [address] [place] [address], [facility] [phone] * BLOOD TYPE VERIFICATION (04/21/2021 6:29 PM CDT) ABO Rh O POS 04/21/2021 7:5 4 PM CDT [facility] BLOOD [facility] LAB Blood Bank BLOOD SPECIMEN / Unknown Lab Venipuncture / Unknown 04/21/2021 6:29 PM CDT 04/21/2021 6:49 PM CDT Victor M North MD LAB - BLOOD BANK ORD ERABLES [facility] BLOOD [facility] LAB [address] [place] [address], [facility] [phone] * CT CHEST ABDOMEN PELVIS W CONT [...] CT ORDERABLES * PT-INR [facility] (04/21/2021 5:56 PM CDT) [facility] PT 12.4 12.1 - 14.8 Seconds 04/21/2021 6:14 PM CDT [facility] INR 1.0 See Comment 04/21/2021 6:14 PM CDT [facility] Comment:The suggested therap eutic range [...] City/[facility]/ZIP Co de Phone Number [address] [address], [place] [phone] * TYPE + SCREEN PANEL (04/21/2021 5:56 PM CDT) [facility] Antibody Screen NEG 6:56 PM CDT [facility] BLOOD [facility] LAB ABO Rh O POS 04/21/2021 6:56 PM CDT [facility] BLOOD [facility] LAB Blood Bank BLOOD SPECIMEN / Unknown Venipuncture / Unknown 04/21/2021 5:56 PM CDT 04/21/2021 6:11 PM CDT Victor M North MD LAB - BLOOD BANK ORD ERABLES Performing Organization Address City/[facility]/ZIP Co de Phone Number [facility] B[facility]OD [facility] LAB [address] [place] [id number], [place] [phone] * (ABNORMAL) BASIC METABOLIC PANEL (CALCIUM TOTAL) (04/21/2021 5:56 PM CDT) [facility] BUN 11 7 - 26 mg/dL 04/21/2021 6:30 PM [facility] Creatinine 1.20(H) 0.71 - 1.16 mg/dL 04/21/2021 6:30 PM [facility] Sodium 139 136 - 145 mmol/L 04/21/2021 6:30 PM [facility] Potassium 3.9 3.5 - 4.5 mmol/L 04/21/2021 6:30 PM [facility] Chloride 101 98 - 107 mmol/L 04/21/2021 6:30 PM [facility] CO2 28 22 - 29 mmol/L 04/21/2021 6:30 PM [facility] Glucose 94 70 - 115 mg/dL 04/21/2021 6:30 PM [facility] Calcium 9.1 8.4 - 10.2 mg/dL 04/21/2021 6:30 PM [facility] Anion Gap 14 8 - 18 04/21/2021 6:30 PM [facility] BUN/Creatinine Ratio 9 7 - 23 04/21/2021 6:30 PM [facility] Osmolality Calculated 287 270 - 300 mOsm/kg 04/21/2021 6:30 PM [facility] eGFR by CKD-EPI 43(L) >=90 mL/min/1.7 3 m2 04/21/2021 6:30 PM [facility] Blood BLOOD SPECIMEN / Unknown Venipuncture / Unknown 04/21/2021 5:56 PM CDT 04/21/2021 6:02 PM T Victor M North MD LAB - CHEMISTRY RAJIV SOLIZ [facility] [address] [place] [address], [facility] [phone] * ALCOHOL ETHYL BLOOD (04/21/2021 5:56 PM CDT) Ethanol (mg/dL) <10 <10 mg/dL 6:30 PM [facility] Ethanol Calculated (g/dL) <0.010 <0.010 g/dL 04/21/2021 6:30 PM [facility] Blood BLOOD SPECIMEN / Unknown Venipuncture / Unknown 04/21/2021 5:56 PM CDT 04/21/2021 6:02 PM CDT Narrative [facility] - 04/21/2021 6:30 PM CDT Ethanol Interp <10: None Detected. Depression of SPECIAL INVESTIGATOR: >100 mg/dl Potentially Critical: >250 mg/dl Potentially [...] North MD LAB - CHEMISTRY RAJIV SOLIZ [facility] Organization Address City/State/ZIP Co de Phone Number [facility] [address] [place] [phone], [facility] [phone] * XR CHEST 1VW PORTABLE (04/21/2021 5:55 [...] abnormality. Report dictated by Dirk Rainey MD (finance vice president). I, Dr. KATLYN MACHADO have personally reviewed [...] abnormality. Report dictated by Dirk Rainey MD (finance vice president). I, Dr. KATLYN MACHADO have personally reviewed and interpreted this examination/study. This report was electronically signed by KATLYN MACHADO on 04/22/2021 2:39 PM . Victor M North MD DIAGNOSTIC IMAGING O RDERABLES * HIV-1 HIV-2 ANTIGEN/ANTIBODY (08/12/2020 8:15 PM CDT) HIV Antigen/Antibod y 1 & 2 Non-reacti ve Non-react jerri 08/12/2020 10:05 PM CDT [facility] Comment:Neither HIV-1 p24 An tigen nor HIV-1/HIV-2 Antibodies are detected. Blood BLOOD SPECIMEN / Unknown Venipuncture / Unknown 08/12/2020 8:15 PM CDT 08/12/2020 6:14 PM CDT Giulia Shaw MD LAB - HEMATOLOGY O RDERABLES [facility] [address] [place] [id number], [facility] [phone]
[2025-01-05 14:42] LABS: Basophils Percent Auto 0.2 % (0.2-1.2); Eosinophils Absolute Auto 0.1 K/mm3 (0-0.3); Hematocrit 47.3 % (42.0-52.0); Hemoglobin 16.5 g/dL (14.0-18.0); Immature Granulocyte Absolute 0.01 K/mm3 (0.00-0.031); Immature Granulocyte Percent A 0.2 % (0-0.5); Lymphocytes Absolute Auto 2.08 K/mm3 (0.9-3.2); Lymphocytes Percent Auto 43.1 % (18.3-44.2); Mean Corpuscular HGB Conc 34.9 g/dl (32-36); Mean Corpuscular Hemoglobin 31.2 pg (26-34); Mean Corpuscular Volume 89.4 fl (80-100); Monocytes Absolute Auto 0.2 K/mm3 (0.1-0.6); Monocytes Percent Auto 3.1 % (2.6-8.5); Neutrophils Absolute Auto 2.5 K/mm3 (1.3-6.7); Neutrophils Percent Auto 52.4 % (45.5-73.1); Platelet Count Result 255 k/mm3 (150-375); Red Blood Count 5.29 M/mm3 (4.6-6.20); Red Cell Distribution Width 13.3 % (11.5-14.5); White Blood Count 4.8 K/mm3 (4.5-10.0)
[2025-01-05 14:49] LABS: Alanine Aminotransferase 55 U/L (6-50); Albumin Level 4.3 g/dL (3.5-5.1); Alkaline Phosphatase 61 U/L (38-126); Anion Gap 14 mmol/L (4-12); Aspartate Amino Transferase 36 U/L (17-59); Bilirubin,Total 0.6 mg/dL (0.2-1.3); Blood Urea Nitrogen 12 mg/dL (9-20); Calcium 9.6 mg/dL (8.4-10.2); Carbon Dioxide 21 mmol/L (22-30); Chloride 104 mmol/L (98-107); Estimated CRCL calculation 124 ml/min; Estimated Glomerular Filt Rate > 60; Glucose 101 mg/dL (65-110); Lipase 75 U/L (23-300); Potassium 3.8 mmol/L (3.4-5.0); Sodium 139 mmol/L (137-145)
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
[2025-01-05] MEDS: ONDANSETRON INJ 4 MG/2 ML VIAL IV PUSH (15:53)
[2025-01-05] MEDS: SODIUM CHLORIDE 0.9% IV 2,000 ML 999 ML IV CONT (16:35)
[2025-01-05] MEDS: HYDROmorphone HCL INJ (*CRX) 1 MG/ML SYR 0.5 MG IV PUSH (16:35)
[2025-01-05 16:37] LABS: Add Urine Microscopic? YES; Appearance Urine Clear (Clear); Bacteria Urine None Seen /hpf; Bilirubin Urine Negative (Negative); Blood Urine Negative (Negative); Color Urine Yellow (Yellow); Glucose Urine UA Negative (Negative); Ketones Urine Negative (Negative); Leukocyte Esterase Ur Negative LEU/UL (Negative); Need Manual Microscopic Reviewed; Nitrate Urine Negative (Negative); Non Pathogenic Casts 0-2; Protein Urine 1+ mg/dL (Negative); RBC Urine 0-2 /hpf (0-2); Squamous Epithelial Cell Urine None Seen /hpf (Few); WBC Urine 0-5 /hpf (0-3); pH Urine 5.5 (5.0-9.0)
[2025-01-05 17:56] LABS: Influenza A QL RT-PCR Negative (Negative); Influenza B QL RT-PCR Negative (Negative); RSV RNA, RT-PCR Negative (Negative); SARS-CoV-2 RNA PCR Negative (Negative)
[2025-01-05 18:37] LABS: Barbiturate Screen Urine Negative (Negative); Benzodiazepines Screen Urine Negative (Negative); Cannabinoid Screen Urine Positive (Negative); Cocaine Screen Urine Negative (Negative); Methadone Screen Urine Negative (Negative); Opiate Screen Urine Negative (Negative); Phencyclidine Screen Urine Negative (Negative)
--- NOTE | 2025-01-05 18:52 | PC.NURSE ---
Pt to CT scan via stretcher at this time.
[2025-01-05 19:34] LABS: Amphetamine Screen Urine Positive (Negative)
[2025-01-05] MEDS: diphenhydrAMINE HCl INJ 50 MG/ML VIAL IV PUSH (20:16)
[2025-01-05] MEDS: METOCLOPRAMIDE HCL INJ 10 MG/2 ML VIAL IV PUSH (20:16)
== END 2025-01-05 20:21 | disposition home or self-care (01) ==
PROVIDERS: Emergency Provider Emergency Medicine
DX: R11.10 Vomiting, unspecified (principal); R10.84 Generalized abdominal pain; Z20.822 Contact with and (suspected) exposure to COVID-19; F17.210 Nicotine dependence, cigarettes, uncomplicated; F17.290 Nicotine dependence, other tobacco product, uncomplicated
CPT/HCPCS: 36415; 74177; 80053; 80307; 81001; 83690; 85025; 87637; 93005; 96361; 96374; 96375; 99284; J1171; J1200; J2405; J2765; J7030; Q9967

== ENCOUNTER 2025-01-10 11:04 | Emergency (ER) | payer OTHER, SELFPAY ==
[2025-01-10] VITALS (16 sets, daily range): BP systolic 153–166; BP diastolic 107–114; PULSE 72–88; RESP 16–19; TEMP 36.5; O2SAT 95–100
--- OUTSIDE RECORDS SUMMARY | 2025-01-10 12:50 | XMS_ITS | Continuity of Care Document ---
Author Organization [facility] Address [address] [place] [address] [place] [address] Phone Care Team Providers Care Caddie Supervisor Name Role Phone Robert Wilson MD [...] on Encounter PREV VISIT, NEW, AGE 18-39 [facility], [address] [place], [place], [id number], [place] tel:[phone] [facility] PHysical (chief complaint) Dietary surveillance and counselingRoutine Medical ExamRoutine Medical Exam [address]. [address] [place], [place], [id number] , [place]. tel:[phone] Family History Family Member Type Diagnosis Age At Onset Mother Problem (finding) Unknown Disease Father Problem (finding) Diabetes mellitus Father Problem (finding) Coronary artery disease Payers Payer name Insurance type Covered republican ID Authormaurilioa tijudit(s) No Information Social History [...] Mental Status Date Cognitive Assessment Orientation - Mcneal ed to time, place, person, situation.
--- OUTSIDE RECORDS SUMMARY | 2025-01-10 12:50 | XMS_ITS | Clinical Summary ---
Author Organization [facility] Address [facility] [place] [address] Care Team Providers Care Logistics Officer Name Role Phone None, Provider MD Primary [...] Comments Blood Pressure 168/109 01/14/2024 8:53 PM DIRECTOR EXECUTIVE COMMUNICATIONS Pulse 92 01/14/2024 8:03 PM DIRECTOR EXECUTIVE COMMUNICATIONS Temperature 36.6 C (97.8 F) 01/14/2024 8:03 PM DIRECTOR EXECUTIVE COMMUNICATIONS Respiratory Rate 20 01/14/2024 8:03 PM DIRECTOR EXECUTIVE COMMUNICATIONS Oxygen Saturation 97% 01/14/2024 8:03 PM DIRECTOR EXECUTIVE COMMUNICATIONS Inhaled Oxygen Concentration - - Weight 104.3 kg (230 lb) 01/14/2024 8:03 PM DIRECTOR EXECUTIVE COMMUNICATIONS Height 198.1 cm (6' 6 ) 01/14/2024 8:03 PM DIRECTOR EXECUTIVE COMMUNICATIONS Body Mass Index 26.58 01/14/2024 8:03 PM DIRECTOR EXECUTIVE COMMUNICATIONS Plan of Treatment Health Maintenance Due Date [...] to complete this topic Insurance Care Teams Logistics Officer Relationship Specialty Start Date End Date None, Provider, PCP - General 08/05/20
--- OUTSIDE RECORDS SUMMARY | 2025-01-10 12:50 | XMS_ITS | Patient Health Summary ---
Author Organization [facility] [employer] Address [address] [place] [address] Care Team Providers Care Collator Name Role Phone Unavailable Primary Care Provider Unavailabl e Note from [facility],non-owned Affiliates and Associated Physician Practices is amultiple site organization consisting of ambulatory clinics and hospital sitesin [place], [place], [place] and [place]. This disclosure is being madepursuant to the Care Everywhere program and may not contain all information available regarding this patient. Last updated 18.[facility] [employer] Allergies No known active allergies Medications * [...] Comments Blood Pressure 154/111 09/30/2023 3:55 PM LEAD JANITOR Pulse 108 09/30/2023 3:55 PM LEAD JANITOR Temperature 36.6 C (97.9 F) 09/30/2023 3:55 PM LEAD JANITOR Respiratory Rate 19 09/30/2023 3:55 PM LEAD JANITOR Oxygen Saturation 100% 09/30/2023 3:55 PM LEAD JANITOR Inhaled Oxygen Concentration - - Weight 104.3 kg (230 lb) 09/30/2023 3:55 PM LEAD JANITOR Height 198.1 cm (6' 6 ) 09/30/2023 3:55 PM LEAD JANITOR Body Mass Index 26.58 09/30/2023 3:55 PM LEAD JANITOR Procedures * URINALYSIS W/MICROSCOPIC NO CULTURE(Performed 09/30/2023) [...] URINALYSIS W/MICROSCOPIC NO CULTURE (09/30/2023 7:04 PM LEAD JANITOR) Color UA Yellow Straw, Yellow 09/30/2023 7:20 PM [facility] Clarity UA Clear Clear 09/30/2023 7:20 PM [facility] Specific [place] UA 1.020 1.005 - 1.030 09/30/2023 7:20 PM [facility] pH UA 6.0 5.0 - 8.0 pH 09/30/2023 7:20 PM [facility] Protein UA 1+(A) Negative 09/30/2023 7:20 PM [facility] Glucose UA Negative Negative 09/30/2023 7:20 PM [facility] Ketone UA Negative Negative 09/30/2023 7:20 PM [facility] Bilirubin UA Negative Negative 09/30/2023 7:20 PM [facility] Blood UA Negative Negative 09/30/2023 7:20 PM [facility] Nitrite UA Negative Negative 09/30/2023 7:20 PM [facility] Leukocyte Esterase Negative Negative 09/30/2023 7:20 PM [facility] Urobilinogen UA Negative Negative mg/dL 09/30/2023 7:20 PM [facility] RBC UA 0-2 None Seen, 0-2, 3-5 /HPF 09/30/2023 7:20 PM [facility] WBC UA 0-5 None Seen, 0-5 /HPF 09/30/2023 7:20 PM [facility] Squamous Epithelial Cells UA 0-2 None Seen, 0-2, 3-5 /HPF 09/30/2023 7:20 PM [facility] Mucus UA 1+ /LPF 09/30/2023 7:20 PM [facility] Urine URINE SPECIMEN OBTAINED BY CLEAN CATCH PROCEDURE / Unknown Collection / Unknown 09/30/2023 7:04 PM LEAD JANITOR 09/30/2023 7:07 PM [facility] - 09/30/2023 7:20 PM LEAD JANITOR Maribel Koenig PA-C LAB - URINALYSIS O RDERABLES Performing Organization Address [facility]/State/ZIP Co de Phone Number [facility] [address] [place] [address], [facility] [phone] * (ABNORMAL) DIFFERENTIAL MANUAL (09/30/2023 5:38 PM LEAD JANITOR) WBC (corrected for NRBC) 4.4 10 3/uL 09/30/2023 7:42 PM [facility] Total Cell Count 100 09/30/2023 7:42 PM [facility] Neutrophils Absolute Manual 1.76 1.60 - 7.00 10 3/uL 09/30/2023 7:42 PM [facility] Comment:(BANDS+SEGS) x WBC = NEUT # (ANC) Lymphocyte Absolute Manual 1.63 1.10 - 3.90 10 3/uL 09/30/2023 7:42 PM [facility] Monocytes Absolute Manual 0.44 0.26 - 1.07 10 3/uL 09/30/2023 7:42 PM [facility] Eosinophils Absolute Manual 0.22 0.00 - 0.47 10 3/uL 09/30/2023 7:42 PM [facility] Basophil Absolute Manual 0.04 0.00 - 0.08 10 3/uL 09/30/2023 7:42 PM [facility] Neutrophil % Manual 40 35 - 70 % 09/30/2023 7:42 PM [facility] Lymphocyte % Manual 37 20 - 43 % 09/30/2023 7:42 PM [facility] Monocytes % Manual 10 5 - 13 % 09/30/2023 7:42 PM [facility] Eosinophils % Manual 5 0 - 6 % 09/30/2023 7:42 PM [facility] Basophils % Manual 1 0 - 2 % 09/30/2023 7:42 PM [facility] Atypical Lymphocyte % Manual 7(H) 0 % 09/30/2023 7:42 PM [facility] Platelet Estimate Adequate Adequate 09/30/2023 7:42 PM [facility] RBC Morphology Normal 09/30/2023 7:42 PM [facility] Blood BLOOD SPECIMEN / Unknown Venipuncture / Unknown 09/30/2023 5:38 PM LEAD JANITOR 09/30/2023 5:49 PM LEAD JANITOR Maribel Koenig PA-C LAB - HEMATOLOGY O RDERABLES [facility] [address] [place] [address], [facility] [phone] * (ABNORMAL) CBC W AUTO DIFFERENTIAL (09/30/2023 5:38 PM LEAD JANITOR) Only the most recent of4 resultswithin the time period is included. WBC 4.4 3.5 - 10.5 10 3/uL 09/30/2023 5:59 PM [facility] RBC 5.11 4.30 - 5.70 10 6/uL 09/30/2023 5:59 PM [facility] Hemoglobin 15.7 12.0 - 17.6 g/dL 09/30/2023 5:59 PM [facility] Hematocrit 45.6 35.2 - 51.7 % 09/30/2023 5:59 PM [facility] MCV 89.2 80.7 - 98.3 fL 09/30/2023 5:59 PM [facility] MCH 30.7 26.7 - 34.0 pg 09/30/2023 5:59 PM [facility] MCHC 34.4 30.8 - 35.9 g/dL 09/30/2023 5:59 PM [facility] RDW-SD 41.2 36.0 - 50.0 fL 09/30/2023 5:59 PM [facility] RDW-CV 12.5 11.2 - 14.8 % 09/30/2023 5:59 PM [facility] Platelet Count 215 150 - 400 10 3/uL 09/30/2023 5:59 PM [facility] MPV 9.1(L) 9.4 - 12.9 fL 09/30/2023 5:59 PM [facility] nRBC Absolute 0.00 0 10 3/uL 09/30/2023 5:59 PM [facility] nRBC Auto 0.0 0 /100 WBC 09/30/2023 5:59 PM [facility] Blood BLOOD SPECIMEN / Unknown Venipuncture / Unknown 09/30/2023 5:38 PM LEAD JANITOR 09/30/2023 5:49 PM LEAD JANITOR Maribel Koenig PA-C LAB - HEMATOLOGY O RDERABLES [facility] [address] [place] [phone], [facility] [phone] * (ABNORMAL) COMPREHENSIVE METABOLIC PANEL (09/30/2023 5:38 PM LEAD JANITOR) Only the most recent of3 resultswithin the time period is included. BUN 9 7 - 26 mg/dL 09/30/2023 6:19 PM [facility] Creatinine 1.13 0.71 - 1.16 mg/dL 09/30/2023 6:19 PM [facility] Sodium 139 136 - 145 mmol/L 09/30/2023 6:19 PM [facility] Potassium 3.8 3.5 - 4.5 mmol/L 09/30/2023 6:19 PM [facility] Chloride 103 98 - 107 mmol/L 09/30/2023 6:19 PM [facility] CO2 29 22 - 29 mmol/L 09/30/2023 6:19 PM [facility] Glucose 73 70 - 115 mg/dL 09/30/2023 6:19 PM [facility] Calcium 9.7 8.4 - 10.2 mg/dL 09/30/2023 6:19 PM [facility] Protein Total 7.8 6.0 - 8.3 g/dL 09/30/2023 6:19 PM [facility] Albumin 4.0 3.4 - 5.0 g/dL 09/30/2023 6:19 PM [facility] Bilirubin Total 0.6 0.2 - 1.2 mg/dL 09/30/2023 6:19 PM [facility] Alkaline Phosphatase 67 40 - 150 U/L 09/30/2023 6:19 PM [facility] ALT 49 5 - 55 U/L 09/30/2023 6:19 PM [facility] AST 27 5 - 34 U/L 09/30/2023 6:19 PM [facility] Anion Gap 7 6 - 16 09/30/2023 6:19 PM [facility] BUN/Creatinine Ratio 8 7 - 23 09/30/2023 6:19 PM [facility] Osmolality Calculated 285 275 - 295 mOsm/kg 09/30/2023 6:19 PM [facility] Albumin/Globulin Ratio 1.1 1.1 - 2.3 09/30/2023 6:19 PM [facility] eGFR by CKD-EPI 87(L) >=90 mL/min/1.7 3 m2 09/30/2023 6:19 PM [facility] Blood BLOOD SPECIMEN / Unknown Venipuncture / Unknown 09/30/2023 5:38 PM LEAD JANITOR 09/30/2023 5:49 PM LEAD JANITOR Maribel EVANS-C LAB - CHEMISTRY OR DERABLES Performing Organization Address City/[facility]/ZIP Co de Phone Number [address] [address], [facility] [phone] * LACTIC ACID BLOOD (09/30/2023 5:38 PM LEAD JANITOR) Lactic Acid-Stat 1.5 <=2.0 mmol/L 09/30/2023 6:15 PM [facility] Blood BLOOD SPECIMEN / Unknown Venipuncture / Unknown 09/30/2023 5:38 PM LEAD JANITOR 09/30/2023 5:49 PM LEAD JANITOR Maribel EVANS-C LAB - CHEMISTRY OR DERABLES Performing Organization Address City/[facility]/ZIP Co de Phone Number [address] [address], [place] [phone] * XR ABDOMEN KUB (09/30/2023 5:01 PM LEAD JANITOR) Anatomical Region Laterality Modality Abdomen Radiographic Griselda ging 09/30/2023 5:08 PM LEAD JANITOR Impressions 10/01/2023 2:00 PM LEAD JANITOR Impression: 1. Nonobstructive bowel gas pattern. This study was dictated by vice president diversity Derick Blackmon MD and reviewed and edited by the attending. Shasta Ellis MD have personally reviewed and interpreted this examination/study. > Interpreting Provider: Shasta Brand MD on 10/01/2023 2:00 PM Narrative 10/01/2023 2:00 PM LEAD JANITOR PROCEDURE: XR ABDOMEN KUB, DATE/TIME OF EXAM: 09/30/2023 5:01 PM, LOCATION [facility] INDICATION: R10.84: Abdominal pain, generalized Ordering Provider [...] DATE/TIME OF EXAM: 09/30/2023 5:01 PM, LOCATION [facility] INDICATION: R10.84: Abdominal pain, generalized Ordering Provider [...] This study was dictated by vice president diversity Derick Blackmon MD and reviewed and edited [...] dictated by Dirk Rainey MD (vice president diversity). Dr. KATLYN Ellis have personally reviewed and [...] dictated by Dirk Rainey MD (vice president diversity). Dr. KATLYN Ellis have personally reviewed and interpreted this examination/study. This report was electronically signed by KATLYN MACHADO on 04/22/2021 2:40 PM . Victor M North MD DIAGNOSTIC IMAGING O RDERABLES * 4 Units (04/21/2021 7:55 PM CDT) Unit Description LR Whole BLood [facility] Unit ABO O [facility] Unit Rh POS [facility] Product Number E0033 [facility] Unit Donor # [id number] [facility] Unit Status released [facility] BL[facility] D [facility] Product Code [id number] [facility] Blood Type Barcode 5100 [facility] Expiration Date [facility] Unit Description LR Whole BLood [facility] Unit ABO O [facility] Unit POS [facility] Product Number E0033 [facility] Unit Donor # [id number] [facility] Unit Status released [facility] Product Code [id number] [facility] Blood Type Barcode 5100 [facility] Expiration Date [facility] Unit Description LR Whole BLood [facility] Unit ABO O [facility] Unit POS [facility] Product Number E0033 [facility] Unit Donor # [id number] [facility] Unit Status released [facility] Product Code [id number] [facility] Blood Type Barcode 5100 [facility] Expiration Date [facility] Unit Description LR Whole BLood [facility] Unit ABO O [facility] Unit POS [facility] Product Number E0033 [facility] Unit Donor # [id number] [facility] Unit Status released [facility] Product Code [id number] [facility] Blood Type Barcode 5100 [facility] Expiration Date [facility] Blood Bank BLOOD SPECIMEN / Unknown 04/21/2021 6:11 PM CDT Victor M North MD LAB - BLOOD BANK ORD ERABLES [facility] [address] [place] [address], [facility] [phone] * BLOOD TYPE VERIFICATION (04/21/2021 6:29 PM CDT) ABO Rh O POS 04/21/2021 7:5 4 PM CDT [facility] Blood Bank BLOOD SPECIMEN / Unknown Lab Venipuncture / Unknown 04/21/2021 6:29 PM CDT 04/21/2021 6:49 PM CDT Victor M North MD LAB - BLOOD BANK ORD ERABLES [facility] [address] [place] [address], [facility] [phone] * CT CHEST ABDOMEN PELVIS W CONT [...] M North MD CT ORDERABLES * PT-INR [facility] (04/21/2021 5:56 PM CDT) [facility] PT 12.4 12.1 - 14.8 Seconds 04/21/2021 6:14 PM CDT [facility] INR 1.0 See Comment 04/21/2021 6:14 PM CDT [facility] Comment:The suggested therap eutic range for standard coumadin (warfarin) therapy is an INR of 2.0-3.0. For high-risk patients (Mechanical Mitral Valve Prosthesis, etc.), the suggested prophylactic therapeutic range is an INR of 2.5-3.5. Blood BLOOD SPECIMEN / Unknown Venipuncture / Unknown 04/21/2021 5:56 PM CDT 04/21/2021 6:05 PM CDT Victor M North MD LAB - COAGULATION OR DERABLES Performing Organization Address City/[facility]/ZIP Co de Phone Number [address] [address], [place] [phone] * TYPE + SCREEN PANEL (04/21/2021 5:56 PM CDT) [facility] Antibody Screen NEG 6:56 PM CDT [facility] ABO Rh O POS 04/21/2021 6:56 PM CDT [facility] Blood Bank BLOOD SPECIMEN / Unknown Venipuncture / Unknown 04/21/2021 5:56 PM CDT 04/21/2021 6:11 PM CDT Victor M North MD LAB - BLOOD BANK ORD ERABLES Performing Organization Address City/[facility]/ZIP Co de Phone Number [facility] [address] [place] [phone], [place] [phone] * (ABNORMAL) BASIC METABOLIC PANEL (CALCIUM TOTAL) (04/21/2021 5:56 PM CDT) [facility] BUN 11 7 - 26 mg/dL 04/21/2021 6:30 PM [facility] Creatinine 1.20(H) 0.71 - 1.16 mg/dL 04/21/2021 6:30 PM [facility] Sodium 139 136 - 145 mmol/L 04/21/2021 6:30 PM [facility] Potassium 3.9 3.5 - 4.5 mmol/L 04/21/2021 6:30 PM [facility] Chloride 101 98 - 107 mmol/L 04/21/2021 6:30 PM [facility] CO2 28 22 - 29 mmol/L 04/21/2021 6:30 PM [facility] Glucose 94 70 - 115 mg/dL 04/21/2021 6:30 PM [facility] Calcium 9.1 8.4 - 10.2 mg/dL 04/21/2021 6:30 PM [facility] Anion Gap 14 8 - 18 04/21/2021 6:30 PM [facility] BUN/Creatinine Ratio 9 7 - 23 04/21/2021 6:30 PM [facility] Osmolality Calculated 287 270 - 300 mOsm/kg 04/21/2021 6:30 PM [facility] eGFR by CKD-EPI 43(L) >=90 mL/min/1.7 3 m2 04/21/2021 6:30 PM [facility] Blood BLOOD SPECIMEN / Unknown Venipuncture / Unknown 04/21/2021 5:56 PM CDT 04/21/2021 6:02 PM T Victor M North MD LAB - CHEMISTRY RAJIV SOLIZ [facility] [address] [place] [address], [facility] [phone] * ALCOHOL ETHYL BLOOD (04/21/2021 5:56 PM CDT) Ethanol (mg/dL) <10 <10 mg/dL 6:30 PM [facility] Ethanol Calculated (g/dL) <0.010 <0.010 g/dL 04/21/2021 6:30 PM [facility] Blood BLOOD SPECIMEN / Unknown Venipuncture / Unknown 04/21/2021 5:56 PM CDT 04/21/2021 6:02 PM CDT Narrative [facility] - 04/21/2021 6:30 PM CDT Ethanol Interp <10: None Detected. Depression of INSURANCE ADVISER: >100 mg/dl Potentially Critical: >250 mg/dl Potentially Fatal >400 mg/dl Ethanol in the patient's blood will contribute to the osmolar gap. Ethanol's contribution to the osmolar gap can be estimated by dividing the concentration of ethanol in mg/dL by 4.6. This test is for clinical use only and does not equal a ANDREI for legal purposes. Victor M Norht MD LAB - CHEMISTRY RAJIV SOLIZ [facility] Organization Address City/State/ZIP Co de Phone Number [facility] [address] [place] [phone], [facility] [phone] * XR CHEST 1VW PORTABLE (04/21/2021 5:55 [...] dictated by Dirk Rainey MD (vice president diversity). I, Dr. KATLYN MACHADO have personally reviewed [...] dictated by Dirk Rainey MD (vice president diversity). I, Dr. KATLYN MACHADO have personally reviewed and interpreted this examination/study. This report was electronically signed by KATLYN MACHADO on 04/22/2021 2:39 PM . Victor M North MD DIAGNOSTIC IMAGING O RDERABLES * HIV-1 HIV-2 ANTIGEN/ANTIBODY (08/12/2020 8:15 PM CDT) HIV Antigen/Antibod y 1 & 2 Non-reacti ve Non-react jerri 08/12/2020 10:05 PM CDT [facility] Comment:Neither HIV-1 p24 An tigen nor HIV-1/HIV-2 Antibodies are detected. Blood BLOOD SPECIMEN / Unknown Venipuncture / Unknown 08/12/2020 8:15 PM CDT 08/12/2020 6:14 PM CDT Giulia Shaw MD LAB - HEMATOLOGY O RDERABLES [facility] [address] [place] [phone], [facility] [phone]
--- OUTSIDE RECORDS SUMMARY | 2025-01-10 12:50 | XMS_ITS | Referral Summary ---
Author Organization [facility] [employer] Address [address] [place] [address] Care Team Providers Care Directory Clerk Name Role Phone Unavailable Primary Care Provider Unavailabl e Source Comments [facility],non-owned Affiliates and Associated Physician Practices is amultiple site organization consisting of ambulatory clinics and hospital sitesin [place], [place], [place] and [place]. This disclosure is being madepursuant to the Care Everywhere program and may not contain all information available regarding this patient. Last updated 18.[facility] [employer] Allergies No known active allergies Medications * [...] Comments Blood Pressure 154/111 09/30/2023 3:55 PM POWDER PRESS OPERATOR Pulse 108 09/30/2023 3:55 PM POWDER PRESS OPERATOR Temperature 36.6 C (97.9 F) 09/30/2023 3:55 PM POWDER PRESS OPERATOR Respiratory Rate 19 09/30/2023 3:55 PM POWDER PRESS OPERATOR Oxygen Saturation 100% 09/30/2023 3:55 PM POWDER PRESS OPERATOR Inhaled Oxygen Concentration - - Weight 104.3 kg (230 lb) 09/30/2023 3:55 PM POWDER PRESS OPERATOR Height 198.1 cm (6' 6 ) 09/30/2023 3:55 PM POWDER PRESS OPERATOR Body Mass Index 26.58 09/30/2023 3:55 PM POWDER PRESS OPERATOR Plan of Treatment Not on file Procedures Procedure Name Priority Date/Time Associated Diagnosis Comments HIV-1 HIV-2 ANTIGEN/ANTIBODY STAT 08/12/2020 8:15 PM CDT from Last 3 Months or Most Recently Relevant to Health Maintenance Results * HIV-1 HIV-2 ANTIGEN/ANTIBODY (08/12/2020 8:15 PM CDT) HIV Antigen/Antibod y 1 & 2 Non-reacti ve Non-react jerri 08/12/2020 10:05 PM CDT [facility] Comment:Neither HIV-1 p24 An tigen nor HIV-1/HIV-2 Antibodies are detected. Blood BLOOD SPECIMEN / Unknown Venipuncture / Unknown 08/12/2020 8:15 PM CDT 08/12/2020 6:14 PM CDT Giulia Shaw MD LAB - HEMATOLOGY O RDERABLES [facility] [address] [place] [phone], [place] [phone] from Last 3 Months or Most Recently Relevant to Health Maintenance Advance Directives * Full Code (Latest Code Status on File) Date Activated Date Inactivated Comments 04/21/2021 8:18 PM 04/22/2021 12:59 AM
--- OUTSIDE RECORDS SUMMARY | 2025-01-10 12:50 | XMS_ITS | CONTINUITY OF CARE DOCUMENT ---
Author Name doreen logan Address Unknown Organization [facility] Address [address] [place] [address] [address] [place] [address] Phone [phone] Care Team Providers Care Roller Hand Name Role Phone Anitra Tellez MD Unavailable [phone] PRIMO FIELD MD Unavailable [phone] PRIMO FIELD MD Unavailable [phone] INSURANCE PROVIDERS Payer name Policy type / Coverage type Bessie red democrat ID [employer] MEDICAID (2) Medicaid [id number]
--- OUTSIDE RECORDS SUMMARY | 2025-01-10 12:50 | XMS_ITS | Clinical Summary ---
Author Organization [facility] Address [address] [place] [address] Care Team Providers Care Medical Care Evaluation Specialist Name Role Phone Miscellaneous, Not In File [...] Department Care Team Description 11/08/[address] [facility] Cardiology [address] [place] [address] Greg Newby MD 10/26/[address] 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 Gender Identity Not on file Sexual Orientation Not on file Obstetrics History Last Filed Vital Signs Vital Sign Reading Time Taken Comments Blood Pressure 162/109 03/02/2024 11:43 AM CDT Pulse 77 03/02/2024 11:43 AM CDT Temperature 36.4 C (97.5 F) 03/02/2024 11:43 AM CDT Respiratory Rate 18 11/07/2023 3:46 PM OCCUPATIONAL PSYCHOLOGIST Oxygen Saturation 94% 03/02/2024 11: 43 AM [...] this topic Medical Devices Implanted Type Area Sandblast Operator Device Identifier Shelf Expiration Date Model / Serial / Lot [employer]/C R Bard Mesh Surgical Mid Anatomical Synthetic Patch 3dmax 4x6in [id number] - [id number] Implanted:Qty: 1 on 11/07/2023 by Lexx Jesus MD at [facility] Right: Abdomen [employer] Bard 04/13/2028 [id number] / / [id number] [employer] Mesh Surgical Inguinal Hernia Synthetic Patch 3dmax 4x6in [id number] - [id number] Implanted:Qty: 1 on 11/07/2023 by Lexx Jesus MD at [facility] Left: Abdomen [employer]/C [employer] Bard 03/14/2028 [id number] / / [id number] Procedures Procedure Name Priority Date/Time Associated Diagnosis Comments CARDIOLOGY DOCUMENT SCAN Routine 024 11:22 AM OCCUPATIONAL PSYCHOLOGIST CARDIOLOGY DOCUMENT SCAN Routine 10/25/2024 5:23 PM OCCUPATIONAL PSYCHOLOGIST CARDIOLOGY DOCUMENT SCAN Routine 10/24/2024 5:21 PM OCCUPATIONAL PSYCHOLOGIST CARDIOLOGY DOCUMENT SCAN Routine 10/23/2024 5:17 PM OCCUPATIONAL PSYCHOLOGIST from Last 3 Months Results * Cardiology Document Scan (10/26/2024 11:22 AM OCCUPATIONAL PSYCHOLOGIST) Anatomical Region Laterality Modality Other us Ripa Dread Newby MD [facility] PRO CEDURES Final Result * Cardiology Document Scan (10/25/2024 5:23 PM OCCUPATIONAL PSYCHOLOGIST) Anatomical Region Laterality Modality Other us Brando Nazario MD [facility] CARDIAC SERVICES PROCEDURES F inal Result * Cardiology Document Scan (10/24/2024 5:21 PM OCCUPATIONAL PSYCHOLOGIST) Anatomical Region Laterality Modality Other us Delmar Wallace MD [facility] PROCEDU RES Final Result * Cardiology Document Scan (10/23/2024 5:17 PM OCCUPATIONAL PSYCHOLOGIST) Anatomical Region Laterality Modality Other Delmar Wallace MD [facility] PROCEDU RES Final Result from Last [address] [facility] Care Teams Medical Care Evaluation Specialist Relationship Specialty Start Date End Date Miscellaneous, Not In File PCP - General 08/16/23
--- OUTSIDE RECORDS SUMMARY | 2025-01-10 12:50 | XMS_ITS | Clinical Summary ---
Author Organization [facility] Address [address] [place] [address] Care Team Providers Care Carcass Splitter Name Role Phone Unavailable Primary Care Provider Unavailabl e Source Comments [facility],non-owned Affiliates and Associated Physician Practices is amultiple site organization consisting of ambulatory clinics and hospital sitesin [place], [place]. This disclosure is being madepursuant to the Care Everywhere program and may not contain all information available regarding this patient. 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 Pulse 108 09/30/2023 3:55 PM HAR[employer]ARD [employer]ORY WORKER Temperature 36.6 C (97.9 F) 09/30/2023 3:55 PM HAR[employer]OARD FA[employer]ORY WORKER Respiratory Rate 19 09/30/2023 3:55 PM HAR[employer]ARD FA[employer]ORY WORKER Oxygen Saturation 100% 09/30/2023 3:55 PM HARDBOARD FACTORY WORKER Inhaled Oxygen Concentration - - Weight 104.3 kg (230 lb) 09/30/2023 3:55 PM HAR[employer]OARD FACTORY WORKER Height 198.1 cm (6' 6 ) 09/30/2023 3:55 PM HAR[employer]OARD FA[employer]ORY WORKER Body Mass Index 26.58 09/30/2023 3:55 PM HAR[employer]OARD FA[employer]ORY WORKER Plan of Treatment Health Maintenance Due Date [...] ve Non-react jerri 08/12/2020 10:05 PM CDT [facility] Comment:Neither HIV-1 p24 An tigen nor HIV-1/HIV-2 Antibodies are detected. Blood BLOOD SPECIMEN / Unknown Venipuncture / Unknown 08/12/2020 8:15 PM CDT 08/12/2020 6:14 PM CDT Giulia Shaw MD LAB - HEMATOLOGY O RDERABLES [facility] [address] [place] [address], [facility] [phone] from Last 3 Months or Most Recently Relevant to Health Maintenance Advance Directives * Full Code (Latest Code Status on File) Date Activated Date Inactivated Comments 04/21/2021 8:18 PM 04/22/2021 12:59 AM
--- OUTSIDE RECORDS SUMMARY | 2025-01-10 12:50 | XMS_ITS | Referral Summary ---
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 Role Phone Miscellaneous, Not In File Primary Care Provider Unavailable Encounters Date Type Department Care Team Description 11/08/2024 Orders Only [facility] Medical [facility] Cardiology [address] [place] [phone] Greg Newby MD 10/26/2024 Orders Only [facility] Medical [facility] Cardiology [address] [place] [phone] Delmar Wallace MD from Last 3 Months [...] on file Legal 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 Gender Identity Not on file Sexual Orientation Not on file Last Filed Vital Signs Vital Sign Reading Time Taken Comments Blood Pressure 162/109 03/02/2024 11:43 AM CDT Pulse 77 03/02/2024 11:43 AM CDT Temperature 36.4 C (97.5 F) 03/02/2024 11:43 AM CDT Respiratory Rate 18 11/07/2023 3:46 PM FIRE CAPTAIN MARINE Oxygen Saturation 94% 03/02/2024 11: 43 AM CDT Inhaled Oxygen Concentration - - Weight 121.9 kg (268 lb 11.2 oz) 2023 11:43 AM CDT Height 198.1 cm (6' 6 ) 03/02/2024 11:4 3 AM CDT Body Mass Index 31.05 03/02/2024 11:43 AM CDT Plan of Treatment Not on file Medical Devices Implanted Type Area Automation Driver Device Identifier Shelf Expiration Date Model / Serial / Lot [employer]/C R Bard Mesh Surgical Mid Anatomical Synthetic Patch 3dmax 4x6in [id number] - [id number] Implanted:Qty: 1 on 11/07/2023 by Lexx Jesus MD at [facility] Right: Abdomen [employer]/C R Bard 04/13/2028 [id number] / / [id number] [employer] Bard Mesh Surgical Inguinal Hernia Synthetic Patch 3dmax 4x6in [id number] - [id number] Implanted:Qty: 1 on 11/07/2023 by Lexx Jesus MD at [facility] Left: Abdomen [employer]/C R Bard 03/14/2028 [id number] / / [id number] Procedures Procedure Name Priority Date/Time Associated Diagnosis Comments CARDIOLOGY DOCUMENT SCAN Routine 11:22 AM FIRE CAPTAIN MARINE CARDIOLOGY DOCUMENT SCAN Routine 10/25/2024 5:23 PM FI[employer] CAPTAIN MARINE CARDIOLOGY DOCUMENT SCAN Routine 10/24/2024 5:21 PM FIRE CAPTAIN MARINE CARDIOLOGY DOCUMENT SCAN Routine 10/23/2024 5:17 PM FIRE CAPTAIN MARINE from Last 3 Months Results * Cardiology Document Scan (10/26/2024 11:22 AM FIRE CAPTAIN MARINE) Anatomical Region Laterality Modality Other us Greg Newby MD [facility] PRO CEDURES Final Result * Cardiology Document Scan (10/25/2024 5:23 PM FIRE CAPTAIN MARINE) Anatomical Region Laterality Modality Other us Brando Nazario MD [facility] PROCEDURES F inal Result * Cardiology Document Scan (10/24/2024 5:21 PM FIRE CAPTAIN MARINE) Anatomical Region Laterality Modality Other us Delmar Wallace MD [facility] PROCEDU RES Final Result * Cardiology Document Scan (10/23/2024 5:17 PM FIRE CAPTAIN MARINE) Anatomical Region Laterality Modality Other us Delmar Wallace MD [facility] C[facility] PROCEDU RES Final Result from Last 3 Months Insurance [facility] Care Teams Paint Formulator Relationship Specialty Start Date End Date Miscellaneous, Not In File PCP - General 08/16/23
--- NOTE | 2025-01-10 14:22 | ECG_ITS ---
Test Date: 2025-01-10 14:39:21 Measurements Intervals [place] Rate: 78 P: 59 IN: 200 QRS: -40 QRSD: 93 T: -9 QT: 397 QTc: 453 Interpretive Statements SINUS RHYTHM LEFT AXIS DEVIATION POSSIBLE LEFT ATRIAL ENLARGEMENT INCOMPLETE RIGHT BUNDLE BRANCH BLOCK BORDERLINE ST-T WAVE ABNORMALITY- INFERIOR LEADS BORDERLINE ECG Compared to ECG 01/05/2025 14:30:41 NO SIGNIFICANT CHANGE Electronically Signed On 01-10-2025 14:46:02 TRANSITION LEAD by Doc Claudio D.O.
--- NOTE | 2025-01-10 14:24 | ED_ITS ---
HPI - Nausea/Vomiting/Diarrhea General Chief complaint: Nausea/Vomiting/Diarrhea <Sara Benson PA-C - Last Filed: 01/10/25 14:27> Stated complaint: nausea chronic <Sara Benson PA-C - Last Filed: 01/10/25 14:27> Time Seen by Provider: 01/10/25 15:22 <Sara Benson PA-C - Last Filed: 01/10/25 14:27> Focused HPI: 34 yo M presents to the ED for n/v/d for 1 day. patient states he has been dealing with similar symptoms for several years but today his symptoms worsened. He states it feels like he gets a bubble in his epigastrium, then belches and has a bad taste in his mouth. States he has been seen several times at multiple ERs for the same presentation but has not had a formal diagnoses. He has been taking Zofran and dicyclomine with minimal improvement. Patient endorses prior history of hernia repair. He was last seen 01/05/2025 at our hospital for the same symptoms. Patient admits to using marijuana approximately twice day for several years. GENERAL: Well-appearing, well-nourished, and in no acute distress. HEAD: Normocephalic, atraumatic. CHEST: Clear to auscultation. ?No respiratory distress. ABD: Mild tenderness to the epigastrium. No rebound or rigidity HEART: Regular rate and rhythm.? NEURO: ?Alert and oriented x3. Patient screened in triage and initial orders placed.? ?Additional care and disposition to be based upon?diagnostic testing and treatment. <Sara Benson PA-C - Last Filed: 01/10/25 14:27> History of Present Illness HPI Narrative: I agree with the above patient <Sal Carlisle MD - Last Filed: 01/10/25 18:26> Related Data Allergies/Adverse reactions: Allergies Allergy/AdvReac Type Severity Reaction Status Date / Time No Known Allergies Allergy Unknown Verified 10/22/24 13:10 <Sara Benson PA-C - Last Filed: 01/10/25 14:27> Review of Systems 2 Review of Systems: All systems reviewed & are unremarkable except as noted in HPI and below <Sal Carlisle MD - Last Filed: 01/10/25 18:26> [facility] Past Medical History Medical History: Medical History No active medical problems <Sara Benson PA-C - Last Filed: 01/10/25 14:27> Surgical History Surgical History: Surgical History History of orthopedic surgery <Sara Benson PA-C - Last Filed: 01/10/25 14:27> Family History Family History: Family History Father Acute myocardial infarction <Sara Benson PA-C - Last Filed: 01/10/25 14:27> Social History Social History: Social History Smoking status: Current some day smoker Tobacco type: e-cigarettes/vaping Additional smoking assessment comments: Smokes cigarette(s) monthly. Vapes. Alcohol intake: never Substance use: current Substance use type: marijuana and methamphetamine Last use: Last use methamphetamine 10/19/24 Do You Feel Safe in your Home?: Yes Lack of Transportation: YES Lack of Food: Sometimes True Current Housing: I Have Housing Concerned About Future Housing: YES Difficulty Paying Gas/Electric Bills: No Difficulty Paying for Meds: No Currently Unemployed: YES Education: Decline to Answer Difficulty w/ Childcare or Family Care: No Gender identity (if verbalized by the patient): Male Spiritual care concerns: No <Sara Benson PA-C - Last Filed: 01/10/25 14:27> Exam 2 Narrative: APPEARANCE: Well appearing, no pain, no distress, well-nourished. HEAD: normocephalic, atraumatic. EYES: PERRLA/EOMI, conjunctivae clear. NOSE: Normal no drainage EARS:TMS clear with good light reflex. THROAT: Pharynx clear, no exudate. NECK: Supple. No adenopathy, no masses. RESPIRATORY: Airway patent, respirations nonlabored. Clear to auscultation bilaterally, no rales, rhonchi, wheezing. CARDIOVASCULAR: Regular rate and rhythm without murmurs rubs or gallops. ABDOMINAL: Soft, nontender, nondistended, normal bowel sounds MUSCULOSKELETAL: Moves all extremities. Strength/ROM intact, No edema, No calf tenderness. NEURO: Alert. Cranial nerves II through XII intact. Good gait. Good coordination SKIN: Warm, dry. Normal Color PSYCHIATRIC: Normal affect/mood. <Sal Carlisle MD - Last Filed: 01/10/25 18:26> Course Vital Signs Vital signs: Vital Signs Temperature 97.7 F 01/10/25 11:40 Pulse Rate 87 01/10/25 11:40 Respiratory Rate 18 01/10/25 11:40 Blood Pressure 153/112 H 01/10/25 11:40 Pulse Oximetry 99 01/10/25 11:40 Temperature 97.7 F 01/10/25 11:40 Pulse Rate 87 01/10/25 11:40 Respiratory Rate 18 01/10/25 11:40 Blood Pressure 153/112 H 01/10/25 11:40 Pulse Oximetry 99 01/10/25 11:40 <Sara Benson PA-C - Last Filed: 01/10/25 14:27> Vital Signs Temperature 97.7 F 01/10/25 11:40 Pulse Rate 87 01/10/25 11:40 Respiratory Rate 18 01/10/25 11:40 Blood Pressure 153/112 H 01/10/25 11:40 Pulse Oximetry 99 01/10/25 11:40 Temperature 97.7 F 01/10/25 11:40 Pulse Rate 87 01/10/25 11:40 Respiratory Rate 18 01/10/25 11:40 Blood Pressure 153/112 H 01/10/25 11:40 Pulse Oximetry 99 01/10/25 11:40 <Sal Carlisle MD - Last Filed: 01/10/25 18:26> MDM - Nausea/Vomiting/Diarrhea MDM Narrative Medical decision making narrative: 34-year-old male presents emergency department for evaluation for recurrent nausea and vomiting. Patient is currently afebrile but does have a leukocytosis of 11.6. Hemoglobin of 15.6. Patient has no acute abnormalities on his CMP does have a lipase of 327. Patient is negative influenza RSV and for COVID. Patient denies any current abdominal pain but is complaining nausea and epigastric fullness. Patient states he has had this issue multiple times and no one has ever offered for him to follow-up with GI. Patient does smoke THC and patient was educated on cannabis hyperemesis syndrome. Patient did feel improved with Haldol. <Sal Carlisle MD - Last Filed: 01/10/25 18:26> Differential Diagnosis Differential diagnosis: Likely traveler's diarrhea, gastroenteritis and drug-induced nausea and vomiting <Sal Carlisle MD - Last Filed: 01/10/25 18:26> Lab Data Attestation: I reviewed the patient's lab results. <Sal Carlisle MD - Last Filed: 01/10/25 18:26> Result diagrams: 01/10/25 14:42 01/10/25 14:41 <Sara Benson PA-C - Last Filed: 01/10/25 14:27> Labs: Lab Results 01/10/25 01/10/25 01/10/25 Range/Units 14:41 14:42 17:08 WBC 11.6 H (4.5-10.0) K/mm3 RBC 5.07 (4.6-6.20) M/mm3 Hgb 15.6 (14.0-18.0) g/dL Hct 45.8 (42.0-52.0) % MCV 90.3 (80-100) fl MCH 30.8 (26-34) pg MCHC 34.1 (32-36) g/dl RDW 13.2 (11.5-14.5) % Plt Count 271 (150-375) k/mm3 MPV 9.4 (7.4-10.4) fl Immature Gran % (Auto) 0.9 H (0-0.5) % Neut % (Auto) 71.3 (45.5-73.1) % Lymph % (Auto) 12.9 L (18.3-44.2) % [place] % (Auto) 11.7 H (2.6-8.5) % Eos % (Auto) 2.7 (0-4.4) % Baso % (Auto) 0.5 (0.2-1.2) % Lymph # (Auto) 1.49 (0.9-3.2) K/mm3 [place] # (Auto) 1.4 H (0.1-0.6) K/mm3 Eos # (Auto) 0.3 (0-0.3) K/mm3 Baso # (Auto) 0.1 (0.0-0.1) K/mm3 Abs Immat Gran (auto) 0.10 H (0.00-0.031) K/mm3 Absolute Neuts (auto) 8.3 H (1.3-6.7) K/mm3 Absolute Nucleated RBC 0.000 (0.0-0.012) K/mm3 Nucleated RBC % 0.0 (0.0-0.2) % Sodium 136 L (137-145) mmol/L Potassium 4.6 (3.4-5.0) mmol/L Chloride 101 (98-107) mmol/L Carbon Dioxide 25 (22-30) mmol/L Anion Gap 10 (4-12) mmol/L BUN 15 (9-20) mg/dL Creatinine 0.97 (0.7-1.3) mg/dL Estim Creat Clear Calc Not Reportable Estimated GFR > 60 (59 - ) Glucose 101 (65-110) mg/dL Calcium 9.3 (8.4-10.2) mg/dL Total Bilirubin 1.0 (0.2-1.3) mg/dL AST 45 (17-59) U/L ALT 48 (6-50) U/L Alkaline Phosphatase 52 (38-126) U/L Troponin I 0.019 (0.000-0.034) ng/mL Total Protein 8.0 (6.3-8.2) g/dL Albumin 4.3 (3.5-5.1) g/dL Lipase 327 H (23-300) U/L Urine Color Yellow (Yellow) Urine Appearance Clear (Clear) Urine pH 5.0 (5.0-9.0) Ur Specific [place] 1.017 (1.001-1.035) Urine Protein Negative (Negative) mg/dL Urine Glucose (UA) Negative (Negative) mg/dL Urine Ketones Negative (Negative) mg/dL Ur Blood (Man) Negative (Negative) Urine Nitrate Negative (Negative) Urine Bilirubin Negative (Negative) Urine Urobilinogen 0.2 (<2.0) mg/dL Leukocyte Esterase Rfl Negative (Negative) PATRICIA/UL Influenza A (RT-PCR) Negative (Negative) Influenza B (RT-PCR) Negative (Negative) RSV (RT-PCR) Negative (Negative) SARS-CoV-2 RNA (RT-PCR) Negative (Negative) <Sara Benson PA-C - Last Filed: 01/10/25 14:27> Lab Results 01/10/25 01/10/25 01/10/25 Range/Units 14:41 14:42 17:08 WBC 11.6 H (4.5-10.0) K/mm3 RBC 5.07 (4.6-6.20) M/mm3 Hgb 15.6 (14.0-18.0) g/dL Hct 45.8 (42.0-52.0) % MCV 90.3 (80-100) fl MCH 30.8 (26-34) pg MCHC 34.1 (32-36) g/dl RDW 13.2 (11.5-14.5) % Plt Count 271 (150-375) k/mm3 MPV 9.4 (7.4-10.4) fl Immature Gran % (Auto) 0.9 H (0-0.5) % Neut % (Auto) 71.3 (45.5-73.1) % Lymph % (Auto) 12.9 L (18.3-44.2) % [place] % (Auto) 11.7 H (2.6-8.5) % Eos % (Auto) 2.7 (0-4.4) % Baso % (Auto) 0.5 (0.2-1.2) % Lymph # (Auto) 1.49 (0.9-3.2) K/mm3 [place] # (Auto) 1.4 H (0.1-0.6) K/mm3 Eos # (Auto) 0.3 (0-0.3) K/mm3 Baso # (Auto) 0.1 (0.0-0.1) K/mm3 Abs Immat Gran (auto) 0.10 H (0.00-0.031) K/mm3 Absolute Neuts (auto) 8.3 H (1.3-6.7) K/mm3 Absolute Nucleated RBC 0.000 (0.0-0.012) K/mm3 Nucleated RBC % 0.0 (0.0-0.2) % Sodium 136 L (137-145) mmol/L Potassium 4.6 (3.4-5.0) mmol/L Chloride 101 (98-107) mmol/L Carbon Dioxide 25 (22-30) mmol/L Anion Gap 10 (4-12) mmol/L BUN 15 (9-20) mg/dL Creatinine 0.97 (0.7-1.3) mg/dL Estim Creat Clear Calc Not Reportable Estimated GFR > 60 (59 - ) Glucose 101 (65-110) mg/dL Calcium 9.3 (8.4-10.2) mg/dL Total Bilirubin 1.0 (0.2-1.3) mg/dL AST 45 (17-59) U/L ALT 48 (6-50) U/L Alkaline Phosphatase 52 (38-126) U/L Troponin I 0.019 (0.000-0.034) ng/mL Total Protein 8.0 (6.3-8.2) g/dL Albumin 4.3 (3.5-5.1) g/dL Lipase 327 H (23-300) U/L Urine Color Yellow (Yellow) Urine Appearance Clear (Clear) Urine pH 5.0 (5.0-9.0) Ur Specific [place] 1.017 (1.001-1.035) Urine Protein Negative (Negative) mg/dL Urine Glucose (UA) Negative (Negative) mg/dL Urine Ketones Negative (Negative) mg/dL Ur Blood (Man) Negative (Negative) Urine Nitrate Negative (Negative) Urine Bilirubin Negative (Negative) Urine Urobilinogen 0.2 (<2.0) mg/dL Leukocyte Esterase Rfl Negative (Negative) PATRICIA/UL Influenza A (RT-PCR) Negative (Negative) Influenza B (RT-PCR) Negative (Negative) RSV (RT-PCR) Negative (Negative) SARS-CoV-2 RNA (RT-PCR) Negative (Negative) <Sal Carlisle MD - Last Filed: 01/10/25 18:26> Discharge Plan Discharge Clinical Impression: Nausea and vomiting, Cannabinoid hyperemesis syndrome <Sara Benson PA-C - Last Filed: 01/10/25 14:27> Patient Disposition: Home, Self-Care <ESTER Aguillon Last Filed: 01/10/25 14:27> Condition: Stable <ESTER Aguillon Filed: 01/10/25 14:27> Instructions: Antibiotic Form, Acute Nausea and Vomiting (ED) <Sara Benson PA-C - Last Filed: 01/10/25 14:27> Additional Instructions: Educate yourself on cannabinoid hyperemesis syndrome. Avoid THC. Have close follow-up with GI. If you have any worsening symptoms please call or return to the emergency department. <Sara Benson PA-C - Last Filed: 01/10/25 14:27> Patient Language: Trinidadian <Sara Benson PA-C - Last Filed: 01/10/25 14:27> Prescriptions: New metoclopramide HCl [Reglan] 10 mg tablet 10 mg PO Q6H PRN (Reason: nausea and vomiting) Qty: 14 0RF No Action metoprolol succinate [Toprol XL] 100 mg Tablet Extended Release 24 Hr 100 mg PO QAM Qty: 30 1RF hydralazine 25 mg Tablet 25 mg PO Q8HR Qty: 90 1RF spironolactone 25 mg Tablet 25 mg PO QAM Qty: 30 1RF isosorbide dinitrate 20 mg Tablet 20 mg PO Q8H Qty: 30 1RF Jardiance 10 mg Tablet 10 mg PO DAILY Qty: 30 1RF Entresto 49-51 mg Tablet 1 tablet PO Q12HR Qty: 30 1RF ondansetron 4 mg tablet,disintegrating 4 mg PO Q4H 0 Days Qty: 10 0RF Rx Instructions: 1st dose 1-2 hr before radiation dicyclomine 20 mg tablet 20 mg PO QID PRN (Reason: abdominal pain) Qty: 20 0RF <Sara Benson PA-C - Last Filed: 01/10/25 14:27> Follow-up/Referrals: Federico Blandon MD [Physician] - UNKNOWN,DOCTOR [Primary Care Provider] - <Sara Benson PA-C - Last Filed: 01/10/25 14:27>
[2025-01-10 14:48] LABS: Basophils Absolute Auto 0.1 K/mm3 (0.0-0.1); Basophils Percent Auto 0.5 % (0.2-1.2); Eosinophils Absolute Auto 0.3 K/mm3 (0-0.3); Eosinophils Percent Auto 2.7 % (0-4.4); Hematocrit 45.8 % (42.0-52.0); Hemoglobin 15.6 g/dL (14.0-18.0); Immature Granulocyte Percent A 0.9 % (0-0.5); Lymphocytes Absolute Auto 1.49 K/mm3 (0.9-3.2); Lymphocytes Percent Auto 12.9 % (18.3-44.2); Mean Corpuscular HGB Conc 34.1 g/dl (32-36); Mean Corpuscular Hemoglobin 30.8 pg (26-34); Mean Corpuscular Volume 90.3 fl (80-100); Mean Platelet Volume 9.4 fl (7.4-10.4); Monocytes Absolute Auto 1.4 K/mm3 (0.1-0.6); Monocytes Percent Auto 11.7 % (2.6-8.5); Neutrophils Absolute Auto 8.3 K/mm3 (1.3-6.7); Neutrophils Percent Auto 71.3 % (45.5-73.1); Platelet Count Result 271 k/mm3 (150-375); Red Blood Count 5.07 M/mm3 (4.6-6.20); Red Cell Distribution Width 13.2 % (11.5-14.5); White Blood Count 11.6 K/mm3 (4.5-10.0)
[2025-01-10 15:09] LABS: Alanine Aminotransferase 48 U/L (6-50); Albumin Level 4.3 g/dL (3.5-5.1); Alkaline Phosphatase 52 U/L (38-126); Anion Gap 10 mmol/L (4-12); Aspartate Amino Transferase 45 U/L (17-59); Blood Urea Nitrogen 15 mg/dL (9-20); Carbon Dioxide 25 mmol/L (22-30); Chloride 101 mmol/L (98-107); Estimated Glomerular Filt Rate > 60; Glucose 101 mg/dL (65-110); Lipase 327 U/L (23-300); Sodium 136 mmol/L (137-145)
[2025-01-10 15:19] LABS: Troponin I 0.019 ng/mL (0.000-0.034)
[2025-01-10 15:23] LABS: Calcium 9.3 mg/dL (8.4-10.2); Potassium 4.6 mmol/L (3.4-5.0)
[2025-01-10 15:24] LABS: Influenza A QL RT-PCR Negative (Negative); Influenza B QL RT-PCR Negative (Negative); RSV RNA, RT-PCR Negative (Negative); SARS-CoV-2 RNA PCR Negative (Negative)
[2025-01-10] MEDS: LACTATED RINGERS 1,000 ML 999 ML IV CONT (16:09)
[2025-01-10] MEDS: ONDANSETRON INJ 4 MG/2 ML VIAL IV PUSH (16:10)
[2025-01-10] MEDS: HALOPERIDOL LACTATE 5 MG/ML VIAL IM (16:17)
[2025-01-10 17:15] LABS: Add Urine Microscopic? NO; Appearance Urine Clear (Clear); Bilirubin Urine Negative (Negative); Blood Urine Negative (Negative); Color Urine Yellow (Yellow); Glucose Urine UA Negative (Negative); Ketones Urine Negative (Negative); Leukocyte Esterase Ur Negative LEU/UL (Negative); Nitrate Urine Negative (Negative); Protein Urine Negative (Negative); Specific Grav Ur 1.017 (1.001-1.035); Urobilinogen Urine 0.2 mg/dL (<2.0)
--- OUTSIDE RECORDS SUMMARY | 2025-01-10 18:18 | XMS_ITS | Patient Health Summary ---
Author Organization [facility] [employer] Address [address] [place] [address] Care Team Providers Care Orthodontic Assistant Name Role Phone Unavailable Primary Care Provider Unavailabl e Note from [facility],non-owned Affiliates and Associated Physician Practices is amultiple site organization consisting of ambulatory clinics and hospital sitesin [place], [place], [place] and [place]. This disclosure is being madepursuant to the Care Everywhere program and may not contain all information available regarding this patient. Last updated 18.[facility] Allergies No known active allergies Medications * [...] Comments Blood Pressure 154/111 09/30/2023 3:55 PM LOAN MANAGER Pulse 108 09/30/2023 3:55 PM LOAN MANAGER Temperature 36.6 C (97.9 F) 09/30/2023 3:55 PM LOAN MANAGER Respiratory Rate 19 09/30/2023 3:55 PM LOAN MANAGER Oxygen Saturation 100% 09/30/2023 3:55 PM LOAN MANAGER Inhaled Oxygen Concentration - - Weight 104.3 kg (230 lb) 09/30/2023 3:55 PM LOAN MANAGER Height 198.1 cm (6' 6 ) 09/30/2023 3:55 PM LOAN MANAGER Body Mass Index 26.58 09/30/2023 3:55 PM LOAN MANAGER Procedures * URINALYSIS W/MICROSCOPIC NO CULTURE(Performed 09/30/2023) [...] URINALYSIS W/MICROSCOPIC NO CULTURE (09/30/2023 7:04 PM LOAN MANAGER) Color UA Yellow Straw, Yellow 09/30/2023 7:[address] [facility] Clarity UA Clear Clear 09/30/2023 7:[address] [facility] Specific Jameson UA 1.020 1.005 - 1.030 09/30/2023 7:[address] [facility] pH UA 6.0 5.0 - 8.0 pH 09/30/2023 7:[address] [facility] Protein UA 1+(A) Negative 09/30/2023 7:[address] [facility] Glucose UA Negative Negative 09/30/2023 7:[address] [facility] Ketone UA Negative Negative 09/30/2023 7:[address] [facility] Bilirubin UA Negative Negative 09/30/2023 7:[address] [facility] Blood UA Negative Negative 09/30/2023 7:[address] [facility] Nitrite UA Negative Negative 09/30/2023 7:[address] [facility] Leukocyte Esterase Negative Negative 09/30/2023 7:[address] [facility] Urobilinogen UA Negative Negative mg/dL 09/30/2023 7:[address] [facility] RBC UA 0-2 None Seen, 0-2, 3-5 /HPF 09/30/2023 7:[address] [facility] WBC UA 0-5 None Seen, 0-5 /HPF 09/30/2023 7:[address] [facility] Squamous Epithelial Cells UA 0-2 None Seen, 0-2, 3-5 /HPF 09/30/2023 7:[address] [facility] Mucus UA 1+ /LPF 09/30/2023 7:[address] [facility] Urine URINE SPECIMEN OBTAINED BY CLEAN CATCH PROCEDURE / Unknown Collection / Unknown 09/30/2023 7:04 PM LOAN MANAGER 09/30/2023 7:07 PM [facility] - 09/30/2023 7:20 PM LOAN MANAGER Maribel Koenig PA-C LAB - URINALYSIS O RDERABLES Performing Organization Address [facility]/State/ZIP Co de Phone Number [facility] [address] [place] [address], [facility] [phone] * (ABNORMAL) DIFFERENTIAL MANUAL (09/30/2023 5:38 PM LOAN MANAGER) WBC (corrected for NRBC) 4.4 10 3/uL 09/30/2023 7:[address] [facility] Total Cell Count 100 09/30/2023 7:[address] [facility] Neutrophils Absolute Manual 1.76 1.60 - 7.00 10 3/uL 09/30/2023 7:[address] [facility] Comment:(BANDS+SEGS) x WBC = NEUT # (ANC) Lymphocyte Absolute Manual 1.63 1.10 - 3.90 10 3/uL 09/30/2023 7:[address] [facility] Monocytes Absolute Manual 0.44 0.26 - 1.07 10 3/uL 09/30/2023 7:[address] [facility] Eosinophils Absolute Manual 0.22 0.00 - 0.47 10 3/uL 09/30/2023 7:[address] [facility] Basophil Absolute Manual 0.04 0.00 - 0.08 10 3/uL 09/30/2023 7:[address] [facility] Neutrophil % Manual 40 35 - 70 % 09/30/2023 7:[address] [facility] Lymphocyte % Manual 37 20 - 43 % 09/30/2023 7:[address] [facility] Monocytes % Manual 10 5 - 13 % 09/30/2023 7:[address] [facility] Eosinophils % Manual 5 0 - 6 % 09/30/2023 7:[address] [facility] Basophils % Manual 1 0 - 2 % 09/30/2023 7:[address] [facility] Atypical Lymphocyte % Manual 7(H) 0 % 09/30/2023 7:[address] [facility] Platelet Estimate Adequate Adequate 09/30/2023 7:[address] [facility] RBC Morphology Normal 09/30/2023 7:[address] [facility] Blood BLOOD SPECIMEN / Unknown Venipuncture / Unknown 09/30/2023 5:38 PM LOAN MANAGER 09/30/2023 5:49 PM LOAN MANAGER Maribel Koenig PA-C LAB - HEMATOLOGY O RDERABLES [facility] [address] [place] [address], [facility] [phone] * (ABNORMAL) CBC W AUTO DIFFERENTIAL (09/30/2023 5:38 PM LOAN MANAGER) Only the most recent of4 resultswithin the time period is included. WBC 4.4 3.5 - 10.5 10 3/uL 09/30/2023 5:[address] [facility] RBC 5.11 4.30 - 5.70 10 6/uL 09/30/2023 5:[address] [facility] Hemoglobin 15.7 12.0 - 17.6 g/dL 09/30/2023 5:[address] [facility] Hematocrit 45.6 35.2 - 51.7 % 09/30/2023 5:[address] [facility] MCV 89.2 80.7 - 98.3 fL 09/30/2023 5:[address] [facility] MCH 30.7 26.7 - 34.0 pg 09/30/2023 5:[address] [facility] MCHC 34.4 30.8 - 35.9 g/dL 09/30/2023 5:[address] [facility] RDW-SD 41.2 36.0 - 50.0 fL 09/30/2023 5:[address] [facility] RDW-CV 12.5 11.2 - 14.8 % 09/30/2023 5:[address] [facility] Platelet Count 215 150 - 400 10 3/uL 09/30/2023 5:[address] [facility] MPV 9.1(L) 9.4 - 12.9 fL 09/30/2023 5:[address] [facility] nRBC Absolute 0.00 0 10 3/uL 09/30/2023 5:[address] [facility] nRBC Auto 0.0 0 /100 WBC 09/30/2023 5:[address] [facility] Blood BLOOD SPECIMEN / Unknown Venipuncture / Unknown 09/30/2023 5:38 PM LOAN MANAGER 09/30/2023 5:49 PM LOAN MANAGER Maribel Koenig PA-C LAB - HEMATOLOGY O RDERABLES [facility] [address] [place] [address], [facility] [phone] * (ABNORMAL) COMPREHENSIVE METABOLIC PANEL (09/30/2023 5:38 PM LOAN MANAGER) Only the most recent of3 resultswithin the time period is included. BUN 9 7 - 26 mg/dL 09/30/2023 6:[address] [facility] Creatinine 1.13 0.71 - 1.16 mg/dL 09/30/2023 6:[address] [facility] Sodium 139 136 - 145 mmol/L 09/30/2023 6:[address] [facility] Potassium 3.8 3.5 - 4.5 mmol/L 09/30/2023 6:[address] [facility] Chloride 103 98 - 107 mmol/L 09/30/2023 6:[address] [facility] CO2 29 22 - 29 mmol/L 09/30/2023 6:[address] [facility] Glucose 73 70 - 115 mg/dL 09/30/2023 6:[address] [facility] Calcium 9.7 8.4 - 10.2 mg/dL 09/30/2023 6:[address] [facility] Protein Total 7.8 6.0 - 8.3 g/dL 09/30/2023 6:[address] [facility] Albumin 4.0 3.4 - 5.0 g/dL 09/30/2023 6:[address] [facility] Bilirubin Total 0.6 0.2 - 1.2 mg/dL 09/30/2023 6:[address] [facility] Alkaline Phosphatase 67 40 - 150 U/L 09/30/2023 6:[address] [facility] ALT 49 5 - 55 U/L 09/30/2023 6:[address] [facility] AST 27 5 - 34 U/L 09/30/2023 6:[address] [facility] Anion Gap 7 6 - 16 09/30/2023 6:[address] [facility] BUN/Creatinine Ratio 8 7 - 23 09/30/2023 6:[address] [facility] Osmolality Calculated 285 275 - 295 mOsm/kg 09/30/2023 6:[address] [facility] Albumin/Globulin Ratio 1.1 1.1 - 2.3 09/30/2023 6:[address] [facility] eGFR by CKD-EPI 87(L) >=90 mL/min/1.7 3 m2 09/30/2023 6:[address] [facility] Blood BLOOD SPECIMEN / Unknown Venipuncture / Unknown 09/30/2023 5:38 PM LOAN MANAGER 09/30/2023 5:49 PM LOAN MANAGER Maribel EVANS-C LAB - CHEMISTRY OR DERABLES Performing Organization Address City/[facility]/ZIP Co de Phone Number [address] [address], [facility] [phone] * LACTIC ACID BLOOD (09/30/2023 5:38 PM LOAN MANAGER) Lactic Acid-Stat 1.5 <=2.0 mmol/L 09/30/2023 6:[address] [facility] Blood BLOOD SPECIMEN / Unknown Venipuncture / Unknown 09/30/2023 5:38 PM LOAN MANAGER 09/30/2023 5:49 PM LOAN MANAGER Maribel EVANS-C LAB - CHEMISTRY OR DERABLES Performing Organization Address City/[facility]/ZIP Co de Phone Number [address] [address], [place] [phone] * XR ABDOMEN KUB (09/30/2023 5:01 PM LOAN MANAGER) Anatomical Region Laterality Modality Abdomen Radiographic Griselda ging 09/30/2023 5:08 PM LOAN MANAGER Impressions 10/01/2023 2:00 PM LOAN MANAGER Impression: 1. Nonobstructive bowel gas pattern. This study was dictated by marketing services vice president Derick Blackmon MD and reviewed and edited by the attending. Shasta Ellis MD have personally reviewed and interpreted this examination/study. > Interpreting Provider: Shasta Brand MD on 10/01/2023 2:00 PM Narrative 10/01/2023 2:00 PM LOAN MANAGER PROCEDURE: XR ABDOMEN KUB, DATE/TIME OF EXAM: 09/30/2023 5:01 PM, LOCATION [facility] INDICATION: R10.84: Abdominal pain, generalized Ordering [...] DATE/TIME OF EXAM: 09/30/2023 5:01 PM, LOCATION [facility] INDICATION: R10.84: Abdominal pain, generalized Ordering [...] gas pattern. This study was dictated by marketing services vice president Derick Blackmon MD and reviewed [...] swelling. Report dictated by Dirk Rainey MD (marketing services vice president). Dr. KATLYN Ellis have personally [...] swelling. Report dictated by Dirk Rainey MD (marketing services vice president). Dr. KATLYN Ellis have personally reviewed and interpreted this examination/study. This report was electronically signed by KATLYN MACHADO on 04/22/2021 2:40 PM . Victor M North MD DIAGNOSTIC IMAGING O RDERABLES * 4 Units (04/21/2021 7:55 PM CDT) Unit Description LR Whole BLood [facility] Unit ABO O [facility] Unit Rh POS [facility] Product Number E0033 [facility] Unit Donor # [id number] [facility] Unit Status released [facility] BLOO D [facility] LAB Product Code [id number] [facility] Blood Type Barcode 5100 [facility] Expiration Date [facility] Unit Description LR Whole BLood [facility] Unit ABO O [facility] Unit POS [facility] Product [facility] E0033 [facility] Unit Donor # [id number] [facility] Unit Status released [facility] Product Code [id number] [facility] Blood Type Barcode 5100 [facility] Expiration Date [facility] Unit Description LR Whole BLood [facility] Unit ABO O [facility] Unit POS [facility] Product [facility] E0033 [facility] Unit Donor # [id number] [facility] Unit Status released [facility] BLOO D [facility] Product Code [id number] [facility] Blood Type Barcode 5100 [facility] Expiration Date [facility] Unit Description LR Whole BLood [facility] Unit ABO O [facility] Unit POS [facility] Product Number E0033 [facility] Unit Donor # [id number] [facility] Unit Status released [facility] BL[facility] D [facility] Product Code [id number] [facility] Blood Type Barcode 5100 [facility] Expiration Date [facility] Blood Bank BLOOD SPECIMEN / Unknown 04/21/2021 6:11 PM CDT Victor M North MD LAB - BLOOD BANK ORD ERABLES [facility] [address] [place] [address], [facility] [phone] * BLOOD TYPE VERIFICATION (04/21/2021 6:29 PM CDT) ABO Rh O POS 04/21/2021 7:5 4 PM CDT [facility] Blood Bank BLOOD SPECIMEN / Unknown Lab Venipuncture / Unknown 04/21/2021 6:29 PM CDT 04/21/2021 6:49 PM CDT Victor M North MD LAB - BLOOD BANK ORD ERABLES [facility] [address] [place] [address], [facility] [phone] * CT CHEST ABDOMEN PELVIS W CONT [...] This report was electronically signed by BEBE CARRAZNA on 04/22/2021 10:38 AM . Narrative 04/22/2021 [...] M North MD CT ORDERABLES * PT-INR [facility] (04/21/2021 5:56 PM CDT) [facility] PT 12.4 12.1 - 14.8 Seconds 04/21/2021 6:14 PM CDT [facility] INR 1.0 See Comment 04/21/2021 6:14 PM CDT [facility] Comment:The suggested therap eutic range for standard coumadin (warfarin) therapy is an INR of 2.0-3.0. For high-risk patients (Mechanical Mitral Valve Prosthesis, etc.), the suggested prophylactic therapeutic range is an INR of 2.5-3.5. Blood BLOOD SPECIMEN / Unknown Venipuncture / Unknown 04/21/2021 5:56 PM CDT 04/21/2021 6:05 PM CDT Victor M North MD LAB - COAGULATION OR DERABLES Performing Organization Address City/[facility]/ZIP Co de Phone Number [address] [address], [place] [phone] * TYPE + SCREEN PANEL (04/21/2021 5:56 PM CDT) [facility] Antibody Screen NEG 6:56 PM CDT [facility] ABO Rh O POS 04/21/2021 6:56 PM CDT [facility] Blood Bank BLOOD SPECIMEN / Unknown Venipuncture / Unknown 04/21/2021 5:56 PM CDT 04/21/2021 6:11 PM CDT Victor M North MD LAB - BLOOD BANK ORD ERABLES Performing Organization Address City/[facility]/ZIP Co de Phone Number [facility] [address] [place] [address], [place] [phone] * (ABNORMAL) BASIC METABOLIC PANEL (CALCIUM TOTAL) (04/21/2021 5:56 PM CDT) [facility] BUN 11 7 - 26 mg/dL 04/21/2021 6:30 PM [facility] Creatinine 1.20(H) 0.71 - 1.16 mg/dL 04/21/2021 6:30 PM [facility] Sodium 139 136 - 145 mmol/L 04/21/2021 6:30 PM [facility] Potassium 3.9 3.5 - 4.5 mmol/L 04/21/2021 6:30 PM [facility] Chloride 101 98 - 107 mmol/L 04/21/2021 6:30 PM [facility] CO2 28 22 - 29 mmol/L 04/21/2021 6:30 PM [facility] Glucose 94 70 - 115 mg/dL 04/21/2021 6:30 PM [facility] Calcium 9.1 8.4 - 10.2 mg/dL 04/21/2021 6:30 PM [facility] Anion Gap 14 8 - 18 04/21/2021 6:30 PM [facility] BUN/Creatinine Ratio 9 7 - 23 04/21/2021 6:30 PM [facility] Osmolality Calculated 287 270 - 300 mOsm/kg 04/21/2021 6:30 PM [facility] eGFR by CKD-EPI 43(L) >=90 mL/min/1.7 3 m2 04/21/2021 6:30 PM [facility] Blood BLOOD SPECIMEN / Unknown Venipuncture / Unknown 04/21/2021 5:56 PM CDT 04/21/2021 6:02 PM T Victor M North MD LAB - CHEMISTRY RAJIV SOLIZ [facility] [address] [place] [address], [facility] [phone] * ALCOHOL ETHYL BLOOD (04/21/2021 5:56 PM CDT) Ethanol (mg/dL) <10 <10 mg/dL 6:30 PM [facility] Ethanol Calculated (g/dL) <0.010 <0.010 g/dL 04/21/2021 6:30 PM [facility] Blood BLOOD SPECIMEN / Unknown Venipuncture / Unknown 04/21/2021 5:56 PM CDT 04/21/2021 6:02 PM CDT Narrative [facility] - 04/21/2021 6:30 PM CDT Ethanol Interp <10: None Detected. Depression of ASSISTANT WOMENS VOLLEYBALL COACH: >100 mg/dl Potentially Critical: >250 mg/dl Potentially [...] North MD LAB - CHEMISTRY RAJIV SOLIZ [facility] Organization Address City/State/ZIP Co de Phone Number [facility] [address] [place] [phone], [facility] [phone] * XR CHEST 1VW PORTABLE (04/21/2021 5:55 [...] abnormality. Report dictated by Dirk Rainey MD (marketing services vice president). I, Dr. KATLYN MACHADO have [...] abnormality. Report dictated by Dirk Rainey MD (marketing services vice president). I, Dr. KATLYN MACHADO have personally reviewed and interpreted this examination/study. This report was electronically signed by KATLYN MACHADO on 04/22/2021 2:39 PM . Victor M North MD DIAGNOSTIC IMAGING O RDERABLES * HIV-1 HIV-2 ANTIGEN/ANTIBODY (08/12/2020 8:15 PM CDT) HIV Antigen/Antibod y 1 & 2 Non-reacti ve Non-react jerri 08/12/2020 10:05 PM CDT [facility] Comment:Neither HIV-1 p24 An tigen nor HIV-1/HIV-2 Antibodies are detected. Blood BLOOD SPECIMEN / Unknown Venipuncture / Unknown 08/12/2020 8:15 PM CDT 08/12/2020 6:14 PM CDT Giulia Shaw MD LAB - HEMATOLOGY O RDERABLES [facility] [address] [place] [address], [facility] [phone]
--- OUTSIDE RECORDS SUMMARY | 2025-01-10 18:18 | XMS_ITS | CONTINUITY OF CARE DOCUMENT ---
Author Name doreen logan Address Unknown Organization [facility] Address [address] [place] [address] [address] [place] [address] Phone [phone] Care Team Providers Care Storeroom Keeper Name Role Phone Anitra Tellez MD Unavailable [phone] PRIMO FIELD MD Unavailable [phone] PRIMO FIELD MD Unavailable [phone] INSURANCE PROVIDERS Payer name Policy type / Coverage type Bessie red republican ID [id number] MEDICAID (2) Medicaid [id number]
--- OUTSIDE RECORDS SUMMARY | 2025-01-10 18:18 | XMS_ITS | Referral Summary ---
Author Organization [facility] [employer] Address [address] [place] [address] Care Team Providers Care Marketing Administrator Name Role Phone Unavailable Primary Care Provider Unavailabl e Source Comments [facility],non-owned Affiliates and Associated Physician Practices is amultiple site organization consisting of ambulatory clinics and hospital sitesin [place], [place], [place] and [place]. This disclosure is being madepursuant to the Care Everywhere program and may not contain all information available regarding this patient. Last updated 18.[facility] [employer] Allergies No known active allergies Medications * [...] Comments Blood Pressure 154/111 09/30/2023 3:55 PM MEDICAL DOCTOR MD Pulse 108 09/30/2023 3:55 PM MEDICAL DOCTOR MD Temperature 36.6 C (97.9 F) 09/30/2023 3:55 PM MEDICAL DOCTOR MD Respiratory Rate 19 09/30/2023 3:55 PM MEDICAL DOCTOR MD Oxygen Saturation 100% 09/30/2023 3:55 PM MEDICAL DOCTOR MD Inhaled Oxygen Concentration - - Weight 104.3 kg (230 lb) 09/30/2023 3:55 PM MEDICAL DOCTOR MD Height 198.1 cm (6' 6 ) 09/30/2023 3:55 PM MEDICAL DOCTOR MD Body Mass Index 26.58 09/30/2023 3:55 PM MEDICAL DOCTOR MD Plan of Treatment Not on file Procedures [...] HEMATOLOGY O RDERABLES [facility] [address] [place] [phone], [place] [phone] from Last 3 Months or Most Recently Relevant to Health Maintenance Advance Directives * Full Code (Latest Code Status on File) Date Activated Date Inactivated Comments 04/21/2021 8:18 PM 04/22/2021 12:59 AM
--- OUTSIDE RECORDS SUMMARY | 2025-01-10 18:18 | XMS_ITS | Clinical Summary ---
Author Organization [facility] [employer] Address [address] [place] [address] Care Team Providers Care Steam Hammer Operator Name Role Phone Unavailable Primary Care Provider Unavailabl e Source Comments [facility] [employer],non-owned Affiliates and Associated Physician Practices is amultiple site organization consisting of ambulatory clinics and hospital sitesin [place], [place], [place] and [place]. This disclosure is being madepursuant to the Care Everywhere program and may not contain all information available regarding this patient. Last updated 18.[facility] [employer] Allergies No known active allergies Medications * [...] Comments Blood Pressure 154/111 09/30/2023 3:55 PM BILLING COLLECTIONS SPECIALIST Pulse 108 09/30/2023 3:55 PM BILLING COLLECTIONS SPECIALIST Temperature 36.6 C (97.9 F) 09/30/2023 3:55 PM BILLING COLLECTIONS SPECIALIST Respiratory Rate 19 09/30/2023 3:55 PM BILLING COLLECTIONS SPECIALIST Oxygen Saturation 100% 09/30/2023 3:55 PM BILLING COLLECTIONS SPECIALIST Inhaled Oxygen Concentration - - Weight 104.3 kg (230 lb) 09/30/2023 3:55 PM BILLING COLLECTIONS SPECIALIST Height 198.1 cm (6' 6 ) 09/30/2023 3:55 PM BILLING COLLECTIONS SPECIALIST Body Mass Index 26.58 09/30/2023 3:55 PM BILLING COLLECTIONS SPECIALIST Plan of Treatment Health Maintenance Due Date [...] ve Non-react jerri 08/12/2020 10:05 PM CDT [facility] Comment:Neither HIV-1 p24 An tigen nor HIV-1/HIV-2 Antibodies are detected. Blood BLOOD SPECIMEN / Unknown Venipuncture / Unknown 08/12/2020 8:15 PM CDT 08/12/2020 6:14 PM CDT Giulia Shaw MD LAB - HEMATOLOGY O RDERABLES [facility] [address] [place] [address], [facility] [phone] from Last 3 Months or Most Recently Relevant to Health Maintenance Advance Directives * Full Code (Latest Code Status on File) Date Activated Date Inactivated Comments 04/21/2021 8:18 PM 04/22/2021 12:59 AM
--- OUTSIDE RECORDS SUMMARY | 2025-01-10 18:18 | XMS_ITS | Referral Summary ---
Author Organization [facility] Address [address] [place] [address] Care Team Providers Care Information Consultant Name Role Phone Miscellaneous, Not In File Primary Care Provider Unavailable Encounters Date Type Department Care Team Description 11/08/2024 Orders Only [facility] Medical [facility] Cardiology [address] [place] [phone] Greg Newby MD 10/26/2024 Orders Only [facility] Medical [facility] Cardiology [address] [place] [phone] Delmar Wallace MD from Last 3 Months [...] on file Legal Sex Male 6:24 PM DRAFTING LAYOUT MAN Gender Identity Not on file Sexual Orientation Not on file Last Filed Vital Signs Vital Sign Reading Time Taken Comments Blood Pressure 162/109 03/02/2024 11:43 AM CDT Pulse 77 03/02/2024 11:43 AM CDT Temperature 36.4 C (97.5 F) 03/02/2024 11:43 AM CDT Respiratory Rate 18 11/07/2023 3:46 PM DRAFTING LAYOUT MAN Oxygen Saturation 94% 03/02/2024 11: 43 AM CDT Inhaled Oxygen Concentration - - Weight 121.9 kg (268 lb 11.2 oz) 2023 11:43 AM CDT Height 198.1 cm (6' 6 ) 03/02/2024 11:4 3 AM CDT Body Mass Index 31.05 03/02/2024 11:43 AM CDT Plan of Treatment Not on file Medical Devices Implanted Type Area Food And Beverage Coordinator Device Identifier Shelf Expiration Date Model / Serial / Lot Davol Inc/C R Bard Mesh Surgical Mid Anatomical Synthetic Patch 3dmax 4x6in [id number] - [id number] Implanted:Qty: 1 on 11/07/2023 by Lexx Jesus MD at [facility] Right: Abdomen [employer]/C R Bard 04/13/2028 [id number] / / [id number] [employer]ol [employer]/C R Bard Mesh Surgical Inguinal Hernia Synthetic Patch 3dmax 4x6in [id number] - [id number] Implanted:Qty: 1 on 11/07/2023 by Lexx Jesus MD at [facility] Left: Abdomen [employer]/C R Bard 03/14/2028 [id number] / / [id number] Procedures Procedure Name Priority Date/Time Associated Diagnosis Comments CARDIOLOGY DOCUMENT SCAN Routine 11:22 AM DRAFTING LAYOUT MAN CARDIOLOGY DOCUMENT SCAN Routine 10/25/2024 5:23 PM DRAFTING LAYOUT MAN CARDIOLOGY DOCUMENT SCAN Routine 10/24/2024 5:21 PM DRAFTING LAYOUT MAN CARDIOLOGY DOCUMENT SCAN Routine 10/23/2024 5:17 PM DRAFTING LAYOUT MAN from Last 3 Months Results * Cardiology Document Scan (10/26/2024 11:22 AM DRAFTING LAYOUT MAN) Anatomical Region Laterality Modality Other us Greg Newby MD CV CARDIAC SERVICES PRO CEDURES Final Result * Cardiology Document Scan (10/25/2024 5:23 PM DRAFTING LAYOUT MAN) Anatomical Region Laterality Modality Other us Brando Nazario MD CV CARDIAC SERVICES PROCEDURES F inal Result * Cardiology Document Scan (10/24/2024 5:21 PM DRAFTING LAYOUT MAN) Anatomical Region Laterality Modality Other us Delmar Wallace MD CV CARDIAC SERVICES PROCEDU RES Final Result * Cardiology Document Scan (10/23/2024 5:17 PM DRAFTING LAYOUT MAN) Anatomical Region Laterality Modality Other us Delmar Wallace MD CV CARDIAC SERVICES PROCEDU RES Final Result from Last 3 Months Insurance [facility] Care Teams Information Consultant Relationship Specialty Start Date End Date Miscellaneous, Not In File PCP - General 08/16/23
--- OUTSIDE RECORDS SUMMARY | 2025-01-10 18:18 | XMS_ITS | Clinical Summary ---
Author Organization [facility] Address [facility] [place] [address] Care Team Providers Care Fractionation Plant Supervisor Name Role Phone None, Provider MD Primary [...] Comments Blood Pressure 168/109 01/14/2024 8:53 PM TELEPHONE REPAIRER Pulse 92 01/14/2024 8:03 PM TELEPHONE REPAIRER Temperature 36.6 C (97.8 F) 01/14/2024 8:03 PM TELEPHONE REPAIRER Respiratory Rate 20 01/14/2024 8:03 PM TELEPHONE REPAIRER Oxygen Saturation 97% 01/14/2024 8:03 PM TELEPHONE REPAIRER Inhaled Oxygen Concentration - - Weight 104.3 kg (230 lb) 01/14/2024 8:03 PM TELEPHONE REPAIRER Height 198.1 cm (6' 6 ) 01/14/2024 8:03 PM TELEPHONE REPAIRER Body Mass Index 26.58 01/14/2024 8:03 PM TELEPHONE REPAIRER Plan of Treatment Health Maintenance Due Date [...] to complete this topic Insurance Care Teams Fractionation Plant Supervisor Relationship Specialty Start Date End Date None, Provider, PCP - General 08/05/20
--- OUTSIDE RECORDS SUMMARY | 2025-01-10 18:18 | XMS_ITS | Continuity of Care Document ---
Author Organization [facility] Address [address] [place] [address] [place] [address] Phone Care Team Providers Care Yarn Dumper Name Role Phone Robert Wilson MD Unavailable [...] on Encounter PREV VISIT, NEW, AGE 18-39 [facility] Medicine, [address] [place], [id number], [place] tel:[phone] [facility] Medicine PHysical (chief complaint) Dietary surveillance and counselingRoutine Medical ExamRoutine Medical Exam [address], [place], [id number] , [place]. tel:[phone] Family History Family Member Type Diagnosis Age [...] Mental Status Date Cognitive Assessment Orientation - Parshall ed to time, place, person, situation.
--- OUTSIDE RECORDS SUMMARY | 2025-01-10 18:18 | XMS_ITS | Clinical Summary ---
Author Organization [facility] Address [address] [place] [address] Care Team Providers Care Vault Maker Name Role Phone Miscellaneous, Not In File [...] Department Care Team Description 11/08/2024 Orders Only [facility] Cardiology [address] [place] [address] Greg Newby MD 10/26/2024 Orders Only [facility] Cardiology [address] [place] [address] Delmar Wallace MD from Last [...] on file Legal Sex Male 6:24 PM SORTER LUMBER STRAIGHTENER Gender Identity Not on file Sexual Orientation Not on file Obstetrics History Last Filed Vital Signs Vital Sign Reading Time Taken Comments Blood Pressure 162/109 03/02/2024 11:43 AM CDT Pulse 77 03/02/2024 11:43 AM CDT Temperature 36.4 C (97.5 F) 03/02/2024 11:43 AM CDT Respiratory Rate 18 11/07/2023 3:46 PM SORTER LUMBER STRAIGHTENER Oxygen Saturation 94% 03/02/2024 11: 43 AM [...] this topic Medical Devices Implanted Type Area Jack Machine Operator Device Identifier Shelf Expiration Date Model / Serial / Lot Davol Inc/C R Bard Mesh Surgical Mid Anatomical Synthetic Patch 3dmax 4x6in [id number] - [id number] Implanted:Qty: 1 on 11/07/2023 by Lexx Jesus MD at [facility] Right: Abdomen [employer]/C R Bard 04/13/2028 [id number] / / [id number] [employer] Inc/C R Bard Mesh Surgical Inguinal Hernia Synthetic Patch 3dmax 4x6in [id number] - [id number] Implanted:Qty: 1 on 11/07/2023 by Lexx Jesus MD at [facility] Left: Abdomen [employer]/C R Bard 03/14/2028 [id number] / / [id number] Procedures Procedure Name Priority Date/Time Associated Diagnosis Comments CARDIOLOGY DOCUMENT SCAN Routine 024 11:22 AM SORTER LUMBER STRAIGHTENER CARDIOLOGY DOCUMENT SCAN Routine 10/25/2024 5:23 PM SORTER LUMBER STRAIGHTENER CARDIOLOGY DOCUMENT SCAN Routine 10/24/2024 5:21 PM SORTER LUMBER STRAIGHTENER CARDIOLOGY DOCUMENT SCAN Routine 10/23/2024 5:17 PM SORTER LUMBER STRAIGHTENER from Last 3 Months Results * Cardiology Document Scan (10/26/2024 11:22 AM SORTER LUMBER STRAIGHTENER) Anatomical Region Laterality Modality Other us Ripa Dread Newby MD CV CARDIAC SERVICES PRO CEDURES Final Result * Cardiology Document Scan (10/25/2024 5:23 PM SORTER LUMBER STRAIGHTENER) Anatomical Region Laterality Modality Other us Brando Nazario MD CV CARDIAC SERVICES PROCEDURES F inal Result * Cardiology Document Scan (10/24/2024 5:21 PM SORTER LUMBER STRAIGHTENER) Anatomical Region Laterality Modality Other us Delmar Wallace MD CV CARDIAC SERVICES PROCEDU RES Final Result * Cardiology Document Scan (10/23/2024 5:17 PM SORTER LUMBER STRAIGHTENER) Anatomical Region Laterality Modality Other Delmar Wallace MD CV CARDIAC SERVICES PROCEDU RES Final Result from Last 3 Months Insurance [facility] Care Teams Vault Maker Relationship Specialty Start Date End Date Miscellaneous, Not In File PCP - General 08/16/23
== END 2025-01-10 19:45 | disposition home or self-care (01) ==
PROVIDERS: Physician Assistant; Emergency Provider Emergency Medicine
DX: R11.2 Nausea with vomiting, unspecified (principal); F12.90 Cannabis use, unspecified, uncomplicated; Z20.822 Contact with and (suspected) exposure to COVID-19; F17.210 Nicotine dependence, cigarettes, uncomplicated; F17.290 Nicotine dependence, other tobacco product, uncomplicated; Z79.84 Long term (current) use of oral hypoglycemic drugs; Z79.899 Other long term (current) drug therapy; R94.31 Abnormal electrocardiogram [ECG] [EKG]
CPT/HCPCS: 36415; 80053; 81003; 83690; 84484; 85025; 87637; 93005; 96361; 96372; 96374; 99284; J1630; J2405; J7120

== ENCOUNTER 2025-09-26 12:31 | Observation (INO) | payer OTHER, SELFPAY ==
[2025-09-26] VITALS (13 sets, daily range): BP systolic 165–187; BP diastolic 125–144; PULSE 87–104; RESP 17–31; TEMP 36.4–36.5; O2SAT 91–99; BMI 30.3
--- NOTE | ~2025-09-26 | US_ITS ---
US venous doppler LE RT INDICATION: Right lower extremity pain and swelling. COMPARISON: None. TECHNIQUE: The deep veins of the right lower extremity were evaluated with Duplex Doppler, color Doppler, and high-resolution B-mode sonography. Evaluated veins include the common femoral, femoral, and popliteal veins. The calf veins were also evaluated. Compression and augmentation maneuvers were performed. FINDINGS: The peroneal, soleus and lesser saphenous veins were not evaluated. The deep veins of the right lower extremity were compressible and demonstrated spontaneous phasic waveforms with an appropriate response to augmentation maneuvers. The visualized calf veins were patent. IMPRESSION: There was no sonographic evidence of deep vein thrombosis in the right lower extremity. Reviewed, dictated and finalized at location S. WARE ENGINEER KERNEL IMPRESSION: There was no sonographic evidence of deep vein thrombosis in the right lower ex tremity.
--- NOTE | ~2025-09-26 | CT_ITS ---
EXAMINATION: CTA chest PE protocol, 09/26/2025 17:20 TALENT ACQUISITION SPECIALIST HISTORY: SOB; dimer >1 COMPARISON: No comparisons available. TECHNIQUE: CTA examination is obtained with contrast CTA examination technique is performed with arterial phase of contrast-enhancement. 3-D reconstruction with thin MIP axial and MPR coronal imaging is provided Isovue 300, 92cc injected IV. One or more of the following dose reduction techniques were used: automated exposure control, adjustment of the mA and/or kV according to patient size, use of iterative reconstruction technique. FINDINGS: No significant coronary calcification is present ([id number]) LUNGS: The contrast bolus is adequate, there is no pulmonary embolism identified. No tracheomalacia. No bronchiectasis. No significant emphysematous changes or pulmonary fibrotic changes. HEART AND PERICARDIUM: Mild cardiomegaly. AORTA: Normal caliber aorta.. PULMONARY ARTERIES: No pulmonary embolism ADENOPATHY/MEDIASTINUM: None. LIMITED VIEWS OF THE ABDOMEN: Within the abdomen the gallbladder wall appears thickened with pericholecystic fluid, correlate for right upper quadrant pain. OSSEOUS STRUCTURES: No sclerotic or lytic lesions. No acute fractures are identified. OVERLYING SOFT TISSUES: Unremarkable. THYROID: The thyroid is unremarkable. IMPRESSION: 1. Negative for pulmonary embolism. No acute process Reviewed, dictated and finalized at location P. NT ACQUISITION SPECIALIST
--- NOTE | ~2025-09-26 | XR_ITS ---
EXAMINATION: XR chest 2V DATE: 09/26/2025 15:00 INDICATION: Shortness of breath TECHNIQUE: Frontal and lateral views of the chest were obtained. COMPARISON: October 22, 2024 FINDINGS: The lungs are clear. Heart shadow within normal limits. Bones and upper abdomen unremarkable. IMPRESSION: 1. No focal acute process. Reviewed, dictated and finalized at location A. ESPONDENCE RENEW CLERK IMPRESSION: 1. No focal acute process.
--- NOTE | 2025-09-26 12:35 | PC.NURSE ---
Pt reports hx HTN, states he did not take his meds today
--- OUTSIDE RECORDS SUMMARY | 2025-09-26 12:46 | XMS_ITS | Encounter Summary ---
Author Organization [facility] Healthcare Address [address] [place] [address] Care Team Providers Care Glove Boarder Name Role Phone Miscellaneous, Not In File Primary Care Provider Unavailable Encounter Details Date Type Department Care Team (Late st Contact Info) Description 10/28/[address] [facility] Information Management [address] [place] [address] Scanning, Provider Social History Tobacco Use Types Packs/Day Years Used Date Smoking Tobacco: Former Cigarettes Smokeless Tobacco: Never AUDIT-C Answer Date Recorded Frequency of Alcohol [...] on file Legal Sex Male 6:24 PM AIRPLANE DESIGNER Gender Identity Not on file Sexual Orientation Not on file documented as of this encounter Plan of Treatment Not on file documented as of this encounter Procedures Procedure Name Priority Date/Time Associated Diagnosis Comments SCAN - RADIOLOGY/IMAGING 10/28/2024 9:29 PM AIRPLANE DESIGNER documented in this encounter Results * SCAN - RADIOLOGY/IMAGING (10/28/2024 9:29 PM AIRPLANE DESIGNER) Anatomical Region Laterality Modality Other us Provider Scanning Final Result documented in this encounter Visit Diagnoses Not on filedocumented in this encounter Care Teams Glove Boarder Relationship Specialty Start Date End Date Miscellaneous, Not In File PCP - General 08/16/23 documented as of this encounter
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
--- OUTSIDE RECORDS SUMMARY | 2025-09-26 12:46 | XMS_ITS | Clinical Summary ---
Author Organization [facility] Address [facility] [place] [address] Care Team Providers Care Piano Bench Assembler Name Role Phone None, Provider MD Primary [...] Comments Blood Pressure 168/109 01/14/2024 8:53 PM SUPERVISOR PASTRY Pulse 92 01/14/2024 8:03 PM SUPERVISOR PASTRY Temperature 36.6 C (97.8 F) 01/14/2024 8:03 PM SUPERVISOR PASTRY Respiratory Rate 20 01/14/2024 8:03 PM SUPERVISOR PASTRY Oxygen Saturation 97% 01/14/2024 8:03 PM SUPERVISOR PASTRY Inhaled Oxygen Concentration - - Weight 104.3 kg (230 lb) 01/14/2024 8:03 PM SUPERVISOR PASTRY Height 198.1 cm (6' 6) 01/14/2024 8:03 PM SUPERVISOR PASTRY Body Mass Index 26.58 01/14/2024 8:03 PM SUPERVISOR PASTRY Plan of Treatment Health Maintenance Due Date Last Done Comments Annual Physical 1992 Hepatitis C 2007 Hepatitis B Vaccines (1 of 3 - 19+ 3-dose series) 2008 Pneumococcal Vaccine: Pediatrics (0 to 5 Years) and At-Risk Patients (6 to 49 Years) (1 of 2 - PCV) 2008 HPV Vaccines (1 - 3-dose SCD M series) 2016 COVID-19 Vaccine (3 - 2024-2 6 season) 2025 06/01/2021, 05/10/2021 Influenza Adult (#1) 2025 DTaP, Tdap and Td Vaccines ( 3 - Td or Tdap) 04/21/2031 04/21/2021, 09/18/2015 Hepatitis A Vaccines Aged Out No long er eligible based [...] to complete this topic Insurance Care Teams Piano Bench Assembler Relationship Specialty Start Date End Date None, Provider, PCP - General 08/05/20
--- OUTSIDE RECORDS SUMMARY | 2025-09-26 12:46 | XMS_ITS | Encounter Summary ---
Author Organization [facility] Healthcare Address [address] [place] [address] Care Team Providers Care Staffing Mgr Name Role Phone Miscellaneous, Not In File Primary Care Provider Unavailable Encounter Details Date Type Department Care Team (Late st Contact Info) Description 10/26/2024 Orders Only [facility] Health Information Management [address] [place] [address] Scanning, Provider Social History Tobacco Use Types [...] on file Legal Sex Male 6:24 PM COOLER CONVEYOR LOADER Gender Identity Not on file Sexual Orientation Not on file documented as of this encounter Plan of Treatment Not on file documented as of this encounter Procedures Procedure Name Priority Date/Time Associated Diagnosis Comments CARDIOLOGY DOCUMENT SCAN 10/26/2024 9:29 PM COOLER CONVEYOR LOADER documented in this encounter Results * Cardiology Document Scan (10/26/2024 9:29 PM COOLER CONVEYOR LOADER) Anatomical Region Laterality Modality Other us Provider Scanning CV CARDIAC SERVICES PROCEDURES Final Result documented in this encounter Visit Diagnoses Not on filedocumented in this encounter Care Teams Staffing Mgr Relationship Specialty Start Date End Date Miscellaneous, Not In File PCP - General 08/16/23 documented as of this encounter
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
--- NOTE | 2025-09-26 14:29 | ECG_ITS ---
Test Date: 2025-09-26 14:37:53 Measurements Intervals [place] Rate: 93 P: 64 MS: 173 QRS: -46 QRSD: 98 T: 60 QT: 390 QTc: 485 Interpretive Statements SINUS RHYTHM LEFT ATRIAL ENLARGEMENT [-0.15mV P-WAVE IN V1/V2] INCOMPLETE RIGHT BUNDLE BRANCH BLOCK [90+ ms QRS DURATION, TERMINAL R IN V1/V2, 40+ ms S IN I/aVL/V4/V5/V6] LEFT ANTERIOR FASCICULAR BLOCK [QRS AXIS <= -45, QR IN I, RS IN II] NONSPECIFIC T-WAVE ABNORMALITY Electronically Signed On 09-27-2025 17:28:24 STORAGE SOLUTIONS ARCHITECT by Reynaldo Davis M.D.
[2025-09-26 14:52] LABS: Hematocrit 49.6 % (42.0-52.0); Hemoglobin 16.4 g/dL (14.0-18.0); Immature Granulocyte Percent A 0.2 % (0-0.5); Lymphocytes Absolute Auto 1.66 K/mm3 (0.9-3.2); Mean Corpuscular HGB Conc 33.1 g/dl (32-36); Mean Corpuscular Hemoglobin 30.0 pg (26-34); Mean Corpuscular Volume 90.7 fl (80-100); Nucleated Red Blood Cells Absolute Auto 0.000 K/mm3 (0.0-0.012); Nucleated Red Blood Cells Perc 0.0 % (0.0-0.2); Platelet Count Result 251 k/mm3 (150-375); Red Blood Count 5.47 M/mm3 (4.6-6.20); White Blood Count 5.3 K/mm3 (4.5-10.0)
[2025-09-26 15:05] LABS: Alanine Aminotransferase 46 U/L (6-50); Albumin Level 4.3 g/dL (3.5-5.1); Alkaline Phosphatase 55 U/L (38-126); Anion Gap 7 mmol/L (4-12); Aspartate Amino Transferase 43 U/L (17-59); Bilirubin,Total 0.7 mg/dL (0.2-1.3); Blood Urea Nitrogen 16 mg/dL (9-20); Calcium 9.4 mg/dL (8.4-10.2); Carbon Dioxide 25 mmol/L (22-30); Chloride 104 mmol/L (98-107); Estimated CRCL calculation 121 ml/min; Estimated Glomerular Filt Rate > 60; Glucose 112 mg/dL (65-110); Potassium 4.4 mmol/L (3.4-5.0); Sodium 136 mmol/L (137-145); Total Protein 7.9 g/dL (6.3-8.2)
--- OUTSIDE RECORDS SUMMARY | 2025-09-26 15:47 | XMS_ITS | Clinical Summary ---
Author Organization [facility] Address [address] [place] [address] Care Team Providers Care Paving Block Cutter Name Role Phone Miscellaneous, Not In File [...] on file Legal Sex Male 6:24 PM COMMISSIONS MANAGER Gender Identity Not on file Sexual Orientation Not on file Last Filed Vital Signs Vital Sign Reading Time Taken Comments Blood Pressure 162/109 03/02/2024 11:43 AM CDT Pulse 77 03/02/2024 11:43 AM CDT Temperature 36.4 C (97.5 F) 03/02/2024 11:43 AM CDT Respiratory Rate 18 11/07/2023 3:46 PM COMMISSIONS MANAGER Oxygen Saturation 94% 03/02/2024 11: 43 AM [...] 04/21/203103/2021, 09/18/2015 Medical Devices Implanted Type Area Campus Monitor Device Identifier Shelf Expiration Date Model / Serial / Lot [employer]ol Inc/C R Bard Mesh Surgical Mid Anatomical Synthetic Patch 3dmax 4x6in [id number] - [id number] Implanted:Qty: 1 on 11/07/2023 by Lexx Jesus MD at [facility] Right: Abdomen [employer] Inc/C R Bard 04/13/2028 [id number] / / [id number] [employer]/C R Bard Mesh Surgical Inguinal Hernia Synthetic Patch 3dmax 4x6in [id number] - [id number] Implanted:Qty: 1 on 11/07/2023 by Lexx Jesus MD at [facility] Left: Abdomen [employer]/C R Bard 03/14/2028 [id number] / / [id number] Insurance [employer] Care Teams Paving Block Cutter Relationship Specialty Start Date End Date Miscellaneous, Not In File PCP - General 08/16/23
--- OUTSIDE RECORDS SUMMARY | 2025-09-26 15:47 | XMS_ITS | Encounter Summary ---
Author Organization [facility] Healthcare Address [address] [place] [address] Care Team Providers Care Film Producer Name Role Phone Miscellaneous, Not In File Primary Care Provider Unavailable Encounter Details Date Type Department Care Team (Late st Contact Info) Description 10/26/2024 Orders Only [facility] Health Information Management [address] [place] [address] Scanning, Provider Social History Tobacco Use Types [...] on file Legal Sex Male 6:24 PM BLOCK SEALER Gender Identity Not on file Sexual Orientation Not on file documented as of this encounter Plan of Treatment Not on file documented as of this encounter Procedures Procedure Name Priority Date/Time Associated Diagnosis Comments CARDIOLOGY DOCUMENT SCAN 10/26/2024 9:29 PM BLOCK SEALER documented in this encounter Results * Cardiology Document Scan (10/26/2024 9:29 PM BLOCK SEALER) Anatomical Region Laterality Modality Other us Provider Scanning CV CARDIAC SERVICES PROCEDURES Final Result documented in this encounter Visit Diagnoses Not on filedocumented in this encounter Care Teams Film Producer Relationship Specialty Start Date End Date Miscellaneous, Not In File PCP - General 08/16/23 documented as of this encounter
--- OUTSIDE RECORDS SUMMARY | 2025-09-26 15:47 | XMS_ITS | Clinical Summary ---
Author Organization [facility] Address [facility] [place] [address] Care Team Providers Care Plug Drill Operator Name Role Phone None, Provider MD Primary [...] Comments Blood Pressure 168/109 01/14/2024 8:53 PM WOOL SAMPLER Pulse 92 01/14/2024 8:03 PM WOOL SAMPLER Temperature 36.6 C (97.8 F) 01/14/2024 8:03 PM WOOL SAMPLER Respiratory Rate 20 01/14/2024 8:03 PM WOOL SAMPLER Oxygen Saturation 97% 01/14/2024 8:03 PM WOOL SAMPLER Inhaled Oxygen Concentration - - Weight 104.3 kg (230 lb) 01/14/2024 8:03 PM WOOL SAMPLER Height 198.1 cm (6' 6) 01/14/2024 8:03 PM WOOL SAMPLER Body Mass Index 26.58 01/14/2024 8:03 PM WOOL SAMPLER Plan of Treatment Health Maintenance Due Date [...] to complete this topic Insurance Care Teams Plug Drill Operator Relationship Specialty Start Date End Date None, Provider, PCP - General 08/05/20
--- OUTSIDE RECORDS SUMMARY | 2025-09-26 15:47 | XMS_ITS | Encounter Summary ---
Author Organization [facility] Healthcare Address [address] [place] [address] Care Team Providers Care Senior Human Resources Representative Name Role Phone Miscellaneous, Not In File Primary Care Provider Unavailable Encounter Details Date Type Department Care Team (Late st Contact Info) Description 10/28/2024 Orders Only [facility] Health Information Management [address] [place] [address] Scanning, Provider Social History Tobacco Use Types [...] on file Legal Sex Male 6:24 PM WOODWORKING BELT SANDER Gender Identity Not on file Sexual Orientation Not on file documented as of this encounter Plan of Treatment Not on file documented as of this encounter Procedures Procedure Name Priority Date/Time Associated Diagnosis Comments SCAN - RADIOLOGY/IMAGING 10/28/2024 9:29 PM WOODWORKING BELT SANDER documented in this encounter Results * SCAN - RADIOLOGY/IMAGING (10/28/2024 9:29 PM WOODWORKING BELT SANDER) Anatomical Region Laterality Modality Other us Provider Scanning Final Result documented in this encounter Visit Diagnoses Not on filedocumented in this encounter Care Teams Senior Human Resources Representative Relationship Specialty Start Date End Date Miscellaneous, Not In File PCP - General 08/16/23 documented as of this encounter
--- OUTSIDE RECORDS SUMMARY | 2025-09-26 15:47 | XMS_ITS | Clinical Summary ---
Author Organization [facility] Address [address] [place] [address] Care Team Providers Care Title Agent Name Role Phone Unavailable Primary Care Provider Unavailabl e Source Comments [facility],non-owned Affiliates and Associated Physician Practices is amultiple site organization consisting of ambulatory clinics and hospital sitesin [place], [place], [place] and [place]. This disclosure is being madepursuant to the Care Everywhere program and may not contain all information available regarding this patient. Last updated 18.[facility] Allergies No known active allergies Medications * [...] Comments Blood Pressure 154/111 09/30/2023 3:55 PM SALES OFFICE ASSISTANT Pulse 108 09/30/2023 3:55 PM SALES OFFICE ASSISTANT Temperature 36.6 C (97.9 F) 09/30/2023 3:55 PM SALES OFFICE ASSISTANT Respiratory Rate 19 09/30/2023 3:55 PM SALES OFFICE ASSISTANT Oxygen Saturation 100% 09/30/2023 3:55 PM SALES OFFICE ASSISTANT Inhaled Oxygen Concentration - - Weight 104.3 kg (230 lb) 09/30/2023 3:55 PM SALES OFFICE ASSISTANT Height 198.1 cm (6' 6) 09/30/2023 3:55 PM SALES OFFICE ASSISTANT Body Mass Index 26.58 09/30/2023 3:55 PM SALES OFFICE ASSISTANT Plan of Treatment Health Maintenance Due Date [...] ve Non-react jerri 08/12/2020 10:05 PM CDT [facility] Comment:Neither HIV-1 p24 An tigen nor HIV-1/HIV-2 Antibodies are detected. Blood BLOOD SPECIMEN / Unknown Venipuncture / Unknown 08/12/2020 8:15 PM CDT 08/12/2020 6:14 PM CDT Giulia Shaw MD LAB - HEMATOLOGY ORDERABLE S Final Result Performing Organization Address City/State/[facility] de Phone Number [facility] [address] [place] [address], [facility] [phone] from Last 3 Months or Most Recently Relevant to Health Maintenance Insurance [facility] * Guarantor: ANTHONY PFEIFFER Account Type Relation to Patient Date of Phone Billing Address Personal/Family [address] [place] [address] Advance Directives * Full Code (Latest Code Status on File) Date Activated Date Inactivated Comments 04/21/2021 8:18 PM 04/22/2021 12:59 AM
[2025-09-26 16:07] LABS: Add Urine Microscopic? YES; Appearance Urine Clear (Clear); Glucose Urine UA Negative (Negative); Leukocyte Esterase Ur Trace LEU/UL (Negative); Nitrate Urine Negative (Negative); Non Pathogenic Casts 0-2; Specific Grav Ur 1.014 (1.001-1.035)
[2025-09-26 16:28] LABS: Cannabinoid Screen Urine Positive (Negative)
[2025-09-26] MEDS: ACETAMINOPHEN 500 MG TABLET 1000 MG PO (16:31)
--- NOTE | 2025-09-26 16:33 | ED_ITS ---
HPI - SOB/Dyspnea General Chief Complaint: Shortness of Breath/Dyspnea Stated Complaint: shortness of breath, can't sleep Time Seen by Provider: 09/26/25 15:41 Source: patient Mode of arrival: ambulatory Limitations: no limitations History of Present Illness HPI Narrative: Patient presents with report of shortness of breath. He reports he can't sleep, when he closes his eyes he feels panicked. He does report that he stopped doing ice/meth (injection) 3 days ago and is concerned for withdrawal. Has withdrawn before. He also wants STI testing. He is sexually active with women, 1 partner in the past month. No penile discharge and he had not been notified of any confirmed positive testing by her, he was just curious/concerned. No known exposure. Denies penile discharge. He reports having some edema in his right leg. No cough. No hemoptysis. No recent surgery/truama. No history DVT/PE. Not on hormones or anticoagulation. He denies chest pain. When he quit using recreatioal drugs he did report that he started to smoke cigarettes, believse he has smoked 3 cigarettes in the pack. Related Data Home Medications ?Medication ?Instructions ?Recorded ?Confirmed ?Last Taken ?Type No Home Medications 09/26/25 09/26/25 U nknown History Allergies Allergy/AdvReac Type Severity Reaction Status Date / Time No Known Allergies Allergy Unknown Verified 09/26/25 21:16 [facility] Past Medical History Medical History Biventricular heart failure with reduced left ventricular function Cardiomyopathy Echocardiogram 10/2024: Severely reduced left ventricular systolic function with EF of 20-25%, right ventricle mildly dilated with reduced systolic function Hypertension Cannabinoid hyperemesis syndrome Non-ST elevation [place] (NSTEMI) (10/2024) Lexiscan stress echo demonstrating EF of 37% with normal perfusion Methamphetamine addiction IV Hepatitis C infection Marijuana use Surgical History Surgical History History of orthopedic surgery Family History Family History Father Acute myocardial infarction Social History Social History (Updated 09/27/25 @ 10:03 by Destiny Neville DO) Social History: Code status: Full code Smoking status: Current every day smoker Tobacco type: e-cigarettes/vaping Smokeless tobacco user: other Additional smoking assessment comments: Smokes cigarette(s) Vapes. Alcohol intake: unknown Substance use: current Substance use type: marijuana, IV drugs and methamphetamine Last use: Last IV meth use 09/23/2025 Do You Feel Safe in your Home?: Yes Lack of Transportation: No Lack of Food: Sometimes True Current Housing: I Have Housing Concerned About Future Housing: No Difficulty Paying Gas/Electric Bills: No Difficulty Paying for Meds: No Currently Unemployed: No Education: High School Diploma/GED Difficulty w/ Childcare or Family Care: No Gender identity (if verbalized by the patient): Male Spiritual care concerns: No Exam 2 Narrative: GENERAL: Well-appearing, well-nourished, and in no acute distress. HEAD: Normocephalic, atraumatic. EYES: Non injected, non icteric ENT: Nares clear, no rhinorrhea or epistaxis. Gross auditory acuity intact. NECK: Supple. No meningismus. CHEST: Speaking in full sentences. No respiratory distress. Lungs clear. HEART: Regular rate and rhythm. . ABDOMEN: Soft, nondistended. No rigidity or guarding. Not peritoneal EXTREMITIES: Normal range of motion. Right lower extremity edema 2+, left trace edema. SKIN: Warm, dry. NEURO: No focal deficits. Alert and oriented. Answering questions. Following commands. Normal speech without aphasia or dysarthria. PSYCH: Normal mood and affect. Course Vital Signs Vital signs: Vital Signs Temperature 97.5 F L 09/26/25 12:33 Pulse Rate 99 09/26/25 12:33 Respiratory Rate 18 09/26/25 12:33 Blood Pressure 185/135 H 09/26/25 12:33 Pulse Oximetry 98 09/26/25 12:33 Oxygen Delivery Room Air 09/26/25 12:33 Temperature 97.3 F L 09/27/25 08:00 Pulse Rate 80 09/27/25 08:14 Respiratory Rate 24 H 09/27/25 08:00 Blood Pressure 135/99 H 09/27/25 08:00 Pulse Oximetry 97 09/27/25 08:00 Oxygen Delivery Room Air 09/26/25 17:17 MDM - SOB/Dyspnea MDM Narrative Medical decision making narrative: Patient presents with report of shortness of breath. Feels panicked, especially when closes eyes. Stopped using IV ice/meth 3 days ago. Did start smoking cigarettes though reports only 3 out of the pack he purchased. Would like STI testing. Sexually active with 1 female partner in the past month with no symptoms and no known exposures. In the emergency department he is afebrile with vital signs notable for hypertension. PERC Rule Age greater than or equal to 50:0 HR greater than or equal to 100:0 O2 sat room air <95%:0 Unilateral leg swelling: Yes Hemoptysis: No Recent surgery or trauma less than 4 wks ago requiring tx with general anesthesia: No Prior PE or DVT: No Hormone use (OCP, HRT or estrogenic hormone use in M/F patients): No Will obtain D dimer. Was complaining of a headache. Tylenol ordered. His very mild hyponatremia is chronic. UDS positive for amphetamines and cannabinoids. Urine with sterile pyuria. A culture has reflux but no need to treat at present time. He is feeling very anxious and restless and is out of bed walking the halls at approximately 5:00 p.m.. Small dose Valium ordered. Dimer >1. US and CT PE ordered. BNP is elevated; no prior for comparison. Chalmydia positive. Gonorrhea negative. Doxycycline ordered. Troponin elevated. Has been elevated previously. Repeat troponin slightly uptrending. Aspirin and 6 hour troponin ordered. US negative as below. Patient reassessed at 7:05. Resting comfortably but upon awakening he does report still feeling short of breath and with anxiousness. BP still elevated, 176/139; 10mg labetalol ordered which may also help with both BP and anxiousness. Discussed patient's work up with him. Amenable to admission. Previous echo reviewed as below which did show reduced systolic function. Patient discussed with family and consumer science professor hospitalist JOANNE Bradford. Will be IMU given NSTEMI. Heparin ordered. Echo to be performed tomorrow ordered as well. Will also order 7 day course of doxy for the chlamydia. Still anxious and pacing. Valium ordered. Differential Diagnosis Differential diagnosis: Likely congestive heart failure, community acquired pneumonia, pulmonary embolism and other (cardiomyopathy; valvular dysfunction; hypertensive emergency; drug induced ; DVT) Medical Records Attestation: I reviewed the patient's medical records. Medical records narrative: Echo from October 2024: Summary 1. Complete two-dimensional, color flow and Doppler transthoracic echocardiogram is performed. 2. Left ventricle is severely reduced systolic function. 3. Right ventricle is mildly dilated with reduced systolic function. 4. Right-sided filling pressure overload. 5. No significant valvular disease. Lab Data Attestation: I reviewed the patient's lab results. Lab results narrative: CBC with mild abnormalities on the differential but otherwise without anemia thrombocytopenia, leukocytosis 09/27/25 04:02 09/27/25 04:02 Labs: Lab Results 09/26/25 09/26/25 09/26/25 Range/Units 14:42 14:43 15:30 WBC 5.3 (4.5-10.0) K/mm3 RBC 5.47 (4.6-6.20) M/mm3 Hgb 16.4 (14.0-18.0) g/dL Hct 49.6 (42.0-52.0) % MCV 90.7 (80-100) fl MCH 30.0 (26-34) pg MCHC 33.1 (32-36) g/dl RDW 13.5 (11.5-14.5) % Plt Count 251 (150-375) k/mm3 MPV 9.5 (7.4-10.4) fl Immature Gran % (Auto) 0.2 (0-0.5) % Neut % (Auto) 54.7 (45.5-73.1) % Lymph % (Auto) 31.6 (18.3-44.2) % Woods % (Auto) 8.0 (2.6-8.5) % Eos % (Auto) 4.9 H (0-4.4) % Baso % (Auto) 0.6 (0.2-1.2) % Lymph # (Auto) 1.66 (0.9-3.2) K/mm3 Woods # (Auto) 0.4 (0.1-0.6) K/mm3 Eos # (Auto) 0.3 (0-0.3) K/mm3 Baso # (Auto) 0.0 (0.0-0.1) K/mm3 Abs Immat Gran (auto) 0.01 (0.00-0.031) K/mm3 Absolute Neuts (auto) 2.9 (1.3-6.7) K/mm3 Absolute Nucleated RBC 0.000 (0.0-0.012) K/mm3 Nucleated RBC % 0.0 (0.0-0.2) % D-Dimer 1.10 H (<0.48) ug/mL Sodium 136 L (137-145) mmol/L Potassium 4.4 (3.4-5.0) mmol/L Chloride 104 (98-107) mmol/L Carbon Dioxide 25 (22-30) mmol/L Anion Gap 7 (4-12) mmol/L BUN 16 (9-20) mg/dL Creatinine 1.11 (0.7-1.3) mg/dL Estim Creat Clear Calc 121 ml/min Estimated GFR > 60 (59 - ) Glucose 112 H (65-110) mg/dL Calcium 9.4 (8.4-10.2) mg/dL Total Bilirubin 0.7 (0.2-1.3) mg/dL AST 43 (17-59) U/L ALT 46 (6-50) U/L Alkaline Phosphatase 55 (38-126) U/L Troponin I 0.046 H* (0.000-0.034) ng/mL NT-Pro-B Natriuret Pep 2840 H (19.9-100) pg/mL Total Protein 7.9 (6.3-8.2) g/dL Albumin 4.3 (3.5-5.1) g/dL Urine Color (Yellow) Urine Appearance (Clear) Urine pH (5.0-9.0) Ur Specific [place] (1.001-1.035) Urine Protein (Negative) mg/dL Urine Glucose (UA) (Negative) mg/dL Urine Ketones (Negative) mg/dL Ur Blood (Man) (Negative) Urine Nitrate (Negative) Urine Bilirubin (Negative) Urine Urobilinogen (<2.0) mg/dL Leukocyte Esterase Rfl (Negative) PATRICIA/UL Urine RBC (0-2) /hpf Urine WBC (0-3) /hpf Ur Squamous Epith Cells (Few) /hpf Urine Bacteria /hpf Urine Casts Urine Opiates Screen (Negative) Urine Methadone Screen (Negative) Ur Barbiturates Screen (Negative) Ur Phencyclidine Scrn (Negative) Ur Amphetamine Screen (Negative) U Benzodiazepines Scrn (Negative) Urine Cocaine Screen (Negative) U Cannabinoids Screen (Negative) C. trachomatis (PCR) Detected A (NOT DETECTE) N. gonorrhoeae (PCR) Not detected (NOT DETECTE) T. vaginalis (PCR) Not detected (NOT DETECTE) 09/26/25 09/26/25 Range/Units 15:31 17:50 WBC (4.5-10.0) K/mm3 RBC (4.6-6.20) M/mm3 Hgb (14.0-18.0) g/dL Hct (42.0-52.0) % MCV (80-100) fl MCH (26-34) pg MCHC (32-36) g/dl RDW (11.5-14.5) % Plt Count (150-375) k/mm3 MPV (7.4-10.4) fl Immature Gran % (Auto) (0-0.5) % Neut % (Auto) (45.5-73.1) % Lymph % (Auto) (18.3-44.2) % Woods % (Auto) (2.6-8.5) % Eos % (Auto) (0-4.4) % Baso % (Auto) (0.2-1.2) % Lymph # (Auto) (0.9-3.2) K/mm3 Woods # (Auto) (0.1-0.6) K/mm3 Eos # (Auto) (0-0.3) K/mm3 Baso # (Auto) (0.0-0.1) K/mm3 Abs Immat Gran (auto) (0.00-0.031) K/mm3 Absolute Neuts (auto) (1.3-6.7) K/mm3 Absolute Nucleated RBC (0.0-0.012) K/mm3 Nucleated RBC % (0.0-0.2) % D-Dimer (<0.48) ug/mL Sodium (137-145) mmol/L Potassium (3.4-5.0) mmol/L Chloride (98-107) mmol/L Carbon Dioxide (22-30) mmol/L Anion Gap (4-12) mmol/L BUN (9-20) mg/dL Creatinine (0.7-1.3) mg/dL Estim Creat Clear Calc ml/min Estimated GFR (59 - ) Glucose (65-110) mg/dL Calcium (8.4-10.2) mg/dL Total Bilirubin (0.2-1.3) mg/dL AST (17-59) U/L ALT (6-50) U/L Alkaline Phosphatase (38-126) U/L Troponin I 0.052 H* (0.000-0.034) ng/mL NT-Pro-B Natriuret Pep (19.9-100) pg/mL Total Protein (6.3-8.2) g/dL Albumin (3.5-5.1) g/dL Urine Color Yellow (Yellow) Urine Appearance Clear (Clear) Urine pH 7.0 (5.0-9.0) Ur Specific [place] 1.014 (1.001-1.035) Urine Protein 2+ H (Negative) mg/dL Urine Glucose (UA) Negative (Negative) mg/dL Urine Ketones Negative (Negative) mg/dL Ur Blood (Man) Negative (Negative) Urine Nitrate Negative (Negative) Urine Bilirubin Negative (Negative) Urine Urobilinogen 1.0 (<2.0) mg/dL Leukocyte Esterase Rfl Trace H (Negative) PATRICIA/UL Urine RBC 0-2 (0-2) /hpf Urine WBC 11-20 H (0-3) /hpf Ur Squamous Epith Cells None seen (Few) /hpf Urine Bacteria None seen /hpf Urine Casts 0-2 Urine Opiates Screen Negative (Negative) Urine Methadone Screen Negative (Negative) Ur Barbiturates Screen Negative (Negative) Ur Phencyclidine Scrn Negative (Negative) Ur Amphetamine Screen Positive A (Negative) U Benzodiazepines Scrn Negative (Negative) Urine Cocaine Screen Negative (Negative) U Cannabinoids Screen Positive A (Negative) C. trachomatis (PCR) (NOT DETECTE) N. gonorrhoeae (PCR) (NOT DETECTE) T. vaginalis (PCR) (NOT DETECTE) Imaging Data Radiologist's impression: Impressions Chest X-Ray 09/26/25 15:15 IMPRESSION: 1. No focal acute process. Chest CTA 09/26/25 17:54 IMPRESSION: 1. Negative for pulmonary embolism. No acute process Venous Doppler Study 09/26/25 18:58 IMPRESSION: There was no sonographic evidence of deep vein thrombosis in the right lower extremity. ECG Data EKG #1: Attestation: I personally reviewed and interpreted this ECG as follows: ECG completion date: 09/26/25 ECG completion time: 14:37 Prior ECG tracings: available for review (EKG 01/10/2025 w/o the T wave flattening in inferior but other similar findings) Interpretation: Normal sinus rhythm at a rate of 93 beats per minute. NC interval 173. QRS 98. QT/QTC 390/45. Prominent P-waves particularly in the inferior leads. Incomplete RBBB given QRS less than [id number]; RSR' M-shaped pattern in V1-V3; wide, slurred S wave in lateral leads (I, aVL not necessarily V5 & 6). T wave flattening in inferior leads. Non specific T wave findings in V4 -V6. Discharge Plan Discharge Clinical Impression: Hx of amphetamine abuse, Edema of right lower extremity, Blood pressure elevated without history of HTN, Shortness of breath, Marijuana use, Sterile pyuria, Elevated brain natriuretic peptide (BNP) level, Chlamydia test positive, Non-ST elevation [place] (NSTEMI), Anxiousness Patient Disposition: Still a Patient Condition: Stable Time of Disposition: 19:31
[2025-09-26] MEDS: diazePAM INJ (*CRX) 10 MG/2 ML SYRINGE 2.5 MG IV PUSH ×2 (17:04→20:12)
[2025-09-26 17:07] LABS: NT Pro B Type Natriuretic Pept 2840 pg/mL (19.9-100)
[2025-09-26 17:32] LABS: Troponin I 0.046 ng/mL (0.000-0.034)
[2025-09-26] MEDS: DOXYCYCLINE HYCLATE 100 MG TABLET PO (18:20)
[2025-09-26 18:23] LABS: Troponin I 0.052 ng/mL (0.000-0.034)
[2025-09-26 19:23] LABS: Trichomonas Vag PCR NOT DETECTED (NOT DETECTE)
[2025-09-26] MEDS: ASPIRIN 81 MG CHEWABLE TABLET 324 MG PO (20:10)
[2025-09-26] MEDS: HEPARIN SOD/D5W 100 UNITS/ML 25,000 UNITS/250 ML BAG 10 UNITS IV CONT (20:10)
--- NOTE | 2025-09-26 20:26 | WPCEDHO ---
ED Hand Off Checklist All vitals saved:yes IV Site documented:yes All med administrations documented: yes Triage Note Triage Note Pt ambulates to the ED with 09/26/25 14:29 complaints of shortness of breath , can't sleep and when I close my eyes I panic and I don't know why. I agree with triage, pt is also reporting that he stopped doing drugs ice a couple days ago and also want to be tested for STDs. Allergies No Known Allergies Allergy (Unknown, Verified 09/26/25 15:12) Family History (Last Reviewed 01/05/25 @ 16:22 by Kyra Connor MD) Father Acute myocardial infarction Active Medications including assessments/comments Heparin Sodium/Dextrose (Heparin Sodium/D5w 100 Units/Ml) 25,000 units in 250 mls @ 10 mls/hr IV CONT .Q24H DEONNA; Protocol Last Admin: 09/26/25 20:10 Dose: 1,000 units/hr, 10 mls/hr Documented By: SHARON Co-signed By: [facility] Infusion/Titration Document 09/26/25 20:10 SHARON (Rec: 09/26/25 20:10 SHARON [id number]) Co-signed By Laurel Buitrago RN Intake IV Site Peripheral Access Left Antecubital Container Volume 250 Waste Amount 0 Dosing Dose Rate 1,000 Infusion Rate 10 Increase/Decrease Started Elapsed Time Elapsed Time ( 0m minutes) Heparin Infusion Assessment Document 09/26/25 20:10 SHARON (Rec: 09/26/25 20:10 SHARON [id number]) Co-signed By Laurel Buitrago RN Heparin Infusion Assessment Heparin Infusion Initiated Action Administered/Completed Medications Discontinued Medications Acetaminophen (Acetaminophen 500 Mg Tablet) 1,000 mg PO ONCE STA Stop: 09/26/25 16:29 Last Admin: 09/26/25 16:31 Dose: 1,000 mg Documented By: SHARON Acetaminophen (Acetaminophen 500 Mg Tablet) Confirm Administered Dose 1,000 mg .ROUTE .STK-MED ONE Stop: 09/26/25 16:29 Last Admin: 09/26/25 16:49 Dose: Not Given Documented By: SHARON Non-Admin Reason: Duplicate Dose Aspirin (Aspirin 81 Mg Chewable Tablet) 324 mg PO ONCE STA Stop: 09/26/25 19:26 Last Admin: 09/26/25 20:10 Dose: 324 mg Documented By: SHARON Diazepam (Diazepam Inj (*Crx) 10 Mg/2 Ml Syringe) 2.5 mg IV PUSH ONCE ONE Stop: 09/26/25 17:00 Last Admin: 09/26/25 17:04 Dose: 2.5 mg Documented By: SHARON Diazepam (Diazepam Inj (*Crx) 10 Mg/2 Ml Syringe) 2.5 mg IV PUSH ONCE ONE Stop: 09/26/25 20:08 Last Admin: 09/26/25 20:12 Dose: 2.5 mg Documented By: SHARON Doxycycline Hyclate (Doxycycline Hyclate 100 Mg Tablet) 100 mg PO ONCE ONE Stop: 09/26/25 18:11 Last Admin: 09/26/25 18:20 Dose: 100 mg Documented By: AMAN Labetalol HCl (Labetalol Hcl Inj 100 Mg/20 Ml Vial) 10 mg IV PUSH ONCE ONE Stop: 09/26/25 19:47 Last Admin: 09/26/25 20:09 Dose: 10 mg Documented By: SHARON Notes 09/26/25 12:35 Nurse Note by Terrie Fuller Pt reports hx HTN, states he did not take his meds today Initialized on 09/26/25 12:35 - END OF NOTE Interventions/Assessments IV / Saline Lock, Insert Start: 09/26/25 14:29 Freq: STAT Status: Active Protocol: Document 09/26/25 19:57 SHARON (Rec: 09/26/25 19:57 SHARON [id number]) IV Assessment Peripheral Access Left Antecubital IV Catheter Access Initiated IV Insertion Date 09/26/25 IV Insertion Time 19:57 Catheter Gauge 18 IV Insertion 1 Attempts IV Site Assessment WNL IV Care and WNL Maintenance PA: Respiratory Assessment Start: 09/26/25 12:32 Freq: Status: Active Protocol: Document 09/26/25 17:17 SHARON (Rec: 09/26/25 17:17 SHARON [id number]) Respiratory Assessment Symptoms Shortness of Breath at Rest,Shortness of Breath With Exertion Effort Normal Pattern Regular Depth Normal Chest Expansion Symmetrical Adult Capillary Normal/Less than 2 Seconds Refill Oxygen Delivery Oxygen Delivery Room Air Pulse Oximetry (90- 97 100) Last Vital Signs Temperature 97.6 F 09/26/25 19:47 Pulse Rate 94 09/26/25 20:16 Respiratory Rate 29 H 09/26/25 20:16 Pulse Oximetry 91 09/26/25 20:16 Blood Pressure 165/132 H 09/26/25 20:16 Blood Pressure Mean 142 09/26/25 20:16 Blood Pressure Position Sitting 09/26/25 14:29 Oxygen Delivery Room Air 09/26/25 17:17 Weight 123.8 kg 09/26/25 14:29 Last Result - Abnormals Only Eos % (Auto) 4.9 % (0-4.4) H 09/26/25 14:43 D-Dimer 1.10 ug/mL (<0.48) H 09/26/25 14:42 Sodium 136 mmol/L (137-145) L 09/26/25 14:43 Glucose 112 mg/dL (65-110) H 09/26/25 14:43 Troponin I 0.052 ng/mL (0.000-0.034) H* 09/26/25 17:50 NT-Pro-B Natriuret Pep 2840 pg/mL (19.9-100) H 09/26/25 14:42 Urine Protein 2+ mg/dL (Negative) H 09/26/25 15:31 Leukocyte Esterase Rfl Trace PATRICIA/UL (Negative) H 09/26/25 15:31 Urine WBC 11-20 /hpf (0-3) H 09/26/25 15:31 Ur Amphetamine Screen Positive (Negative) A 09/26/25 15:31 U Cannabinoids Screen Positive (Negative) A 09/26/25 15:31 C. trachomatis (PCR) Detected (NOT DETECTE) A 09/26/25 15:30 Most Recent Suicide Severity Rating Suicide Severity Rating NO RISK INDICATED 09/26/25 14:29
--- NOTE | 2025-09-26 21:13 | ADMIMU ---
This patient, Deepak Pfeiffer III, was admitted to IMU status, and placed in IMU Room 206-02 at 2042. Patient oriented to hospital policies and general routines including ID bracelet, bed and alarms, visiting hours, pain management, procedures, bathroom and other care routines, personal items, smoking policy, room service/diet, and visiting hours. Valuables list has been completed. Information on how to activate the Rapid Response Team has been discussed. Patient is encouraged to report perceived risks to care and to ask questions if they do not understand what they are told or what they should do.
[2025-09-26 21:22] LABS: INR 1.1; Prothrombin Time 14.1 Seconds (11.1-14.7)
[2025-09-26 21:23] LABS: Partial Thromboplastin Time 35.5 Seconds (22.3-36.8)
[2025-09-26 21:33] LABS: Troponin I 0.060 ng/mL (0.000-0.034)
[2025-09-26] MEDS: ONDANSETRON INJ 4 MG/2 ML VIAL IV PUSH (22:06)
--- NOTE | 2025-09-26 22:28 | P.HP_ITS ---
H&P: HPI History of Present Illness Date/Time: 09/27/25 00:55 Chief Complaint: I panic on a laid down to sleep Narrative: 35-year-old male with a past medical history of untreated hepatitis-C, IV methamphetamine abuse, severe systolic heart failure with EF of 20-25% (10/2024) due to drug-induced cardiomyopathy and uncontrolled hypertension who presented to the ER with orthopnea and requesting STD testing. The patient reports that he uses crystal meth via IV administration every single day. Three days ago he stopped using the meth because he was having more shortness of breath. He reported that he would feel panicked when he laid down and tried to sleep. He has been having increased lower extremity swelling at least for a couple of months if not longer. He denies any chest pain or palpitations. He denies any cough or congestion. He has not taken his cardiac medications since he was discharged from the hospital in October of 2024. He is essentially homeless and stays at various friend's houses. He vapes. He denies any significant alcohol use. He reports feeling generally anxious. He denies having any urinary symptoms but requested STD testing. His urine specimen came back positive for chlamydia. His troponins were elevated but with flat troponin profile. He does report dyspnea on exertion. Patient is a poor historian and subsequently the majority of the history was obtained from review of past medical records and ER physician report. Review of Systems 2 Review of Systems: 12 systems were reviewed with pertinent positives and negatives per HPI. Except as documented in the HPI, all other systems were reviewed and are negative. [facility] Past Medical History Medical History Biventricular heart failure with reduced left ventricular function Cardiomyopathy Echocardiogram 10/2024: Severely reduced left ventricular systolic function with EF of 20-25%, right ventricle mildly dilated with reduced systolic function Hypertension Cannabinoid hyperemesis syndrome Non-ST elevation NC (NSTEMI) (10/2024) Lexiscan stress echo demonstrating EF of 37% with normal perfusion Methamphetamine addiction IV Hepatitis C infection Marijuana use Surgical History Surgical History History of orthopedic surgery Family History Family History Father Acute myocardial infarction Social History Social History (Updated 09/27/25 @ 21:52 by Destiny J. Hopen, DO) Social History: The patient is essentially homeless in lives between various friends residences. 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 He uses ?ice? (crystal meth) which he injects daily. He reports that he ?recently started vaping?. When asked about alcohol use the patient declined the answer. Code status: Full code Tobacco type: e-cigarettes/vaping Additional smoking assessment comments: Smokes cigarette(s) Vapes. Alcohol intake: unknown Substance use: current Substance use type: marijuana, IV drugs and methamphetamine Last use: Last IV meth use 09/23/2025 Do You Feel Safe in your Home?: Yes Lack of Transportation: No Lack of Food: Sometimes True Current Housing: I Have Housing Concerned About Future Housing: No Difficulty Paying Gas/Electric Bills: No Difficulty Paying for Meds: No Currently Unemployed: No Education: High School Diploma/GED Difficulty w/ Childcare or Family Care: No Gender identity (if verbalized by the patient): Male Spiritual care concerns: No Meds Home Medications and Allergies Home Medications ?Medication ?Instructions ?Recorded ?Confirmed ?Type No Home Medications 09/26/25 09/26/25 H istory Allergies Allergy/AdvReac Type Severity Reaction Status Date / Time No Known Allergies Allergy Unknown Verified 09/26/25 21:16 Vital Signs Vital Signs - 24 hr 09/26/25 12:33 09/26/25 14:29 09/26/25 17:17 Temperature 97.5 F L Pulse Rate 99 96 Respiratory Rate 18 17 Blood Pressure 185/135 H 187/144 H Pulse Oximetry 98 97 97 Oxygen Delivery Room Air Room Air Room Air 09/26/25 19:46 09/26/25 19:47 09/26/25 19:47 Temperature 97.6 F Pulse Rate 96 96 98 Respiratory Rate 21 H 21 H 24 H Blood Pressure 176/139 H 176/139 H Pulse Oximetry 98 98 98 Oxygen Delivery 09/26/25 20:00 09/26/25 20:01 09/26/25 20:15 Temperature Pulse Rate 101 H 104 H 95 Respiratory Rate 20 27 H 31 H Blood Pressure 180/144 H Pulse Oximetry 97 99 Oxygen Delivery 09/26/25 20:16 09/26/25 20:45 Temperature 97.7 F Pulse Rate 94 89 Respiratory Rate 29 H 24 H Blood Pressure 165/132 H 168/125 H Pulse Oximetry 91 96 Oxygen Delivery Exam 2 Narrative: Weight 119.2 kg BMI 30.4 Const: Other: Well-developed, well-nourished, appears stated age HENMT: Other: Head is normocephalic atraumatic, pupils are equal and reactive, no scleral icterus, no conjunctival pallor, mucous membranes are tacky, poor dentition with multiple missing teeth Neck: Other: No JVD, no lymphadenopathy Resp: Other: Clear to auscultation bilaterally, no increased work of breathing Cardio: Other: Regular rate, regular rhythm, 2+ bilateral radial pedal pulses Skin: Other: Multiple tattoos across the chest and bilateral upper extremities, no jaundice, no pallor Neuro: Other: Patient is somnolent but arouses easily to verbal stimuli but falls back asleep quickly, he is alert oriented x4, speech is clear, no facial asymmetry, neuro exam limited due to lack of patient cooperation but no localizing neurologic deficits noted Extrem: Other: Grossly normal bilateral upper extremity function, 1+ pitting edema bilateral lower extremities Psych: Speech and movement: Normal speech and movement present Affect: I ndifferent affect present and Blunted affect present Attitude: Avoids eye contact (attititude/behavior) Insight: Poor insight present (Psych) J udgement: Poor judgement present (Psych) H&P: Results Labs Labs: Laboratory Tests 09/26/25 14:43 09/26/25 14:43 09/26/25 09/26/25 09/26/25 14:42 14:43 15:30 WBC 5.3 RBC 5.47 Hgb 16.4 Hct 49.6 MCV 90.7 MCH 30.0 MCHC 33.1 RDW 13.5 Plt Count 251 MPV 9.5 Immature Gran % (Auto) 0.2 Neut % (Auto) 54.7 Lymph % (Auto) 31.6 Banks % (Auto) 8.0 Eos % (Auto) 4.9 H Baso % (Auto) 0.6 Lymph # (Auto) 1.66 Banks # (Auto) 0.4 Eos # (Auto) 0.3 Baso # (Auto) 0.0 Abs Immat Gran (auto) 0.01 Absolute Neuts (auto) 2.9 Absolute Nucleated RBC 0.000 Nucleated RBC % 0.0 PT INR APTT D-Dimer 1.10 H Sodium 136 L Potassium 4.4 Chloride 104 Carbon Dioxide 25 Anion Gap 7 BUN 16 Creatinine 1.11 Estim Creat Clear Calc 121 Estimated GFR > 60 Glucose 112 H Calcium 9.4 Total Bilirubin 0.7 AST 43 ALT 46 Alkaline Phosphatase 55 Troponin I 0.046 H* NT-Pro-B Natriuret Pep 2840 H Total Protein 7.9 Albumin 4.3 Urine Color Urine Appearance Urine pH Ur Specific [place] Urine Protein Urine Glucose (UA) Urine Ketones Ur Blood (Man) Urine Nitrate Urine Bilirubin Urine Urobilinogen Leukocyte Esterase Rfl Urine RBC Urine WBC Ur Squamous Epith Cells Urine Bacteria Urine Casts Urine Opiates Screen Urine Methadone Screen Ur Barbiturates Screen Ur Phencyclidine Scrn Ur Amphetamine Screen U Benzodiazepines Scrn Urine Cocaine Screen U Cannabinoids Screen C. trachomatis (PCR) Detected A HIV 1&2 Ab/P24 Ag 4thGn N. gonorrhoeae (PCR) Not detected T. vaginalis (PCR) Not detected 09/26/25 09/26/25 09/26/25 15:31 17:50 21:00 WBC RBC Hgb Hct MCV MCH MCHC RDW Plt Count MPV Immature Gran % (Auto) Neut % (Auto) Lymph % (Auto) Banks % (Auto) Eos % (Auto) Baso % (Auto) Lymph # (Auto) Banks # (Auto) Eos # (Auto) Baso # (Auto) Abs Immat Gran (auto) Absolute Neuts (auto) Absolute Nucleated RBC Nucleated RBC % PT 14.1 INR 1.1 APTT 35.5 D-Dimer Sodium Potassium Chloride Carbon Dioxide Anion Gap BUN Creatinine Estim Creat Clear Calc Estimated GFR Glucose Calcium Total Bilirubin AST ALT Alkaline Phosphatase Troponin I 0.052 H* 0.060 H* NT-Pro-B Natriuret Pep Total Protein Albumin Urine Color Yellow Urine Appearance Clear Urine pH 7.0 Ur Specific [place] 1.014 Urine Protein 2+ H Urine Glucose (UA) Negative Urine Ketones Negative Ur Blood (Man) Negative Urine Nitrate Negative Urine Bilirubin Negative Urine Urobilinogen 1.0 Leukocyte Esterase Rfl Trace H Urine RBC 0-2 Urine WBC 11-20 H Ur Squamous Epith Cells None seen Urine Bacteria None seen Urine Casts 0-2 Urine Opiates Screen Negative Urine Methadone Screen Negative Ur Barbiturates Screen Negative Ur Phencyclidine Scrn Negative Ur Amphetamine Screen Positive A U Benzodiazepines Scrn Negative Urine Cocaine Screen Negative U Cannabinoids Screen Positive A C. trachomatis (PCR) HIV 1&2 Ab/P24 Ag 4thGn Pending N. gonorrhoeae (PCR) T. vaginalis (PCR) Impressions Chest X-Ray 09/26/25 15:15 IMPRESSION: 1. No focal acute process. Chest CTA 09/26/25 17:54 IMPRESSION: 1. Negative for pulmonary embolism. No acute process Venous Doppler Study 09/26/25 18:58 IMPRESSION: There was no sonographic evidence of deep vein thrombosis in the right lower extremity. EKG: Normal sinus rhythm rate 93, left atrial enlargement, incomplete right bundle-branch block, left anterior fascicular nonspecific T-wave abnormality V1 V2 before V5 and V6, QTC 485. Cardiology interpretation pending Assessment and Plan Assessment and plan (1) Acute exacerbation of congestive heart failure: Qualifiers: Heart failure type: systolic Qualified Code(s): I50.23 - Acute on chronic systolic (congestive) heart failure Code(s): I50.9 - Heart failure, unspecified Status: Acute (2) Biventricular heart failure with reduced left ventricular function: Code(s): I50.814 - Right heart failure due to left heart failure Status: Acute (3) Uncontrolled hypertension: Code(s): I10 - Essential (primary) hypertension Status: Acute (4) Methamphetamine addiction: Code(s): F15.20 - Other stimulant dependence, uncomplicated Status: Acute (5) Active intravenous drug use: Code(s): F19.90 - Other psychoactive substance use, unspecified, uncomplicated Status: Acute (6) Cardiomyopathy: Qualifiers: Cardiomyopathy type: due to drug Qualified Code(s): I42.7 - Cardiomyopathy due to drug and external agent Code(s): I42.9 - Cardiomyopathy, unspecified Status: Acute (7) Elevated troponin: Code(s): R79.89 - Other specified abnormal findings of blood chemistry Status: Acute (8) Chlamydia trachomatis infection of genitourinary site: Code(s): A56.2 - Chlamydial infection of genitourinary tract, unspecified Status: Acute (9) Hepatitis C infection: Qualifiers: Hepatic coma status: without hepatic coma Viral hepatitis chronicity: c hronic Qualified Code(s): B18.2 - Chronic viral hepatitis C Code(s): B19.20 - Unspecified viral hepatitis C without hepatic coma Status: Acute (10) Non-adherence to medical treatment: Code(s): Z91.199 - Patient's noncompliance with other medical treatment and regimen due to unspecified reason Status: Acute Plan Patient has orthopnea, bilateral lower extremity edema and paroxysmal nocturnal dyspnea all due to acute exacerbation of biventricular heart failure due to drug-induced cardiomyopathy. This is exacerbated by patient's nonadherence to medication regimen. The patient has had large amount of urine output with only 1 dose of diuretic therapy administered in the ER. Will continue IV diuretics and monitor strict I&O's. Will resume the patient on Entresto and metoprolol that he is supposed to be on as outpatient. Will also resume spironolactone and Jardiance that he had been discharged on previously. Echocardiogram has been ordered to re-evaluate patient's current cardiac function. MEDICAL DECISION MAKING NARRATIVE -Spoke with the ED provider in detail regarding patient's evaluation, workup and management -Patient seen and examined at bedside -Collaborated with patient's nurse at the bedside in detail and addressed all concerns -Labs, electrolytes, radiology, investigations and test results personally reviewed and interpreted unless otherwise specified -ED/Consult/Nursing/Ancilliary notes on the chart reviewed and appreciated -Spoke with patient at bedside and diagnosis and plan of care was discussed. All questions answered. Quality VTE Prophylaxis VTE prophylaxis: pharmacologic ordered (Lovenox 40 mg subQ daily.) Hospitalist [facility] Advance Care Plan I have confirmed that the patient's Advanced Care Plan is present, code status is documented, or surrogate decision maker is listed in patient medical record.: Yes Medication Reconciliation I have utilized all available resources to obtain, update and review the patients current medications (includes all prescriptions, OTC, herbals, cannabis, and nutritional supplements).: Yes
[2025-09-26] MEDS: SACUBITRIL/VALSARTAN 49-51 MG TABLET 1 TABLET PO (22:48)
[2025-09-26] MEDS: METOPROLOL SUCCINATE EXT REL 50 MG TABCR PO (22:48)
[2025-09-26] MEDS: FUROSEMIDE INJ 40 MG/4 ML VIAL 20 MG IV PUSH (22:48)
[2025-09-26 23:07] LABS: Syphilis IgG/IgM Antibody Non-Reactive (Nonreactive)
[2025-09-26 23:28] LABS: HIV 1/2 Ab P24 Ag Result Negative (Negative)
[2025-09-26 23:57] LABS: Thyroid Stimulating Hormone Reflex 2.430 uIU/mL (0.465-4.68)
[2025-09-27] VITALS (14 sets, daily range): BP systolic 131–171; BP diastolic 87–128; PULSE 77–88; RESP 20–24; TEMP 36.1–36.7; O2SAT 92–97
--- NOTE | 2025-09-27 | ECHO_ITS ---
Patient Info Name: Deepak Pfeiffer Age: 35 years : 1990 Gender: Male Ht: 78 in Wt: 272 lbs BSA: 2.63 m2 HR: 78 bpm BP: 158 / 104 mmHg Technical Quality: Good Exam Date: 09/27/2025 1:53 PM Patient Status: O Admit Date: 09/26/2025 Exam Type: CA echo dop color flow w con Complete two-dimensional, color flow and Doppler transthoracic echocardiogram is performed with contrast to opacify the left ventricle and to improve the deliniation of the left ventricle endocardial borders. Staff Referring Physician: Leonor Figueroa Center Line Cutter Operator: June Moralez Attending Provider: Destiny Neville DO Contrast/Agitated Saline Contrast/Ag. Saline: Definity Amount: 2.00 ml Summary 1. The left ventricle is normal in size with severely reduced systolic function. There is mild concentric left ventricular hypertrophy. The left ventricular ejection fraction is visually estimated to be 20-25%. 2. The right ventricle is moderately dilated with moderately reduced systolic function. 3. There are no significant valvular abnormalities. 4. Dilated inferior vena cava with <50% collapse upon inspiration consistent with significantly elevated right atrial pressure, 15 mmHg. 5. Pulmonary arterial systolic pressure is estimated at 69 mmHg. There is moderate pulmonary hypertension. Left Ventricle The left ventricle is normal in size with severely reduced systolic function. There is mild concentric left ventricular hypertrophy. The left ventricular ejection fraction is visually estimated to be 20-25%. Right Ventricle The right ventricle is moderately dilated with moderately reduced systolic function. Left Atria The left atrium is normal size. Right Atria The right atrium is mildly dilated. Atrial Septum The atrial septum is visually intact. Aortic Valve The aortic valve is trileaflet and opens well. There is no aortic regurgitation. Pulmonic Valve The pulmonic valve is grossly normal. There is trace pulmonic valve regurgitation. Mitral Valve The mitral valve is normal. There is no mitral regurgitation. Tricuspid Valve The tricuspid valve is normal. There is mild tricuspid regurgitation. Pulmonary Arteries Pulmonary arterial systolic pressure is estimated at 69 mmHg. There is moderate pulmonary hypertension. Pericardium/Pleural Pericardium is normal in appearance with no evidence for significant pericardial effusion. Inferior Vena Cava Dilated inferior vena cava with <50% collapse upon inspiration consistent with significantly elevated right atrial pressure, 15 mmHg. Aorta The aortic root at the level of the sinus of Valsalva measures 3.6 cm in diameter. Left Ventricular Outflow Tract Name Value Normal LVOT 2D LVOT Diameter 2.2 cm LVOT Doppler LVOT Peak Velocity 70 cm/s LVOT Peak Gradient 2 mmHg LVOT Mean Gradient 1 mmHg LVOT VTI 12 cm LVOT Stroke Volume 45 ml LVOT CO 3.5 l/min LVOT CI 1.3 l/min/m2 Pulmonic Valve Name Value Normal RVOT Doppler RVOT Peak Velocity 69 cm/s RVOT Peak Gradient 2 mmHg PV Doppler PV Peak Velocity 78 cm/s PV Peak Gradient 2 mmHg Mitral Valve Name Value Normal MV Diastolic Function MV E Peak Velocity 42 cm/s MV A Peak Velocity 52 cm/s MV E/A 0.8 MV Decel Time (PW) 248 ms MV Annular TDI MV E/e' (Septal) 11.4 MV E/e' (Lateral) 10.2 MV E/e' (Average) 10.8 Tricuspid Valve Name Value Normal TV Regurgitation Doppler TR Peak Velocity 368 cm/s TR Peak Gradient 54 mmHg Estimated PAP/RSVP RA Pressure 15 mmHg <=5 PA Systolic Pressure 69 mmHg <36 RV Systolic Pressure 69 mmHg <36 Aortic Valve Name Value Normal AV Doppler AV Peak Velocity 93 cm/s AV Peak Gradient 3 mmHg AV Area (Cont Eq Gene) 2.9 cm2 AV DI (Gene) 0.76 AV Regurgitation 2D LVOT Area 3.8 cm2 Ventricles Name Value Normal LV Dimensions 2D/MM IVS Diastolic Thickness (2D) 1.3 cm 0.6-1.0 LVID Diastole (2D) 4.9 cm 4.2-5.8 LVIW Diastolic Thickness (2D) 1.5 cm 0.6-1.0 LVID Systole (2D) 4.4 cm 2.5-4.0 LVOT Diameter 2.2 cm LV Mass (2D Cubed) 291.44 g 88.00-224.00 LV Mass Index (2D Cubed) 111 g/m2 49-115 Relative Wall Thickness (2D) 0.62 <=0.42 LV Fractional Shortening/Ejection Fraction 2D/MM LV Fractional Shortening (2D) 11 % 25-43 LV EF (2D Teichholz) 24 % LV Diastolic Volume (4C MOD) 126 ml LV EF (4C MOD) 38 % LV Diastolic Volume (2C MOD) 169 ml LV EF (2C MOD) 10 % LV Diastolic Volume (BP MOD) 148 ml 62-150 LV Diastolic Volume Index (BP MOD) 56 ml/m2 34-74 LV Systolic Volume (BP MOD) 111 ml 21-61 LV Systolic Volume Index (BP MOD) 42 ml/m2 11-31 LV EF (BP MOD) 25 % 52-72 LV Diastolic Length (4C) 9.4 cm LV Systolic Length (4C) 8.6 cm LV Stroke Volume (4C MOD) 48 ml Atria Name Value Normal LA Dimensions LA Volume (4C A-L) 37 ml LA Volume (BP A-L) 50 ml RA Dimensions RA Systolic Major [place] Length (4C) 6.1 cm 2.1-2.7 RA Area (4C) 24.6 cm2 <=18.0 Report Signatures
[2025-09-27] MEDS: ACETAMINOPHEN 325 MG TABLET 650 MG PO ×2 (03:03→08:16)
[2025-09-27 04:08] LABS: Hematocrit 44.8 % (42.0-52.0); Hemoglobin 15.0 g/dL (14.0-18.0); Immature Granulocyte Percent A 0.2 % (0-0.5); Lymphocytes Absolute Auto 1.65 K/mm3 (0.9-3.2); Mean Corpuscular HGB Conc 33.5 g/dl (32-36); Mean Corpuscular Hemoglobin 30.4 pg (26-34); Mean Corpuscular Volume 90.7 fl (80-100); Nucleated Red Blood Cells Absolute Auto 0.000 K/mm3 (0.0-0.012); Nucleated Red Blood Cells Perc 0.0 % (0.0-0.2); Platelet Count Result 228 k/mm3 (150-375); Red Blood Count 4.94 M/mm3 (4.6-6.20); White Blood Count 4.1 K/mm3 (4.5-10.0)
[2025-09-27 04:31] LABS: Anion Gap 10 mmol/L (4-12); Blood Urea Nitrogen 14 mg/dL (9-20); Calcium 8.7 mg/dL (8.4-10.2); Carbon Dioxide 23 mmol/L (22-30); Chloride 102 mmol/L (98-107); Estimated CRCL calculation 125 ml/min; Estimated Glomerular Filt Rate > 60; Glucose 189 mg/dL (65-110); Magnesium 2.1 mg/dL (1.6-2.3); Potassium 3.3 mmol/L (3.4-5.0); Sodium 135 mmol/L (137-145)
--- NOTE | 2025-09-27 08:00 | PC.NURSE ---
pt very anxious, he does not wish to stay for the whole day but is agreeable to wait until we get the echo and results for the dr to look over at this time
[2025-09-27] MEDS: DOXYCYCLINE HYCLATE 100 MG TABLET PO ×2 (08:13→20:52)
[2025-09-27] MEDS: SACUBITRIL/VALSARTAN 49-51 MG TABLET 1 TABLET PO ×2 (08:14→20:52)
[2025-09-27] MEDS: METOPROLOL SUCCINATE EXT REL 50 MG TABCR PO (08:14)
[2025-09-27] MEDS: ENOXAPARIN 40 MG/0.4 ML SYRINGE SUB-Q (08:15)
--- NOTE | 2025-09-27 15:20 | P.PNIM_ITS ---
Progress Note: A&P Assessment and Plan (1) Biventricular heart failure with reduced left ventricular function: Code(s): I50.814 - Right heart failure due to left heart failure Status: Acute (2) Acute exacerbation of congestive heart failure: Qualifiers: Heart failure type: systolic Qualified Code(s): I50.23 - Acute on chronic systolic (congestive) heart failure Code(s): I50.9 - Heart failure, unspecified Status: Acute Plan Drug induced cardiomyopathy Heart failure reduced ejection fraction -patient has EF of 20-25% October 2024 -patient will need LifeVest for his low EF -he has been noncompliant with treatment -cardiology consulted for the low EF -diuresis: IV Lasix 20mg daily (he responded well to the first dose) -heart failure regimen: On Entresto, Aldactone, metoprolol, will add jardiance -echocardiogram ordered -no active chest pain, do not believe he needs a heart catheterization at this time Hepatitis C -patient has hepatitis C likely from IV drug use -on treated, will need outpatient referral Chronic conditions -polysubstance abuse: Educated patient on importance of methamphetamine cessation Diet: Heart healthy DVT prophylaxis: Lovenox Code status: Full code Disposition: Home in 2-4 days Time Spent With Patient Time: 40minutes Subjective Date/time seen: 09/27/25 15:20 Interval history: Patient seen and examined. Dizziness improved. He denies fever, chills, nausea vomiting consider previous low EF and we will need to arrange for LifeVest. Patient will need outpatient follow-up for hepatitis-C treatment. He may be homeless but states that he might be able to stay with his parents. Consulting cardiology for life vest and CHF management. Review of Systems Review of Systems: 10 point ROS complete, negative other th an what is specified in HPI. Exam Narrative: - GENERAL: Pleasant male in No acute di stress. Well-nourished. - EYES: EOMI. Anicteric. - HENT: Moist mucous membranes. - LUNGS: Clear to auscultation bilateral ly, no wheezing, rhonchi, or rales. - CARDIOVASCULAR: Regular rate and rhyth m. No murmur. No JVD. - ABDOMEN: Soft, non-tender and non-dist ended. No palpable masses. - EXTREMITIES: No edema. Peripheral puls es 2+. Non-tender. - NEUROLOGIC: No focal neurological defi cits. CN II-XII grossly intact. - PSYCHIATRIC: Awake, Alert and oriented x 3. Appropriate mood and affect. - SKIN: No rashes or lesions. Warm. - LYMPH: No cervical lymphadenopathy. Objective Data Vital Signs Vital Signs: Vital Signs - 24 hr 09/26/25 17:17 09/26/25 19:46 09/26/25 19:47 Temperature 36.4 C Pulse Rate 96 96 Respiratory Rate 21 H 21 H Blood Pressure 176/139 H 176/139 H Pulse Oximetry 97 98 98 Oxygen Delivery Room Air 09/26/25 19:47 09/26/25 20:00 09/26/25 20:01 Temperature Pulse Rate 98 101 H 104 H Respiratory Rate 24 H 20 27 H Blood Pressure 180/144 H Pulse Oximetry 98 97 99 Oxygen Delivery 09/26/25 20:15 09/26/25 20:16 09/26/25 20:45 Temperature 36.5 C Pulse Rate 95 94 89 Respiratory Rate 31 H 29 H 24 H Blood Pressure 165/132 H 168/125 H Pulse Oximetry 91 96 Oxygen Delivery 09/26/25 21:06 09/26/25 22:48 09/26/25 23:06 Temperature Pulse Rate 90 87 93 Respiratory Rate Blood Pressure Pulse Oximetry Oxygen Delivery 09/27/25 00:00 09/27/25 00:18 09/27/25 02:00 Temperature 36.1 C L Pulse Rate 84 85 86 Respiratory Rate 20 Blood Pressure 171/128 H Pulse Oximetry 97 Oxygen Delivery 09/27/25 04:00 09/27/25 04:00 09/27/25 06:00 Temperature 36.5 C Pulse Rate 83 83 82 Respiratory Rate 22 H Blood Pressure 158/104 H Pulse Oximetry 97 Oxygen Delivery 09/27/25 08:00 09/27/25 08:00 09/27/25 08:14 Temperature 36.3 C L Pulse Rate 82 86 80 Respiratory Rate 24 H Blood Pressure 135/99 H Pulse Oximetry 97 Oxygen Delivery 09/27/25 10:00 09/27/25 11:53 09/27/25 12:00 Temperature 36.5 C Pulse Rate 77 81 79 Respiratory Rate 20 Blood Pressure 132/93 H Pulse Oximetry 96 Oxygen Delivery Intake/Output Intake/Output: Intake & Output 09/24/25 09/25/25 09/26/25 09/27/25 23:59 23:59 23:59 23:59 Intake Total 1020 Output Total 500 3950 Balance -500 -9954 Meds/Results Medications: Active Medications Generic Name Dose Route Start Last Admin Trade Name Freq PRN Reason Stop Dose Admin Acetaminophen 650 mg 09/26/25 19:31 09/27/25 08:16 Acetaminophen 325 Mg Tablet PO 650 mg Q4H PRN Administration Mild Pain (1-3) or Fever Doxycycline Hyclate 100 mg 09/27/25 09:00 09/27/25 08:13 Doxycycline Hyclate 100 Mg Tablet PO 10/04/25 08:59 100 mg Q12HR DEONNA Administration Enoxaparin Sodium 40 mg 09/27/25 09:00 09/27/25 08:15 Enoxaparin 40 Mg/0.4 Ml Syringe SUB-Q 40 mg DAILY DEONNA Administration Hydralazine HCl 10 mg 09/26/25 22:53 09/27/25 00:59 Hydralazine Hcl 20 Mg/Ml Vial IV PUSH 10 mg Q4H PRN Administration SBP greater than 160 Hydroxyzine HCl 50 mg 09/27/25 07:57 09/27/25 08:13 Hydroxyzine Hcl 25 Mg Tablet PO 50 mg Q6H PRN Administration anxiety Metoprolol Succinate 50 mg 09/26/25 22:20 09/27/25 08:14 Metoprolol Succinate Ext Rel 50 Mg Tabcr PO 50 mg QAM DEONNA Administration Ondansetron HCl 4 mg 09/26/25 19:31 09/26/25 22:06 Ondansetron Inj 4 Mg/2 Ml Vial IV PUSH 4 mg Q4H PRN Administration Nausea Perflutren Lipid Microsphere 0 ml 09/26/25 19:26 Perflutren Lipid Microspheres 1.5 Ml Vial Diluted To 10 Ml Total Volume IV PUSH 09/29/25 19:26 ONCE PRN adequate visualization Protocol Sacubitril/Valsartan 1 tablet 09/26/25 22:25 09/27/25 08:14 Sacubitril/Valsartan 49-51 Mg Tablet PO 1 tablet Q12HR DEONNA Administration Spironolactone 12.5 mg 09/27/25 09:00 09/27/25 08:14 Spironolactone 12.5 Mg Tablet PO 12.5 mg QAM DEONNA Administration Radiology Results: ITS Impressions Chest X-Ray 09/26/25 15:15 IMPRESSION: 1. No focal acute process. Chest CTA 09/26/25 17:54 IMPRESSION: 1. Negative for pulmonary embolism. No acute process Venous Doppler Study 09/26/25 18:58 IMPRESSION: There was no sonographic evidence of deep vein thrombosis in the right lower extremity. Labs Labs: Laboratory Results - last 24 hr 09/26/25 09/26/25 09/26/25 14:42 15:30 15:31 WBC RBC Hgb Hct MCV MCH MCHC RDW Plt Count MPV Immature Gran % (Auto) Neut % (Auto) Lymph % (Auto) [place] % (Auto) Eos % (Auto) Baso % (Auto) Lymph # (Auto) [place] # (Auto) Eos # (Auto) Baso # (Auto) Abs Immat Gran (auto) Absolute Neuts (auto) Absolute Nucleated RBC Nucleated RBC % PT INR APTT D-Dimer 1.10 H Sodium Potassium Chloride Carbon Dioxide Anion Gap BUN Creatinine Estim Creat Clear Calc Estimated GFR Glucose Calcium Magnesium Troponin I 0.046 H* NT-Pro-B Natriuret Pep 2840 H TSH (Reflex) Urine Color Yellow Urine Appearance Clear Urine pH 7.0 Ur Specific [place] 1.014 Urine Protein 2+ H Urine Glucose (UA) Negative Urine Ketones Negative Ur Blood (Man) Negative Urine Nitrate Negative Urine Bilirubin Negative Urine Urobilinogen 1.0 Leukocyte Esterase Rfl Trace H Urine RBC 0-2 Urine WBC 11-20 H Ur Squamous Epith Cells None seen Urine Bacteria None seen Urine Casts 0-2 Urine Opiates Screen Negative Urine Methadone Screen Negative Ur Barbiturates Screen Negative Ur Phencyclidine Scrn Negative Ur Amphetamine Screen Positive A U Benzodiazepines Scrn Negative Urine Cocaine Screen Negative U Cannabinoids Screen Positive A Syphilis IgG/IgM Ab C. trachomatis (PCR) Detected A HIV 1&2 Ab/P24 Ag 4thGn N. gonorrhoeae (PCR) Not detected T. vaginalis (PCR) Not detected 09/26/25 09/26/25 09/27/25 17:50 21:00 04:02 WBC 4.1 L RBC 4.94 Hgb 15.0 Hct 44.8 MCV 90.7 MCH 30.4 MCHC 33.5 RDW 13.8 Plt Count 228 MPV 9.4 Immature Gran % (Auto) 0.2 Neut % (Auto) 43.0 L Lymph % (Auto) 39.9 [place] % (Auto) 10.6 H Eos % (Auto) 5.6 H Baso % (Auto) 0.7 Lymph # (Auto) 1.65 [place] # (Auto) 0.4 Eos # (Auto) 0.2 Baso # (Auto) 0.0 Abs Immat Gran (auto) 0.01 Absolute Neuts (auto) 1.8 Absolute Nucleated RBC 0.000 Nucleated RBC % 0.0 PT 14.1 INR 1.1 APTT 35.5 D-Dimer Sodium 135 L Potassium 3.3 L Chloride 102 Carbon Dioxide 23 Anion Gap 10 BUN 14 Creatinine 1.05 Estim Creat Clear Calc 125 Estimated GFR > 60 Glucose 189 H Calcium 8.7 Magnesium 2.1 Troponin I 0.052 H* 0.060 H* NT-Pro-B Natriuret Pep TSH (Reflex) 2.430 Urine Color Urine Appearance Urine pH Ur Specific [place] Urine Protein Urine Glucose (UA) Urine Ketones Ur Blood (Man) Urine Nitrate Urine Bilirubin Urine Urobilinogen Leukocyte Esterase Rfl Urine RBC Urine WBC Ur Squamous Epith Cells Urine Bacteria Urine Casts Urine Opiates Screen Urine Methadone Screen Ur Barbiturates Screen Ur Phencyclidine Scrn Ur Amphetamine Screen U Benzodiazepines Scrn Urine Cocaine Screen U Cannabinoids Screen Syphilis IgG/IgM Ab Non-reactive C. trachomatis (PCR) HIV 1&2 Ab/P24 Ag 4thGn Negative N. gonorrhoeae (PCR) T. vaginalis (PCR) Quality VTE Prophylaxis VTE prophylaxis: mechanical ordered and pharmacologic ordered Hospitalist MIPS Advance Care Plan I have confirmed that the patient's Advanced Care Plan is present, code status is documented, or surrogate decision maker is listed in patient medical record.: Yes Medication Reconciliation I have utilized all available resources to obtain, update and review the patients current medications (includes all prescriptions, OTC, herbals, cannabis, and nutritional supplements).: Yes
[2025-09-27] MEDS: PERFLUTREN LIPID MICROSPHERES 1.5 ML VIAL DILUTED TO 10 ML TOTAL VOLUME IV PUSH (15:43)
--- NOTE | 2025-09-27 15:43 | IVDEFINITY ---
Prior to administration of IV Definity the patient was educated on the risks and benefits of the imaging enhancing agent including potential adverse side effects. The patient verbalized understanding. Allergies were verified. No exclusion criteria were identified and at least one of the following inclusion criteria were met: 1) physician request, 2) patient technically difficult to image (per the [place] [employer] guidelines of two or more segments not discernable within the apical view), or 3) questionable left ventricular function. ?
[2025-09-28] VITALS (11 sets, daily range): BP systolic 134–167; BP diastolic 97–125; PULSE 69–85; RESP 18–20; TEMP 36.4–36.8; O2SAT 95–97
[2025-09-28 03:45] LABS: Hematocrit 47.3 % (42.0-52.0); Hemoglobin 16.1 g/dL (14.0-18.0); Mean Corpuscular HGB Conc 34.0 g/dl (32-36); Mean Corpuscular Hemoglobin 30.8 pg (26-34); Mean Corpuscular Volume 90.4 fl (80-100); Platelet Count Result 259 k/mm3 (150-375); Red Blood Count 5.23 M/mm3 (4.6-6.20); White Blood Count 5.0 K/mm3 (4.5-10.0)
[2025-09-28 04:05] LABS: Anion Gap 7 mmol/L (4-12); Blood Urea Nitrogen 18 mg/dL (9-20); Calcium 8.8 mg/dL (8.4-10.2); Carbon Dioxide 23 mmol/L (22-30); Chloride 107 mmol/L (98-107); Estimated CRCL calculation 92 ml/min; Estimated Glomerular Filt Rate > 60; Glucose 137 mg/dL (65-110); Magnesium 2.1 mg/dL (1.6-2.3); Potassium 4.2 mmol/L (3.4-5.0); Sodium 137 mmol/L (137-145)
[2025-09-28] MEDS: METOPROLOL SUCCINATE EXT REL 50 MG TABCR PO (08:52)
[2025-09-28] MEDS: SACUBITRIL/VALSARTAN 49-51 MG TABLET 1 TABLET PO (08:52)
[2025-09-28] MEDS: FUROSEMIDE INJ 40 MG/4 ML VIAL 20 MG IV PUSH (08:53)
[2025-09-28] MEDS: ENOXAPARIN 40 MG/0.4 ML SYRINGE SUB-Q (08:53)
[2025-09-28] MEDS: DOXYCYCLINE HYCLATE 100 MG TABLET PO (08:53)
[2025-09-28] MEDS: EMPAGLIFLOZIN 10 MG TABLET PO (08:53)
--- NOTE | 2025-09-28 11:21 | P.PNIM_ITS ---
Progress Note: A&P Assessment and Plan (1) Acute exacerbation of congestive heart failure: Qualifiers: Heart failure type: systolic Qualified Code(s): I50.23 - Acute on chronic systolic (congestive) heart failure Code(s): I50.9 - Heart failure, unspecified Status: Acute (2) Acute on chronic systolic heart failure: Code(s): I50.23 - Acute on chronic systolic (congestive) heart failure Status: Acute Plan Drug induced cardiomyopathy Heart failure reduced ejection fraction -patient has EF of 20-25% October 2024, repeat echo 09/27/25 shows EF 20-25%, moderately dilated right ventricle, elevated right atrial pressure, moderate pulmonary hypertension -patient will need LifeVest for his low EF -he has been noncompliant with treatment, I reiterated importance of methamphetamine cessation and heart failure medication compliance -cardiology consulted for the low EF -diuresis: IV Lasix 20mg daily (I/O -2L net) -heart failure regimen: On Entresto, Aldactone, metoprolol, added jardiance -echo 09/27/25 shows EF 20-25%, moderately dilated right ventricle, elevated right atrial pressure, moderate pulmonary hypertension -no active chest pain, do not believe he needs a heart catheterization at this time Hepatitis C -patient has hepatitis C likely from IV drug use -on treated, will need outpatient referral Chronic conditions -polysubstance abuse: Educated patient on importance of methamphetamine cessation Diet: Heart healthy DVT prophylaxis: Lovenox Code status: Full code Disposition: Home tomorrow Time Spent With Patient Time: 35 min Subjective Date/time seen: 09/28/25 11:21 Interval history: Patient seen examined. He is feeling much better today. Patient has fever, chills, nausea vomiting diarrhea, chest pain, edema. Cardiology recommending continue Lasix diuresis. Anticipate discharge home tomorrow. EF is still low at 20- 25%. He will likely need a LifeVest. Review of Systems Review of Systems: 10 point ROS complete, negative other th an what is specified in HPI. Exam Narrative: - GENERAL: Pleasant male in No acute di stress. Well-nourished. - EYES: EOMI. Anicteric. - HENT: Moist mucous membranes. - LUNGS: Clear to auscultation bilateral ly, no wheezing, rhonchi, or rales. - CARDIOVASCULAR: Regular rate and rhyth m. No murmur. No JVD. - ABDOMEN: Soft, non-tender and non-dist ended. No palpable masses. - EXTREMITIES: trace edema. Peripheral p ulses 2+. Non-tender. - NEUROLOGIC: No focal neurological defi cits. CN II-XII grossly intact. - PSYCHIATRIC: Awake, Alert and oriented x 3. Appropriate mood and affect. - SKIN: No rashes or lesions. Warm. - LYMPH: No cervical lymphadenopathy. Objective Data Vital Signs Vital Signs: Vital Signs - 24 hr 09/27/25 11:53 09/27/25 12:00 09/27/25 16:00 Temperature 36.5 C 36.7 C Pulse Rate 81 79 78 Respiratory Rate 20 20 Blood Pressure 132/93 H 134/87 Pulse Oximetry 96 97 Oxygen Delivery Fraction of Inspired Oxygen 09/27/25 16:00 09/27/25 18:00 09/27/25 20:00 Temperature 36.6 C Pulse Rate 80 88 79 Respiratory Rate 20 Blood Pressure 131/87 Pulse Oximetry 92 Oxygen Delivery Fraction of Inspired Oxygen 09/27/25 20:00 09/27/25 22:00 09/28/25 00:00 Temperature 36.5 C Pulse Rate 81 77 81 Respiratory Rate 20 Blood Pressure 139/99 H Pulse Oximetry 95 Oxygen Delivery Fraction of Inspired Oxygen 09/28/25 00:00 09/28/25 02:00 09/28/25 04:00 Temperature Pulse Rate 78 80 79 Respiratory Rate Blood Pressure Pulse Oximetry Oxygen Delivery Fraction of Inspired Oxygen 09/28/25 04:00 09/28/25 06:00 09/28/25 07:56 Temperature 36.6 C 36.4 C L Pulse Rate 72 80 80 Respiratory Rate 20 18 Blood Pressure 134/97 H 154/102 H Pulse Oximetry 96 96 Oxygen Delivery Fraction of Inspired Oxygen 09/28/25 08:00 09/28/25 08:00 09/28/25 08:52 Temperature Pulse Rate 80 85 Respiratory Rate Blood Pressure Pulse Oximetry Oxygen Delivery Room Air Fraction of Inspired Oxygen 09/28/25 10:00 09/28/25 10:29 Temperature Pulse Rate 69 85 Respiratory Rate Blood Pressure Pulse Oximetry 96 Oxygen Delivery Room Air Fraction of Inspired Oxygen 21 Intake/Output Intake/Output: Intake & Output 09/25/25 09/26/25 09/27/25 09/28/25 23:59 23:59 23:59 23:59 Intake Total 1999 1190 Output Total 042 6938 0276 [facility] -[phone] Meds/Results Medications: Active Medications Generic Name Dose Route Start Last Admin Trade Name Freq PRN Reason Stop Dose Admin Acetaminophen 650 mg 09/26/25 19:31 09/27/25 08:16 Acetaminophen 325 Mg Tablet PO 650 mg Q4H PRN Administration Mild Pain (1-3) or Fever Doxycycline Hyclate 100 mg 09/27/25 09:00 09/28/25 08:53 Doxycycline Hyclate 100 Mg Tablet PO 10/04/25 08:59 100 mg Q12HR DEONNA Administration Empagliflozin 10 mg 09/28/25 09:00 09/28/25 08:53 Empagliflozin 10 Mg Tablet PO 10 mg DAILY DEONNA Administration Enoxaparin Sodium 40 mg 09/27/25 09:00 09/28/25 08:53 Enoxaparin 40 Mg/0.4 Ml Syringe SUB-Q 40 mg DAILY DEONNA Administration Furosemide 20 mg 09/28/25 09:00 09/28/25 08:53 Furosemide Inj 40 Mg/4 Ml Vial IV PUSH 20 mg DAILY DEONNA Administration Hydralazine HCl 10 mg 09/26/25 22:53 09/27/25 00:59 Hydralazine Hcl 20 Mg/Ml Vial IV PUSH 10 mg Q4H PRN Administration SBP greater than 160 Hydroxyzine HCl 50 mg 09/27/25 07:57 09/28/25 08:52 Hydroxyzine Hcl 25 Mg Tablet PO 50 mg Q6H PRN Administration anxiety Metoprolol Succinate 50 mg 09/26/25 22:20 09/28/25 08:52 Metoprolol Succinate Ext Rel 50 Mg Tabcr PO 50 mg QAM DEONNA Administration Ondansetron HCl 4 mg 09/26/25 19:31 09/26/25 22:06 Ondansetron Inj 4 Mg/2 Ml Vial IV PUSH 4 mg Q4H PRN Administration Nausea Sacubitril/Valsartan 1 tablet 09/26/25 22:25 09/28/25 08:52 Sacubitril/Valsartan 49-51 Mg Tablet PO 1 tablet Q12HR DEONNA Administration Spironolactone 12.5 mg 09/27/25 09:00 09/28/25 08:52 Spironolactone 12.5 Mg Tablet PO 12.5 mg QAM DEONNA Administration Radiology Results: ITS Impressions Chest X-Ray 09/26/25 15:15 IMPRESSION: 1. No focal acute process. Chest CTA 09/26/25 17:54 IMPRESSION: 1. Negative for pulmonary embolism. No acute process Venous Doppler Study 09/26/25 18:58 IMPRESSION: There was no sonographic evidence of deep vein thrombosis in the right lower extremity. Labs Labs: Laboratory Results - last 24 hr 09/28/25 03:27 WBC 5.0 RBC 5.23 Hgb 16.1 Hct 47.3 MCV 90.4 MCH 30.8 MCHC 34.0 RDW 13.6 Plt Count 259 MPV 9.4 Sodium 137 Potassium 4.2 Chloride 107 Carbon Dioxide 23 Anion Gap 7 BUN 18 Creatinine 1.28 Estim Creat Clear Calc 92 Estimated GFR > 60 Glucose 137 H Calcium 8.8 Magnesium 2.1
--- NOTE | 2025-09-28 11:35 | PC.NURSE ---
Per Dr. Nazario, Cardiology will not be ordering a LifeVest for this patient at this time.
--- NOTE | 2025-09-28 12:29 | PM.CNCAR ---
Assessment and Plan Assessment and plan (1) Acute on chronic systolic heart failure: Code(s): I50.23 - Acute on chronic systolic (congestive) heart failure Status: Acute Plan 35-year-old man with chronic systolic heart failure (LVEF 20-25%), nonischemic cardiomyopathy (normal MPI 10/2024) secondary to drug-induced cardiomyopathy and uncontrolled hypertension, IV methamphetamine abuse, untreated hepatitis-C, and hypertension presented with acute shortness of breath Acute on chronic systolic heart failure -Lasix 40 mg IV push b.i.d. -continue Entresto 49-51 mg p.o. b.i.d., spironolactone 12.5 mg p.o. daily, and Jardiance 10 mg p.o. daily -if his blood pressure continues to be elevated, we will switch his Toprol 50 mg p.o. daily to carvedilol 12.5 mg p.o. b.i.d. -recommend that he follow-up in outpatient clinic for referral to EP for ICD implantation -his acute exacerbation likely is causing the minimally elevated troponins Nonischemic cardiomyopathy -normal MPI 10/2024 -will have in follow-up in clinic for referral to EP for ICD implantation however he continues to be using IV methamphetamines currently Hypertension -currently on Entresto 49-51 mg p.o. b.i.d. -if remains uncontrolled, we will switch his Toprol 50 mg p.o. daily to carvedilol 12.5 mg p.o. b.i.d. History of Present Illness History of Present Illness Consult date/time: 09/28/25 12:29 Requesting physician: Leesa Lara APRN Consult reason: congestive heart failure Reason For Visit: NSTEMI Narrative: 35-year-old man with chronic systolic heart failure (LVEF 20-25%), nonischemic cardiomyopathy (normal MPI 10/2024) secondary to drug-induced cardiomyopathy and uncontrolled hypertension, IV methamphetamine abuse, untreated hepatitis-C, and hypertension presented with acute shortness of breath. He continues to use IV crystal meth and stop 3 days ago in anticipation for a job interview tomorrow. After stopping crystal meth he started to panic and started to have shortness of breath. He had significant orthopnea and some lower extremity swelling that started to realize after stopping crystal meth. Denies any chest discomfort. No loss of consciousness. Review of Systems Cardiovascular: Cardiovascular: Reports as per HPI Respiratory: Respiratory: Reports as per HPI [facility] Past Medical History Medical History Biventricular heart failure with reduced left ventricular function Cardiomyopathy Echocardiogram 10/2024: Severely reduced left ventricular systolic function with EF of 20-25%, right ventricle mildly dilated with reduced systolic function Hypertension Cannabinoid hyperemesis syndrome Non-ST elevation ID (NSTEMI) (10/2024) Lexiscan stress echo demonstrating EF of 37% with normal perfusion Methamphetamine addiction IV Hepatitis C infection Marijuana use Surgical History Surgical History History of orthopedic surgery Family History Family History Father Acute myocardial infarction Social History Social History (Updated 09/27/25 @ 21:52 by Destiny Neville DO) Social History: The patient is essentially homeless in lives between various friends residences. 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 He uses ?ice? (crystal meth) which he injects daily. He reports that he ?recently started vaping?. When asked about alcohol use the patient declined the answer. Code status: Full code Smoking status: Current every day smoker Tobacco type: e-cigarettes/vaping Additional smoking assessment comments: Smokes cigarette(s) Vapes. Alcohol intake: unknown Substance use: current Substance use type: marijuana, IV drugs and methamphetamine Last use: Last IV meth use 09/23/2025 Do You Feel Safe in your Home?: Yes Lack of Transportation: No Lack of Food: Sometimes True Current Housing: I Have Housing Concerned About Future Housing: No Difficulty Paying Gas/Electric Bills: No Difficulty Paying for Meds: No Currently Unemployed: No Education: High School Diploma/GED Difficulty w/ Childcare or Family Care: No Gender identity (if verbalized by the patient): Male Spiritual care concerns: No Meds Home Medications and Allergies Home Medications ?Medication ?Instructions ?Recorded ?Confirmed ?Type No Home Medications 09/26/25 09/26/25 History Allergies Allergy/AdvReac Type Severity Reaction Status Date / Time No Known Allergies Allergy Unknown Verified 09/26/25 21:16 Vital Signs Vital Signs - 24 hr 09/27/25 16:00 09/27/25 16:00 09/27/25 18:00 Temperature 36.7 C Pulse Rate 78 80 88 Respiratory Rate 20 Blood Pressure 134/87 Pulse Oximetry 97 Oxygen Delivery Fraction of Inspired Oxygen 09/27/25 20:00 09/27/25 20:00 09/27/25 22:00 Temperature 36.6 C Pulse Rate 79 81 77 Respiratory Rate 20 Blood Pressure 131/87 Pulse Oximetry 92 Oxygen Delivery Fraction of Inspired Oxygen 09/28/25 00:00 09/28/25 00:00 09/28/25 02:00 Temperature 36.5 C Pulse Rate 81 78 80 Respiratory Rate 20 Blood Pressure 139/99 H Pulse Oximetry 95 Oxygen Delivery Fraction of Inspired Oxygen 09/28/25 04:00 09/28/25 04:00 09/28/25 06:00 Temperature 36.6 C Pulse Rate 79 72 80 Respiratory Rate 20 Blood Pressure 134/97 H Pulse Oximetry 96 Oxygen Delivery Fraction of Inspired Oxygen 09/28/25 07:56 09/28/25 08:00 09/28/25 08:00 Temperature 36.4 C L Pulse Rate 80 80 Respiratory Rate 18 Blood Pressure 154/102 H Pulse Oximetry 96 Oxygen Delivery Room Air Fraction of Inspired Oxygen 09/28/25 08:52 09/28/25 10:00 09/28/25 10:29 Temperature Pulse Rate 85 69 85 Respiratory Rate Blood Pressure Pulse Oximetry 96 Oxygen Delivery Room Air Fraction of Inspired Oxygen 09/28/25 11:30 09/28/25 12:00 09/28/25 12:00 Temperature 36.8 C Pulse Rate 85 83 Respiratory Rate 20 Blood Pressure 167/125 H Pulse Oximetry 97 Oxygen Delivery Room Air Fraction of Inspired Oxygen Exam Const: Other: Anxious appearing HENMT: Mouth: Yes moist mucous membranes Eyes: EOM: EOMs intact bilaterally Neck: Other: JVD 12 cm Resp: Auscultation: rales Other: Tachypneic Cardio: Rate: regular rate Rhythm: regular rhythm Extrem: General: no pedal edema Results Labs and Meds 09/28/25 03:27 09/28/25 03:27 Lab results: CBC 09/28/25 Range/Units 03:27 WBC 5.0 (4.5-10.0) K/mm3 RBC 5.23 (4.6-6.20) M/mm3 Hgb 16.1 (14.0-18.0) g/dL Hct 47.3 (42.0-52.0) % Plt Count 259 (150-375) k/mm3 Comprehensive Metabolic Panel 09/28/25 Range/Units 03:27 Sodium 137 (137-145) mmol/L Potassium 4.2 (3.4-5.0) mmol/L Chloride 107 (98-107) mmol/L Carbon Dioxide 23 (22-30) mmol/L BUN 18 (9-20) mg/dL Creatinine 1.28 (0.7-1.3) mg/dL Glucose 137 H (65-110) mg/dL Calcium 8.8 (8.4-10.2) mg/dL Intake and Output 09/27/25 09/28/25 09/28/25 23:59 07:59 15:59 Intake Total 872 598 2335 Output Total 950 1700 2250 Balance -210 -1010 -1250 Intake: Oral 890 159 5516 Output: Urine 950 1700 2250 Patient Weight 09/28/25 23:59 Weight 114.2 kg
[2025-09-28] MEDS: FUROSEMIDE INJ 40 MG/4 ML VIAL IV PUSH (12:44)
--- NOTE | 2025-09-28 12:59 | PC.NURSE ---
Patient stated desire to leave the hospital against medical advice. Risks, benefits, and alternatives were discussed in detail, including potential complications, deterioration of condition, and risk of . The patient verbalized understanding of these risks and continued to express intent to leave. The patient was informed that leaving AMA is not recommended and that no prescription medications will be provided upon departure. The hospitalist and meter reader were notified of the patient?s decision. AMA paperwork was reviewed and signed by the patient. The patient was alert, oriented, and demonstrated decision-making capacity at the time of departure.
== END 2025-09-28 13:09 | disposition left against medical advice (07) ==
LOC: ANHED 19:31 → ANHIMU 23:43
PROVIDERS: Admitting Provider Internal Medicine; Emergency Provider Student in an Organized Health Care Education/Training Program; PCP Emergency Medicine; Visit Provider Student in an Organized Health Care Education/Training Program
DX: I11.0 Hypertensive heart disease with heart failure (principal); I50.23 Acute on chronic systolic (congestive) heart failure; I50.814 Right heart failure due to left heart failure; I42.7 Cardiomyopathy due to drug and external agent; I45.2 Bifascicular block; F15.20 Other stimulant dependence, uncomplicated; F19.90 Other psychoactive substance use, unspecified, uncomplicated; A56.2 Chlamydial infection of genitourinary tract, unspecified; B18.2 Chronic viral hepatitis C; R79.89 Other specified abnormal findings of blood chemistry; R60.0 Localized edema; R06.00 Dyspnea, unspecified; R06.01 Orthopnea; F17.290 Nicotine dependence, other tobacco product, uncomplicated; Z91.199 Patient's noncompliance with other medical treatment and regimen due to unspecified reason; Z53.29 Procedure and treatment not carried out because of patient's decision for other reasons; Z59.01 Sheltered homelessness; Z82.49 Family history of ischemic heart disease and other diseases of the circulatory system
CPT/HCPCS: 36415; 71046; 71275; 80048; 80053; 80307; 81001; 83735; 83880; 84443; 84484; 85025; 85027; 85380; 85610; 85730; 86593; 86703; 87086; 87491; 87591; 87661; 93005; 93306; 93971; 96372; 96374; 96375; 96376; 99285; A9270; C8929; G0378; G0379; G0432; J0360; J1644; J1650; J1938; J2405; J3360; Q9957; Q9967

== ENCOUNTER 2025-10-14 22:47 | Inpatient (IN) | payer OTHER, SELFPAY ==
--- NOTE | ~2025-10-14 | XR_ITS ---
Examination: XR chest 1V Clinical History: tachypnea, vomiting Comparison: 09/26/2025 Technique: Portable AP Findings: Heart size normal. Diffusely increased interstitial markings, left lung worse. No acute bony abnormality. IMPRESSION: 1. Interstitial pulmonary edema and/or pneumonitis, left lung worse. Superimposed airspace disease left lung not excluded. Reviewed, dictated and finalized at location R. L TRIM ERECTOR IMPRESSION: 1. Interstitial pulmonary edema and/or pneumonitis, left lung worse. Superimpo sed airspace disease left lung not excluded.
--- NOTE | ~2025-10-14 | CT_ITS ---
CT HEAD NON-CONTRAST Clinical History: lethargic Comparison: None Technique: Unenhanced axial images skull base to vertex Coronal, sagittal reformats CT images acquired with automatic exposure control for dose reduction DLP: 605 mGy-cm Findings: Sulci, ventricles: Unremarkable. No intracerebral hemorrhage. No evidence acute territorial infarct. No mass effect, midline shift. Bony calvarium intact. Visualized paranasal sinuses: Maxillary and ethmoid mucosal thickening. Mastoid air cells: Clear. IMPRESSION: 1. No acute intracranial findings. Reviewed, dictated and finalized at location R. ICAL SERVICES DIRECTOR
--- OUTSIDE RECORDS SUMMARY | 2025-10-14 22:49 | XMS_ITS | Encounter Summary ---
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 Gender Identity Not on file Sexual Orientation Not on file documented as of this encounter Plan of Treatment Not on file documented as of this encounter Procedures Procedure Name Priority Date/Time Associated Diagnosis Comments CARDIOLOGY DOCUMENT SCAN 10/26/2024 9:29 PM FRUIT I FARMWORKER documented in this encounter Results * Cardiology Document Scan (10/26/2024 9:29 PM FRUIT I FARMWORKER) Anatomical Region Laterality Modality Other us Provider Scanning CV CARDIAC SERVICES PROCEDURES Final Result documented in this encounter Visit Diagnoses Not on filedocumented in this encounter Care Teams Guide Relationship Specialty Start Date End Date Miscellaneous, Not In File PCP - General 08/16/23 documented as of this encounter
--- OUTSIDE RECORDS SUMMARY | 2025-10-14 22:49 | XMS_ITS | Clinical Summary ---
Author Organization [facility] Address [facility] [place] [address] Care Team Providers Care Spreader Operator Name Role Phone None, Provider MD [...] Comments Blood Pressure 168/109 01/14/2024 8:53 PM OPERATIONS MANAGER Pulse 92 01/14/2024 8:03 PM OPERATIONS MANAGER Temperature 36.6 C (97.8 F) 01/14/2024 8:03 PM OPERATIONS MANAGER Respiratory Rate 20 01/14/2024 8:03 PM OPERATIONS MANAGER Oxygen Saturation 97% 01/14/2024 8:03 PM OPERATIONS MANAGER Inhaled Oxygen Concentration - - Weight 104.3 kg (230 lb) 01/14/2024 8:03 PM OPERATIONS MANAGER Height 198.1 cm (6' 6) 01/14/2024 8:03 PM OPERATIONS MANAGER Body Mass Index 26.58 01/14/2024 8:03 PM OPERATIONS MANAGER Plan of Treatment Health Maintenance Due Date [...] to complete this topic Insurance Care Teams Spreader Operator Relationship Specialty Start Date End Date None, Provider, PCP - General 08/05/20
--- OUTSIDE RECORDS SUMMARY | 2025-10-14 22:49 | XMS_ITS | Clinical Summary ---
Author Organization [facility] [employer] Address [address] [place] [address] Care Team Providers Care Financial Reporting Manager Name Role Phone Unavailable Primary Care Provider Unavailabl e Source Comments [facility],non-owned Affiliates and Associated Physician Practices is amultiple site organization consisting of ambulatory clinics and hospital sitesin [place], [place], [place] and [place]. This disclosure is being madepursuant to the Care Everywhere program and may not contain all information available regarding this patient. Last updated 18.[facility] [employer] Allergies No known active allergies Medications * [...] Comments Blood Pressure 154/111 09/30/2023 3:55 PM CONSUMER SAFETY OFFICER Pulse 108 09/30/2023 3:55 PM CONSUMER SAFETY OFFICER Temperature 36.6 C (97.9 F) 09/30/2023 3:55 PM CONSUMER SAFETY OFFICER Respiratory Rate 19 09/30/2023 3:55 PM CONSUMER SAFETY OFFICER Oxygen Saturation 100% 09/30/2023 3:55 PM CONSUMER SAFETY OFFICER Inhaled Oxygen Concentration - - Weight 104.3 kg (230 lb) 09/30/2023 3:55 PM CONSUMER SAFETY OFFICER Height 198.1 cm (6' 6) 09/30/2023 3:55 PM CONSUMER SAFETY OFFICER Body Mass Index 26.58 09/30/2023 3:55 PM CONSUMER SAFETY OFFICER Plan of Treatment Health Maintenance Due Date [...] ORDERABLE S Final Result Performing Organization Address City/State/[facility] de Phone Number [facility] [address] [place] [address], [facility] [phone] from Last 3 Months or Most Recently Relevant to Health Maintenance Insurance [facility] * Guarantor: ANTHONY PFEIFFER Account Type Relation to Patient Date of Phone Billing Address Personal/Family [address] [place] [address] Advance Directives * Full Code (Latest Code Status on File) Date Activated Date Inactivated Comments 04/21/2021 8:18 PM 04/22/2021 12:59 AM
--- OUTSIDE RECORDS SUMMARY | 2025-10-14 22:49 | XMS_ITS | Encounter Summary ---
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 Gender Identity Not on file Sexual Orientation Not on file documented as of this encounter Plan of Treatment Not on file documented as of this encounter Procedures Procedure Name Priority Date/Time Associated Diagnosis Comments SCAN - RADIOLOGY/IMAGING 10/28/2024 9:29 PM TOWER LOADER OPERATOR documented in this encounter Results * SCAN - RADIOLOGY/IMAGING (10/28/2024 9:29 PM TOWER LOADER OPERATOR) Anatomical Region Laterality Modality Other us Provider Scanning Final Result documented in this encounter Visit Diagnoses Not on filedocumented in this encounter Care Teams Motor Boss Relationship Specialty Start Date End Date Miscellaneous, Not In File PCP - General 08/16/23 documented as of this encounter
[2025-10-14 22:54] VITALS: BP 167/131; PULSE 95; RESP 30; TEMP 36.4; O2SAT 95
--- NOTE | 2025-10-14 22:57 | ECG_ITS ---
Test Date: 2025-10-14 23:12:23 Measurements Intervals [place] Rate: 93 P: 65 CA: 173 QRS: -41 QRSD: 99 T: 88 QT: 396 QTc: 493 Interpretive Statements SINUS RHYTHM POSSIBLE RIGHT ATRIAL ENLARGEMENT [0.25mV P-WAVE] LEFT ATRIAL ENLARGEMENT [-0.15mV P-WAVE IN V1/V2] LEFT AXIS DEVIATION [QRS AXIS < -30] INCOMPLETE RIGHT BUNDLE BRANCH BLOCK [90+ ms QRS DURATION, TERMINAL R IN V1/V2, 40+ ms S IN I/aVL/V4/V5/V6] NONSPECIFIC T-WAVE ABNORMALITY ABNORMAL ECG Compared to ECG 09/26/2025 14:37:53 NO SIGNIFICANT DIFFERENCE Electronically Signed On 10-15-2025 08:11:30 MEDICAL SURGERY NURSE by Bob Garcia M.D.
--- NOTE | 2025-10-14 23:07 | ED.NAVMDI ---
HPI - Nausea/Vomiting/Diarrhea General Chief complaint: Nausea/Vomiting/Diarrhea Stated complaint: vomiting Time Seen by Provider: 10/14/25 22:55 History of Present Illness HPI Narrative: 35-year-old male with history of biventricular systolic dysfunction secondary to IV drug use and methamphetamine abuse. Patient has a history of uncontrolled hep C, uncontrolled hypertension and heart failure. Was recently here 2 weeks ago for heart failure exacerbation and discharged after hospitalization and Cardiology evaluations with medication adjustments. Patient presents to the emergency department today as he was having some lower abdominal cramping and vomiting. States he is vomiting ever since he ate a meal earlier today. No diarrhea constipation. No chest pain or difficulty in breathing. States he has vomited several times. He does admit to smoking methamphetamine earlier today but denies any other drug use or IV drug use presently as he states he is trying to quit. Was otherwise in his normal state of health. Related Data Home Medications ?Medication ?Instructions ?Recorded ?Confirmed ?Last Taken ?Type No Home Medications 09/26/25 10/15/25 Unknown History Allergies Allergy/AdvReac Type Severity Reaction Status Date / Time No Known Allergies Allergy Unknown Verified 10/14/25 23:10 Review of Systems Review of Systems: As reviewed above in HPI [facility] Past Medical History Medical History Biventricular heart failure with reduced left ventricular function Cardiomyopathy Echocardiogram 10/2024: Severely reduced left ventricular systolic function with EF of 20-25%, right ventricle mildly dilated with reduced systolic function Hypertension Cannabinoid hyperemesis syndrome Non-ST elevation AR (NSTEMI) (10/2024) Lexiscan stress echo demonstrating EF of 37% with normal perfusion Methamphetamine addiction IV Hepatitis C infection Marijuana use Surgical History Surgical History History of orthopedic surgery Family History Family History Father Acute myocardial infarction Social History Social History Social History: The patient is essentially homeless in lives between various friends residences. 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 He uses ?ice? (crystal meth) which he injects daily. He reports that he ?recently started vaping?. When asked about alcohol use the patient declined the answer. Code status: Full code Smoking status: Current some day smoker Tobacco type: e-cigarettes/vaping Additional smoking assessment comments: Smokes cigarette(s) Vapes. Alcohol intake: unknown Substance use: current Substance use type: marijuana, IV drugs and methamphetamine Last use: Last IV meth use 09/23/2025 Lack of Transportation: No Lack of Food: Sometimes True Current Housing: I Have Housing Concerned About Future Housing: No Difficulty Paying Gas/Electric Bills: No Difficulty Paying for Meds: No Currently Unemployed: No Education: High School Diploma/GED Difficulty w/ Childcare or Family Care: No Gender identity (if verbalized by the patient): Male Spiritual care concerns: No Exam Narrative: GENERAL: Ill-appearing, tachypneic, answering questions but not opening his eyes and appears lethargic HEAD: Normocephalic and atraumatic EYES: Pupils are 3 mm and reactive, extraocular movements are intact ENT: Nares clear, no rhinorrhea or epistaxis. Mucous membranes moist. NECK: Supple. CHEST: Clear to auscultation, tachypneic, no wheezing or retractions/distress HEART: Regular rate and rhythm, cool extremities but good pulses ABDOMEN: Soft, nondistended, nontender, no peritonitis EXTREMITIES: Normal range of motion. No extremity edema SKIN: Warm, dry, no rash. NEURO: No focal deficits, answering all my questions appropriately and awake Course Vital Signs Vital signs: Vital Signs Temperature 36.4 C 10/14/25 22:54 Pulse Rate 95 10/14/25 22:54 Respiratory Rate 30 H 10/14/25 22:54 Blood Pressure 167/131 H 10/14/25 22:54 Pulse Oximetry 95 10/14/25 22:54 Oxygen Delivery Room Air 10/14/25 22:54 Temperature 36.8 C 10/15/25 03:09 Pulse Rate 86 10/15/25 03:09 Respiratory Rate 24 H 10/15/25 03:09 Blood Pressure 169/101 H 10/15/25 03:09 Pulse Oximetry 99 10/15/25 03:09 Oxygen Delivery Room Air 10/14/25 22:54 MDM - Nausea/Vomiting/Diarrhea MDM Narrative Medical decision making narrative: 35-year-old male with history of biventricular systolic dysfunction secondary to IV drug use and methamphetamine abuse. Patient has a history of uncontrolled hep C, uncontrolled hypertension and heart failure. Was recently here 2 weeks ago for heart failure exacerbation and discharged after hospitalization and Cardiology evaluations with medication adjustments. Patient presents to the emergency department today as he was having some lower abdominal cramping and vomiting. States he is vomiting ever since he ate a meal earlier today. No diarrhea constipation. No chest pain or difficulty in breathing. States he has vomited several times. He does admit to smoking methamphetamine earlier today but denies any other drug use or IV drug use presently as he states he is trying to quit. Was otherwise in his normal state of health. Patient is lethargic and ill-appearing, tachypneic. He is answering my questions but not opening his eyes. Moving all extremities without any focal deficits. Barely flinched at blood draw. He is afebrile, 95% on room air. No tachycardia. Chronic hypertension uncontrolled. Does admit to methamphetamine smoking earlier today. He states he is nauseous and vomited several times today but has a soft nontender nondistended abdomen. Pulses intact and no respiratory distress aside from some tachypnea. No coughing. Suspect mental status is from potential drug use versus underlying infectious process, possibility of aspiration given the tachypnea and vomiting, low suspicion intra-abdominal process but will evaluate laboratory studies, ABG, toxicological screening, CT of the head, chest x-ray and EKG. Patient's EKG shows no interval change compared to prior, pulmonary disease pattern with right atrial pressure enlargement confirmed on his echocardiogram recently. His chest x-ray shows either vascular congestion or pneumonia bilaterally. Could also be a component of inhalation injury from the smoking meth or aspiration from vomiting. No pneumothorax. Possible small left pleural effusion with blunting of the costophrenic angle. Given his tachypnea and ABG showing hypoxemia as well as IV drug abuse history workup was broadened into include antibiotics, blood cultures lactic acid which were ordered. He was given azithromycin Rocephin and Flagyl for potential of aspiration pneumonia given the vomiting and mental status. Awaiting CT results and remaining labs. Will be admitted for further workup. No leukocytosis, negative lactic acid, normal hemoglobin. ABG shows hypoxemia but normal pH. Normal electrolytes. Elevated creatinine likely component of dehydration or volume depletion from vomiting. Given a 500 cc bolus given his heart failure. Glucose normal. LFTs unremarkable. Lipase normal. Urine drug screen positive for meth and cannabinoids. Negative toxicological screening otherwise, negative alcohol level. Patient given additional Zofran and Reglan as he still felt nauseous. Mental status stable, answering questions, protecting his airway, able to get up but was redirected back into bed given his oxygen requirement at this time. No abdominal pain. Given his mental status and vomiting he will require admission to IMU after discussion with the hospitalist team. Vitals stable, on 2L supplemental oxygen. Admitted for further care. Medical Records Attestation: I reviewed the patient's medical records. Lab Data Attestation: I reviewed the patient's lab results. 10/14/25 23:04 10/14/25 23:04 Labs: Lab Results 10/14/25 10/14/25 10/14/25 Range/Units 23:04 23:05 23:27 WBC 5.9 (4.5-10.0) K/mm3 RBC 5.51 (4.6-6.20) M/mm3 Hgb 16.9 (14.0-18.0) g/dL Hct 50.5 (42.0-52.0) % MCV 91.7 (80-100) fl MCH 30.7 (26-34) pg MCHC 33.5 (32-36) g/dl RDW 13.7 (11.5-14.5) % Plt Count 204 (150-375) k/mm3 MPV 10.0 (7.4-10.4) fl Immature Gran % (Auto) 0.2 (0-0.5) % Neut % (Auto) 62.9 (45.5-73.1) % Lymph % (Auto) 29.8 (18.3-44.2) % [place] % (Auto) 4.7 (2.6-8.5) % Eos % (Auto) 1.9 (0-4.4) % Baso % (Auto) 0.5 (0.2-1.2) % Lymph # (Auto) 1.77 (0.9-3.2) K/mm3 [place] # (Auto) 0.3 (0.1-0.6) K/mm3 Eos # (Auto) 0.1 (0-0.3) K/mm3 Baso # (Auto) 0.0 (0.0-0.1) K/mm3 Abs Immat Gran (auto) 0.01 (0.00-0.031) K/mm3 Absolute Neuts (auto) 3.7 (1.3-6.7) K/mm3 Absolute Nucleated RBC 0.000 (0.0-0.012) K/mm3 Nucleated RBC % 0.0 (0.0-0.2) % Methemoglobin 0.0 (0-1.5) %THb Sodium 138 (137-145) mmol/L Potassium 4.3 (3.4-5.0) mmol/L Chloride 105 (98-107) mmol/L Carbon Dioxide 25 (22-30) mmol/L Anion Gap 8 (4-12) mmol/L BUN 18 (9-20) mg/dL Creatinine 1.48 H (0.7-1.3) mg/dL Estim Creat Clear Calc 92 ml/min Estimated GFR 54 L (59 - ) Glucose 111 H (65-110) mg/dL Lactic Acid (0.7-2.0) mmol/L Calcium 9.3 (8.4-10.2) mg/dL Total Bilirubin 0.9 (0.2-1.3) mg/dL AST 44 (17-59) U/L ALT 53 H (6-50) U/L Alkaline Phosphatase 62 (38-126) U/L Total Protein 8.1 (6.3-8.2) g/dL Albumin 4.4 (3.5-5.1) g/dL Lipase 117 (23-300) U/L Urine Color (Yellow) Urine Appearance (Clear) Urine pH (5.0-9.0) Ur Specific [place] (1.001-1.035) Urine Protein (Negative) mg/dL Urine Glucose (UA) (Negative) mg/dL Urine Ketones (Negative) mg/dL Ur Blood (Man) (Negative) Urine Nitrate (Negative) Urine Bilirubin (Negative) Urine Urobilinogen (<2.0) mg/dL Leukocyte Esterase Rfl (Negative) PATRICIA/UL Urine RBC (0-2) /hpf Urine WBC (0-3) /hpf Ur Squamous Epith Cells (Few) /hpf Urine Bacteria /hpf Urine Casts Salicylates < 1.0 L (2-20) mg/dL Urine Opiates Screen (Negative) Urine Methadone Screen (Negative) Acetaminophen < 10 L (10-30) ug/mL Ur Barbiturates Screen (Negative) Ur Phencyclidine Scrn (Negative) Ur Amphetamine Screen (Negative) U Benzodiazepines Scrn (Negative) Urine Cocaine Screen (Negative) U Cannabinoids Screen (Negative) Ethyl Alcohol < 10 (<10) mg/dL 10/14/25 10/14/25 Range/Units 23:50 23:51 WBC (4.5-10.0) K/mm3 RBC (4.6-6.20) M/mm3 Hgb (14.0-18.0) g/dL Hct (42.0-52.0) % MCV (80-100) fl MCH (26-34) pg MCHC (32-36) g/dl RDW (11.5-14.5) % Plt Count (150-375) k/mm3 MPV (7.4-10.4) fl Immature Gran % (Auto) (0-0.5) % Neut % (Auto) (45.5-73.1) % Lymph % (Auto) (18.3-44.2) % [place] % (Auto) (2.6-8.5) % Eos % (Auto) (0-4.4) % Baso % (Auto) (0.2-1.2) % Lymph # (Auto) (0.9-3.2) K/mm3 [place] # (Auto) (0.1-0.6) K/mm3 Eos # (Auto) (0-0.3) K/mm3 Baso # (Auto) (0.0-0.1) K/mm3 Abs Immat Gran (auto) (0.00-0.031) K/mm3 Absolute Neuts (auto) (1.3-6.7) K/mm3 Absolute Nucleated RBC (0.0-0.012) K/mm3 Nucleated RBC % (0.0-0.2) % Methemoglobin (0-1.5) %THb Sodium (137-145) mmol/L Potassium (3.4-5.0) mmol/L Chloride (98-107) mmol/L Carbon Dioxide (22-30) mmol/L Anion Gap (4-12) mmol/L BUN (9-20) mg/dL Creatinine (0.7-1.3) mg/dL Estim Creat Clear Calc ml/min Estimated GFR (59 - ) Glucose (65-110) mg/dL Lactic Acid 1.0 (0.7-2.0) mmol/L Calcium (8.4-10.2) mg/dL Total Bilirubin (0.2-1.3) mg/dL AST (17-59) U/L ALT (6-50) U/L Alkaline Phosphatase (38-126) U/L Total Protein (6.3-8.2) g/dL Albumin (3.5-5.1) g/dL Lipase (23-300) U/L Urine Color Yellow (Yellow) Urine Appearance Clear (Clear) Urine pH 5.0 (5.0-9.0) Ur Specific [place] 1.024 (1.001-1.035) Urine Protein 3+ H (Negative) mg/dL Urine Glucose (UA) Negative (Negative) mg/dL Urine Ketones Trace H (Negative) mg/dL Ur Blood (Man) Negative (Negative) Urine Nitrate Negative (Negative) Urine Bilirubin Negative (Negative) Urine Urobilinogen 1.0 (<2.0) mg/dL Leukocyte Esterase Rfl Trace H (Negative) PATRICIA/UL Urine RBC 0-2 (0-2) /hpf Urine WBC 11-20 H (0-3) /hpf Ur Squamous Epith Cells None seen (Few) /hpf Urine Bacteria None seen /hpf Urine Casts 0-2 Salicylates (2-20) mg/dL Urine Opiates Screen Negative (Negative) Urine Methadone Screen Negative (Negative) Acetaminophen (10-30) ug/mL Ur Barbiturates Screen Negative (Negative) Ur Phencyclidine Scrn Negative (Negative) Ur Amphetamine Screen Positive A (Negative) U Benzodiazepines Scrn Negative (Negative) Urine Cocaine Screen Negative (Negative) U Cannabinoids Screen Positive A (Negative) Ethyl Alcohol (<10) mg/dL ABG Data ABG results: 10/14/25 23:27 Puncture Site Right radial ABG pH 7.415 ABG pCO2 35.4 ABG pO2 57.1 L ABG PO2/FiO2 Ratio 2.72 ABG HCO3 22.2 ABG O2 Saturation 90.3 L ABG O2 Content 20.2 ABG Base Excess -1.7 A-a Gradient 50.2 Oxyhemoglobin 88.2 L Carboxyhemoglobin 0.6 Reduced Hemoglobin 11.2 H Total Hemoglobin 16.3 O2 Delivery Device Room air O2 Liters/Min 0.0 FiO2 21 Attestation: I personally reviewed and interpreted this ABG as follows: Interpretation: Hypoxemia but normal pH. Imaging Data Attestation: I personally reviewed and interpreted this imaging study as follows: My impression: Possible aspiration pneumonia versus interstitial edema Critical Care Time Critical Care Time Critical Care Time: Yes Total Critical Care Time: 35 Discharge Plan Discharge Clinical Impression: Altered mental status, Substance abuse, Hypoxemia requiring supplemental oxygen, Acute aspiration pneumonitis Patient Disposition: Still a Patient Condition: Stable
[2025-10-14 23:17] LABS: Hematocrit 50.5 % (42.0-52.0); Hemoglobin 16.9 g/dL (14.0-18.0); Immature Granulocyte Percent A 0.2 % (0-0.5); Lymphocytes Absolute Auto 1.77 K/mm3 (0.9-3.2); Mean Corpuscular HGB Conc 33.5 g/dl (32-36); Mean Corpuscular Hemoglobin 30.7 pg (26-34); Mean Corpuscular Volume 91.7 fl (80-100); Nucleated Red Blood Cells Absolute Auto 0.000 K/mm3 (0.0-0.012); Nucleated Red Blood Cells Perc 0.0 % (0.0-0.2); Platelet Count Result 204 k/mm3 (150-375); Red Blood Count 5.51 M/mm3 (4.6-6.20); White Blood Count 5.9 K/mm3 (4.5-10.0)
--- NOTE | 2025-10-14 23:18 | PCRCNOTE ---
Delay in obtaining abg due to pt being in CT scan.
[2025-10-14 23:23] LABS: Acetaminophen < 10 ug/mL (10-30); Salicylate < 1.0 mg/dL (2-20)
[2025-10-14 23:23] LABS: Alanine Aminotransferase 53 U/L (6-50); Albumin Level 4.4 g/dL (3.5-5.1); Alkaline Phosphatase 62 U/L (38-126); Anion Gap 8 mmol/L (4-12); Aspartate Amino Transferase 44 U/L (17-59); Bilirubin,Total 0.9 mg/dL (0.2-1.3); Blood Urea Nitrogen 18 mg/dL (9-20); Calcium 9.3 mg/dL (8.4-10.2); Carbon Dioxide 25 mmol/L (22-30); Chloride 105 mmol/L (98-107); Estimated CRCL calculation 92 ml/min; Estimated Glomerular Filt Rate 54; Glucose 111 mg/dL (65-110); Lipase 117 U/L (23-300); Potassium 4.3 mmol/L (3.4-5.0); Sodium 138 mmol/L (137-145); Total Protein 8.1 g/dL (6.3-8.2)
[2025-10-14 23:39] LABS: Alveolar/Arterial O2 Gradient 50.2 mmHg; Carboxyhemoglobin 0.6 % THb (0-2.0); Fractional Inspired Oxygen 21 %; HCO3 ABG 22.2 mEq/l (22.0-26.0); Methemoglobin ABG 0.0 %THb (0-1.5); Oxygen Content ABG 20.2 %vol (16.0-22.0); Oxygen Saturation ABG 90.3 % (95.0-100.0); PCO2 ABG 35.4 mmHg (35.0-45.0); PO2 ABG 57.1 mmHg (80.0-100.0); PO2 FiO2 Ratio Arterial Blood 2.72 %; Reduced Hemoglobin 11.2 %THb (0-5.0)
[2025-10-14 23:40] LABS: Liters per Minute 0.0 LPM; Modified Allen's Test Pass; Site Drawn RIGHT RADIAL
[2025-10-14] MEDS: ONDANSETRON INJ 4 MG/2 ML VIAL IV PUSH (23:48)
[2025-10-14] MEDS: LACTATED RINGERS 500 ML 999 ML IV CONT (23:48)
[2025-10-15] VITALS (13 sets, daily range): BP systolic 145–184; BP diastolic 99–139; PULSE 86–103; RESP 18–33; TEMP 36.3–36.8; O2SAT 90–99
[2025-10-15 00:02] LABS: Add Urine Microscopic? YES; Appearance Urine Clear (Clear); Glucose Urine UA Negative (Negative); Leukocyte Esterase Ur Trace LEU/UL (Negative); Nitrate Urine Negative (Negative); Non Pathogenic Casts 0-2; Specific Grav Ur 1.024 (1.001-1.035)
[2025-10-15 00:17] LABS: Cannabinoid Screen Urine Positive (Negative)
[2025-10-15] MEDS: AZITHROMYCIN IV 500 MG in SODIUM CHLORIDE 0.9% IV 250 ML IVPB (00:24)
[2025-10-15] MEDS: cefTRIAXone 2 GM in SODIUM CHLORIDE 0.9% IV 100 ML 200 ML IVPB (00:24)
[2025-10-15] MEDS: ONDANSETRON INJ 4 MG/2 ML VIAL (01:07)
[2025-10-15] MEDS: metroNIDAZOLE 500 MG/ISO 100ML 500 MG/100 ML BAG 100 MG IVPB (01:08)
[2025-10-15] MEDS: METOCLOPRAMIDE HCL INJ 10 MG/2 ML VIAL IV PUSH (01:16)
--- NOTE | 2025-10-15 02:23 | WPCEDHO ---
ED Hand Off Checklist All vitals saved: Yes IV Site documented: Yes All med administrations documented: Yes Triage Note Triage Note Pt arrives w/ c/o vomiting x 1 10/14/25 22:54 hour. Allergies No Known Allergies Allergy (Unknown, Verified 10/14/25 23:10) Family History (Last Reviewed 10/14/25 @ 23:09 by Leo Alexandre MD) Father Acute myocardial infarction Administered/Completed Medications Discontinued Medications Lactated Ringer's (Lactated Ringers) 500 mls @ 999 mls/hr IV CONT .Q31M STA Stop: 10/14/25 23:35 Last Infusion: 10/15/25 00:23 Dose: Infused Documented By: Admin: 10/14/25 23:48 Dose: 999 mls/hr Documented By: HADLEY Ceftriaxone Sodium 2 gm/ (Sodium Chloride) 100 mls @ 200 mls/hr IVPB ONCE STA Stop: 10/15/25 00:16 Last Infusion: 10/15/25 01:05 Dose: Infused Documented By: Admin: 10/15/25 00:24 Dose: 200 mls/hr Documented By: HADLEY Azithromycin 500 mg/ Sodium (Chloride) 250 mls @ 250 mls/hr IVPB ONCE ONE Stop: 10/15/25 00:46 Last Infusion: 10/15/25 01:42 Dose: Infused Documented By: Admin: 10/15/25 00:24 Dose: 250 mls/hr Documented By: HADLEY Metronidazole (Flagyl 500 Mg/Iso Soln 100 Ml) 500 mg in 100 mls @ 100 mls/hr IVPB ONCE STA Stop: 10/15/25 00:46 Last Infusion: 10/15/25 02:08 Dose: Infused Documented By: Admin: 10/15/25 01:08 Dose: 100 mls/hr Documented By: HADLEY Metoclopramide HCl (Metoclopramide Hcl Inj 10 Mg/2 Ml Vial) 10 mg IV PUSH ONCE STA Stop: 10/15/25 01:14 Last Admin: 10/15/25 01:16 Dose: 10 mg Documented By: HADLEY Ondansetron HCl (Ondansetron Inj 4 Mg/2 Ml Vial) 4 mg IV PUSH ONCE STA Stop: 10/14/25 22:59 Last Admin: 10/14/25 23:48 Dose: 4 mg Documented By: HADLEY Ondansetron HCl (Ondansetron Inj 4 Mg/2 Ml Vial) Confirm Administered Dose 4 mg .ROUTE .STK-MED ONE Stop: 10/15/25 01:04 Last Admin: 10/15/25 01:07 Dose: 4 mg Documented By: HADLEY Notes 10/14/25 23:18 Respiratory Therapy Note by Tracy Lomas Delay in obtaining abg due to pt being in CT scan. Initialized on 10/14/25 23:18 - END OF NOTE Interventions/Assessments IV / Saline Lock, Insert Start: 10/14/25 22:53 Freq: STAT Status: Active Protocol: Document 10/15/25 00:23 HADLEY (Rec: 10/15/25 00:23 HADLEY [id number]) IV Assessment Peripheral Access Left Antecubital IV Catheter Access Initiated IV Insertion Date 10/15/25 IV Insertion Time 00:23 Catheter Gauge 18 IV Insertion 1 Attempts IV Site Assessment WNL IV Care and WNL Maintenance PA: Gastrointestinal Assessment Start: 10/14/25 22:48 Freq: Status: Active Protocol: Document 10/14/25 23:56 HADLEY (Rec: 10/14/25 23:57 HADLEY [id number]) GI Assessment Gastrointestinal Nausea,Vomiting Symptoms Description Round Pattern Normal Last Vital Signs Temperature 97.6 F 10/14/25 22:54 Pulse Rate 89 10/15/25 02:19 Respiratory Rate 25 H 10/15/25 02:19 Pulse Oximetry 99 10/15/25 02:19 Blood Pressure 153/120 H 10/15/25 02:19 Blood Pressure Mean 130 10/15/25 02:19 Oxygen Delivery Room Air 10/14/25 22:54 Weight 124.6 kg 10/14/25 22:54 Last Result - Abnormals Only ABG pO2 57.1 mmHg (80.0-100.0) L 10/14/25 23:27 ABG O2 Saturation 90.3 % (95.0-100.0) L 10/14/25 23:27 Oxyhemoglobin 88.2 % THb (90.0-100.0) L 10/14/25 23:27 Reduced Hemoglobin 11.2 %THb (0-5.0) H 10/14/25 23:27 Creatinine 1.48 mg/dL (0.7-1.3) H 10/14/25 23:04 Estimated GFR 54 (59-) L 10/14/25 23:04 Glucose 111 mg/dL (65-110) H 10/14/25 23:04 ALT 53 U/L (6-50) H 10/14/25 23:04 Urine Protein 3+ mg/dL (Negative) H 10/14/25 23:51 Urine Ketones Trace mg/dL (Negative) H 10/14/25 23:51 Leukocyte Esterase Rfl Trace PATRICIA/UL (Negative) H 10/14/25 23:51 Urine WBC 11-20 /hpf (0-3) H 10/14/25 23:51 Salicylates < 1.0 mg/dL (2-20) L 10/14/25 23:05 Acetaminophen < 10 ug/mL (10-30) L 10/14/25 23:05 Ur Amphetamine Screen Positive (Negative) A 10/14/25 23:51 U Cannabinoids Screen Positive (Negative) A 10/14/25 23:51 Most Recent Suicide Severity Rating Suicide Severity Rating NO RISK INDICATED 10/14/25 22:54
--- NOTE | 2025-10-15 05:22 | P.HP_ITS ---
H&P: HPI History of Present Illness Date/Time: 10/15/25 05:22 Chief Complaint: Nausea vomiting and diarrhea. Narrative: This is a 35-year-old male patient who has severe systolic dysfunction secondary to IV drug use including methamphetamine abuse. He also has a history of uncontrolled hepatitis C, uncontrolled hypertension and heart failure. The patient was last admitted here approximately 2 weeks ago for heart failure exacerbation. ABGs shows a normal pH with PO2 of 57 O2 saturation 90%. Creatinine 1.48 estimated GFR 54 glucose 111. Urine shows 3+ protein, ketones trace, leukocyte esterase trace, urine wbc's 11-20 toxicology screen was positive for amphetamine and cannabinoids. The patient was given Tylenol and Zofran in the emergency room. Head CT was read as no acute intracranial findings. Chest x-ray was read as interstitial pulmonary edema and are pneumonitis, left lung worse. Superimposed airspace disease left lung not excluded. The patient was given Mart at the room I sent in [facility]. The patient is being admitted to observation status to IMU on the date of service of 10/15/2025. Review of Systems Constitutional: Constitutional: Reports as per HPI and Reports no additional constitutional complaints Eyes: Eyes: Reports as per HPI and Reports no additional eye complaints ENT: Reports system reviewed and no additional complaints, except as documented and Reports Normal hearing present Cardiovascular: Cardiovascular: Reports no additional cardiovascular complaints Respiratory: Respiratory: Reports as per HPI and Reports no additional respiratory complaints Gastrointestinal: Gastrointestinal: Reports as per HPI and Reports no additional gastrointestinal complaints Musculoskeletal: Musculoskeletal: Reports no additional musculoskeletal complaints Integumentary/Breasts: Skin/Breast: Reports system reviewed and no additional complaints, except as docu Neurologic: Reports system reviewed and no additional complaints, except as documented and Reports Normal hearing present Psychiatric: Psychiatric: Reports no additional psychiatric complaints and Reports as per HPI Hematologic/Lymphatic: Hematologic/Lymphatic: Reports no additional hematologic/lymphatic complaints Allergic/Immunologic: Allergic/Immunologic: Reports no additional allergic/immunologic complaints PMF Past Medical History Medical History Hypertension Biventricular heart failure with reduced left ventricular function Cardiomyopathy Echocardiogram 10/2024: Severely reduced left ventricular systolic function with EF of 20-25%, right ventricle mildly dilated with reduced systolic function Cannabinoid hyperemesis syndrome Non-ST elevation [place] (NSTEMI) (10/2024) Lexiscan stress echo demonstrating EF of 37% with normal perfusion Methamphetamine addiction IV Hepatitis C infection Marijuana use Surgical History Surgical History History of orthopedic surgery Family History Family History Father Acute myocardial infarction Social History Social History (Updated 10/15/25 @ 06:38 by Yolanda Bartholomew APRN) Social History: The patient is essentially homeless and lives between various friends residences. He is unemployed but previously worked in [employer]. He uses ?ice? (crystal meth) which he injects daily. He reports that he ?recently started vaping?. When asked about alcohol use the patient declined the answer. Code status: Full code Smoking status: Never smoker Tobacco type: e-cigarettes/vaping Additional smoking assessment comments: Smokes cigarette(s) Vapes. Alcohol intake: never Substance use: current Substance use type: marijuana and methamphetamine Last use: 10/14/2025 Lack of Transportation: No Lack of Food: Never True Current Housing: I Do Not Have Housing Concerned About Future Housing: YES Difficulty Paying Gas/Electric Bills: No Difficulty Paying for Meds: No Currently Unemployed: YES Education: High School Diploma/GED Difficulty w/ Childcare or Family Care: No Gender identity (if verbalized by the patient): Male Spiritual care concerns: No Meds Home Medications and Allergies Home Medications ?Medication ?Instructions ?Recorded ?Confirmed ?Type No Home Medications 09/26/25 10/15/25 H istory Allergies Allergy/AdvReac Type Severity Reaction Status Date / Time No Known Allergies Allergy Unknown Verified 10/15/25 03:39 Vital Signs Vital Signs - 24 hr 10/14/25 22:54 10/15/25 01:36 10/15/25 02:05 Temperature 97.6 F Pulse Rate 95 103 H 93 Respiratory Rate 30 H 33 H 18 Blood Pressure 167/131 H 184/139 H 168/127 H Pulse Oximetry 95 96 98 Oxygen Delivery Room Air 10/15/25 02:19 10/15/25 03:09 10/15/25 03:59 Temperature 98.3 F Pulse Rate 89 86 86 Respiratory Rate 25 H 24 H 24 H Blood Pressure 153/120 H 169/101 H Pulse Oximetry 99 99 99 Oxygen Delivery Room Air 10/15/25 03:59 10/15/25 04:00 Temperature 97.6 F Pulse Rate 86 88 Respiratory Rate 24 H Blood Pressure 147/106 H Pulse Oximetry 96 Oxygen Delivery Exam Const: General: cooperative, comfortable, no acute distress, well developed, awake, Physically active, average body habitus and well nourished Nutritional Appearance: average body habitus and well nourished Orientation/consciousness: oriented to person, oriented to place, oriented to time and patient oriented x3 Limitations: no limitations Other: The patient is answering some questions but then continues to nod off during my interview. HENMT: Head: normal to inspection, No palpable skull fracture present and normocephalic Eyes: General: appearance normal, both eyes and all related structures Alignment and Position: alignment normal Periorbital: periorbital findings normal Eyelids: eyelids normal Neck: Neck: normal visual inspection Chest: Chest palpation & inspection: normal inspection of the chest Resp: Effort & Inspection: normal respiratory effort Auscultation: clear to auscultation bilaterally Percussion: percussion normal Cardio: Palpation: normal PMI Rate: regular rate Rhythm: regular rhythm Heart sounds: S1 normal heart sound present and S2 normal heart sound present Peripheral pulses: Peripheral pulses 2+ throughout GI: Inspection: normal to inspection Percussion: Yes normal to percussion Auscultation: normal bowel sounds Rectal Exam: deferred : General: Yes no CVA tenderness Back/Spine/Pelvis: Back: no CVA tenderness Cervical Spine: cervical ROM normal Thoracic/Lumbar Spine: thoracic and lumbar spine normal to inspection Pelvis: no pain with anterior-posterior compression Skin: General skin exam: normal color Lesions: no lesions Rashes: no rashes Trauma: no lacerations or abrasions Wounds: no wounds Hair: normal Nails: normal Other: The patient has dried flaky skin to bilateral feet. Neuro: General: oriented to person, oriented to place, oriented to time and patient oriented x3 Cranial nerves: Yes Equal, round and reactive pupils present and Yes Normal hearing present Cognition (Neuro): normal cognition Speech: normal speech Gait exam (Neuro): Normal gait present Motor exam (neuro): 5/5 motor strength present throughout Sensory Exam: normal sensation Extrem: General: normal to inspection Right upper extremity: normal to inspection and shoulder/upper arm Left upper extremity: normal to inspection and shoulder/upper arm Right lower extremity: normal to inspection Left lower extremity: normal to inspection Psych: Appearance: grossly normal Mental Status: mental status grossly normal Speech and movement: Normal speech and movement present Affect: normal affect Attitude: cooperative Thought process: Normal thought process present Thought content: Yes Normal thought content present H&P: Results Labs Labs: Short CBC 10/14/25 Range/Units 23:04 WBC 5.9 (4.5-10.0) K/mm3 Hgb 16.9 (14.0-18.0) g/dL Hct 50.5 (42.0-52.0) % Plt Count 204 (150-375) k/mm3 BMP 10/14/25 23:04 Sodium 138 Potassium 4.3 Chloride 105 Carbon Dioxide 25 BUN 18 Creatinine 1.48 H Glucose 111 H Calcium 9.3 Liver Function 10/14/25 Range/Units 23:04 Total Bilirubin 0.9 (0.2-1.3) mg/dL AST 44 (17-59) U/L ALT 53 H (6-50) U/L Alkaline Phosphatase 62 (38-126) U/L Albumin 4.4 (3.5-5.1) g/dL Urine 10/14/25 Range/Units 23:51 Urine Color Yellow (Yellow) Urine Appearance Clear (Clear) Urine pH 5.0 (5.0-9.0) Ur Specific [place] 1.024 (1.001-1.035) Urine Protein 3+ H (Negative) mg/dL Urine Glucose (UA) Negative (Negative) mg/dL ABG ABG results: Hypoxia ECG Interpretation: SINUS RHYTHM POSSIBLE RIGHT ATRIAL ENLARGEMENT [0.25mV P-WAVE] LEFT ATRIAL ENLARGEMENT [-0.15mV P-WAVE IN V1/V2] LEFT AXIS DEVIATION [QRS AXIS < -30] INCOMPLETE RIGHT BUNDLE BRANCH BLOCK [90+ ms QRS DURATION, TERMINAL R IN V1/V2, 40+ ms S IN I/aVL/V4/V5/V6] POSSIBLE LEFT VENTRICULAR HYPERTROPHY [VOLTAGE CRITERIA PLUS LAE OR QRS WIDENING] NONSPECIFIC T-WAVE ABNORMALITY Compared to ECG 09/26/2025 14:37:53 Left-axis deviation now present Left anterior fascicular block no longer present Imaging Chest x-ray: Radiologist's impression: Impressions Chest X-Ray 10/15/25 06:07 IMPRESSION: 1. Interstitial pulmonary edema and/or pneumonitis, left lung worse. Superimposed airspace disease left lung not excluded. Head CT 10/15/25 06:23 IMPRESSION: 1. No acute intracranial findings. Assessment and Plan Assessment and plan (1) Hypoxemia requiring supplemental oxygen: Code(s): R09.02 - Hypoxemia; Z99.81 - Dependence on supplemental oxygen Status: Resolved Assessment and Plan: -ABGs pH normal however his oxygen levels low. -supplemental oxygen was applied. Wean O2 to keep O2 saturations greater than 90%. -the patient was started on antibiotics for possibility of aspiration pneumonia. Initially he was given Rocephin in a Zithromax. A Zithromax was discontinued and he was started on doxycycline. -after reviewing the chest x-ray it appears to be mostly pulmonary edema. However there could be a superimposed pneumonia in there as well. He is afebrile and his white count is normal. -blood cultures are pending. (2) Methamphetamine addiction: Code(s): F15.20 - Other stimulant dependence, uncomplicated Status: Acute Assessment and Plan: -the patient is essentially homeless and stays with various friends. -patient was positive for methamphetamines. -and previous documentation the patient stated he uses ice every day. (3) Uncontrolled hypertension: Code(s): I10 - Essential (primary) hypertension Status: Acute Assessment and Plan: -the patient uses methamphetamines. (4) Cardiomyopathy: Qualifiers: Cardiomyopathy type: due to drug Qualified Code(s): I42.7 - Cardiomyopathy due to drug and external agent Code(s): I42.9 - Cardiomyopathy, unspecified Status: Acute Assessment and Plan: -as per cardiology notes from 5Acute on chronic systolic heart failure -Lasix 40 mg IV push b.i.d. -continue Entresto 49-51 mg p.o. b.i.d., spironolactone 12.5 mg p.o. daily, and Jardiance 10 mg p.o. daily -if his blood pressure continues to be elevated, we will switch his Toprol 50 mg p.o. daily to carvedilol 12.5 mg p.o. b.i.d. -recommend that he follow-up in outpatient clinic for referral to EP for ICD implantation -his acute exacerbation likely is causing the minimally elevated troponins Nonischemic cardiomyopathy -normal MPI 10/2024 -will have in follow-up in clinic for referral to EP for ICD implantation however he continues to be using IV methamphetamines currently Hypertension -currently on Entresto 49-51 mg p.o. b.i.d. -if remains uncontrolled, we will switch his Toprol 50 mg p.o. daily to carvedilol 12.5 mg p.o. b.i.d. Upon admission today patient declines any home medications. Echo from 09/27/2025 was read asSummary 1. The left ventricle is normal in size with severely reduced systolic function. There is mild concentric left ventricular hypertrophy. The left ventricular ejection fraction is visually estimated to be 20-25%. 2. The right ventricle is moderately dilated with moderately reduced systolic function. 3. There are no significant valvular abnormalities. 4. Dilated inferior vena cava with <50% collapse upon inspiration consistent with significantly elevated right atrial pressure, 15 mmHg. 5. Pulmonary arterial systolic pressure is estimated at 69 mmHg. There is moderate pulmonary hypertension. Left Ventricle The left ventricle is normal in size with severely reduced systolic function. There is mild concentric left ventricular hypertrophy. The left ventricular ejection fraction is visually estimated to be 20-25%. (5) Hepatitis C infection: Qualifiers: Hepatic coma status: without hepatic coma Viral hepatitis chronicity: chronic Qualified Code(s): B18.2 - Chronic viral hepatitis C Code(s): B19.20 - Unspecified viral hepatitis C without hepatic coma Status: Acute Assessment and Plan: No clear evidence of treatment. Liver enzymes within normal limits (6) Biventricular heart failure with reduced left ventricular function: Code(s): I50.814 - Right heart failure due to left heart failure Status: Acute Assessment and Plan: Summary 1. The left ventricle is normal in size with severely reduced systolic function. There is mild concentric left ventricular hypertrophy. The left ventricular ejection fraction is visually estimated to be 20-25%. 2. The right ventricle is moderately dilated with moderately reduced systolic function. 3. There are no significant valvular abnormalities. 4. Dilated inferior vena cava with <50% collapse upon inspiration consistent with significantly elevated right atrial pressure, 15 mmHg. 5. Pulmonary arterial systolic pressure is estimated at 69 mmHg. There is moderate pulmonary hypertension. Left Ventricle The left ventricle is normal in size with severely reduced systolic function. There is mild concentric left ventricular hypertrophy. The left ventricular ejection fraction is visually estimated to be 20-25%. Patient denied any home medications. (7) Altered mental status: Code(s): R41.82 - Altered mental status, unspecified Status: Acute Assessment and Plan: Could be related to the hypoxia or it could be drug-induced. (8) Acute aspiration pneumonitis: Code(s): J69.0 - Pneumonitis due to inhalation of food and vomit Status: Acute Assessment and Plan: -blood cultures are pending -patient was started on Rocephin and doxycycline. Quality VTE Prophylaxis VTE prophylaxis: pharmacologic ordered
--- NOTE | 2025-10-15 08:23 | ADMGEN ---
This patient, Deepak Pfeiffer III, was admitted to IMU Room 205-02 on 10/15/2025 at 0300. Patient/family oriented to hospital policies and general routines including ID bracelet, bed and alarms, visiting hours, pain management, procedures, bathroom and other care routines, personal items, smoking policy, room service/diet, and visiting hours. Information on how to activate the Rapid Response Team has been discussed. Patient/Family are encouraged to report perceived risks to care and to ask questions if they do not understand what they are told or what they should do.
[2025-10-15 09:50] LABS: Hematocrit 47.4 % (42.0-52.0); Hemoglobin 15.8 g/dL (14.0-18.0); Immature Granulocyte Percent A 0.2 % (0-0.5); Lymphocytes Absolute Auto 1.21 K/mm3 (0.9-3.2); Mean Corpuscular HGB Conc 33.3 g/dl (32-36); Mean Corpuscular Hemoglobin 30.8 pg (26-34); Mean Corpuscular Volume 92.4 fl (80-100); Nucleated Red Blood Cells Absolute Auto 0.000 K/mm3 (0.0-0.012); Nucleated Red Blood Cells Perc 0.0 % (0.0-0.2); Platelet Count Result 225 k/mm3 (150-375); Red Blood Count 5.13 M/mm3 (4.6-6.20); White Blood Count 6.6 K/mm3 (4.5-10.0)
[2025-10-15] MEDS: DOXYCYCLINE IV 100 MG in SODIUM CHLORIDE 0.9% IV 100 ML IVPB ×2 (09:58→20:39)
[2025-10-15 10:02] LABS: Alanine Aminotransferase 41 U/L (6-50); Albumin Level 3.9 g/dL (3.5-5.1); Alkaline Phosphatase 57 U/L (38-126); Anion Gap 8 mmol/L (4-12); Aspartate Amino Transferase 39 U/L (17-59); Bilirubin,Total 1.2 mg/dL (0.2-1.3); Blood Urea Nitrogen 18 mg/dL (9-20); Calcium 8.8 mg/dL (8.4-10.2); Carbon Dioxide 27 mmol/L (22-30); Chloride 103 mmol/L (98-107); Estimated CRCL calculation 109 ml/min; Estimated Glomerular Filt Rate > 60; Glucose 103 mg/dL (65-110); Potassium 4.3 mmol/L (3.4-5.0); Sodium 138 mmol/L (137-145); Total Protein 7.2 g/dL (6.3-8.2)
--- NOTE | 2025-10-15 16:31 | P.PNIM_ITS ---
Progress Note: A&P Assessment and Plan (1) Hypoxemia requiring supplemental oxygen: Code(s): R09.02 - Hypoxemia; Z99.81 - Dependence on supplemental oxygen Status: Resolved Assessment and Plan: Resolved -ABGs pH normal however his oxygen levels low. -supplemental oxygen was applied. -the patient was started on antibiotics for possibility of aspiration pneumonia. Initially he was given Rocephin and Zithromax. Zithromax was discontinued and he was started on doxycycline. -after reviewing the chest x-ray it appears to be mostly pulmonary edema. However there could be a superimposed pneumonia in there as well. He is afebrile and his white count is normal. -blood cultures are pending. -Currently on room air, saturating 96% (2) Acute aspiration pneumonitis: Code(s): J69.0 - Pneumonitis due to inhalation of food and vomit Status: Acute Assessment and Plan: As above, CXR finding suggested superimposed pneumonia/pneumonitis. Initially had hypoxemia, however this is now resolved. -Continue Ceftriaxone and doxycycline for time being, total 5 day course, transition to oral antibiotics on discharge will suffice. (3) Methamphetamine addiction: Code(s): F15.20 - Other stimulant dependence, uncomplicated Status: Acute Assessment and Plan: -the patient is essentially homeless and stays with various friends. -patient was positive for methamphetamines. -and previous documentation the patient stated he uses ice every day. -Monitor for withdrawal symptoms (4) Hepatitis C infection: Qualifiers: Hepatic coma status: without hepatic coma Viral hepatitis chronicity: chronic Qualified Code(s): B18.2 - Chronic viral hepatitis C Code(s): B19.20 - Unspecified viral hepatitis C without hepatic coma Status: Acute Assessment and Plan: No history of treatment. LFTs stable. No clinical evidence of cirrhosis. -Outpatient GI for eradication therapy. (5) Altered mental status: Code(s): R41.82 - Altered mental status, unspecified Status: Acute Assessment and Plan: AMS on admission, resolved at this time. Suspect methamphatine use to be associated factor (6) BE (acute kidney injury): Code(s): N17.9 - Acute kidney failure, unspecified Status: Acute Assessment and Plan: Cr 1.48 on admission, now 1.22, GFR >60. -continue to trend renal function (7) Cardiomyopathy: Qualifiers: Cardiomyopathy type: due to drug Qualified Code(s): I42.7 - Cardiomyopathy due to drug and external agent Code(s): I42.9 - Cardiomyopathy, unspecified Status: Acute Assessment and Plan: -as per cardiology notes from 09/28/2025 Acute on chronic systolic heart failure -Lasix 40 mg IV push b.i.d. -continue Entresto 49-51 mg p.o. b.i.d., spironolactone 12.5 mg p.o. daily, and Jardiance 10 mg p.o. daily -if his blood pressure continues to be elevated, we will switch his Toprol 50 mg p.o. daily to carvedilol 12.5 mg p.o. b.i.d. -recommend that he follow-up in outpatient clinic for referral to EP for ICD implantation -his initial acute exacerbation likely is causing the minimally elevated troponins Nonischemic cardiomyopathy -normal MPI 10/2024 -will have in follow-up in clinic for referral to EP for ICD implantation however he continues to be using IV methamphetamines currently -Last Echo: EF 20-25% Dilated RV, RAP significantly elevated, moderate pulm HTN Hypertension -currently on Entresto 49-51 mg p.o. b.i.d. -if remains uncontrolled, we will switch his Toprol 50 mg p.o. daily to carvedilol 12.5 mg p.o. b.i.d. Upon admission patient declines any medications. -10/15: Will attempt restarting GDMT at this time, starting with entresto 49- 51mg. Cr initially elevated, now normalized. Add spironolactone 12.5 mg p.o. d aily, and Jardiance 10 mg p.o. daily if BP tolerates, as well as kidney function. Does not appear to be in exacerbation any longer at this time. (8) Chronic GERD: Code(s): K21.9 - Gastro-esophageal reflux disease without esophagitis Status: Inactive Assessment and Plan: Having epigastric burning abdominal pain with reflux -Start PPI qd -Mylanta prn Plan Outpatient cardiology for AICD placement and outpatient GI for HCV management on discharge. DVT prophylaxis: lovenox 40mg qd Diet: Heart healthy Subjective Date/time seen: 10/15/25 16:31 Interval history: This is a 35-year-old male patient who has severe systolic dysfunction secondary to IV drug use including methamphetamine abuse. He presented via the ED for onset of abdominal cramping and vomiting. He also has a history of uncontrolled hepatitis C, uncontrolled hypertension and heart failure. The patient was last admitted here approximately 2 weeks ago for heart failure exacerbation. ABGs shows a normal pH with PO2 of 57 O2 saturation 90%. Creatinine 1.48 estimated GFR 54 glucose 111. Urine shows 3+ protein, ketones trace, leukocyte esterase trace, urine wbc's 11-20 toxicology screen was positive for amphetamine and cannabinoids. The patient was given Tylenol and Zofran in the emergency room. Head CT was read as no acute intracranial findings. Chest x-ray was read as interstitial pulmonary edema and are pneumonitis, left lung worse. Superimposed airspace disease left lung not excluded. 10/15: seen today, initially did not want to talk, was very sleepy when attempted to talk in the morning, however RN reports patient has been AAOx3. On returning later in the day, patient was much more willing to speak, and willing to improve his health. He expressed concern over his CHF, which on auscultation and evaluation of lower extremities does not appear to be in exacerbation at this time, and also mentioned severe GERD, for which PPI has been started. He was breathing well on room air, with only minimal bibasilar crackles on auscultation. Review of Systems Constitutional: Constitutional: Reports as per HPI and Reports no additional constitutional complaints Eyes: Eyes: Reports as per HPI and Reports no additional eye complaints ENT: Reports system reviewed and no additional complaints, except as documented and Reports Normal hearing present Cardiovascular: Cardiovascular: Reports no additional cardiovascular complaints Respiratory: Respiratory: Reports as per HPI and Reports no additional respiratory complaints Gastrointestinal: Gastrointestinal: Reports as per HPI and Reports no additional gastrointestinal complaints Musculoskeletal: Musculoskeletal: Reports no additional musculoskeletal complaints Integumentary/Breasts: Skin/Breast: Reports system reviewed and no additional complaints, except as docu Neurologic: Reports system reviewed and no additional complaints, except as documented and Reports Normal hearing present Psychiatric: Psychiatric: Reports no additional psychiatric complaints and Reports as per HPI Hematologic/Lymphatic: Hematologic/Lymphatic: Reports no additional hematologic/lymphatic complaints Allergic/Immunologic: Allergic/Immunologic: Reports no additional allergic/immunologic complaints Exam Const: General: cooperative, comfortable, no acute distress, well developed, awake, Physically active, average body habitus and well nourished Nutritional Appearance: average body habitus and well nourished Orientation/consciousness: oriented to person, oriented to place, oriented to time and patient oriented x3 Limitations: no limitations HENMT: Head: normal to inspection, No palpable skull fracture present and normocephalic Eyes: General: appearance normal, both eyes and all related structures Alignment and Position: alignment normal Periorbital: periorbital findings normal Eyelids: eyelids normal Neck: Neck: normal visual inspection Chest: Chest palpation & inspection: normal inspection of the chest Resp: Effort & Inspection: normal respiratory effort Auscultation: clear to auscultation bilaterally and crackles (minimal bibasilar) Percussion: percussion normal Cardio: Palpation: normal PMI Rate: regular rate Rhythm: regular rhythm Heart sounds: S1 normal heart sound present and S2 normal heart sound present Peripheral pulses: Peripheral pulses 2+ throughout Other: minimal pitting edema b/l GI: Inspection: normal to inspection Percussion: Yes normal to percussion Auscultation: normal bowel sounds Rectal Exam: deferred Back/Spine/Pelvis: Back: no CVA tenderness Cervical Spine: cervical ROM normal Thoracic/Lumbar Spine: thoracic and lumbar spine normal to inspection Pelvis: no pain with anterior-posterior compression Skin: General skin exam: normal color Lesions: no lesions Rashes: no rashes Trauma: no lacerations or abrasions Wounds: no wounds Hair: normal Nails: normal Other: The patient has dried flaky skin to bilateral feet. Neuro: General: oriented to person, oriented to place, oriented to time and patient oriented x3 Cranial nerves: Yes Equal, round and reactive pupils present and Yes Normal hearing present Cognition (Neuro): normal cognition Speech: normal speech Gait exam (Neuro): Normal gait present Motor exam (neuro): 5/5 motor strength present throughout Sensory Exam: normal sensation Extrem: General: normal to inspection Right upper extremity: normal to inspection and shoulder/upper arm Left upper extremity: normal to inspection and shoulder/upper arm Right lower extremity: normal to inspection Left lower extremity: normal to inspection Psych: Appearance: grossly normal Mental Status: mental status grossly normal Speech and movement: Normal speech and movement present Affect: normal affect Attitude: cooperative Thought process: Normal thought process present Thought content: Yes Normal thought content present Objective Data Vital Signs Vital Signs: Vital Signs - 24 hr 10/14/25 22:54 10/15/25 01:36 10/15/25 02:05 Temperature 97.6 F Pulse Rate 95 103 H 93 Respiratory Rate 30 H 33 H 18 Blood Pressure 167/131 H 184/139 H 168/127 H Pulse Oximetry 95 96 98 Oxygen Delivery Room Air 10/15/25 02:19 10/15/25 03:09 10/15/25 03:59 Temperature 98.3 F Pulse Rate 89 86 86 Respiratory Rate 25 H 24 H 24 H Blood Pressure 153/120 H 169/101 H Pulse Oximetry 99 99 99 Oxygen Delivery Room Air 10/15/25 03:59 10/15/25 04:00 10/15/25 06:00 Temperature 97.6 F Pulse Rate 90 88 90 Respiratory Rate 24 H Blood Pressure 147/106 H Pulse Oximetry 96 Oxygen Delivery 10/15/25 06:00 10/15/25 08:00 10/15/25 08:00 Temperature 98.1 F Pulse Rate 94 98 96 Respiratory Rate 24 H Blood Pressure 146/100 H Pulse Oximetry 96 Oxygen Delivery 10/15/25 10:00 10/15/25 12:00 10/15/25 12:00 Temperature 97.7 F Pulse Rate 95 94 95 Respiratory Rate 24 H Blood Pressure 145/111 H Pulse Oximetry 96 Oxygen Delivery 10/15/25 14:00 Temperature Pulse Rate 98 Respiratory Rate Blood Pressure Pulse Oximetry Oxygen Delivery Intake/Output Intake/Output: Intake & Output 10/12/25 10/13/25 10/14/25 10/15/25 23:59 23:59 23:59 23:59 Intake Total 1050 Balance 1050 Meds/Results Medications: Active Medications Generic Name Dose Route Start Last Admin Trade Name Freq PRN Reason Stop Dose Admin Acetaminophen 650 mg 10/15/25 01:09 Acetaminophen 325 Mg Tablet PO Q4H PRN Mild Pain (1-3) or Fever Dicyclomine HCl 20 mg 10/15/25 03:30 Dicyclomine Hcl 10 Mg Capsule PO QID PRN Abdominal Cramping Hydralazine HCl 10 mg 10/15/25 05:19 Hydralazine Hcl 20 Mg/Ml Vial IV PUSH Q8H PRN Blood Pressure - High Hydralazine HCl 10 mg 10/15/25 07:06 Hydralazine Hcl 20 Mg/Ml Vial IV PUSH Q8H PRN Blood Pressure - High Doxycycline Hyclate 100 mg/ 100 mls @ 100 mls/hr 10/15/25 09:00 10/15/25 10:58 Sodium Chloride IVPB 10/19/25 21:59 Infused Q12H DEONNA Infusion Ceftriaxone Sodium 1 gm/ 50 mls @ 100 mls/hr 10/15/25 22:00 Sodium Chloride IVPB Q24H DEONNA Ondansetron HCl 4 mg 10/15/25 01:09 Ondansetron Inj 4 Mg/2 Ml Vial IV PUSH Q4H PRN Nausea Radiology Results: ITS Impressions Chest X-Ray 10/15/25 06:07 IMPRESSION: 1. Interstitial pulmonary edema and/or pneumonitis, left lung worse. Superimposed airspace disease left lung not excluded. Head CT 10/15/25 06:23 IMPRESSION: 1. No acute intracranial findings. Labs Labs: Laboratory Results - last 24 hr 10/14/25 10/14/25 10/14/25 23:04 23:05 23:27 WBC 5.9 RBC 5.51 Hgb 16.9 Hct 50.5 MCV 91.7 MCH 30.7 MCHC 33.5 RDW 13.7 Plt Count 204 MPV 10.0 Immature Gran % (Auto) 0.2 Neut % (Auto) 62.9 Lymph % (Auto) 29.8 [place] % (Auto) 4.7 Eos % (Auto) 1.9 Baso % (Auto) 0.5 Lymph # (Auto) 1.77 [place] # (Auto) 0.3 Eos # (Auto) 0.1 Baso # (Auto) 0.0 Abs Immat Gran (auto) 0.01 Absolute Neuts (auto) 3.7 Absolute Nucleated RBC 0.000 Nucleated RBC % 0.0 Puncture Site Right radial ABG pH 7.415 ABG pCO2 35.4 ABG pO2 57.1 L ABG PO2/FiO2 Ratio 2.72 ABG HCO3 22.2 ABG O2 Saturation 90.3 L ABG O2 Content 20.2 ABG Base Excess -1.7 A-a Gradient 50.2 Oxyhemoglobin 88.2 L Carboxyhemoglobin 0.6 Methemoglobin 0.0 Reduced Hemoglobin 11.2 H Total Hemoglobin 16.3 O2 Delivery Device Room air O2 Liters/Min 0.0 FiO2 21 Sodium 138 Potassium 4.3 Chloride 105 Carbon Dioxide 25 Anion Gap 8 BUN 18 Creatinine 1.48 H Estim Creat Clear Calc 92 Estimated GFR 54 L Glucose 111 H Lactic Acid Calcium 9.3 Total Bilirubin 0.9 AST 44 ALT 53 H Alkaline Phosphatase 62 Total Protein 8.1 Albumin 4.4 Lipase 117 Urine Color Urine Appearance Urine pH Ur Specific [place] Urine Protein Urine Glucose (UA) Urine Ketones Ur Blood (Man) Urine Nitrate Urine Bilirubin Urine Urobilinogen Leukocyte Esterase Rfl Urine RBC Urine WBC Ur Squamous Epith Cells Urine Bacteria Urine Casts Salicylates < 1.0 L Urine Opiates Screen Urine Methadone Screen Acetaminophen < 10 L Ur Barbiturates Screen Ur Phencyclidine Scrn Ur Amphetamine Screen U Benzodiazepines Scrn Urine Cocaine Screen U Cannabinoids Screen Ethyl Alcohol < 10 10/14/25 10/14/25 10/15/25 23:50 23:51 09:27 WBC 6.6 RBC 5.13 Hgb 15.8 Hct 47.4 MCV 92.4 MCH 30.8 MCHC 33.3 RDW 13.8 Plt Count 225 MPV 10.0 Immature Gran % (Auto) 0.2 Neut % (Auto) 69.7 Lymph % (Auto) 18.4 [place] % (Auto) 9.4 H Eos % (Auto) 2.1 Baso % (Auto) 0.2 Lymph # (Auto) 1.21 [place] # (Auto) 0.6 Eos # (Auto) 0.1 Baso # (Auto) 0.0 Abs Immat Gran (auto) 0.01 Absolute Neuts (auto) 4.6 Absolute Nucleated RBC 0.000 Nucleated RBC % 0.0 Puncture Site ABG pH ABG pCO2 ABG pO2 ABG PO2/FiO2 Ratio ABG HCO3 ABG O2 Saturation ABG O2 Content ABG Base Excess A-a Gradient Oxyhemoglobin Carboxyhemoglobin Methemoglobin Reduced Hemoglobin Total Hemoglobin O2 Delivery Device O2 Liters/Min FiO2 Sodium 138 Potassium 4.3 Chloride 103 Carbon Dioxide 27 Anion Gap 8 BUN 18 Creatinine 1.22 Estim Creat Clear Calc 109 Estimated GFR > 60 Glucose 103 Lactic Acid 1.0 Calcium 8.8 Total Bilirubin 1.2 AST 39 ALT 41 Alkaline Phosphatase 57 Total Protein 7.2 Albumin 3.9 Lipase Urine Color Yellow Urine Appearance Clear Urine pH 5.0 Ur Specific [place] 1.024 Urine Protein 3+ H Urine Glucose (UA) Negative Urine Ketones Trace H Ur Blood (Man) Negative Urine Nitrate Negative Urine Bilirubin Negative Urine Urobilinogen 1.0 Leukocyte Esterase Rfl Trace H Urine RBC 0-2 Urine WBC 11-20 H Ur Squamous Epith Cells None seen Urine Bacteria None seen Urine Casts 0-2 Salicylates Urine Opiates Screen Negative Urine Methadone Screen Negative Acetaminophen Ur Barbiturates Screen Negative Ur Phencyclidine Scrn Negative Ur Amphetamine Screen Positive A U Benzodiazepines Scrn Negative Urine Cocaine Screen Negative U Cannabinoids Screen Positive A Ethyl Alcohol Hospitalist MIPS Advance Care Plan I have confirmed that the patient's Advanced Care Plan is present, code status is documented, or surrogate decision maker is listed in patient medical record.: Yes Medication Reconciliation I have utilized all available resources to obtain, update and review the patients current medications (includes all prescriptions, OTC, herbals, cannabis, and nutritional supplements).: Yes
[2025-10-15] MEDS: PANTOPRAZOLE SOD SESQUIHYDRATE 20 MG TAB PO (20:36)
[2025-10-15] MEDS: SACUBITRIL/VALSARTAN 49-51 MG TABLET 1 TABLET PO (20:36)
[2025-10-15] MEDS: MAG HYDROX/AL HYDROX/SIMETH 30 ML UDC PO (20:36)
[2025-10-15] MEDS: cefTRIAXone 1 GM in SODIUM CHLORIDE 0.9% IV 50 ML 100 ML IVPB (22:21)
[2025-10-16] VITALS (10 sets, daily range): BP systolic 129–159; BP diastolic 82–116; PULSE 83–91; RESP 18–26; TEMP 35.9–36.9; O2SAT 94–98
[2025-10-16 04:57] LABS: Hematocrit 43.2 % (42.0-52.0); Hemoglobin 14.6 g/dL (14.0-18.0); Immature Granulocyte Percent A 0.0 % (0-0.5); Lymphocytes Absolute Auto 1.46 K/mm3 (0.9-3.2); Mean Corpuscular HGB Conc 33.8 g/dl (32-36); Mean Corpuscular Hemoglobin 31.0 pg (26-34); Mean Corpuscular Volume 91.7 fl (80-100); Nucleated Red Blood Cells Absolute Auto 0.000 K/mm3 (0.0-0.012); Nucleated Red Blood Cells Perc 0.0 % (0.0-0.2); Platelet Count Result 197 k/mm3 (150-375); Red Blood Count 4.71 M/mm3 (4.6-6.20); White Blood Count 4.6 K/mm3 (4.5-10.0)
[2025-10-16 05:14] LABS: Alanine Aminotransferase 38 U/L (6-50); Albumin Level 3.4 g/dL (3.5-5.1); Alkaline Phosphatase 58 U/L (38-126); Anion Gap 3 mmol/L (4-12); Aspartate Amino Transferase 34 U/L (17-59); Bilirubin,Total 0.9 mg/dL (0.2-1.3); Blood Urea Nitrogen 14 mg/dL (9-20); Calcium 8.5 mg/dL (8.4-10.2); Carbon Dioxide 27 mmol/L (22-30); Chloride 103 mmol/L (98-107); Estimated CRCL calculation 116 ml/min; Estimated Glomerular Filt Rate > 60; Glucose 116 mg/dL (65-110); Potassium 3.6 mmol/L (3.4-5.0); Sodium 133 mmol/L (137-145); Total Protein 6.5 g/dL (6.3-8.2)
[2025-10-16] MEDS: ENOXAPARIN 40 MG/0.4 ML SYRINGE SUB-Q (08:54)
[2025-10-16] MEDS: DOXYCYCLINE IV 100 MG in SODIUM CHLORIDE 0.9% IV 100 ML IVPB ×2 (08:56→21:19)
[2025-10-16] MEDS: SACUBITRIL/VALSARTAN 49-51 MG TABLET 1 TABLET PO ×2 (08:56→21:19)
[2025-10-16] MEDS: ACETAMINOPHEN 325 MG TABLET 650 MG PO (09:48)
--- NOTE | 2025-10-16 12:02 | PC.NURSE ---
Pt transferred at 1155 to room 245. Report given to TERESO Stokes.
--- NOTE | 2025-10-16 14:53 | P.PNIM_ITS ---
Progress Note: A&P Assessment and Plan (1) Hypoxemia requiring supplemental oxygen: Code(s): R09.02 - Hypoxemia; Z99.81 - Dependence on supplemental oxygen Status: Resolved Assessment and Plan: Resolved -ABGs pH normal however his oxygen levels low. -supplemental oxygen was applied. -the patient was started on antibiotics for possibility of aspiration pneumonia. Initially he was given Rocephin and Zithromax. Zithromax was discontinued and he was started on doxycycline. -after reviewing the chest x-ray it appears to be mostly pulmonary edema. However there could be a superimposed pneumonia in there as well. He is afebrile and his white count is normal. -blood cultures are pending. -Currently on room air, saturating 96% (2) Acute aspiration pneumonitis: Code(s): J69.0 - Pneumonitis due to inhalation of food and vomit Status: Acute Assessment and Plan: As above, CXR finding suggested superimposed pneumonia/pneumonitis. Initially had hypoxemia, however this is now resolved. -Continue Ceftriaxone and doxycycline for time being, total 5 day course, transition to oral antibiotics on discharge will suffice. (3) Methamphetamine addiction: Code(s): F15.20 - Other stimulant dependence, uncomplicated Status: Acute Assessment and Plan: -the patient is essentially homeless and stays with various friends. -patient was positive for methamphetamines. -and previous documentation the patient stated he uses ice every day. -Monitor for withdrawal symptoms (4) Hepatitis C infection: Qualifiers: Viral hepatitis chronicity: chronic Hepatic coma status: without hepat ic coma Qualified Code(s): B18.2 - Chronic viral hepatitis C Code(s): B19.20 - Unspecified viral hepatitis C without hepatic coma Status: Acute Assessment and Plan: No history of treatment. LFTs stable. No clinical evidence of cirrhosis. -Outpatient GI for eradication therapy. (5) Altered mental status: Code(s): R41.82 - Altered mental status, unspecified Status: Acute Assessment and Plan: AMS on admission, resolved at this time. Suspect methamphatine use to be associated factor (6) EB (acute kidney injury): Code(s): N17.9 - Acute kidney failure, unspecified Status: Acute Assessment and Plan: Cr 1.48 on admission, now 1.22, GFR >60. -continue to trend renal function (7) Cardiomyopathy: Qualifiers: Cardiomyopathy type: due to drug Qualified Code(s): I42.7 - Cardiomyopathy due to drug and external agent Code(s): I42.9 - Cardiomyopathy, unspecified Status: Acute Assessment and Plan: -as per cardiology notes from 09/28/2025 Acute on chronic systolic heart failure -Lasix 40 mg IV push b.i.d. -continue Entresto 49-51 mg p.o. b.i.d., spironolactone 12.5 mg p.o. daily, and Jardiance 10 mg p.o. daily -if his blood pressure continues to be elevated, we will switch his Toprol 50 mg p.o. daily to carvedilol 12.5 mg p.o. b.i.d. -recommend that he follow-up in outpatient clinic for referral to EP for ICD implantation -his initial acute exacerbation likely is causing the minimally elevated troponins Nonischemic cardiomyopathy -normal MPI 10/2024 -will have in follow-up in clinic for referral to EP for ICD implantation however he continues to be using IV methamphetamines currently -Last Echo: EF 20-25% Dilated RV, RAP significantly elevated, moderate pulm HTN Hypertension -currently on Entresto 49-51 mg p.o. b.i.d. -if remains uncontrolled, we will switch his Toprol 50 mg p.o. daily to carvedilol 12.5 mg p.o. b.i.d. Upon admission patient declines any medications. -10/15: Will attempt restarting GDMT at this time, starting with entresto 49- 51mg. Cr initially elevated, now normalized. Add spironolactone 12.5 mg p.o. d aily, and Jardiance 10 mg p.o. daily if BP tolerates, as well as kidney function. Does not appear to be in exacerbation any longer at this time. -10/16: Entresto, spironolactone, carvedilol restarted, monitoring for tolerance. Jardiance can be added tomorrow. Patient agreed for lifevest, required cardiology consult, placed for patient to be seen tomorrow. DC with lifevest at discretion of cardiology. (8) Chronic GERD: Code(s): K21.9 - Gastro-esophageal reflux disease without esophagitis Status: Inactive Assessment and Plan: Having epigastric burning abdominal pain with reflux -Start PPI qd -Mylanta prn Plan Outpatient cardiology for AICD placement and outpatient GI for HCV management on discharge. DVT prophylaxis: lovenox 40mg qd Diet: Heart healthy Subjective Date/time seen: 10/16/25 14:53 Interval history: This is a 35-year-old male patient who has severe systolic dysfunction secondary to IV drug use including methamphetamine abuse. He presented via the ED for onset of abdominal cramping and vomiting. He also has a history of uncontrolled hepatitis C, uncontrolled hypertension and heart failure. The patient was last admitted here approximately 2 weeks ago for heart failure exacerbation. ABGs shows a normal pH with PO2 of 57 O2 saturation 90%. Creatinine 1.48 estimated GFR 54 glucose 111. Urine shows 3+ protein, ketones trace, leukocyte esterase trace, urine wbc's 11-20 toxicology screen was positive for amphetamine and cannabinoids. The patient was given Tylenol and Zofran in the emergency room. Head CT was read as no acute intracranial findings. Chest x-ray was read as interstitial pulmonary edema and are pneumonitis, left lung worse. Superimposed airspace disease left lung not excluded. 10/15: seen today, initially did not want to talk, was very sleepy when attempted to talk in the morning, however RN reports patient has been AAOx3. On returning later in the day, patient was much more willing to speak, and willing to improve his health. He expressed concern over his CHF, which on auscultation and evaluation of lower extremities does not appear to be in exacerbation at this time, and also mentioned severe GERD, for which PPI has been started. He was breathing well on room air, with only minimal bibasilar crackles on auscultation. 10/16: Continues to be clinically improving, entresto, spironolactone, carvedilol restarted, with monitoring for tolerance. Patient agrees for lifevest, but cardiology consult needed, so ordered. Review of Systems Constitutional: Constitutional: Reports as per HPI and Reports no additional constitutional complaints Eyes: Eyes: Reports as per HPI and Reports no additional eye complaints ENT: Reports system reviewed and no additional complaints, except as documented and Reports Normal hearing present Cardiovascular: Cardiovascular: Reports no additional cardiovascular complaints Respiratory: Respiratory: Reports as per HPI and Reports no additional respiratory complaints Gastrointestinal: Gastrointestinal: Reports as per HPI and Reports no additional gastrointestinal complaints Musculoskeletal: Musculoskeletal: Reports no additional musculoskeletal complaints Integumentary/Breasts: Skin/Breast: Reports system reviewed and no additional complaints, except as docu Neurologic: Reports system reviewed and no additional complaints, except as documented and Reports Normal hearing present Psychiatric: Psychiatric: Reports no additional psychiatric complaints and Reports as per HPI Hematologic/Lymphatic: Hematologic/Lymphatic: Reports no additional hematologic/lymphatic complaints Allergic/Immunologic: Allergic/Immunologic: Reports no additional allergic/immunologic complaints Exam Const: General: cooperative, comfortable, no acute distress, well developed, awake, Physically active, average body habitus and well nourished Nutritional Appearance: average body habitus and well nourished Orientation/consciousness: oriented to person, oriented to place, oriented to time and patient oriented x3 Limitations: no limitations HENMT: Head: normal to inspection, No palpable skull fracture present and normocephalic Eyes: General: appearance normal, both eyes and all related structures Alignment and Position: alignment normal Periorbital: periorbital findings normal Eyelids: eyelids normal Neck: Neck: normal visual inspection Chest: Chest palpation & inspection: normal inspection of the chest Resp: Effort & Inspection: normal respiratory effort Auscultation: clear to auscultation bilaterally and crackles (minimal bibasilar) Percussion: percussion normal Cardio: Palpation: normal PMI Rate: regular rate Rhythm: regular rhythm Heart sounds: S1 normal heart sound present and S2 normal heart sound present Peripheral pulses: Peripheral pulses 2+ throughout Other: minimal pitting edema b/l GI: Inspection: normal to inspection Percussion: Yes normal to percussion Auscultation: normal bowel sounds Rectal Exam: deferred Back/Spine/Pelvis: Back: no CVA tenderness Cervical Spine: cervical ROM normal Thoracic/Lumbar Spine: thoracic and lumbar spine normal to inspection Pelvis: no pain with anterior-posterior compression Skin: General skin exam: normal color Lesions: no lesions Rashes: no rashes Trauma: no lacerations or abrasions Wounds: no wounds Hair: normal Nails: normal Other: The patient has dried flaky skin to bilateral feet. Neuro: General: oriented to person, oriented to place, oriented to time and patient oriented x3 Cranial nerves: Yes Equal, round and reactive pupils present and Yes Normal hearing present Cognition (Neuro): normal cognition Speech: normal speech Gait exam (Neuro): Normal gait present Motor exam (neuro): 5/5 motor strength present throughout Sensory Exam: normal sensation Extrem: General: normal to inspection Right upper extremity: normal to inspection and shoulder/upper arm Left upper extremity: normal to inspection and shoulder/upper arm Right lower extremity: normal to inspection Left lower extremity: normal to inspection Psych: Appearance: grossly normal Mental Status: mental status grossly normal Speech and movement: Normal speech and movement present Affect: normal affect Attitude: cooperative Thought process: Normal thought process present Thought content: Yes Normal thought content present Objective Data Vital Signs Vital Signs: Vital Signs - 24 hr 10/15/25 16:00 10/15/25 16:00 10/15/25 20:28 Temperature 97.7 F 97.4 F L Pulse Rate 93 93 93 Respiratory Rate 26 H 26 H Blood Pressure 156/115 H 148/99 H Pulse Oximetry 98 90 10/16/25 00:00 10/16/25 04:21 10/16/25 07:51 Temperature 96.7 F L 97.6 F 97.6 F Pulse Rate 91 89 91 Respiratory Rate 26 H 24 H 20 Blood Pressure 159/116 H 130/91 H 144/97 H Pulse Oximetry 97 94 97 10/16/25 08:56 10/16/25 12:18 10/16/25 14:32 Temperature 98.4 F Pulse Rate 91 90 83 Respiratory Rate 18 Blood Pressure 129/82 Pulse Oximetry 98 Intake/Output Intake/Output: Intake & Output 10/13/25 10/14/25 10/15/25 10/16/25 23:59 23:59 23:59 23:59 Intake Total 2160 1220 Output Total 800 2075 Balance 1360 -855 Meds/Results Medications: Active Medications Generic Name Dose Route Start Last Admin Trade Name Freq PRN Reason Stop Dose Admin Acetaminophen 650 mg 10/15/25 01:09 10/16/25 09:48 Acetaminophen 325 Mg Tablet PO 650 mg Q4H PRN Administration Mild Pain (1-3) or Fever Al Hydrox/Mg Hydrox/Simethicone 30 ml 10/15/25 18:01 10/15/25 20:36 Mag Hydrox/Al Hydrox/Simeth 30 Ml Udc PO 30 ml Q6H PRN Administration Indigestion Carvedilol 12.5 mg 10/16/25 09:00 10/16/25 08:56 Carvedilol 12.5 Mg Tablet PO 12.5 mg Q12HR DEONNA Administration Dicyclomine HCl 20 mg 10/15/25 03:30 Dicyclomine Hcl 10 Mg Capsule PO QID PRN Abdominal Cramping Enoxaparin Sodium 40 mg 10/16/25 09:00 10/16/25 08:54 Enoxaparin 40 Mg/0.4 Ml Syringe SUB-Q 40 mg DAILY DEONNA Administration Hydralazine HCl 10 mg 10/15/25 05:19 Hydralazine Hcl 20 Mg/Ml Vial IV PUSH Q8H PRN Blood Pressure - High Doxycycline Hyclate 100 mg/ 100 mls @ 100 mls/hr 10/15/25 09:00 10/16/25 08:56 Sodium Chloride IVPB 10/19/25 21:59 100 mls/hr Q12H DEONNA Administration Ceftriaxone Sodium 1 gm/ 50 mls @ 100 mls/hr 10/15/25 22:00 10/15/25 22:51 Sodium Chloride IVPB Infused Q24H DEONNA Infusion Ondansetron HCl 4 mg 10/15/25 01:09 Ondansetron Inj 4 Mg/2 Ml Vial IV PUSH Q4H PRN Nausea Pantoprazole Sodium 20 mg 10/15/25 21:00 10/15/25 20:36 Pantoprazole Sod Sesquihydrate 20 Mg Tab PO 20 mg HS DEONNA Administration Sacubitril/Valsartan 1 tablet 10/15/25 21:00 10/16/25 08:56 Sacubitril/Valsartan 49-51 Mg Tablet PO 1 tablet Q12HR DEONNA Administration Spironolactone 12.5 mg 10/16/25 09:00 10/16/25 08:56 Spironolactone 12.5 Mg Tablet PO 12.5 mg QAM DEONNA Administration Radiology Results: ITS Impressions Chest X-Ray 10/15/25 06:07 IMPRESSION: 1. Interstitial pulmonary edema and/or pneumonitis, left lung worse. Superimposed airspace disease left lung not excluded. Head CT 10/15/25 06:23 IMPRESSION: 1. No acute intracranial findings. Labs Labs: Laboratory Results - last 24 hr 10/16/25 04:07 WBC 4.6 RBC 4.71 Hgb 14.6 Hct 43.2 MCV 91.7 MCH 31.0 MCHC 33.8 RDW 13.8 Plt Count 197 MPV 10.2 Immature Gran % (Auto) 0.0 Neut % (Auto) 53.1 Lymph % (Auto) 31.7 [place] % (Auto) 12.0 H Eos % (Auto) 3.0 Baso % (Auto) 0.2 Lymph # (Auto) 1.46 [place] # (Auto) 0.6 Eos # (Auto) 0.1 Baso # (Auto) 0.0 Abs Immat Gran (auto) 0.00 Absolute Neuts (auto) 2.4 Absolute Nucleated RBC 0.000 Nucleated RBC % 0.0 Sodium 133 L Potassium 3.6 Chloride 103 Carbon Dioxide 27 Anion Gap 3 L BUN 14 Creatinine 1.14 Estim Creat Clear Calc 116 Estimated GFR > 60 Glucose 116 H Calcium 8.5 Total Bilirubin 0.9 AST 34 ALT 38 Alkaline Phosphatase 58 Total Protein 6.5 Albumin 3.4 L Hospitalist MIPS Advance Care Plan I have confirmed that the patient's Advanced Care Plan is present, code status is documented, or surrogate decision maker is listed in patient medical record.: Yes Medication Reconciliation I have utilized all available resources to obtain, update and review the patients current medications (includes all prescriptions, OTC, herbals, cannabis, and nutritional supplements).: Yes
[2025-10-16] MEDS: PANTOPRAZOLE SOD SESQUIHYDRATE 20 MG TAB PO (21:19)
[2025-10-16] MEDS: cefTRIAXone 1 GM in SODIUM CHLORIDE 0.9% IV 50 ML 100 ML IVPB (22:31)
[2025-10-17] VITALS (11 sets, daily range): BP systolic 144–160; BP diastolic 90–120; PULSE 81–90; RESP 16–26; TEMP 36.5–36.6; O2SAT 96–99
[2025-10-17 04:51] LABS: Hematocrit 41.9 % (42.0-52.0); Hemoglobin 14.0 g/dL (14.0-18.0); Immature Granulocyte Percent A 0.3 % (0-0.5); Lymphocytes Absolute Auto 1.73 K/mm3 (0.9-3.2); Mean Corpuscular HGB Conc 33.4 g/dl (32-36); Mean Corpuscular Hemoglobin 30.8 pg (26-34); Mean Corpuscular Volume 92.3 fl (80-100); Nucleated Red Blood Cells Absolute Auto 0.000 K/mm3 (0.0-0.012); Nucleated Red Blood Cells Perc 0.0 % (0.0-0.2); Platelet Count Result 193 k/mm3 (150-375); Red Blood Count 4.54 M/mm3 (4.6-6.20); White Blood Count 3.7 K/mm3 (4.5-10.0)
[2025-10-17 05:17] LABS: Alanine Aminotransferase 39 U/L (6-50); Albumin Level 3.1 g/dL (3.5-5.1); Alkaline Phosphatase 55 U/L (38-126); Anion Gap 3 mmol/L (4-12); Aspartate Amino Transferase 36 U/L (17-59); Bilirubin,Total 0.4 mg/dL (0.2-1.3); Blood Urea Nitrogen 11 mg/dL (9-20); Calcium 8.4 mg/dL (8.4-10.2); Carbon Dioxide 24 mmol/L (22-30); Chloride 107 mmol/L (98-107); Estimated CRCL calculation 111 ml/min; Estimated Glomerular Filt Rate > 60; Glucose 130 mg/dL (65-110); Potassium 3.8 mmol/L (3.4-5.0); Sodium 134 mmol/L (137-145); Total Protein 6.1 g/dL (6.3-8.2)
[2025-10-17] MEDS: DOXYCYCLINE IV 100 MG in SODIUM CHLORIDE 0.9% IV 100 ML IVPB (08:03)
[2025-10-17] MEDS: SACUBITRIL/VALSARTAN 49-51 MG TABLET 1 TABLET PO ×2 (08:03→20:34)
[2025-10-17] MEDS: ENOXAPARIN 40 MG/0.4 ML SYRINGE SUB-Q (08:03)
--- NOTE | 2025-10-17 09:08 | P.CONCA_ITS ---
Assessment and Plan Assessment and plan (1) Acute on chronic systolic heart failure: Code(s): I50.23 - Acute on chronic systolic (congestive) heart failure Status: Acute Plan Assessment: Acute on chronic systolic heart failure with LVEF 20-25% (nonischemic cardiomyopathy was diagnosed in the past based on normal MPI 10/2024; patient never had chest pain; he never had a cardiac catheterization done) Medication noncompliance Moderately depressed RV systolic function Substance abuse-methamphetamine, cannabinoids, marijuana Hepatitis-C infection Plan: Guideline directed medical therapy-continue Coreg, Entresto, spironolactone. Add Jardiance Lasix 40 mg IV b.i.d. today. Reassess fluid status tomorrow and dose diuretic He has not had any definitive form of coronary evaluation other than a stress MPI which was normal in 10/2024. Recommend a coronary CT vs coronary angiogram (if not already performed) to rule out any obstructive CAD as cause of his cardiomyopathy. This can be done as an outpatient Check weight, ins and outs, renal function daily Monitor on telemetry Check and replace electrolytes to keep potassium greater than 4 and magnesium greater than 2 Will plan for LifeVest given EF of 20-25% Repeat TTE 3 months to evaluate for any LVEF improvement after guideline directed medical therapy. If LVEF does not improve to greater than 35% then patient will need EP consult for ICD placement Consult about stopping use of methamphetamine, cannabis and marijuana. Patient says he wants to give it up and is actively trying History of Present Illness History of Present Illness Consult date/time: 10/17/25 09:08 Reason For Visit: Hypoxemia,drug use,vomiting,pneumonia vs aspiratio Narrative: 35-year-old male with history of hypertension, biventricular heart failure with depressed LVEF of 20-25%, reduced RV systolic function, hepatitis C infection, marijuana use, methamphetamine addiction, cannabinoid hyperemesis syndrome, recent hospitalization for heart failure 2 weeks ago at [facility] presents with chief complaints of lower abdominal cramping and vomiting that started after he ate a meal. No fevers, chills. Abdominal cramping and vomiting have now resolved. He reports using methamphetamine. He states that he has shortness of breath and leg swelling after he smokes Methamphetamine. The symptoms resolve when he does not smoke methamphetamine. He denies any chest pain, dizziness, lightheadedness, presyncope, syncope, orthopnea, PND. Cardiology is consulted for LifeVest given EF 20-25%. Workup: Hemoglobin: 14 Creatinine: 1.19 NT pro BNP and troponin: Not checked EKG: Sinus rhythm, incomplete right bundle-branch block, nonspecific T-wave abnormality (unchanged from prior EKG) Chest x-ray: Interstitial pulmonary edema and/or pneumonitis, left lung worse. Superimposed airspace disease left lung not excluded. Head CT: No acute intracranial pathology TTE from 09/26/25: Severely depressed LVEF of 20-25%, moderately dilated right ventricle with moderately reduced systolic function, acute valvular pathology, moderate pulmonary hypertension with PASP of 69 mm Hg Review of Systems 2 Review of Systems: A complete review of systems was performed and pertinent positives are reported in the HPI. [facility] Past Medical History Medical History Hypertension Biventricular heart failure with reduced left ventricular function Cardiomyopathy Echocardiogram 10/2024: Severely reduced left ventricular systolic function with EF of 20-25%, right ventricle mildly dilated with reduced systolic function Cannabinoid hyperemesis syndrome Non-ST elevation [facility] (NSTEMI) (10/2024) Lexiscan stress echo demonstrating EF of 37% with normal perfusion Methamphetamine addiction IV Hepatitis C infection Marijuana use Surgical History Surgical History History of orthopedic surgery Family History Family History Father Acute myocardial infarction Social History Social History (Updated 10/15/25 @ 06:38 by Yolanda Bartholomew APRN) Social History: The patient is essentially homeless and lives between various friends residences. 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 He uses ?ice? (crystal meth) which he injects daily. He reports that he ?recently started vaping?. When asked about alcohol use the patient declined the answer. Code status: Full code Smoking status: Never smoker Tobacco type: e-cigarettes/vaping Additional smoking assessment comments: Smokes cigarette(s) Vapes. Alcohol intake: never Substance use: current Substance use type: marijuana and methamphetamine Last use: 10/14/2025 Lack of Transportation: No Lack of Food: Never True Current Housing: I Do Not Have Housing Concerned About Future Housing: YES Difficulty Paying Gas/Electric Bills: No Difficulty Paying for Meds: No Currently Unemployed: YES Education: High School Diploma/GED Difficulty w/ Childcare or Family Care: No Gender identity (if verbalized by the patient): Male Spiritual care concerns: No Meds Home Medications and Allergies Home Medications ?Medication ?Instructions ?Recorded ?Confirmed ?Type No Home Medications 09/26/25 10/15/25 H istory Allergies Allergy/AdvReac Type Severity Reaction Status Date / Time No Known Allergies Allergy Unknown Verified 10/15/25 03:39 Vital Signs Vital Signs - 24 hr 10/16/25 12:18 10/16/25 14:32 10/16/25 16:26 Temperature 36.9 C Pulse Rate 90 83 83 Respiratory Rate 18 Blood Pressure 129/82 Pulse Oximetry 98 Oxygen Delivery 10/16/25 20:00 10/16/25 20:00 10/16/25 21:01 Temperature 36.8 C Pulse Rate 84 86 84 Respiratory Rate 18 18 Blood Pressure 146/91 H Pulse Oximetry 95 95 Oxygen Delivery Room Air 10/16/25 21:18 10/17/25 00:00 10/17/25 04:00 Temperature Pulse Rate 84 85 85 Respiratory Rate Blood Pressure Pulse Oximetry Oxygen Delivery 10/17/25 06:00 10/17/25 08:03 Temperature 36.6 C Pulse Rate 81 88 Respiratory Rate 16 Blood Pressure 144/90 H Pulse Oximetry 96 Oxygen Delivery Exam 2 Narrative: General: Alert oriented x3, no acute distress Neck: Supple, JVD + Chest: Bibasilar crackles, no rhonchi Cardiac: S1, S2 +, regular rate, regular rhythm, no murmurs or rubs Extremities: Bilateral lower extremity edema 1+, no skin rash Neurologic: Alert and oriented x3, no focal neurological deficits Results Labs and Meds 10/17/25 04:17 10/17/25 04:17 Lab results: Cardiac Enzymes 10/17/25 Range/Units 04:17 AST 36 (17-59) U/L CBC 10/17/25 Range/Units 04:17 WBC 3.7 L (4.5-10.0) K/mm3 RBC 4.54 L (4.6-6.20) M/mm3 Hgb 14.0 (14.0-18.0) g/dL Hct 41.9 L (42.0-52.0) % Plt Count 193 (150-375) k/mm3 Lymph # (Auto) 1.73 (0.9-3.2) K/mm3 [place] # (Auto) 0.5 (0.1-0.6) K/mm3 Eos # (Auto) 0.2 (0-0.3) K/mm3 Baso # (Auto) 0.0 (0.0-0.1) K/mm3 Comprehensive Metabolic Panel 10/17/25 Range/Units 04:17 Sodium 134 L (137-145) mmol/L Potassium 3.8 (3.4-5.0) mmol/L Chloride 107 (98-107) mmol/L Carbon Dioxide 24 (22-30) mmol/L BUN 11 (9-20) mg/dL Creatinine 1.19 (0.7-1.3) mg/dL Glucose 130 H (65-110) mg/dL Calcium 8.4 (8.4-10.2) mg/dL AST 36 (17-59) U/L ALT 39 (6-50) U/L Alkaline Phosphatase 55 (38-126) U/L Total Protein 6.1 L (6.3-8.2) g/dL Albumin 3.1 L (3.5-5.1) g/dL Intake and Output 10/16/25 10/17/25 10/17/25 23:59 07:59 15:59 Intake Total 1680 600 240 Output Total 600 1100 700 Balance 1080 500 460 Intake: IV 100 Doxycycline IV 100 mg In Sodium 100 Chloride 0.9% IV 100 ml @ 100 mls/hr IVPB Q12H [facility] Rx#: [id number] Oral 1580 600 240 Output: Urine 600 1100 700 Other: Number of Bowel Movements Today 0 Patient Weight 10/17/25 23:59 Weight 119 kg
--- NOTE | 2025-10-17 12:06 | P.PNIM_ITS ---
Subjective Date/time seen: 10/17/25 12:06 Interval history: This is a 35-year-old male patient who has severe systolic dysfunction secondary to IV drug use including methamphetamine abuse. He presented via the ED for onset of abdominal cramping and vomiting. He also has a history of uncontrolled hepatitis C, uncontrolled hypertension and heart failure. The patient was last admitted here approximately 2 weeks ago for heart failure exacerbation. ABGs shows a normal pH with PO2 of 57 O2 saturation 90%. Creatinine 1.48 estimated GFR 54 glucose 111. Urine shows 3+ protein, ketones trace, leukocyte esterase trace, urine wbc's 11-20 toxicology screen was positive for amphetamine and cannabinoids. The patient was given Tylenol and Zofran in the emergency room. Head CT was read as no acute intracranial findings. Chest x-ray was read as interstitial pulmonary edema and are pneumonitis, left lung worse. Superimposed airspace disease left lung not excluded. 10/15: seen today, initially did not want to talk, was very sleepy when attempted to talk in the morning, however RN reports patient has been AAOx3. On returning later in the day, patient was much more willing to speak, and willing to improve his health. He expressed concern over his CHF, which on auscultation and evaluation of lower extremities does not appear to be in exacerbation at this time, and also mentioned severe GERD, for which PPI has been started. He was breathing well on room air, with only minimal bibasilar crackles on auscultation. 10/16: Continues to be clinically improving, entresto, spironolactone, carvedilol restarted, with monitoring for tolerance. Patient agrees for lifevest, but cardiology consult needed, so ordered. Review of Systems Constitutional: Constitutional: Reports as per HPI and Reports no additional constitutional complaints Eyes: Eyes: Reports as per HPI and Reports no additional eye complaints ENT: Reports system reviewed and no additional complaints, except as documented and Reports Normal hearing present Cardiovascular: Cardiovascular: Reports no additional cardiovascular complaints Respiratory: Respiratory: Reports as per HPI and Reports no additional respiratory complaints Gastrointestinal: Gastrointestinal: Reports as per HPI and Reports no additional gastrointestinal complaints Musculoskeletal: Musculoskeletal: Reports no additional musculoskeletal complaints Integumentary/Breasts: Skin/Breast: Reports system reviewed and no additional complaints, except as docu Neurologic: Reports system reviewed and no additional complaints, except as documented and Reports Normal hearing present Psychiatric: Psychiatric: Reports no additional psychiatric complaints and Reports as per HPI Hematologic/Lymphatic: Hematologic/Lymphatic: Reports no additional hematologic/lymphatic complaints Allergic/Immunologic: Allergic/Immunologic: Reports no additional allergic/immunologic complaints Exam Const: General: cooperative, comfortable, no acute distress, well developed, awake, Physically active, average body habitus and well nourished Nutritional Appearance: average body habitus and well nourished Orientation/consciousness: oriented to person, oriented to place, oriented to time and patient oriented x3 Limitations: no limitations HENMT: Head: normal to inspection, No palpable skull fracture present and normocephalic Eyes: General: appearance normal, both eyes and all related structures Alignment and Position: alignment normal Periorbital: periorbital findings normal Eyelids: eyelids normal Neck: Neck: normal visual inspection Chest: Chest palpation & inspection: normal inspection of the chest Resp: Effort & Inspection: normal respiratory effort Auscultation: clear to auscultation bilaterally and crackles (minimal bibasilar) Percussion: percussion normal Cardio: Palpation: normal PMI Rate: regular rate Rhythm: regular rhythm Heart sounds: S1 normal heart sound present and S2 normal heart sound present Peripheral pulses: Peripheral pulses 2+ throughout Other: minimal pitting edema b/l bibasilar crackles present GI: Inspection: normal to inspection Percussion: Yes normal to percussion Auscultation: normal bowel sounds Rectal Exam: deferred Back/Spine/Pelvis: Back: no CVA tenderness Cervical Spine: cervical ROM normal Thoracic/Lumbar Spine: thoracic and lumbar spine normal to inspection Pelvis: no pain with anterior-posterior compression Skin: General skin exam: normal color Lesions: no lesions Rashes: no rashes Trauma: no lacerations or abrasions Wounds: no wounds Hair: normal Nails: normal Other: The patient has dried flaky skin to bilateral feet. Neuro: General: oriented to person, oriented to place, oriented to time and patient oriented x3 Cranial nerves: Yes Equal, round and reactive pupils present and Yes Normal hearing present Cognition (Neuro): normal cognition Speech: normal speech Gait exam (Neuro): Normal gait present Motor exam (neuro): 5/5 motor strength present throughout Sensory Exam: normal sensation Extrem: General: normal to inspection Right upper extremity: normal to inspection and shoulder/upper arm Left upper extremity: normal to inspection and shoulder/upper arm Right lower extremity: normal to inspection Left lower extremity: normal to inspection Psych: Appearance: grossly normal Mental Status: mental status grossly normal Speech and movement: Normal speech and movement present Affect: normal affect Attitude: cooperative Thought process: Normal thought process present Thought content: Yes Normal thought content present Objective Data Vital Signs Vital Signs: Vital Signs - 24 hr 10/16/25 12:18 10/16/25 14:32 10/16/25 16:26 Temperature 98.4 F Pulse Rate 90 83 83 Respiratory Rate 18 Blood Pressure 129/82 Pulse Oximetry 98 Oxygen Delivery 10/16/25 20:00 10/16/25 20:00 10/16/25 21:01 Temperature 98.3 F Pulse Rate 84 86 84 Respiratory Rate 18 18 Blood Pressure 146/91 H Pulse Oximetry 95 95 Oxygen Delivery Room Air 10/16/25 21:18 10/17/25 00:00 10/17/25 04:00 Temperature Pulse Rate 84 85 85 Respiratory Rate Blood Pressure Pulse Oximetry Oxygen Delivery 10/17/25 06:00 10/17/25 08:00 10/17/25 08:00 Temperature 97.9 F Pulse Rate 81 87 Respiratory Rate 16 Blood Pressure 144/90 H Pulse Oximetry 96 Oxygen Delivery Room Air 10/17/25 08:03 Temperature Pulse Rate 88 Respiratory Rate Blood Pressure Pulse Oximetry Oxygen Delivery Intake/Output Intake/Output: Intake & Output 10/14/25 10/15/25 10/16/25 10/17/25 23:59 23:59 23:59 23:59 Intake Total 2160 3000 840 Output Total 800 2675 1800 Balance 1360 325 -960 Meds/Results Medications: Active Medications Generic Name Dose Route Start Last Admin Trade Name Freq PRN Reason Stop Dose Admin Acetaminophen 650 mg 10/15/25 01:09 10/16/25 09:48 Acetaminophen 325 Mg Tablet PO 650 mg Q4H PRN Administration Mild Pain (1-3) or Fever Al Hydrox/Mg Hydrox/Simethicone 30 ml 10/15/25 18:01 10/15/25 20:36 Mag Hydrox/Al Hydrox/Simeth 30 Ml Udc PO 30 ml Q6H PRN Administration Indigestion Carvedilol 12.5 mg 10/16/25 09:00 10/17/25 08:03 Carvedilol 12.5 Mg Tablet PO 12.5 mg Q12HR DEONNA Administration Dicyclomine HCl 20 mg 10/15/25 03:30 Dicyclomine Hcl 10 Mg Capsule PO QID PRN Abdominal Cramping Enoxaparin Sodium 40 mg 10/16/25 09:00 10/17/25 08:03 Enoxaparin 40 Mg/0.4 Ml Syringe SUB-Q 40 mg DAILY DEONNA Administration Furosemide 20 mg 10/17/25 17:00 Furosemide Inj 40 Mg/4 Ml Vial IV PUSH BID DEONNA Hydralazine HCl 10 mg 10/15/25 05:19 Hydralazine Hcl 20 Mg/Ml Vial IV PUSH Q8H PRN Blood Pressure - High Doxycycline Hyclate 100 mg/ 100 mls @ 100 mls/hr 10/15/25 09:00 10/17/25 08:03 Sodium Chloride IVPB 10/19/25 21:59 100 mls/hr Q12H DEONNA Administration Ceftriaxone Sodium 1 gm/ 50 mls @ 100 mls/hr 10/15/25 22:00 10/16/25 22:31 Sodium Chloride IVPB 100 mls/hr Q24H DEONNA Administration Ondansetron HCl 4 mg 10/15/25 01:09 Ondansetron Inj 4 Mg/2 Ml Vial IV PUSH Q4H PRN Nausea Pantoprazole Sodium 20 mg 10/15/25 21:00 10/16/25 21:19 Pantoprazole Sod Sesquihydrate 20 Mg Tab PO 20 mg HS DEONNA Administration Sacubitril/Valsartan 1 tablet 10/15/25 21:00 10/17/25 08:03 Sacubitril/Valsartan 49-51 Mg Tablet PO 1 tablet Q12HR DEONNA Administration Spironolactone 12.5 mg 10/16/25 09:00 10/17/25 08:03 Spironolactone 12.5 Mg Tablet PO 12.5 mg QAM DEONNA Administration Radiology Results: ITS Impressions Chest X-Ray 10/15/25 06:07 IMPRESSION: 1. Interstitial pulmonary edema and/or pneumonitis, left lung worse. Superimposed airspace disease left lung not excluded. Head CT 10/15/25 06:23 IMPRESSION: 1. No acute intracranial findings. Labs Labs: Laboratory Results - last 24 hr 10/17/25 04:17 WBC 3.7 L RBC 4.54 L Hgb 14.0 Hct 41.9 L MCV 92.3 MCH 30.8 MCHC 33.4 RDW 13.7 Plt Count 193 MPV 10.0 Immature Gran % (Auto) 0.3 Neut % (Auto) 32.9 L Lymph % (Auto) 47.4 H Ida % (Auto) 14.2 H Eos % (Auto) 4.9 H Baso % (Auto) 0.3 Lymph # (Auto) 1.73 Ida # (Auto) 0.5 Eos # (Auto) 0.2 Baso # (Auto) 0.0 Abs Immat Gran (auto) 0.01 Absolute Neuts (auto) 1.2 L Absolute Nucleated RBC 0.000 Nucleated RBC % 0.0 Sodium 134 L Potassium 3.8 Chloride 107 Carbon Dioxide 24 Anion Gap 3 L BUN 11 Creatinine 1.19 Estim Creat Clear Calc 111 Estimated GFR > 60 Glucose 130 H Calcium 8.4 Total Bilirubin 0.4 AST 36 ALT 39 Alkaline Phosphatase 55 Total Protein 6.1 L Albumin 3.1 L Assessment and Plan Assessment and Plan (1) Cardiomyopathy: Qualifiers: Cardiomyopathy type: due to drug Qualified Code(s): I42.7 - Cardiomyopathy due to drug and external agent Code(s): I42.9 - Cardiomyopathy, unspecified Status: Acute Assessment and Plan: -as per cardiology notes from 09/28/2025 Acute on chronic systolic heart failure -Lasix 40 mg IV push b.i.d. -continue Entresto 49-51 mg p.o. b.i.d., spironolactone 12.5 mg p.o. daily, and Jardiance 10 mg p.o. daily -if his blood pressure continues to be elevated, we will switch his Toprol 50 mg p.o. daily to carvedilol 12.5 mg p.o. b.i.d. -recommend that he follow-up in outpatient clinic for referral to EP for ICD implantation -his initial acute exacerbation likely is causing the minimally elevated troponins Nonischemic cardiomyopathy -normal MPI 10/2024 -will have in follow-up in clinic for referral to EP for ICD implantation however he continues to be using IV methamphetamines currently -Last Echo: EF 20-25% Dilated RV, RAP significantly elevated, moderate pulm HTN Hypertension -currently on Entresto 49-51 mg p.o. b.i.d. -if remains uncontrolled, we will switch his Toprol 50 mg p.o. daily to carvedilol 12.5 mg p.o. b.i.d. Upon admission patient declines any medications. -10/15: Will attempt restarting GDMT at this time, starting with entresto 49- 51mg. Cr initially elevated, now normalized. Add spironolactone 12.5 mg p.o. daily, and Jardiance 10 mg p.o. daily if BP tolerates, as well as kidney function. Does not appear to be in exacerbation any longer at this time. -10/16: Entresto, spironolactone, carvedilol restarted, monitoring for tolerance. Jardiance can be added tomorrow. Patient agreed for lifevest, required cardiology consult, placed for patient to be seen tomorrow. DC with lifevest at discretion of cardiology. -10/17: Cardiology on board, agrees [facility] life vest, to be arranged and sent with patient on discharge. Had mild congestion on exam, cardiology recommended IV lasix 40mg bid to clear, patient otherwise stable without additional symptoms or SOB. Jardiance to be resumed. (2) Hypoxemia requiring supplemental oxygen: Code(s): R09.02 - Hypoxemia; Z99.81 - Dependence on supplemental oxygen Status: Resolved Assessment and Plan: Resolved -ABGs pH normal however his oxygen levels low. -supplemental oxygen was applied. -the patient was started on antibiotics for possibility of aspiration pneumonia. Initially he was given Rocephin and Zithromax. Zithromax was discontinued and he was started on doxycycline. -after reviewing the chest x-ray it appears to be mostly pulmonary edema. However there could be a superimposed pneumonia in there as well. He is afebrile and his white count is normal. -blood cultures are pending. -Currently on room air, saturating well without SOB (3) Acute aspiration pneumonitis: Code(s): J69.0 - Pneumonitis due to inhalation of food and vomit Status: Acute Assessment and Plan: As above, CXR finding suggested superimposed pneumonia/pneumonitis. Initially had hypoxemia, however this is now resolved. -Continue Ceftriaxone and doxycycline for time being, total 5 day course, transitioning to oral antibiotics on discharge will suffice. (4) Methamphetamine addiction: Code(s): F15.20 - Other stimulant dependence, uncomplicated Status: Acute Assessment and Plan: -the patient is essentially homeless and stays with various friends. -patient was positive for methamphetamines. -and previous documentation the patient stated he uses ice every day. -Monitor for withdrawal symptoms, currently stable (5) Hepatitis C infection: Qualifiers: Viral hepatitis chronicity: chronic Hepatic coma status: without hepatic coma Qualified Code(s): B18.2 - Chronic viral hepatitis C Code(s): B19.20 - Unspecified viral hepatitis C without hepatic coma Status: Acute Assessment and Plan: No history of treatment. LFTs stable. No clinical evidence of cirrhosis. -Outpatient GI for eradication therapy. (6) Altered mental status: Code(s): R41.82 - Altered mental status, unspecified Status: Acute Assessment and Plan: AMS on admission, resolved at this time. Suspect methamphatine use to be associated factor (7) BE (acute kidney injury): Code(s): N17.9 - Acute kidney failure, unspecified Status: Acute Assessment and Plan: Cr 1.48 on admission, now 1.22, GFR >60. -continue to trend renal function (8) Chronic GERD: Code(s): K21.9 - Gastro-esophageal reflux disease without esophagitis Status: Inactive Assessment and Plan: Having epigastric burning abdominal pain with reflux -Start PPI qd, discharge on 30 day course -Mylanta prn Plan Discharge when life vest is obtained, with cardiology for further imaging per 10/17 cardiology note, GI for Hep C treatment, PCP for ongoing care DVT Prophylaxis: Lovenox 40mg qd Diet: Heart healthy Medical Record Review I have reviewed the following patient records and this information was taken into consideration when formulating the assessment and plan.: previous labs, previous hospitalizations and previous clinic visits Consultations Consultations: I have discussed the care of this pt with the consulting provid ers. Hospitalist MIPS Advance Care Plan I have confirmed that the patient's Advanced Care Plan is present, code status is documented, or surrogate decision maker is listed in patient medical record.: Yes Medication Reconciliation I have utilized all available resources to obtain, update and review the patients current medications (includes all prescriptions, OTC, herbals, cannabis, and nutritional supplements).: Yes
[2025-10-17] MEDS: EMPAGLIFLOZIN 10 MG TABLET PO (14:28)
[2025-10-17] MEDS: FUROSEMIDE INJ 40 MG/4 ML VIAL IV PUSH (17:48)
[2025-10-17] MEDS: PANTOPRAZOLE SOD SESQUIHYDRATE 20 MG TAB PO (20:33)
[2025-10-17] MEDS: DOXYCYCLINE HYCLATE 100 MG TABLET PO (20:34)
[2025-10-18] VITALS (7 sets, daily range): BP systolic 166–172; BP diastolic 108–121; PULSE 77–88; RESP 18; TEMP 36.2; O2SAT 96–99
[2025-10-18 04:44] LABS: Hematocrit 52.8 % (42.0-52.0); Hemoglobin 18.2 g/dL (14.0-18.0); Mean Corpuscular HGB Conc 34.5 g/dl (32-36); Mean Corpuscular Hemoglobin 30.9 pg (26-34); Mean Corpuscular Volume 89.6 fl (80-100); Platelet Count Result 233 k/mm3 (150-375); Red Blood Count 5.89 M/mm3 (4.6-6.20); White Blood Count 5.0 K/mm3 (4.5-10.0)
[2025-10-18 04:59] LABS: Alanine Aminotransferase 66 U/L (6-50); Albumin Level 4.2 g/dL (3.5-5.1); Alkaline Phosphatase 68 U/L (38-126); Anion Gap 7 mmol/L (4-12); Aspartate Amino Transferase 62 U/L (17-59); Bilirubin,Total 0.8 mg/dL (0.2-1.3); Blood Urea Nitrogen 15 mg/dL (9-20); Calcium 9.3 mg/dL (8.4-10.2); Carbon Dioxide 25 mmol/L (22-30); Chloride 104 mmol/L (98-107); Estimated CRCL calculation 109 ml/min; Estimated Glomerular Filt Rate > 60; Glucose 123 mg/dL (65-110); Potassium 3.8 mmol/L (3.4-5.0); Sodium 136 mmol/L (137-145); Total Protein 8.1 g/dL (6.3-8.2)
[2025-10-18] MEDS: EMPAGLIFLOZIN 10 MG TABLET PO (10:08)
[2025-10-18] MEDS: FUROSEMIDE INJ 40 MG/4 ML VIAL IV PUSH (10:09)
[2025-10-18] MEDS: DOXYCYCLINE HYCLATE 100 MG TABLET PO (10:09)
[2025-10-18] MEDS: ENOXAPARIN 40 MG/0.4 ML SYRINGE SUB-Q (10:09)
[2025-10-18] MEDS: SACUBITRIL/VALSARTAN 49-51 MG TABLET 1 TABLET PO (10:09)
[2025-10-18] MEDS: SPIRONOLACTONE 25 MG TABLET PO (10:09)
--- NOTE | 2025-10-18 13:40 | PM.PNCARD ---
Progress Note: A&P Assessment and Plan (1) Acute on chronic systolic heart failure: Code(s): I50.23 - Acute on chronic systolic (congestive) heart failure Status: Acute (2) Biventricular heart failure with reduced left ventricular function: Code(s): I50.814 - Right heart failure due to left heart failure Status: Acute Plan Assessment: Acute on chronic systolic heart failure with LVEF 20-25% (nonischemic cardiomyopathy was diagnosed in the past based on normal MPI 10/2024; patient never had chest pain; he never had a cardiac catheterization done) Medication noncompliance Moderately depressed RV systolic function Substance abuse-methamphetamine, cannabinoids, marijuana Hepatitis-C infection Plan: Guideline directed medical therapy-continue Coreg, Entresto, spironolactone and Empagliflozin Patient is euvolemic by exam today. He states he was not taking any lasix prior to admission. Can discharge on 20 mg PO lasix daily prn if weight increases more than 3 pounds in 24 hours Outpatient coronary CTA or coronary angiography to evaluate for ischemia Check weight, ins and outs, renal function daily Monitor on telemetry Check and replace electrolytes to keep potassium greater than 4 and magnesium greater than 2 Lifevest ordered and delivered for discharge Repeat TTE 3 months to evaluate for any LVEF improvement after guideline directed medical therapy. If LVEF does not improve to greater than 35% then patient will need EP consult for ICD placement Counseled about stopping use of methamphetamine, cannabis and marijuana. Patient says he wants to give it up and is actively trying Subjective Date/time seen: 10/18/25 13:40 Review of Systems Review of Systems: A complete review of systems was performed and pertinent positives are reported in the HPI. Exam Narrative: General: Alert oriented x3, no acute distress Neck: Supple, no JVD Chest: Bilateral clear to auscultation, no rales, no rhonchi Cardiac: S1, S2 +, regular rate, regular rhythm, no murmurs or rubs Extremities: No pedal edema, no skin rash Neurologic: Alert and oriented x3, no focal neurological deficits Objective Data Vital Signs Vital Signs: Vital Signs - 24 hr 10/17/25 16:00 10/17/25 16:00 10/17/25 20:00 Temperature 36.6 C Pulse Rate 84 86 82 Respiratory Rate 17 26 H Blood Pressure 150/100 H Pulse Oximetry 99 97 Oxygen Delivery Room Air 10/17/25 20:00 10/17/25 20:03 10/17/25 20:10 Temperature 36.5 C Pulse Rate 82 84 82 Respiratory Rate 26 H Blood Pressure 160/120 H Pulse Oximetry 97 Oxygen Delivery 10/17/25 20:33 10/18/25 00:00 10/18/25 04:33 Temperature Pulse Rate 82 88 80 Respiratory Rate Blood Pressure Pulse Oximetry Oxygen Delivery 10/18/25 04:45 10/18/25 10:07 10/18/25 10:08 Temperature 36.2 C L Pulse Rate 77 84 84 Respiratory Rate 18 Blood Pressure 166/121 H 172/108 H Pulse Oximetry 99 96 Oxygen Delivery 10/18/25 10:10 10/18/25 10:10 10/18/25 12:00 Temperature Pulse Rate 82 86 Respiratory Rate Blood Pressure Pulse Oximetry 96 Oxygen Delivery Room Air Intake/Output Intake/Output: Intake & Output 10/15/25 10/16/25 10/17/25 10/18/25 23:59 23:59 23:59 23:59 Intake Total 2160 3050 1524 2116 Output Total 800 2675 7400 6025 Balance 9968 883 -[phone] -[phone] Meds/Results Medications: Active Medications Generic Name Dose Route Start Last Admin Trade Name Freq PRN Reason Stop Dose Admin Acetaminophen 650 mg 10/15/25 01:09 10/16/25 09:48 Acetaminophen 325 Mg Tablet PO 650 mg Q4H PRN Administration Mild Pain (1-3) or Fever Al Hydrox/Mg Hydrox/Simethicone 30 ml 10/15/25 18:01 10/15/25 20:36 Mag Hydrox/Al Hydrox/Simeth 30 Ml Udc PO 30 ml Q6H PRN Administration Indigestion Amoxicillin/Clavulanate Potassium 1 tablet 10/18/25 09:00 10/18/25 10:08 Amoxicillin/Clavulanate K 875-125 Mg Tab PO 10/18/25 21:01 1 tablet Q12HR DEONNA Administration Carvedilol 12.5 mg 10/16/25 09:00 10/18/25 10:08 Carvedilol 12.5 Mg Tablet PO 12.5 mg Q12HR DEONNA Administration Dicyclomine HCl 20 mg 10/15/25 03:30 Dicyclomine Hcl 10 Mg Capsule PO QID PRN Abdominal Cramping Doxycycline Hyclate 100 mg 10/17/25 21:00 10/18/25 10:09 Doxycycline Hyclate 100 Mg Tablet PO 10/19/25 21:01 100 mg Q12HR DEONNA Administration Empagliflozin 10 mg 10/17/25 12:20 10/18/25 10:08 Empagliflozin 10 Mg Tablet PO 10 mg DAILY DEONNA Administration Enoxaparin Sodium 40 mg 10/16/25 09:00 10/18/25 10:09 Enoxaparin 40 Mg/0.4 Ml Syringe SUB-Q 40 mg DAILY DEONNA Administration Furosemide 40 mg 10/17/25 17:00 10/18/25 10:09 Furosemide Inj 40 Mg/4 Ml Vial IV PUSH 40 mg BID DEONNA Administration Hydralazine HCl 10 mg 10/15/25 05:19 10/17/25 20:35 Hydralazine Hcl 20 Mg/Ml Vial IV PUSH 10 mg Q8H PRN Administration Blood Pressure - High Ondansetron HCl 4 mg 10/15/25 01:09 Ondansetron Inj 4 Mg/2 Ml Vial IV PUSH Q4H PRN Nausea Pantoprazole Sodium 20 mg 10/15/25 21:00 10/17/25 20:33 Pantoprazole Sod Sesquihydrate 20 Mg Tab PO 20 mg HS DEONNA Administration Sacubitril/Valsartan 1 tablet 10/15/25 21:00 10/18/25 10:09 Sacubitril/Valsartan 49-51 Mg Tablet PO 1 tablet Q12HR DEONNA Administration Spironolactone 25 mg 10/18/25 09:00 10/18/25 10:09 Spironolactone 25 Mg Tablet PO 25 mg QAM DEONNA Administration Radiology Results: ITS Impressions Chest X-Ray 10/15/25 06:07 IMPRESSION: 1. Interstitial pulmonary edema and/or pneumonitis, left lung worse. Superimposed airspace disease left lung not excluded. Head CT 10/15/25 06:23 IMPRESSION: 1. No acute intracranial findings. Labs Labs: Laboratory Results - last 24 hr 10/18/25 04:20 WBC 5.0 RBC 5.89 Hgb 18.2 H D Hct 52.8 H MCV 89.6 MCH 30.9 MCHC 34.5 RDW 13.5 Plt Count 233 MPV 9.8 Sodium 136 L Potassium 3.8 Chloride 104 Carbon Dioxide 25 Anion Gap 7 BUN 15 Creatinine 1.21 Estim Creat Clear Calc 109 Estimated GFR > 60 Glucose 123 H Calcium 9.3 Total Bilirubin 0.8 AST 62 H ALT 66 H Alkaline Phosphatase 68 Total Protein 8.1 Albumin 4.2
--- NOTE | 2025-10-18 13:58 | PM.DS ---
DS: Admitting Diagnosis Discharge Date 10/18/25 Admitting Diagnosis Hypoxemia due to aspiration pneumonitis DS: Discharge Diagnosis Discharge Diagnosis (1) Hypoxemia requiring supplemental oxygen: Code(s): R09.02 - Hypoxemia; Z99.81 - Dependence on supplemental oxygen Status: Resolved Assessment and Plan: Resolved -ABGs pH normal however his oxygen levels low. -supplemental oxygen was applied. -the patient was started on antibiotics for possibility of aspiration pneumonia. Initially he was given Rocephin and Zithromax. Zithromax was discontinued and he was started on doxycycline. -after reviewing the chest x-ray it appears to be mostly pulmonary edema. However there could be a superimposed pneumonia in there as well. He is afebrile and his white count is normal. -blood cultures are pending. -Currently on room air, saturating well without SOB (2) Acute aspiration pneumonitis: Code(s): J69.0 - Pneumonitis due to inhalation of food and vomit Status: Acute Assessment and Plan: As above, CXR finding suggested superimposed pneumonia/pneumonitis. Initially had hypoxemia, however this is now resolved. -Continue Ceftriaxone and doxycycline for time being, total 5 day course, transitioning to oral antibiotics on discharge will suffice. (3) Altered mental status: Code(s): R41.82 - Altered mental status, unspecified Status: Acute Assessment and Plan: AMS on admission, resolved at this time. Suspect methamphatine use to be associated factor (4) Methamphetamine addiction: Code(s): F15.20 - Other stimulant dependence, uncomplicated Status: Acute Assessment and Plan: Importance of abstinence from stimulant and other substances reinforced with patient. He is aware and is actively to stop. (5) Hepatitis C infection: Qualifiers: Viral hepatitis chronicity: chronic Hepatic coma status: without hepatic coma Qualified Code(s): B18.2 - Chronic viral hepatitis C Code(s): B19.20 - Unspecified viral hepatitis C without hepatic coma Status: Acute Assessment and Plan: Patient has not had his hepatitis-C treated, no signs of hepatic failure with decompensation. -outpatient GI for eradication therapy (6) Cardiomyopathy: Qualifiers: Cardiomyopathy type: due to drug Qualified Code(s): I42.7 - Cardiomyopathy due to drug and external agent Code(s): I42.9 - Cardiomyopathy, unspecified Status: Acute Assessment and Plan: LVEF 20-25% (nonischemic cardiomyopathy was diagnosed in the past based on normal MPI 10/2024; patient never had chest pain; he never had a cardiac catheterization done). Most likely due to methamphetamine use/substance abuse. Outpatient coronary CTA or coronary angiography to evaluate for ischemia Lifevest ordered and delivered for discharge Repeat TTE 3 months to evaluate for any LVEF improvement after guideline directed medical therapy. If LVEF does not improve to greater than 35% then patient will need EP consult for ICD placement Counseled about stopping use of methamphetamine and marijuana. (7) Acute on chronic systolic heart failure: Code(s): I50.23 - Acute on chronic systolic (congestive) heart failure Status: Acute Assessment and Plan: Guideline directed medical therapy-continue Coreg, Entresto, spironolactone and Empagliflozin Can discharge on 20 mg PO lasix daily prn if weight increases more than 3 pounds in 24 hours Rest of management as above (8) BE (acute kidney injury): Code(s): N17.9 - Acute kidney failure, unspecified Status: Acute Assessment and Plan: Cr 1.48 on admission, now 1.21, GFR >60. (9) Chronic GERD: Code(s): K21.9 - Gastro-esophageal reflux disease without esophagitis Status: Inactive Assessment and Plan: Having epigastric burning abdominal pain with reflux -Start PPI qd, discharge on 30 day course -Mylanta prn DS: Summary Hospital Course Hospital Course: This is a 35-year-old male patient who has severe systolic dysfunction secondary to IV drug use including methamphetamine abuse. He presented via the ED for onset of abdominal cramping and vomiting. He also has a history of uncontrolled hepatitis C, uncontrolled hypertension and heart failure. The patient was last admitted here approximately 2 weeks ago for heart failure exacerbation. ABGs shows a normal pH with PO2 of 57 O2 saturation 90%. Creatinine 1.48 estimated GFR 54 glucose 111. Urine shows 3+ protein, ketones trace, leukocyte esterase trace, urine wbc's 11-20 toxicology screen was positive for amphetamine and cannabinoids. The patient was given Tylenol and Zofran in the emergency room. Head CT was read as no acute intracranial findings. Chest x-ray was read as interstitial pulmonary edema and are pneumonitis, left lung worse. Superimposed airspace disease left lung not excluded. 10/15: seen today, initially did not want to talk, was very sleepy when attempted to talk in the morning, however RN reports patient has been AAOx3. On returning later in the day, patient was much more willing to speak, and willing to improve his health. He expressed concern over his CHF, which on auscultation and evaluation of lower extremities does not appear to be in exacerbation at this time, and also mentioned severe GERD, for which PPI has been started. He was breathing well on room air, with only minimal bibasilar crackles on auscultation. 10/16: Continues to be clinically improving, entresto, spironolactone, carvedilol restarted, with monitoring for tolerance. Patient agrees for lifevest, but cardiology consult needed, so ordered. 10/17: Mild crackles on auscultation, seen by cardiology who started IV lasix to manage, also lifevest being set up. Status at Discharge Cognitive/behavioral status at discharge: Stable Time Spent with Patient Time attestation: Total time spent providing and/or coordinating discharge services: Exam Const: General: cooperative, comfortable, no acute distress, well developed, awake, Physically active, average body habitus and well nourished Nutritional Appearance: average body habitus and well nourished Orientation/consciousness: oriented to person, oriented to place, oriented to time and patient oriented x3 Limitations: no limitations HENMT: Head: normal to inspection, No palpable skull fracture present and normocephalic Eyes: General: appearance normal, both eyes and all related structures Alignment and Position: alignment normal Periorbital: periorbital findings normal Eyelids: eyelids normal Neck: Neck: normal visual inspection Chest: Chest palpation & inspection: normal inspection of the chest Resp: Effort & Inspection: normal respiratory effort Auscultation: clear to auscultation bilaterally Percussion: percussion normal Cardio: Palpation: normal PMI Rate: regular rate Rhythm: regular rhythm Heart sounds: S1 normal heart sound present and S2 normal heart sound present Peripheral pulses: Peripheral pulses 2+ throughout Other: minimal pitting edema b/l bibasilar crackles present GI: Inspection: normal to inspection Percussion: Yes normal to percussion Auscultation: normal bowel sounds Rectal Exam: deferred Back/Spine/Pelvis: Back: no CVA tenderness Cervical Spine: cervical ROM normal Thoracic/Lumbar Spine: thoracic and lumbar spine normal to inspection Pelvis: no pain with anterior-posterior compression Skin: General skin exam: normal color Lesions: no lesions Rashes: no rashes Trauma: no lacerations or abrasions Wounds: no wounds Hair: normal Nails: normal Other: The patient has dried flaky skin to bilateral feet. Neuro: General: oriented to person, oriented to place, oriented to time and patient oriented x3 Cranial nerves: Yes Equal, round and reactive pupils present and Yes Normal hearing present Cognition (Neuro): normal cognition Speech: normal speech Gait exam (Neuro): Normal gait present Motor exam (neuro): 5/5 motor strength present throughout Sensory Exam: normal sensation Extrem: General: normal to inspection Right upper extremity: normal to inspection and shoulder/upper arm Left upper extremity: normal to inspection and shoulder/upper arm Right lower extremity: normal to inspection Left lower extremity: normal to inspection Psych: Appearance: grossly normal Mental Status: mental status grossly normal Speech and movement: Normal speech and movement present Affect: normal affect Attitude: cooperative Thought process: Normal thought process present Thought content: Yes Normal thought content present DS: Data Data Completed and Pending Labs on day of discharge: Labs from last 24 hours 10/18/25 04:20 WBC 5.0 RBC 5.89 Hgb 18.2 H D Hct 52.8 H MCV 89.6 MCH 30.9 MCHC 34.5 RDW 13.5 Plt Count 233 MPV 9.8 Sodium 136 L Potassium 3.8 Chloride 104 Carbon Dioxide 25 Anion Gap 7 BUN 15 Creatinine 1.21 Estim Creat Clear Calc 109 Estimated GFR > 60 Glucose 123 H Calcium 9.3 Total Bilirubin 0.8 AST 62 H ALT 66 H Alkaline Phosphatase 68 Total Protein 8.1 Albumin 4.2 Preliminary micro results at discharge 10/15/25 00:10 Blood Culture - Preliminary Blood 10/15/25 00:07 Blood Culture - Preliminary Blood Discharge Plan Discharge Attending physician on discharge: Brayan Carrera Oca Consulting providers: Bob Garcia Discharging Clinician: Brayan Carrera Oca Patient Disposition: Home Activity: as tolerated Diet: heart healthy Discharge Instructions: Outpatient coronary CTA or coronary angiography to evaluate for ischemia Lifevest use daily as bridge to AICD if needed. Repeat echocardiogram in 3 months to evaluate for any improvement in heart function after medication therapy. If heart function does not improve sufficiently, you will need Cardiology-EP consult for ICD placement. Stop use of methamphetamine and marijuana. Patient Instructions: Antibiotic Form Patient Language: Congolese Stand Alone Forms: General Discharge Information Follow-up/Referrals: [facility] [Provider Group, Gastroenterology] - 4 Weeks Problems: Hepatitis C infection Bob Garcia MD [Physician, Cardiology] - 2 Weeks Tj Mar MD [Primary Care Provider, [facility]] - 1 Week Discharge Medications: New sacubitril-valsartan [Entresto] 49-51 mg Tablet 1 tablet PO Q12HR 30 Days Qty: 60 0RF pantoprazole [Protonix] 20 mg Tablet,Delayed Release (Dr/Ec) 20 mg PO HS 30 Days Qty: 30 0RF carvedilol [Coreg] 12.5 mg Tablet 12.5 mg PO Q12HR 30 Days Qty: 60 0RF Jardiance 10 mg Tablet 10 mg PO DAILY 30 Days Qty: 30 0RF furosemide [Lasix] 20 mg tablet 20 mg PO DAILY PRN (Reason: weight gain/swelling/shortness of breath) 30 Days Qty: 30 0RF doxycycline hyclate 100 mg Tablet 100 mg PO Q12HR 2 Days Qty: 3 0RF spironolactone 25 mg Tablet 25 mg PO QAM 30 Days Qty: 30 0RF amoxicillin-pot clavulanate 875-125 mg tablet 1 tablet PO Q12H 1 Days Qty: 1 0RF Rx Instructions: take this last dose tonight at bedtime No Action No Home Medications Date of admission: 10/16/25 15:35 Primary Care Provider: Tj Mar Admitting Provider: Iam Ruvalcaba Attending physician on admission: Iam Ruvalcaba Condition: Stable Hospitalist MIPS Heart Failure (Exclusion) Patient has history of Heart Transplant or Left Ventricular Assistive Device?: No IF YES, STOP HERE Heart Failure (Qualifier) Patient has current or prior documentation of LVEF less than or equal to 40%, or mod/servere depressed LVSF?: Yes IF NO, STOP HERE If Yes, Heart Failure (Qualifier) Patient was prescribed or already taking an Angiotensin-Converting Enzyme (RHONDA) Inhibitor, or Antiotensin Receptor Yordy (ARB): No Patient was prescribed or already taking bisoprolol, carvedilol, or sustained release metoprolol succinate: Yes If Medications not prescribed/taking Reason patient not prescribed/taking RHONDA or ARB: Medical reasons: allergy, intolerance, contraindication or other (on entresto)
[2025-10-18] MEDS: ACETAMINOPHEN 325 MG TABLET 650 MG PO (14:29)
== END 2025-10-18 15:00 | disposition home or self-care (01) | DRG 137 ==
LOC: ANHED 23:28 → ANHIMU 10-15 03:14 → ANH2MED 10-16 11:51
PROVIDERS: Physician Assistant; Admitting Provider Internal Medicine; Emergency Provider Student in an Organized Health Care Education/Training Program; PCP Emergency Medicine; Visit Provider Student in an Organized Health Care Education/Training Program
DX: J69.0 Pneumonitis due to inhalation of food and vomit (principal); I42.8 Other cardiomyopathies; B18.2 Chronic viral hepatitis C; I50.23 Acute on chronic systolic (congestive) heart failure; I50.82 Biventricular heart failure; I11.0 Hypertensive heart disease with heart failure; N17.9 Acute kidney failure, unspecified; I27.20 Pulmonary hypertension, unspecified; K21.9 Gastro-esophageal reflux disease without esophagitis; F17.290 Nicotine dependence, other tobacco product, uncomplicated; F15.20 Other stimulant dependence, uncomplicated; F12.20 Cannabis dependence, uncomplicated; Z59.02 Unsheltered homelessness; I25.2 Old myocardial infarction; Z91.148 Patient's other noncompliance with medication regimen for other reason
CPT/HCPCS: 36415; 36600; 70450; 71045; 80053; 80143; 80179; 80307; 81001; 82077; 82375; 82805; 83050; 83605; 83690; 85018; 85025; 85027; 87040; 87086; 93005; 96361; 96365; 96367; 96374; 96375; 99285; A9270; G0378; G0379; J0360; J0456; J0696; J1650; J1836; J1938; J2405; J2765; J7050; J7120

== ENCOUNTER 2025-11-11 22:53 | Emergency (ER) | payer OTHER, SELFPAY ==
--- NOTE | ~2025-11-11 | CT_ITS ---
CT abdomen pelvis w con Clinical History: epigastric abd pain, N/V; also D and constipation? . Comparison: 01/05/2025 Technique: Axial images lung bases to symphysis pubis 100 mL Omnipaque 350 Coronal, sagittal reformats CT images acquired with automatic exposure control for dose reduction DLP: 1495 mGy-cm Findings: Lung bases: Clear. Visualized heart and pericardium: Cardiomegaly. Liver: Unremarkable. Gallbladder: Unremarkable. Spleen: Unremarkable. Pancreas: Unremarkable. Adrenal glands: Unremarkable. Kidneys: Right kidney- No hydronephrosis. No renal stones. Left kidney- No hydronephrosis. No renal stones. Distal esophagus/stomach: Unremarkable. Small bowel loops: Mildly distended segments, fluid contents. A few foci of minimal wall thickening. Colon: Diverticula. Normal caliber and wall thickness. Normal RLQ appendix. Fluid contents proximally. Nodes: No enlarged nodes. Peritoneum: No ascites. No free air. Subtle omental haziness. Urinary bladder: Unremarkable. Prostate: Unremarkable. Bones: No acute bony abnormality. Soft tissues: Unremarkable. Aorta: No aneurysm or dissection. IVC: Unremarkable. Main portal vein/SMV/splenic vein: Patent. IMPRESSION: 1. Mild enteritis. 2. Impending diarrheal state. 3. Otherwise no acute abnormality. Reviewed, dictated and finalized at location R. ERY PARTS ASSEMBLER
--- OUTSIDE RECORDS SUMMARY | 2025-11-11 22:54 | XMS_ITS | Clinical Summary ---
Author Organization [facility] Address [address] [place] [address] Care Team Providers Care Seed Service Advisor Name Role Phone Unavailable Primary Care Provider Unavailabl e Source Comments [facility],non-owned Affiliates and Associated Physician Practices is amultiple site organization consisting of ambulatory clinics and hospital sitesin [place], [place], [place] and [place]. This disclosure is being madepursuant to the Care Everywhere program and may not contain all information available regarding this patient. Last updated 18.[facility] Allergies No known active allergies Medications * [...] Comments Blood Pressure 154/111 09/30/2023 3:55 PM TENDER COORDINATOR Pulse 108 09/30/2023 3:55 PM TENDER COORDINATOR Temperature 36.6 C (97.9 F) 09/30/2023 3:55 PM TENDER COORDINATOR Respiratory Rate 19 09/30/2023 3:55 PM TENDER COORDINATOR Oxygen Saturation 100% 09/30/2023 3:55 PM TENDER COORDINATOR Inhaled Oxygen Concentration - - Weight 104.3 kg (230 lb) 09/30/2023 3:55 PM TENDER COORDINATOR Height 198.1 cm (6' 6) 09/30/2023 3:55 PM TENDER COORDINATOR Body Mass Index 26.58 09/30/2023 3:55 PM TENDER COORDINATOR Plan of Treatment Health Maintenance Due Date [...] ORDERABLE S Final Result Performing Organization Address City/State/[facility] de Phone Number [facility] [address] [place] [address], [facility] [phone] from Last 3 Months or Most Recently Relevant to Health Maintenance Insurance [facility] * Guarantor: ANTHONY PFEIFFER Account Type Relation to Patient Date of Phone Billing Address Personal/Family [address] [place] [address] Advance Directives * Full Code (Latest Code Status on File) Date Activated Date Inactivated Comments 04/21/2021 8:18 PM 04/22/2021 12:59 AM
--- OUTSIDE RECORDS SUMMARY | 2025-11-11 22:54 | XMS_ITS | Clinical Summary ---
Author Organization [facility] Address [facility] [place] [address] Care Team Providers Care Commercial Development Manager Name Role Phone None, Provider MD Primary [...] Comments Blood Pressure 168/109 01/14/2024 8:53 PM BUSINESS DEVELOPMENT REPRESENTATIVE Pulse 92 01/14/2024 8:03 PM BUSINESS DEVELOPMENT REPRESENTATIVE Temperature 36.6 C (97.8 F) 01/14/2024 8:03 PM BUSINESS DEVELOPMENT REPRESENTATIVE Respiratory Rate 20 01/14/2024 8:03 PM BUSINESS DEVELOPMENT REPRESENTATIVE Oxygen Saturation 97% 01/14/2024 8:03 PM BUSINESS DEVELOPMENT REPRESENTATIVE Inhaled Oxygen Concentration - - Weight 104.3 kg (230 lb) 01/14/2024 8:03 PM BUSINESS DEVELOPMENT REPRESENTATIVE Height 198.1 cm (6' 6) 01/14/2024 8:03 PM BUSINESS DEVELOPMENT REPRESENTATIVE Body Mass Index 26.58 01/14/2024 8:03 PM BUSINESS DEVELOPMENT REPRESENTATIVE Plan of Treatment Health Maintenance Due [...] to complete this topic Insurance Care Teams Commercial Development Manager Relationship Specialty Start Date End Date None, Provider, PCP - General 08/05/20
--- OUTSIDE RECORDS SUMMARY | 2025-11-11 22:54 | XMS_ITS | Encounter Summary ---
Author Organization [facility] Healthcare Address [address] [place] [address] Care Team Providers Care Construction Job Titles Name Role Phone Miscellaneous, Not In File Primary Care Provider Unavailable Encounter Details Date Type Department Care Team (Late st Contact Info) Description 10/26/2024 Orders Only [facility] Health Information Management [address] [place] [address] Scanning, Provider Social History Tobacco Use Types [...] on file Legal Sex Male 6:24 PM PARTS FACILITATOR Gender Identity Not on file Sexual Orientation Not on file documented as of this encounter Plan of Treatment Not on file documented as of this encounter Procedures Procedure Name Priority Date/Time Associated Diagnosis Comments CARDIOLOGY DOCUMENT SCAN 10/26/2024 9:29 PM PARTS FACILITATOR documented in this encounter Results * Cardiology Document Scan (10/26/2024 9:29 PM PARTS FACILITATOR) Anatomical Region Laterality Modality Other us Provider Scanning CV CARDIAC SERVICES PROCEDURES Final Result documented in this encounter Visit Diagnoses Not on filedocumented in this encounter Care Teams Construction Job Titles Relationship Specialty Start Date End Date Miscellaneous, Not In File PCP - General 08/16/23 documented as of this encounter
--- OUTSIDE RECORDS SUMMARY | 2025-11-11 22:54 | XMS_ITS | Clinical Summary ---
Author Organization [facility] Address [address] [place] [address] Care Team Providers Care Bill Sorter Name Role Phone Miscellaneous, Not In File [...] Encounters Date Type Department Care Team Description 11/01/2025 Orders Only [facility] Cardiology [address] [place] [address] Zina Forbes MD 10/03/2025 Orders Only [facility] Cardiology [address] [place] [address] Brando Nazario MD from Last 3 Months Surgical History [...] on file Legal Sex Male 6:24 PM PORT CDL A DRIVER Gender Identity Not on file Sexual Orientation Not on file Last Filed Vital Signs Vital Sign Reading Time Taken Comments Blood Pressure 162/109 03/02/2024 11:43 AM CDT Pulse 77 03/02/2024 11:43 AM CDT Temperature 36.4 C (97.5 F) 03/02/2024 11:43 AM CDT Respiratory Rate 18 11/07/2023 3:46 PM PORT CDL A DRIVER Oxygen Saturation 94% 03/02/2024 11: 43 AM [...] SCDM series) 2016 Covid-19 Vaccine (3 - season) 2025, 05/10/2021 Influenza Vaccine (#1) 2025 DTaP/Tdap/Td Vaccine (3 - Td or Tdap) 04/21/203103/2021, 09/18/2015 Medical Devices Implanted Type Area Belly Dump Driver Device Identifier Shelf Expiration Date Model / Serial / Lot [employer]/C R Bard Mesh Surgical Mid Anatomical Synthetic Patch 3dmax 4x6in [id number] - [id number] Implanted:Qty: 1 on 11/07/2023 by Lexx Jesus MD at [facility] Right: Abdomen [employer]/C R Bard 04/13/2028 [id number] / / [id number] [employer]/C R Bard Mesh Surgical Inguinal Hernia Synthetic Patch 3dmax 4x6in [id number] - [id number] Implanted:Qty: 1 on 11/07/2023 by Lexx Jesus MD at [facility] Left: Abdomen [employer]/C R Bard 03/14/2028 [id number] / / [id number] Procedures Procedure Name Priority Date/Time Associated Diagnosis Comments CARDIOLOGY DOCUMENT SCAN Routine 10/18/2025 5:12 PM PORT CDL A DRIVER CARDIOLOGY DOCUMENT SCAN Routine 10/17/2025 5:11 PM PORT CDL A DRIVER CARDIOLOGY DOCUMENT SCAN Routine 09/28/2025 1:48 PM PORT CDL A DRIVER from Last 3 Months Results * Cardiology Document Scan (10/18/2025 5:12 PM PORT CDL A DRIVER) Anatomical Region Laterality Modality Other Zina Forbes MD CV CARDIAC SERVICES PROCEDU RES Final Result * Cardiology Document Scan (10/17/2025 5:11 PM PORT CDL A DRIVER) Anatomical Region Laterality Modality Other us Zina Forbes MD CV CARDIAC SERVICES PROCEDU RES Final Result * Cardiology Document Scan (09/28/2025 1:48 PM PORT CDL A DRIVER) Anatomical Region Laterality Modality Other us Brando Nazario MD CV CARDIAC SERVICES PROCEDURES F inal Result from Last 3 Months Insurance [facility] Care Teams Bill Sorter Relationship Specialty Start Date End Date Miscellaneous, Not In File PCP - General 08/16/23
--- OUTSIDE RECORDS SUMMARY | 2025-11-11 22:55 | XMS_ITS | Encounter Summary ---
Author Organization [facility] Healthcare Address [address] [place] [address] Care Team Providers Care Criminalist Technician Name Role Phone Miscellaneous, Not In File Primary Care Provider Unavailable Encounter Details Date Type Department Care Team (Late st Contact Info) Description 10/28/2024 Orders Only [facility] Health Information Management [address] [place] [address] Scanning, Provider Social History Tobacco Use Types [...] on file Legal Sex Male 6:24 PM FILLING AND STAPLING MACHINE OPERATOR Gender Identity Not on file Sexual Orientation Not on file documented as of this encounter Plan of Treatment Not on file documented as of this encounter Procedures Procedure Name Priority Date/Time Associated Diagnosis Comments SCAN - RADIOLOGY/IMAGING 10/28/2024 9:29 PM FILLING AND STAPLING MACHINE OPERATOR documented in this encounter Results * SCAN - RADIOLOGY/IMAGING (10/28/2024 9:29 PM FILLING AND STAPLING MACHINE OPERATOR) Anatomical Region Laterality Modality Other us Provider Scanning Final Result documented in this encounter Visit Diagnoses Not on filedocumented in this encounter Care Teams Criminalist Technician Relationship Specialty Start Date End Date Miscellaneous, Not In File PCP - General 08/16/23 documented as of this encounter
[2025-11-11 22:56] VITALS: BP 159/126; PULSE 97; RESP 16; TEMP 36.1; O2SAT 100
[2025-11-12 02:00] LABS: Hematocrit 50.3 % (42.0-52.0); Hemoglobin 16.8 g/dL (14.0-18.0); Immature Granulocyte Percent A 0.0 % (0-0.5); Lymphocytes Absolute Auto 0.91 K/mm3 (0.9-3.2); Mean Corpuscular HGB Conc 33.4 g/dl (32-36); Mean Corpuscular Hemoglobin 31.1 pg (26-34); Mean Corpuscular Volume 93.1 fl (80-100); Nucleated Red Blood Cells Absolute Auto 0.000 K/mm3 (0.0-0.012); Nucleated Red Blood Cells Perc 0.0 % (0.0-0.2); Platelet Count Result 225 k/mm3 (150-375); Red Blood Count 5.40 M/mm3 (4.6-6.20); White Blood Count 4.3 K/mm3 (4.5-10.0)
[2025-11-12 02:02] VITALS: BP 173/124; PULSE 89; RESP 16; O2SAT 100
[2025-11-12 02:08] LABS: Add Urine Microscopic? YES; Appearance Urine Clear (Clear); Glucose Urine UA Negative (Negative); Leukocyte Esterase Ur Negative LEU/UL (Negative); Nitrate Urine Negative (Negative); Specific Grav Ur 1.031 (1.001-1.035)
[2025-11-12 02:09] LABS: Alanine Aminotransferase 57 U/L (6-50); Albumin Level 4.2 g/dL (3.5-5.1); Alkaline Phosphatase 65 U/L (38-126); Anion Gap 8 mmol/L (4-12); Aspartate Amino Transferase 42 U/L (17-59); Bilirubin,Total 1.5 mg/dL (0.2-1.3); Blood Urea Nitrogen 18 mg/dL (9-20); Calcium 9.3 mg/dL (8.4-10.2); Carbon Dioxide 27 mmol/L (22-30); Chloride 106 mmol/L (98-107); Estimated CRCL calculation 114 ml/min; Estimated Glomerular Filt Rate 60; Glucose 107 mg/dL (65-110); Lipase 103 U/L (23-300); Potassium 4.7 mmol/L (3.4-5.0); Sodium 141 mmol/L (137-145); Total Protein 7.8 g/dL (6.3-8.2)
--- NOTE | 2025-11-12 02:17 | ED_ITS ---
HPI - Nausea/Vomiting/Diarrhea General Chief complaint: Nausea/Vomiting/Diarrhea Stated complaint: vomiting Time Seen by Provider: 11/12/25 01:58 Source: patient Mode of arrival: ambulatory Limitations: no limitations History of Present Illness HPI Narrative: Patient presents with report of vomiting for 3-4 hours, with 4 episodes of nonbloody emesis. History of GERD but reports not having meds for this at home. He is experiencing abdominal pain. Also reports having both diarrhea and constipation today. History of hernia repair. Doesn't know if he has had a fever. He is also concerned because he has heart problems but reports that his medications were impounded with his car and he needs these medications although he doesn't know any of them, even when they are read to him he does not think any of them sound familiar. Says it has been awhile since he saw his PCP - thinks it is a Dr Islas. He denies having any issues related to his heart currently, only that he is concerned it could become a problem given he is without his meds. Related Data Allergies Allergy/AdvReac Type Severity Reaction Status Date / Time No Known Allergies Allergy Unknown Verified 11/11/25 22:59 [facility] Past Medical History Medical History Hypertension Biventricular heart failure with reduced left ventricular function Cardiomyopathy Echocardiogram 10/2024: Severely reduced left ventricular systolic function with EF of 20-25%, right ventricle mildly dilated with reduced systolic function Cannabinoid hyperemesis syndrome Non-ST elevation [place] (NSTEMI) (10/2024) Lexiscan stress echo demonstrating EF of 37% with normal perfusion Methamphetamine addiction IV Hepatitis C infection Marijuana use Surgical History Surgical History (Updated 11/13/25 @ 08:18 by Leonor Figueroa MD) H/O hernia repair History of orthopedic surgery Family History Family History Father Acute myocardial infarction Social History Social History (Updated 10/15/25 @ 06:38 by Yolanda Bartholomew APRN) Social History: The patient is essentially homeless and lives between various friends residences. 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 He uses ?ice? (crystal meth) which he injects daily. He reports that he ?recently started vaping?. When asked about alcohol use the patient declined the answer. Code status: Full code Smoking status: Never smoker Tobacco type: e-cigarettes/vaping Additional smoking assessment comments: Smokes cigarette(s) Vapes. Alcohol intake: never Substance use: current Substance use type: marijuana and methamphetamine Last use: 10/14/2025 Lack of Transportation: No Lack of Food: Never True Current Housing: I Do Not Have Housing Concerned About Future Housing: YES Difficulty Paying Gas/Electric Bills: No Difficulty Paying for Meds: No Currently Unemployed: YES Education: High School Diploma/GED Difficulty w/ Childcare or Family Care: No Gender identity (if verbalized by the patient): Male Spiritual care concerns: No Exam 2 Narrative: GENERAL: Well-appearing, well-nourished, and in no acute distress. HEAD: Normocephalic, atraumatic. EYES: Non injected, non icteric ENT: Nares clear, no rhinorrhea or epistaxis. Gross auditory acuity intact. NECK: Supple. No meningismus. CHEST: Speaking in full sentences. No respiratory distress. HEART: Regular rate and rhythm. . ABDOMEN: Obese but Soft, nondistended. Mild TTP throughout, particularly epigastrium, and RUQ/LUQ but No rigidity or guarding. Not peritoneal EXTREMITIES: Normal range of motion. SKIN: Warm, dry, no rash. NEURO: No focal deficits. Alert and oriented. Answering questions. Following commands. Normal speech without aphasia or dysarthria. PSYCH: Congruent mood and affect. Course Vital Signs Vital signs: Vital Signs Temperature 97 F L 11/11/25 22:56 Pulse Rate 97 11/11/25 22:56 Respiratory Rate 16 11/11/25 22:56 Blood Pressure 159/126 H 11/11/25 22:56 Pulse Oximetry 100 11/11/25 22:56 Oxygen Delivery Room Air 11/11/25 22:56 Temperature 97 F L 11/11/25 22:56 Pulse Rate 98 11/12/25 09:35 Respiratory Rate 16 11/12/25 09:35 Blood Pressure 167/104 H 11/12/25 09:35 Pulse Oximetry 100 11/12/25 09:35 Oxygen Delivery Room Air 11/11/25 22:56 [facility] MDM Narrative Medical decision making narrative: Patient presents with abdominal pain, nausea/nonbloody emesis. Also reports both diarrhea and constipation today. In addition, he reports being out of his heart medications and needing refills. In the emergency department he is afebrile with vital signs notable for hypertension. Had previously been prescribed protonix 20 qhs per review of EMR. Although history of cannabinoid hyperemesis syndrome and this may be the case today, he has more tenderness of exam than would expect for this so will proceed with CT imaging in addition to giving Zofran, morphine and Famotidine. Mild leukopenia, previously intemitently seen. Isolated ALT elevation has intermittently been seen. Creatinine slightly elevated from baseline. Will give 500cc IV fluids. Lipase normal. Proteinuria. Will also give protonix. Viral swab negative. UDS positive for amphetamines and cannabinoids. Patient is quite somnolent on repeat assessment at approximately 4:00 a.m.. He is resting comfortably. He states his symptoms are improving. Abdomen is more soft less tender although he does occasionally grimace during exam. Will give GI cocktail. From DC summary 10/18/25: Guideline directed medical therapy-continue Coreg, Entresto, spironolactone and Empagliflozin Can discharge on 20 mg PO lasix daily prn if weight increases more than 3 pounds in 24 hours = These medications are re-prescribed. Advised abstaining from drugs and following up with pcp for this as well as further medication refills. Differential Diagnosis Differential Diagnosis: Gastritis, pancreatitis, constipation, gastroenteritis, biliary pathology, cannabinoid hyperemesis syndrome; ACS; diarrhea; acute viral syndrome; GERD; drug side effect; diverticulitis; PUD Medical Records I have reviewed the following patient records and this information was taken into consideration when formulating the assessment and plan.: previous labs and previous ER visits Lab Data MDM Lab Attestation statement: I personally reviewed the patient's lab results. 11/12/25 01:51 11/12/25 01:51 Labs: Lab Results 11/12/25 Range/Units 01:51 WBC 4.3 L (4.5-10.0) K/mm3 RBC 5.40 (4.6-6.20) M/mm3 Hgb 16.8 (14.0-18.0) g/dL Hct 50.3 (42.0-52.0) % MCV 93.1 (80-100) fl MCH 31.1 (26-34) pg MCHC 33.4 (32-36) g/dl RDW 13.4 (11.5-14.5) % Plt Count 225 (150-375) k/mm3 MPV 9.4 (7.4-10.4) fl Immature Gran % (Auto) 0.0 (0-0.5) % Neut % (Auto) 73.2 H (45.5-73.1) % Lymph % (Auto) 21.2 (18.3-44.2) % [place] % (Auto) 4.2 (2.6-8.5) % Eos % (Auto) 1.2 (0-4.4) % Baso % (Auto) 0.2 (0.2-1.2) % Lymph # (Auto) 0.91 (0.9-3.2) K/mm3 [place] # (Auto) 0.2 (0.1-0.6) K/mm3 Eos # (Auto) 0.1 (0-0.3) K/mm3 Baso # (Auto) 0.0 (0.0-0.1) K/mm3 Abs Immat Gran (auto) 0.00 (0.00-0.031) K/mm3 Absolute Neuts (auto) 3.1 (1.3-6.7) K/mm3 Absolute Nucleated RBC 0.000 (0.0-0.012) K/mm3 Nucleated RBC % 0.0 (0.0-0.2) % Sodium 141 (137-145) mmol/L Potassium 4.7 (3.4-5.0) mmol/L Chloride 106 (98-107) mmol/L Carbon Dioxide 27 (22-30) mmol/L Anion Gap 8 (4-12) mmol/L BUN 18 (9-20) mg/dL Creatinine 1.35 H (0.7-1.3) mg/dL Estim Creat Clear Calc 114 ml/min Estimated GFR 60 (59 - ) Glucose 107 (65-110) mg/dL Calcium 9.3 (8.4-10.2) mg/dL Total Bilirubin 1.5 H (0.2-1.3) mg/dL AST 42 (17-59) U/L ALT 57 H (6-50) U/L Alkaline Phosphatase 65 (38-126) U/L Total Protein 7.8 (6.3-8.2) g/dL Albumin 4.2 (3.5-5.1) g/dL Lipase 103 (23-300) U/L Urine Color Dark yellow (Yellow) Urine Appearance Clear (Clear) Urine pH 5.0 (5.0-9.0) Ur Specific [place] 1.031 (1.001-1.035) Urine Protein 2+ H (Negative) mg/dL Urine Glucose (UA) Negative (Negative) mg/dL Urine Ketones Trace H (Negative) mg/dL Ur Blood (Man) Negative (Negative) Urine Nitrate Negative (Negative) Urine Bilirubin Negative (Negative) Urine Urobilinogen 1.0 (<2.0) mg/dL Leukocyte Esterase Rfl Negative (Negative) PATRICIA/UL Urine RBC 0-2 (0-2) /hpf Urine WBC 0-5 (0-3) /hpf Ur Squamous Epith Cells None seen (Few) /hpf Urine Bacteria None seen /hpf Urine Casts 3-5 Urine Opiates Screen Negative (Negative) Urine Methadone Screen Negative (Negative) Ur Barbiturates Screen Negative (Negative) Ur Phencyclidine Scrn Negative (Negative) Ur Amphetamine Screen Positive A (Negative) U Benzodiazepines Scrn Negative (Negative) Urine Cocaine Screen Negative (Negative) U Cannabinoids Screen Positive A (Negative) Influenza A (RT-PCR) Negative (Negative) Influenza B (RT-PCR) Negative (Negative) SARS-CoV-2 RNA (RT-PCR) Negative (Negative) Imaging Data Radiologist's impression: ITS Impressions Abdomen/Pelvis CT 11/12/25 08:56 IMPRESSION: 1. Mild enteritis. 2. Impending diarrheal state. 3. Otherwise no acute abnormality. ECG Data EKG #1: Attestation: I personally reviewed and interpreted this ECG as follows: ECG completion date: 11/12/25 ECG completion time: 06:25 Interpretation: Sinus tachycardia at a rate of 105 beats per minute. MN interval 158. QRS 110. QT/QTC 359/476. Incomplete RBBB given QRS less [id number]; RSR' M-shaped pattern in V1-V3; wide, slurred S wave in lateral leads (I, aVL, and to a lesser extent V5-6). Left anterior fascicular block with rS complexes in leads II, III, aVF (small R waves, deep S waves), qR complexes in lead I , avL (small Q waves and tall R waves) and left axis deviation with Leads II, III and aVF negative and leads I and aVL positive. Discharge Plan Discharge Clinical Impression: Encounter for medication refill, Nausea and vomiting, Epigastric abdominal pain, Hypertension, Leukopenia, Elevated alanine aminotransferase (ALT) level, BE (acute kidney injury), Proteinuria, Amphetamine abuse, Marijuana use, Enteritis Patient Disposition: Home Condition: Stable Instructions: Antibiotic Form, Acute Kidney Injury (DC), Acute Nausea and Vomiting (DC), Chronic Hypertension (DC), Cannabis Use Disorder (ED), Methamphetamine Use Disorder (ED), Epigastric Pain (ED), Enteritis (ED) Additional Instructions: Your pantoprazole/Protonix which is a medication the previously took for GERD has been refilled as have your cardiac medications. It is important that you follow-up with your primary care physician for continued monitoring/management and subsequent refills. Your CT scan showed enteritis which is non-specific inflammation of the small intestine. Can use the ondansetron/Zofran for persistent nausea and the Bentyl/dicyclomine works on the smooth muscle of the GI tract. Rest and maintain your hydration. Refrain from using amphetamines and marijuana. Patient Language: Arabic Prescriptions: New carvedilol [Coreg] 12.5 mg tablet 12.5 mg PO BID 30 Days Qty: 60 0RF Rx Instructions: must administer with a meal/food spironolactone 25 mg tablet 25 mg PO QAM 30 Days Qty: 30 0RF empagliflozin 10 mg tablet 10 mg PO DAILY Qty: 30 0RF sacubitril-valsartan [Entresto] 49-51 mg tablet 1 tablet PO BID 30 Days Qty: 60 0RF furosemide [Lasix] 20 mg tablet 20 mg PO DAILY PRN (Reason: weight gain) Qty: 14 0RF Rx Instructions: for >3 lbs weight gain in 24 hours pantoprazole [Protonix] 20 mg tablet,delayed release (DR/EC) 20 mg PO HS 28 Days Qty: 28 0RF dicyclomine 20 mg tablet 20 mg PO BID Qty: 20 0RF ondansetron 4 mg tablet,disintegrating 4 mg PO Q8H PRN (Reason: nausea and vomiting) Qty: 7 0RF No Action carvedilol [Coreg] 12.5 mg Tablet 12.5 mg PO Q12HR 30 Days Qty: 60 0RF doxycycline hyclate 100 mg Tablet 100 mg PO Q12HR 2 Days Qty: 3 0RF amoxicillin-pot clavulanate 875-125 mg tablet 1 tablet PO Q12H 1 Days Qty: 1 0RF Rx Instructions: take this last dose tonight at bedtime spironolactone 25 mg Tablet 25 mg PO QAM 30 Days Qty: 30 0RF pantoprazole [Protonix] 20 mg Tablet,Delayed Release (Dr/Ec) 20 mg PO HS 30 Days Qty: 30 0RF Jardiance 10 mg Tablet 10 mg PO DAILY 30 Days Qty: 30 0RF sacubitril-valsartan [Entresto] 49-51 mg Tablet 1 tablet PO Q12HR 30 Days Qty: 60 0RF furosemide [Lasix] 20 mg tablet 20 mg PO DAILY PRN (Reason: weight gain/swelling/shortness of breath) 30 Days Qty: 30 0RF Follow-up/Referrals: Tj Mar MD [Primary Care Provider, Family Practice] Stand Alone Forms: Work/School Release IP Time of Disposition: 09:13
--- NOTE | 2025-11-12 02:37 | ECG_ITS ---
Test Date: 2025-11-12 06:25:32 Measurements Intervals [place] Rate: 105 P: 72 MO: 158 QRS: -47 QRSD: 110 T: 48 QT: 359 QTc: 476 Interpretive Statements SINUS TACHYCARDIA POSSIBLE RIGHT ATRIAL ENLARGEMENT LEFT ATRIAL ENLARGEMENT INCOMPLETE RIGHT BUNDLE BRANCH BLOCK LEFT ANTERIOR FASCICULAR BLOCK NONSPECIFIC T-WAVE ABNORMALITY- ANTEROLAT/HIGH LAT LEADS BASELINE WANDER- I, II, AVR, AVL, AVF ABNORMAL ECG Compared to ECG 10/14/2025 23:12:23 HEART RATE HAS INCREASED Left anterior fascicular block now present Electronically Signed On 11-12-2025 09:13:52 MONORAIL CRANE OPERATOR by Doc Claudio D.O.
[2025-11-12 02:38] LABS: Influenza A QL RT-PCR Negative (Negative); Influenza B QL RT-PCR Negative (Negative); SARS-CoV-2 RNA PCR Negative (Negative)
--- OUTSIDE RECORDS SUMMARY | 2025-11-12 02:50 | XMS_ITS | Clinical Summary ---
Author Organization [facility] Address Formerly [facility] [place] [address] Care Team Providers Care J2Ee Programmer Name Role Phone None, Provider MD Primary [...] Comments Blood Pressure 168/109 01/14/2024 8:53 PM ASSISTANT FITNESS MANAGER Pulse 92 01/14/2024 8:03 PM ASSISTANT FITNESS MANAGER Temperature 36.6 C (97.8 F) 01/14/2024 8:03 PM ASSISTANT FITNESS MANAGER Respiratory Rate 20 01/14/2024 8:03 PM ASSISTANT FITNESS MANAGER Oxygen Saturation 97% 01/14/2024 8:03 PM ASSISTANT FITNESS MANAGER Inhaled Oxygen Concentration - - Weight 104.3 kg (230 lb) 01/14/2024 8:03 PM ASSISTANT FITNESS MANAGER Height 198.1 cm (6' 6) 01/14/2024 8:03 PM ASSISTANT FITNESS MANAGER Body Mass Index 26.58 01/14/2024 8:03 PM ASSISTANT FITNESS MANAGER Plan of Treatment Health Maintenance Due [...] to complete this topic Insurance Care Teams J2Ee Programmer Relationship Specialty Start Date End Date None, Provider, PCP - General 08/05/20
--- OUTSIDE RECORDS SUMMARY | 2025-11-12 02:50 | XMS_ITS | Encounter Summary ---
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 ROUTE INSPECTOR Gender Identity Not on file Sexual Orientation Not on file documented as of this encounter Plan of Treatment Not on file documented as of this encounter Procedures Procedure Name Priority Date/Time Associated Diagnosis Comments CARDIOLOGY DOCUMENT SCAN 10/26/2024 9:29 PM ROUTE INSPECTOR documented in this encounter Results * Cardiology Document Scan (10/26/2024 9:29 PM ROUTE INSPECTOR) Anatomical Region Laterality Modality Other us Provider Scanning CV CARDIAC SERVICES PROCEDURES Final Result documented in this encounter Visit Diagnoses Not on filedocumented in this encounter Care Teams Pathology Technologist Relationship Specialty Start Date End Date Miscellaneous, Not In File PCP - General 08/16/23 documented as of this encounter
--- OUTSIDE RECORDS SUMMARY | 2025-11-12 02:50 | XMS_ITS | Encounter Summary ---
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 Gender Identity Not on file Sexual Orientation Not on file documented as of this encounter Plan of Treatment Not on file documented as of this encounter Procedures Procedure Name Priority Date/Time Associated Diagnosis Comments SCAN - RADIOLOGY/IMAGING 10/28/2024 9:29 PM INDUSTRIAL HYGIENE ENGINEER documented in this encounter Results * SCAN - RADIOLOGY/IMAGING (10/28/2024 9:29 PM INDUSTRIAL HYGIENE ENGINEER) Anatomical Region Laterality Modality Other us Provider Scanning Final Result documented in this encounter Visit Diagnoses Not on filedocumented in this encounter Care Teams Hand Touch Up Painter Relationship Specialty Start Date End Date Miscellaneous, Not In File PCP - General 08/16/23 documented as of this encounter
--- OUTSIDE RECORDS SUMMARY | 2025-11-12 02:50 | XMS_ITS | Clinical Summary ---
Author Organization [facility] [employer] Address [address] [place] [address] Care Team Providers Care Enginehouse Brakeman Name Role Phone Unavailable Primary Care Provider Unavailabl e Source Comments [facility],non-owned Affiliates and Associated Physician Practices is amultiple site organization consisting of ambulatory clinics and hospital sitesin [place], [place], [place] and [place]. This disclosure is being madepursuant to the Care Everywhere program and may not contain all information available regarding this patient. Last updated 18.[facility] [employer] Allergies No known active allergies Medications * [...] Comments Blood Pressure 154/111 09/30/2023 3:55 PM LOG CARRIER OPERATOR Pulse 108 09/30/2023 3:55 PM LOG CARRIER OPERATOR Temperature 36.6 C (97.9 F) 09/30/2023 3:55 PM LOG CARRIER OPERATOR Respiratory Rate 19 09/30/2023 3:55 PM LOG CARRIER OPERATOR Oxygen Saturation 100% 09/30/2023 3:55 PM LOG CARRIER OPERATOR Inhaled Oxygen Concentration - - Weight 104.3 kg (230 lb) 09/30/2023 3:55 PM LOG CARRIER OPERATOR Height 198.1 cm (6' 6) 09/30/2023 3:55 PM LOG CARRIER OPERATOR Body Mass Index 26.58 09/30/2023 3:55 PM LOG CARRIER OPERATOR Plan of Treatment Health Maintenance Due Date [...] Non-react jerri 08/12/2020 10:05 PM CDT [facility] Comment:Neither HIV-1 p24 An tigen nor HIV-1/HIV-2 Antibodies are detected. Blood BLOOD SPECIMEN / Unknown Venipuncture / Unknown 08/12/2020 8:15 PM CDT 08/12/2020 6:14 PM CDT Giulia Shaw MD LAB - HEMATOLOGY ORDERABLE S Final Result Performing Organization Address City/State/[facility] de Phone Number [facility] [address] [place] [address], [facility] [phone] from Last 3 Months or Most Recently Relevant to Health Maintenance Insurance [facility] * Guarantor: ANTHONY PFEIFFER Account Type Relation to Patient Date of Phone Billing Address Personal/Family [address] [place] [address] Advance Directives * Full Code (Latest Code Status on File) Date Activated Date Inactivated Comments 04/21/2021 8:18 PM 04/22/2021 12:59 AM
[2025-11-12] MEDS: FAMOTIDINE 20 MG/2 ML VIAL IV PUSH (02:51)
[2025-11-12] MEDS: ONDANSETRON INJ 4 MG/2 ML VIAL IV PUSH (02:51)
[2025-11-12] MEDS: PANTOPRAZOLE SODIUM IV 40 MG VIAL IV PUSH (02:51)
[2025-11-12] MEDS: MORPHINE SULFATE (*CRX) 4 MG/ML INJ IV PUSH (02:51)
[2025-11-12] MEDS: SODIUM CHLORIDE 0.9% IV 500 ML 999 ML IV CONT (02:51)
[2025-11-12 03:52] LABS: Cannabinoid Screen Urine Positive (Negative)
[2025-11-12] MEDS: BELLADONNA ALK/PHENOB ELIX 10 ML, MAG HYDROX/ALUMINUM HYD/SIMETH 30 ML, LIDOCAINE 2% VI... PO (04:09)
[2025-11-12 07:00] VITALS: BP 159/120; PULSE 95; RESP 17; O2SAT 100
[2025-11-12 08:00] VITALS: BP 159/110; PULSE 100; RESP 16; O2SAT 99
[2025-11-12] MEDS: DICYCLOMINE HCL 10 MG CAPSULE 20 MG PO (09:31)
[2025-11-12 09:35] VITALS: BP 167/104; PULSE 98; RESP 16; O2SAT 100
== END 2025-11-12 09:45 | disposition home or self-care (01) ==
PROVIDERS: Physician Assistant; Emergency Provider Student in an Organized Health Care Education/Training Program; PCP Emergency Medicine
DX: K52.9 Noninfective gastroenteritis and colitis, unspecified (principal); N17.9 Acute kidney failure, unspecified; D72.819 Decreased white blood cell count, unspecified; R74.01 Elevation of levels of liver transaminase levels; R80.9 Proteinuria, unspecified; F15.10 Other stimulant abuse, uncomplicated; F12.90 Cannabis use, unspecified, uncomplicated; Z76.0 Encounter for issue of repeat prescription; R10.13 Epigastric pain; R11.2 Nausea with vomiting, unspecified; I25.2 Old myocardial infarction; I11.0 Hypertensive heart disease with heart failure; I50.9 Heart failure, unspecified; Z20.822 Contact with and (suspected) exposure to COVID-19
CPT/HCPCS: 36415; 74177; 80053; 80307; 81001; 83690; 85025; 87636; 93005; 96361; 96374; 96375; 99284; A9270; J2270; J2405; J2470; J7030; J7040; Q9967